=== PATIENT | male | born 1970 | race Caucasian/White ===

== ENCOUNTER 2020-09-09 14:38 | Outpatient (REF) | payer OTHER, SELFPAY | END 2020-09-09 14:39 | disposition home or self-care (01) | LOC: HO.LAB 14:38 | PROVIDERS: PCP Internal Medicine; Visit Provider Internal Medicine | DX: Z20.828 Contact with and (suspected) exposure to other viral communicable diseases (principal) | CPT/HCPCS: 87635 ==

== ENCOUNTER 2021-02-09 16:46 | Inpatient (IN) | payer OTHER, SELFPAY ==
[2021-02-09] VITALS (8 sets, daily range): BP systolic 89–107; BP diastolic 22–60; PULSE 98–109; RESP 18–28; TEMP 37–38.1; O2SAT 90–96; BMI 39.6
--- NOTE | ~2021-02-09 | XR_ITS ---
EXAMINATION: XR CHEST CLINICAL INFORMATION: Follow-up Covid Pneumonia. COMPARISON: None TECHNIQUE: Frontal view of the chest was obtained. FINDINGS: The lungs are well-expanded with patchy opacities seen in both lung bases likely resolving infiltrates. No pleural effusion is suspected. Tip of endotracheal tube is 5.2 cm above the marielena. Right jugular central catheter is in mid to distal SVC. Enteric tube tip is below the diaphragm in stomach. Heart size and pulmonary vascularity is normal. No gross bony abnormality seen. XR/XR chest 1V IMPRESSION: Diffuse haziness in both lung bases likely slowly resolving infiltrates. Support lines and catheters are in satisfactory position.
--- NOTE | ~2021-02-09 | XR_ITS ---
EXAMINATION: XR CHEST CLINICAL INFORMATION: Hypoxia. COMPARISON: Most recent chest radiograph dated 02/18/2021. TECHNIQUE: Frontal view of the chest was obtained. FINDINGS: Diffuse, patchy bilateral airspace opacities which have slightly increased in prominence when compared to the chest radiograph dated 02/18/2021. No pleural effusion or pneumothorax. Stable cardiomediastinal silhouette. No acute osseous abnormality. XR/XR chest 1V IMPRESSION: Patchy bilateral airspace opacities, slightly increased in prominence when compared to the prior examination. Findings can be seen in the setting of an infectious or inflammatory process, including viral pneumonia.
--- NOTE | ~2021-02-09 | XR_ITS ---
EXAMINATION: CHEST 1 VIEW CLINICAL INFORMATION: Shortness of breath. COMPARISON: February 09, 2021. TECHNIQUE: An AP view of the chest is provided. FINDINGS: In the setting of low lung volumes, the cardiac silhouette is at the upper limits of normal in size. There is diffuse patchy airspace opacification throughout both lungs. There are neither pleural effusions nor pneumothoraces. The osseous structures are stable. XR/XR chest 1V IMPRESSION: Diffuse patchy airspace disease throughout both lungs. The appearance is nonspecific, though consider diagnosis of Covid.
--- NOTE | ~2021-02-09 | CT_ITS ---
EXAMINATION: CT ANGIOGRAM OF THE CHEST WITH AND WITHOUT CONTRAST (CT PULMONARY ANGIOGRAM FOR PE) CLINICAL INFORMATION: Reason for Exam COVID-19 with hypoxia COMPARISON: None TECHNIQUE: Prior to contrast administration, noncontrast localization images were obtained. Subsequently, multidetector volumetric imaging was performed from the thoracic inlet to below the diaphragms following the administration of 71 mL Omnipaque 350 intravenous contrast. No contrast reaction reported Sagittal, coronal, and MIP oblique sagittal reformatted images were obtained on the CT workstation, uploaded to PACS, and reviewed. This CT examination was performed using dose optimization techniques as appropriate, variously including the following: *Automated exposure control *Adjustment of mA and/or kV according to patient size (this includes techniques or standardized protocols for targeted exams where dose is matched to indication/reason for exam; i.e. extremities or head) *Use of iterative reconstruction technique Total exam dose-length product 549 mGy-cm FINDINGS: QUALITY OF STUDY/CONTRAST BOLUS: Satisfactory. PULMONARY ARTERIES: No central or segmental pulmonary emboli. THORACIC AORTA: No aneurysm or dissection. LUNG: Scattered groundglass infiltrates predominantly peripheral are present in all lobes of the lung highly suggestive of Covid 19 pneumonia. PLEURA: No pleural effusion or pneumothorax. MEDIASTINUM: Normal heart size. No pericardial effusion. Multiple small reactive mediastinal nodes are present but no gross hilar or mediastinal lymphadenopathy. No evidence of septal bowing or right heart strain. CHEST WALL/AXILLA: No axillary or internal mammary lymphadenopathy. OSSEOUS STRUCTURES: No acute or suspicious osseous abnormality. Degenerative changes are present in the spine. UPPER ABDOMEN: Unremarkable. No reflux of contrast into the hepatic veins to suggest elevated right heart pressures. CT/CT angio chest PE protocol IMPRESSION: 1. No pulmonary emboli. 2. Multifocal groundglass infiltrates characteristic of Covid 19 VTE: negative
--- NOTE | ~2021-02-09 | XR_ITS ---
EXAMINATION: XR CHEST CLINICAL INFORMATION: Intubated hypoxia COMPARISON: Prior examinations most recent 02/22/2021 TECHNIQUE: Frontal view of the chest was obtained. FINDINGS: Lines and tubes: The left internal jugular catheter noted with the tip overlying the region of the left brachiocephalic vein. I'm not certain whether not it this is simply projectional or may be turning back on itself Endotracheal tube 5 cm above marielena NG tube tip not well visualized in part related to imaging technique. Right IJ central venous catheter tip in region of SVC. There is diffuse increased opacity over the right lung which is increased compared to prior. Left lung unremarkable. Cardiac silhouette mediastinum pulmonary vascularity are unremarkable. XR/XR chest 1V IMPRESSION: The left IJ central venous catheter appears to been repositioned. I am not certain whether not the distal end of the catheter may be coiled back on itself This critical result was discussed with Dr. Pablo at approximately 1:00 PM on February 24, 2021 and it was ascertained that the content and urgency of the report was understood at the time of direct communication. Dr. Pablo indicated that the catheter was working well. This makes malposition unlikely. Repeat radiograph may help confirm adequate positioning of the catheter. New increased opacity in the right lung which could reflect atypical edema or new consolidation.
--- NOTE | ~2021-02-09 | XR_ITS ---
EXAMINATION: XR CHEST CLINICAL INFORMATION: Dialysis catheter placement COMPARISON: February 21, 2021 TECHNIQUE: AP portable chest view of the chest was obtained. FINDINGS: Endotracheal tube tip lies approximately 6 cm above the marielena. Enteric tube is seen traversing to the stomach. Right internal jugular central venous catheter is seen in place with tip in the superior right atrium. Left internal jugular dialysis catheter tip overlying the right apex and may lie within the right internal jugular vein. No pneumothorax. No significant pleural effusion. Heart normal size. There are again noted to be bilateral regions of patchy interstitial and airspace disease. XR/XR chest 1V IMPRESSION: Left internal jugular dialysis catheter tip misdirected and probably lying within the right subclavian vein or less likely extravascular. No pneumothorax. Continued bilateral regions of interstitial and airspace disease. This critical result was discussed with Dr. Pablo at 2:30 PM on February 22, 2021 and it was ascertained that the content and urgency of the report was understood at the time of direct communication.
--- NOTE | ~2021-02-09 | XR_ITS ---
EXAMINATION: CHEST 1 VIEW CLINICAL INFORMATION: Hypoxia. COMPARISON: 02/12/2021. TECHNIQUE: An AP view of the chest is provided. FINDINGS: The cardiac silhouette is not enlarged. The mediastinal and hilar contours are unremarkable. There are neither pleural effusions nor pneumothoraces. There is again noted to be diffuse patchy airspace disease bilaterally. The osseous structures are stable. XR/XR chest 1V IMPRESSION: Diffuse patchy multifocal airspace disease again identified.
--- NOTE | ~2021-02-09 | US_ITS ---
EXAMINATION: US VENOUS ULTRASOUND WITH DOPPLER LOWER EXTREMITY, BILATERAL CLINICAL INFORMATION: COVID with severe hypoxemia. COMPARISON: None TECHNIQUE: Ultrasound of the deep veins is performed from the hip to the calf with compression sonography and color and pulse Doppler assessment. Spectral analysis with color-flow imaging is performed. FINDINGS: RIGHT: There is normal venous compression and respiratory variation and augmented flow. The visualized common femoral vein, superficial femoral vein, profunda femoral vein, popliteal vein, and the trifurcation region shows no evidence of deep venous thrombosis. There is no significant popliteal fossa cyst. Mild subcutaneous edema is seen in the left calf. LEFT: There is normal venous compression and respiratory variation and augmented flow. The visualized common femoral vein, superficial femoral vein, profunda femoral vein, popliteal vein, and the trifurcation region shows no evidence of deep venous thrombosis. There is no significant popliteal fossa cyst. Mild subcutaneous edema is seen in the left calf. If the patient's symptoms persist, followup ultrasound in 5 days 7 days might be of value to exclude proximal propagation from a non-visualized calf vein. US/US venous duplex LE BI IMPRESSION: 1. No evidence of deep venous thrombosis in the visualized veins of the bilateral lower extremities. 2. Mild subcutaneous edema in the calves bilaterally.
--- NOTE | ~2021-02-09 | XR_ITS ---
EXAMINATION: XR CHEST CLINICAL INFORMATION: Interval placement of right IJ line is since prior exam COMPARISON: Chest radiograph less than one hour ago TECHNIQUE: Frontal view of the chest was obtained. FINDINGS: Since the prior study a right IJ line has been placed and its tip is in good position at the SVC/RA junction. No pneumothorax. The ET tube has been pulled back slightly and is now about 5 cm above the marielena. The exam is otherwise unchanged. Diffuse bilateral airspace disease is again seen. XR/XR chest 1V IMPRESSION: Right IJ line placed without complication and is in good position.
--- NOTE | ~2021-02-09 | XR_ITS ---
EXAMINATION: XR CHEST CLINICAL INFORMATION: Tube placement COMPARISON: Chest x-ray earlier this morning TECHNIQUE: Frontal view of the chest was obtained. XR/XR chest 1V FINDINGS/IMPRESSION: Cardiac silhouette is mildly enlarged. Interval insertion of endotracheal tube which terminates approximately 3.4 cm above the level of the marielena. Enteric tube not visualized. Extensive patchy bilateral airspace disease is again appreciated, slightly worsened from this morning. Cannot exclude a small amount of subcutaneous emphysema within the bilateral axilla, however, I suspect this is due to skin folds. Further evaluation can be obtained with cross-sectional imaging if clinically indicated.
[2021-02-09 17:46] LABS: COVID-19 Test Positive (Negative); IDNOW Serial# 9DD0AD1C
--- NOTE | 2021-02-09 17:46 | ED_ITS ---
HPI - URI/Sore Throat General Chief Complaint: Upper Respiratory Symptoms Stated Complaint: Covid symptoms Time Seen by Provider: 02/09/21 17:46 Source: patient Mode of arrival: ambulatory Limitations: no limitations History of Present Illness HPI Narrative: Patient 50 years old with history of asthma been feeling very short of breath for last few days no fever no chills feels body aches tired, lives alone no other known contact with COVID patient has not received COVID vaccine on arrival patient is saturating 90% at room air temperature of 100.5 degrees Related Data Home Medications Medication Instructions Recorded Confirmed allopurinol 300 mg tablet 300 mg PO DAILY 10/24/20 02/09/21 colchicine 0.6 mg tablet 0.6 mg PO BID 10/24/20 02/09/21 fluticasone 232 mcg-salmeterol 14 1 inh PO BID 10/24/20 02/09/21 mcg/actuation breath activated powdr naproxen 500 mg tablet 500 mg PO BID 10/24/20 02/09/21 allopurinol 200 mg PO DAILY 02/09/21 02/09/21 Previous Rx's Medication Instructions Recorded metformin 500 mg tablet 500 mg PO BID #180 tab 09/01/20 lisinopril 40 mg tablet 40 mg PO DAILY 90 Days #90 tab 10/24/20 blood pressure test kit-large #1 12/06/20 blood sugar diagnostic #50 ea 12/06/20 blood-glucose meter #1 12/06/20 lancets 28 gauge #100 ea 12/06/20 grab bar #2 ea 01/12/21 shower seat #1 01/12/21 Allergies Allergy/AdvReac Type Severity Reaction Status Date / Time statins Allergy Unknown elevated Uncoded 12/06/20 17:04 liver enzymes Review of Systems Review of Systems: Constitutional : No Weight loss, No Fever, No Chills ENT/Mouth : No sore throat, No Rhinorrhea Eyes: No Eye Pain, No Swelling Cardiovascular : No Chest Pain, no palpitations Respiratory :++ Cough, No Sputum, ++ shortness of breath Gastrointestinal : no Nausea, No Vomiting, No Diarrhea, No abdominal Pain, no black stools Genitourinary : No Dysuria, No Urinary Frequency Musculoskeletal : No joint pain, No Myalgias, No Joint Swelling Skin : No Skin Lesions, No rash Neuro : No Weakness, No Numbness, No Dizziness, No Headache Psych : No Anxiety/Panic, No Depression Heme/Lymph: No Bruising, No Lymphadenopathy Endocrine : No Polyuria, No Polydipsia All other systems reviewed and are negative [facility] Past Medical History Medical History Asthma Diabetes mellitus Essential hypertension Gout Pure hypercholesterolemia Unsteady gait Surgical History No pertinent past surgical history Family History Family History Father Diabetes Cancer Hypertension Mother Diabetes Hypertension Paternal Grandmother Cancer Paternal Grandfather Cancer Social History Social History Alcohol intake: current Alcohol intake frequency: holidays/special occasions only Smoking Status: Former smoker Tobacco Type: Cigarette Smoked in Last 30 Days: No Use of substances other than those prescribed or required for medical reasons: No Advance Directives: No Advance Directives Information Provided: No Physical Exam Vital Signs: Vital Signs: Last Vital Signs Temp 98.6 F 02/09/21 22:38 Pulse 99 02/09/21 22:38 Resp 18 02/09/21 22:38 BP 107/60 02/09/21 22:38 Pulse Ox 93 02/09/21 22:38 Body Mass Index 39.6 Appearance: Alert. Oriented X3. No acute distress. Eyes: Pupils equal, round and reactive to light. ENT: Pharynx normal. Neck: Normal inspection. Neck supple. CVS: Normal heart rate and rhythm. Pulses normal. Respiratory: No respiratory distress. Prolonged expiration with rhonchi no coryza Abdomen: Soft and nontender. Bowel sounds are present, no mass palpable, no CVA tenderness Skin: Skin warm and dry. Normal skin color. Normal skin turgor. Extremities: No lower extremity edema. No calf tenderness Neuro: Oriented X 3. No motor deficit. No sensory deficit. MDM - URI/Sore Throat MDM Narrative Medical decision making narrative: Patient with COVID-19 with infiltrate and hypoxia CTA negative for PE requiring oxygen will admit patient for supportive treatment Differential Diagnosis Differential diagnosis: Likely upper respiratory infection Lab Data Attestation: I reviewed the patient's lab results. Result diagrams: 02/09/21 18:28 02/09/21 18:28 Labs: Lab Results 02/09/21 02/09/21 02/09/21 Range/Units 17:03 18:28 18:28 WBC (4.8-10.8) X10*3/uL RBC (4.60-5.80) X10*6/uL Hgb (14.0-18.0) g/dl Hct (42-52) % MCV (80-98) fL MCH (27.0-33.0) pg MCHC (31.0-36.0) g/dl RDW (11.0-16.0) % Plt Count (160-400) X10*3/uL MPV (9.4-12.4) fL Immature Gran % (Auto) (0.0-0.4) % Neut % (Auto) (45-73) % Lymph % (Auto) (20-40) % Hernando % (Auto) (2-11) % Eos % (Auto) (0-4) % Baso % (Auto) (0-2) % Lymph # (Auto) (1.2-4.9) X10*3/uL Hernando # (Auto) (0.1-1.2) X10*3/uL Eos # (Auto) (0.0-0.4) X10*3/uL Baso # (Auto) (0.0-0.2) X10*3/uL Abs Immat Gran (auto) (0.00-0.03) X10*3/uL Absolute Neuts (auto) (2.0-8.3) X10*3/uL Absolute Nucleated RBC (0.0-0.012) X10*3/uL Nucleated RBC % (auto) (0.0-0.2) /100WBC Smear Tech's Comments PT 14.4 H (10.8-13.0) SEC INR 1.2 H (0.9-1.1) APTT 37.6 (24.1-38.0) SEC D-Dimer 225 NG/ML Hold Blue Top SEE NOTE Sodium 138 (135-145) mmol/L Potassium 4.4 (3.3-5.1) mmol/L Chloride 99 (96-108) mmol/L Carbon Dioxide 27 (22-29) mmol/L Anion Gap 16 (12-20) BUN 19 H (9-16) mg/dL Creatinine 1.18 (0.5-1.4) mg/dL Estim Creat Clear Calc 98.7 Estimated GFR > 60 Random Glucose 111 (60-115) mg/dL Lactic Acid (0.5-2.0) mmol/L Calcium 9.2 (8.4-10.2) mg/dL Ferritin 377 H (20-250) ng/mL Lactate Dehydrogenase 250 (118-273) U/L C-Reactive Protein 8.78 H (< or = 0.50) mg/dL COVID-19 ([facility]) Positive A (Negative) COVID-19 Clin Com See Note 02/09/21 02/09/21 Range/Units 18:28 21:04 WBC 3.7 L (4.8-10.8) X10*3/uL RBC 4.91 (4.60-5.80) X10*6/uL Hgb 15.7 (14.0-18.0) g/dl Hct 46.5 (42-52) % MCV 94.7 (80-98) fL MCH 32.0 (27.0-33.0) pg MCHC 33.8 (31.0-36.0) g/dl RDW 13.2 (11.0-16.0) % Plt Count 118 L (160-400) X10*3/uL MPV 10.7 (9.4-12.4) fL Immature Gran % (Auto) 0.0 (0.0-0.4) % Neut % (Auto) 77.7 H (45-73) % Lymph % (Auto) 13.4 L (20-40) % Hernando % (Auto) 8.3 (2-11) % Eos % (Auto) 0.3 (0-4) % Baso % (Auto) 0.3 (0-2) % Lymph # (Auto) 0.5 L (1.2-4.9) X10*3/uL Hernando # (Auto) 0.3 (0.1-1.2) X10*3/uL Eos # (Auto) 0.0 (0.0-0.4) X10*3/uL Baso # (Auto) 0.0 (0.0-0.2) X10*3/uL Abs Immat Gran (auto) 0.00 (0.00-0.03) X10*3/uL Absolute Neuts (auto) 2.9 (2.0-8.3) X10*3/uL Absolute Nucleated RBC 0.000 (0.0-0.012) X10*3/uL Nucleated RBC % (auto) 0.0 (0.0-0.2) /100WBC Smear Tech's Comments VERIFIED PT (10.8-13.0) SEC INR (0.9-1.1) APTT (24.1-38.0) SEC D-Dimer NG/ML Hold Blue Top Sodium (135-145) mmol/L Potassium (3.3-5.1) mmol/L Chloride (96-108) mmol/L Carbon Dioxide (22-29) mmol/L Anion Gap (12-20) BUN (9-16) mg/dL Creatinine (0.5-1.4) mg/dL Estim Creat Clear Calc Estimated GFR Random Glucose (60-115) mg/dL Lactic Acid 1.1 (0.5-2.0) mmol/L Calcium (8.4-10.2) mg/dL Ferritin (20-250) ng/mL Lactate Dehydrogenase (118-273) U/L C-Reactive Protein (< or = 0.50) mg/dL COVID-19 ([facility]) (Negative) COVID-19 Clin Com ECG Data Attestation: I personally reviewed and interpreted this ECG as follows: Interpretation: Sinus tachycardia heart rate 102 incomplete right bundle branch block no acute ST T wave changes no acute ischemia Discharge Plan Discharge Clinical Impression: Pneumonia due to 2019-nCoV, Hypoxia Patient Disposition: Admitted As Inpatient
[2021-02-09] MEDS: Albuterol Sulfate 90 MCG 8 GM INHALER 4 PUFF INHALE (18:32)
[2021-02-09] MEDS: dexAMETHasone sod phosphate 4 MG/ML VIAL 6 MG IVPUSH (18:36)
[2021-02-09 18:37] LABS: Basophils Percent Auto 0.3 % (0-2); Eosinophils Percent Auto 0.3 % (0-4); Hematocrit 46.5 % (42-52); Hemoglobin 15.7 g/dl (14.0-18.0); Lymphocytes Absolute Auto 0.5 X10*3/uL (1.2-4.9); Lymphocytes Percent Auto 13.4 % (20-40); MANUAL DIFF FLAG SCAN; Mean Corpuscular HGB Conc 33.8 g/dl (31.0-36.0); Mean Corpuscular Volume 94.7 fL (80-98); Mean Platelet Volume 10.7 fL (9.4-12.4); Monocytes Absolute Auto 0.3 X10*3/uL (0.1-1.2); Monocytes Percent Auto 8.3 % (2-11); Neutrophils Absolute Auto 2.9 X10*3/uL (2.0-8.3); Neutrophils Percent Auto 77.7 % (45-73); Platelet Count 118 X10*3/uL (160-400); Red Blood Count 4.91 X10*6/uL (4.60-5.80); Red Cell Distribution Width 13.2 % (11.0-16.0); SCAN SMEAR FLAG 1; White Blood Count 3.7 X10*3/uL (4.8-10.8)
[2021-02-09] MEDS: 0.9 % Sodium Chloride 1,000 ML 999 ML IVCONT ×2 (18:38→21:08)
[2021-02-09 18:44] LABS: INTERNATIONAL NORM RATIO 1.2 (0.9-1.1); Prothrombin Time 14.4 SEC (10.8-13.0)
[2021-02-09 18:47] LABS: D Dimer 225 NG/ML; Partial Thromboplastin Time 37.6 SEC (24.1-38.0)
[2021-02-09 18:57] LABS: SLIDE REVIEW VERIFIED
[2021-02-09 19:06] LABS: Anion Gap 16 (12-20); Blood Urea Nitrogen 19 mg/dL (9-16); C Reactive Protein 8.78 mg/dL (< or = 0.50); Calcium 9.2 mg/dL (8.4-10.2); Carbon Dioxide 27 mmol/L (22-29); Chloride 99 mmol/L (96-108); Creatinine Clr Calc Pharmacy 98.7; Estimated Glomerular Filt Rate > 60; Glucose Random 111 mg/dL (60-115); Lactate Dehydrogenase 250 U/L (118-273); Potassium 4.4 mmol/L (3.3-5.1); Sodium 138 mmol/L (135-145)
[2021-02-09 19:27] LABS: Ferritin 377 ng/mL (20-250)
--- NOTE | 2021-02-09 20:21 | PC.NURSE ---
REPORT TAKEN FROM ADILENE ZAMORA FIRST CONTACT WITH PT. RESTING IN BED FACETIMING FAMILY. A&Ox3, SKIN PWD RESPIRATIONS EVEN UNLABORED. DENIES PAIN, DENIES DIFF BREATHING. BP IMPROVED AFTER FLUIDS. AWAITING MD REEVAL. AWARE OF PLAN OF CARE.
[2021-02-09] MEDS: cefTRIAXone sodium 1 GM in 0.9 % Sodium Chloride 50 ML IV (21:08)
--- NOTE | 2021-02-09 21:20 | PC.NURSE ---
PT TO BE ADMITTED, LACTIC ACID DRAWN SENT TO LAB, IVF AND IV ABX HUNG AND INFUSING WITHOUT DIFFICULTY. PT AWAITING HOSPITALIST CONSULT. AWARE OF PLAN OF CARE.
[2021-02-09 21:32] LABS: Lactic Acid 1.1 mmol/L (0.5-2.0)
[2021-02-09] MEDS: Albuterol Sulfate (0.083%) 2.5 MG/3 ML VIAL.NEB 5 MG INHALE (21:48)
--- NOTE | 2021-02-09 22:16 | PC.NURSE ---
IVF AND IV ABX FINISHED, HOSPITALIST AT BEDSIDE FOR CONSULT. PT AWAITING BED ASSIGNMENT FOR ADMISSION. AWARE OF PLAN OF CARE.
[2021-02-10] VITALS (9 sets, daily range): BP systolic 108–128; BP diastolic 57–90; PULSE 93–100; RESP 18–20; TEMP 35.6–36.7; O2SAT 90–93
[2021-02-10] MEDS: Heparin Sodium,Porcine 5,000 UNIT/ML VIAL 5000 UNIT SUBCUT ×3 (01:15→20:36)
[2021-02-10] MEDS: 0.9 % Sodium Chloride Flush 3 ML SYRINGE IVFLUSH ×4 (01:17→23:34)
[2021-02-10 01:23] LABS: Glucose, Whole Blood 192 mg/dL (60-115)
--- NOTE | 2021-02-10 04:28 | P.HPHOSP_ITS ---
History of Present Illness Date of Service: 02/09/21 Chief Complaint: Shortness of breath, fevers This is a 50-year-old male with past medical history of hypertension, gout, diabetes who presents to the hospital with complaints of shortness of breath, fever, body aches, weakness, asthma like symptoms, and low appetite for the past few days. Patient denies any sick contacts or recent travel. He is complaining of a productive cough, no headache, no change in vision, no nausea or vomiting, no abdominal pain, no diarrhea constipation. No urinary symptoms and no lower extremity edema. Patient's temp of a 100.5?, heart rate of 109, respiratory rate of 22, blood pressure of 90/22, and pulse ox 90% on room air at rest. Labs are significant for hemoglobin of 15.7, platelet count of 118, INR of over 42, her BUN of 19, creatinine of 1.18, ferritin of 377, LDH of 250, CRP of 8.78, COVID-19 positive, CT angiogram shows no PE but multifocal ground-glass infiltrates characteristic of COVID-19 Past medical history as below and confirmed with patient Review of Systems Review of Systems: Yes all other systems are reviewed and are negative [facility] Medical History Asthma Diabetes mellitus Essential hypertension Gout Pure hypercholesterolemia Unsteady gait Family History Father Diabetes Cancer Hypertension Mother Diabetes Hypertension Paternal Grandmother Cancer Paternal Grandfather Cancer Surgical History No pertinent past surgical history Social History Household Members: None Housing: Apartment Alcohol intake: current Alcohol intake frequency: holidays/special occasions only Smoking Status: Former smoker Tobacco Type: Cigarette Smoked in Last 30 Days: No Use of substances other than those prescribed or required for medical reasons: No Currently Displaying Signs/Symptoms of Drug Intoxication Withdrawal: No Have you been hit, kicked, punched, or otherwise hurt by someone within the past year? If so, by whom?: No Do you feel safe in your current relationship?: No Current Relationship Is there a partner from a previous relationship who is making you feel unsafe now?: No Are you made to feel afraid or neglected: No Advance Directives: No Advance Directives Information Provided: No Do you have thoughts of harming others: None Do you have a plan to hurt others: No Plan Recently lost weight without trying: No Meds Allergies Allergy/AdvReac Type Severity Reaction Status Date / Time statins Allergy Unknown elevated Uncoded 12/06/20 17:04 liver enzymes Active Medications: Current Medications Generic Name Dose Route Start Last Admin Trade Name Freq PRN Reason Stop Dose Admin Acetaminophen 650 mg 02/10/21 00:13 Acetaminophen 325 Mg Tablet PO Q6H PRN Pain, Mild (Pain Scale 1-3) Albuterol Sulfate 2 puff 02/10/21 00:13 Albuterol Sulfate 90 Mcg 8 Gm Inhaler INHALE RQ4H PRN Shortness of Breath/Wheezing Albuterol/Ipratropium 3 ml 02/10/21 00:13 Albuterol/Iprat 2.5/0.5mg 3 Ml Ampul.Neb INHALE RQ4H PRN Shortness of Breath Allopurinol 300 mg 02/10/21 09:00 Allopurinol 300 Mg Tablet PO DAILY [facility] Colchicine 0.6 mg 02/10/21 09:00 Colchicine 0.6 Mg Tablet PO BID [facility] Dexamethasone Sodium Phosphate 6 mg 02/10/21 09:00 Dexamethasone Sod Phosphate 4 Mg/Ml Vial IVPUSH DAILY [facility] Docusate Sodium 100 mg 02/10/21 00:13 Docusate Sodium 100 Mg Capsule PO DAILY PRN Constipation Heparin Sodium (Porcine) 5,000 unit 02/10/21 01:15 02/10/21 01:15 Heparin Sodium,Porcine 5,000 Unit/Ml Vial SUBCUT 5,000 unit BID [facility] Administration Insulin Human Lispro 0 unit 02/10/21 07:30 Insulin Lispro 100 Unit/Ml 3 Ml Vial SUBCUT QIDACHS [facility] Protocol Lisinopril 40 mg 02/10/21 09:00 Lisinopril 40 Mg Tablet PO DAILY [facility] Protocol Ondansetron HCl 4 mg 02/10/21 00:13 Ondansetron Hcl 4 Mg/2 Ml Vial IVPUSH Q8H PRN Nausea and Vomiting Sodium Chloride 3 ml 02/10/21 00:13 02/10/21 01:17 0.9 % Sodium Chloride Flush 3 Ml Syringe IVFLUSH 3 ml QSHIFT [facility] Administration Home Medications Medication Instructions Recorded Confirmed Last Taken Type allopurinol 300 mg tablet 300 mg PO DAILY 10/24/20 02/09/21 02/09/21 History colchicine 0.6 mg tablet 0.6 mg PO BID 10/24/20 02/09/21 02/09/21 History fluticasone 232 mcg-salmeterol 14 1 inh PO BID 10/24/20 02/09/21 02/09/21 Histo ry mcg/actuation breath activated powdr naproxen 500 mg tablet 500 mg PO BID 10/24/20 02/09/21 02/09/21 History allopurinol 200 mg PO DAILY 02/09/21 02/09/21 02/09/21 History Physical Exam Vital Signs and Narrative: Vital Signs: Last Vital Signs Temp 97.2 F 02/10/21 03:33 Pulse 94 02/10/21 03:33 Resp 18 02/10/21 03:33 BP 128/90 H 02/10/21 03:33 Pulse Ox 93 02/10/21 03:33 Body Mass Index 39.6 Const: General: cooperative and no acute distress Orientation/consc iousness: patient oriented x3 Eyes: General: appearance normal, both eyes and all related structures Resp: Effort & Inspection: normal respiratory effort and able to speak in complete sentences Auscultation: crackles Cardio: Rate: regular rate Rhythm: regular rhythm GI: Palpation (GI): Soft to palpation Auscultation: normal bowel sounds Skin: General skin exam: no rashes or lesions noted Neuro: General: patient oriented x3 Cognition (Neuro): normal cognition Extrem: General: Yes normal to inspection and Yes no pedal edema Results Labs CBC and Chem 7: 02/09/21 18:28 02/09/21 18:28 Labs: Laboratory Results - last 24 hr 02/09/21 02/09/21 02/09/21 17:03 18:28 18:28 MCV MCH MCHC RDW Plt Count MPV Immature Gran % (Auto) Neut % (Auto) Lymph % (Auto) Brooks % (Auto) Eos % (Auto) Baso % (Auto) Lymph # (Auto) Brooks # (Auto) Eos # (Auto) Baso # (Auto) Abs Immat Gran (auto) Absolute Neuts (auto) Absolute Nucleated RBC Nucleated RBC % (auto) Smear Tech's Comments PT 14.4 H INR 1.2 H APTT 37.6 D-Dimer 225 Hold Blue Top SEE NOTE Anion Gap 16 Estim Creat Clear Calc 98.7 Estimated GFR > 60 POC Glucose Random Glucose 111 Lactic Acid Calcium 9.2 Ferritin 377 H Lactate Dehydrogenase 250 C-Reactive Protein 8.78 H COVID-19 ([facility]) Positive A COVID-19 Clin Com See Note 02/09/21 02/09/21 02/10/21 18:28 21:04 01:18 MCV 94.7 MCH 32.0 MCHC 33.8 RDW 13.2 Plt Count 118 L MPV 10.7 Immature Gran % (Auto) 0.0 Neut % (Auto) 77.7 H Lymph % (Auto) 13.4 L Brooks % (Auto) 8.3 Eos % (Auto) 0.3 Baso % (Auto) 0.3 Lymph # (Auto) 0.5 L Brooks # (Auto) 0.3 Eos # (Auto) 0.0 Baso # (Auto) 0.0 Abs Immat Gran (auto) 0.00 Absolute Neuts (auto) 2.9 Absolute Nucleated RBC 0.000 Nucleated RBC % (auto) 0.0 Smear Tech's Comments VERIFIED PT INR APTT D-Dimer Hold Blue Top Anion Gap Estim Creat Clear Calc Estimated GFR POC Glucose 192 H Random Glucose Lactic Acid 1.1 Calcium Ferritin Lactate Dehydrogenase C-Reactive Protein COVID-19 ([facility]) COVID-19 Clin Com Imaging Radiologist's Impressions: Impressions Chest CTA 02/09/21 17:48 IMPRESSION: 1. No pulmonary emboli. 2. Multifocal groundglass infiltrates characteristic of Covid 19 VTE: negative Assessment and Plan (1) Pneumonia due to 2019-nCoV: Status: Acute (2) Acute respiratory failure with hypoxia: Status: Acute (3) Viral sepsis: Status: Acute This is a 50-year-old male past medical history of hypertension, asthma, diabetes who presents to the hospital with COVID like symptoms. Found to be COVID-19 positive. # COVID-19 pneumonia - patient hypoxic in the high 80s, low 90s, currently on 3 L of oxygen satting 94% - leukocytosis, febrile, lactic acid normal Plan: - will start him on Decadron 6 mg daily - DuoNeb and albuterol p.r.n. - O2 as required - monitor respiratory status closely # acute hypoxic respiratory failure - secondary to viral pneumonia - with management as above - monitor respiratory status closely and O2 as required # viral sepsis - leukocytosis, fevers, tachycardia, tachypnea - most likely secondary to viral pneumonia, CT typical of COVID-19 infection - will keep of antibiotics at this time - continue to monitor - follow blood cultures # hypertension - was hypertensive in the ED - will hold antihypertensive at this time, resume once blood pressure more stable # diabetes mellitus - hold oral antihyperglycemic - start low-dose sliding insulin - diabetic diet DVT prophylaxis: Heparin subQ
[2021-02-10 06:39] LABS: Anion Gap 16 (12-20); Blood Urea Nitrogen 24 mg/dL (9-16); Calcium 8.3 mg/dL (8.4-10.2); Carbon Dioxide 23 mmol/L (22-29); Chloride 101 mmol/L (96-108); Estimated Glomerular Filt Rate > 60; Glucose Random 268 mg/dL (60-115); Potassium 4.5 mmol/L (3.3-5.1); Sodium 135 mmol/L (135-145)
[2021-02-10 06:58] LABS: Hematocrit 42.2 % (42-52); Hemoglobin 13.9 g/dl (14.0-18.0); Lymphocytes Absolute Auto 0.4 X10*3/uL (1.2-4.9); Lymphocytes Percent Auto 12.2 % (20-40); MANUAL DIFF FLAG SCAN; Mean Corpuscular HGB Conc 32.9 g/dl (31.0-36.0); Mean Corpuscular Hemoglobin 31.6 pg (27.0-33.0); Mean Corpuscular Volume 95.9 fL (80-98); Mean Platelet Volume 11.6 fL (9.4-12.4); Monocytes Absolute Auto 0.1 X10*3/uL (0.1-1.2); Monocytes Percent Auto 4.8 % (2-11); Neutrophils Absolute Auto 2.4 X10*3/uL (2.0-8.3); Platelet Count 125 X10*3/uL (160-400); Red Cell Distribution Width 13.2 % (11.0-16.0); SCAN SMEAR FLAG 1; White Blood Count 2.9 X10*3/uL (4.8-10.8)
[2021-02-10 07:21] LABS: Glucose, Whole Blood 197 mg/dL (60-115)
[2021-02-10 07:40] LABS: SLIDE REVIEW VERIFIED
[2021-02-10] MEDS: allopurinoL 100 MG TABLET 200 MG PO (08:51)
[2021-02-10] MEDS: lisinopriL 40 MG TABLET PO (08:51)
[2021-02-10] MEDS: Insulin Lispro 100 UNIT/ML 3 ML VIAL SUBCUT ×4 (08:52→20:37)
[2021-02-10] MEDS: Colchicine 0.6 MG TABLET PO ×2 (08:52→20:36)
[2021-02-10] MEDS: allopurinoL 300 MG TABLET PO (08:53)
[2021-02-10] MEDS: dexAMETHasone sod phosphate 4 MG/ML VIAL 6 MG IVPUSH (08:54)
--- NOTE | 2021-02-10 11:19 | MHC.CM.PN ---
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
[2021-02-10 11:21] LABS: Glucose, Whole Blood 169 mg/dL (60-115)
--- NOTE | 2021-02-10 12:28 | HO.PM.IMPN ---
Subjective Subjective Date of Service: 02/10/21 Interval History: Patient complaining of cough otherwise denies chest pain, no other acute issues overnight BP remains soft, temperature 96 degrees, on admission was 100.5. ROS General no headache, no dizziness, no fever, chills. CVS no chest pain, no palpitation. Respiratory Dry cough, no shortness of breath Gastrointestinal no nausea, no vomiting, no abdominal pain Physical Exam Vital Signs: Vital Signs: Last Vital Signs Temp 96.0 F L 02/10/21 11:16 Pulse 93 02/10/21 11:16 Resp 20 02/10/21 11:16 BP 108/63 02/10/21 11:16 Pulse Ox 92 02/10/21 11:16 Body Mass Index 39.6 General patient resting comfortably in no acute distress. Neck is supple no JVD. CVS regular rate rhythm, Respiratory no respiratory distress, coarse bs, rhonchi. Gastrointestinal abdomen soft,obese, nontender, bowel sounds audible, no guarding , no rigidity. Extremities no clubbing cyanosis or edema. Neuro nonfocal , moving all 4 extremity, speech clear. Skin no rash Objective Data Current Medications Generic Name Dose Route Start Last Admin Trade Name Freq PRN Reason Stop Dose Admin Acetaminophen 650 mg 02/10/21 00:13 Acetaminophen 325 Mg Tablet PO Q6H PRN Pain, Mild (Pain Scale 1-3) Albuterol Sulfate 2 puff 02/10/21 00:13 Albuterol Sulfate 90 Mcg 8 Gm Inhaler INHALE RQ4H PRN Shortness of Breath/Wheezing Albuterol/Ipratropium 3 ml 02/10/21 00:13 Albuterol/Iprat 2.5/0.5mg 3 Ml Ampul.Neb INHALE RQ4H PRN Shortness of Breath Allopurinol 300 mg 02/10/21 09:00 02/10/21 08:53 Allopurinol 300 Mg Tablet PO 300 mg DAILY [facility] Administration Allopurinol 200 mg 02/10/21 09:00 02/10/21 08:51 Allopurinol 100 Mg Tablet PO 200 mg DAILY [facility] Administration Colchicine 0.6 mg 02/10/21 09:00 02/10/21 08:52 Colchicine 0.6 Mg Tablet PO 0.6 mg BID [facility] Administration Dexamethasone Sodium Phosphate 6 mg 02/10/21 09:00 02/10/21 08:54 Dexamethasone Sod Phosphate 4 Mg/Ml Vial IVPUSH 6 mg DAILY [facility] Administration Docusate Sodium 100 mg 02/10/21 00:13 Docusate Sodium 100 Mg Capsule PO DAILY PRN Constipation Heparin Sodium (Porcine) 5,000 unit 02/10/21 01:15 02/10/21 08:52 Heparin Sodium,Porcine 5,000 Unit/Ml Vial SUBCUT 5,000 unit BID [facility] Administration Insulin Human Lispro 0 unit 02/10/21 07:30 02/10/21 12:14 Insulin Lispro 100 Unit/Ml 3 Ml Vial SUBCUT 2 unit QIDACHS [facility] Administration Protocol Lisinopril 40 mg 02/10/21 09:00 02/10/21 08:51 Lisinopril 40 Mg Tablet PO 40 mg DAILY [facility] Administration Protocol Ondansetron HCl 4 mg 02/10/21 00:13 Ondansetron Hcl 4 Mg/2 Ml Vial IVPUSH Q8H PRN Nausea and Vomiting Sodium Chloride 3 ml 02/10/21 00:13 02/10/21 08:53 0.9 % Sodium Chloride Flush 3 Ml Syringe IVFLUSH 3 ml QSHIFT [facility] Administration Labs CBC & Chem 7: 02/10/21 05:36 02/10/21 05:36 Assessment and Plan (1) Acute respiratory failure with hypoxia: Status: Acute (2) Pneumonia due to 2019-nCoV: Status: Acute (3) Diabetes mellitus: Status: Acute (4) Essential hypertension: Status: Acute (5) Asthma: Status: Acute Assessment and Plan: 50-year-old male past medical history of hypertension, asthma, diabetes who presents to the hospital with COVID like symptoms. Found to be COVID-19 positive. # COVID-19 pneumonia with acute hypoxic respiratory failure patient hypoxic in the high 80s, low 90s, on arrival to ED, currently on 2 L of oxygen satting 92%, Fever resolved, persistent leukopenia, lactic acid normal, CRP 8.78, ferritin 377, patient's symptoms started few days ago, since patient oxygenation is improving hold remdesivir Will continue IV dexamethasone day 2, continue albuterol, patient not on home oxygen will gradually wean Will add cough medication, incentive spirometry encourage out of bed to chair and frequent position change # viral sepsis - leukopenia, fever, tachycardia, and tachypnea on arrival likely due to viral pneumonia with COVID-19 infection follow blood cultures # hypertension Soft BP will continue to hold lisinopril # diabetes mellitus - hold metformin, blood sugars 169 this a.m. continue insulin sliding scale and diabetic diet # history of gout continue colchicine and allopurinol, no acute flare noted DVT prophylaxis: Heparin subQ
[2021-02-10] MEDS: guaiFENesin DM 200/20/10 ML 10 ML SYRUP PO ×3 (13:26→23:34)
--- NOTE | 2021-02-10 14:17 | PC.NURSE ---
Attempted to contact [facility] for [facility] but they were unable to come to unit. Pt a/o and able to understand insulin given. verbalized need for cough medicine. This RN contacted Dr Taina castorena ordered and given to pt
[2021-02-10 17:06] LABS: Glucose, Whole Blood 216 mg/dL (60-115)
--- NOTE | 2021-02-10 18:41 | PC.NURSE ---
1600 LATE ENTRY. PERSONNEL ARBITRATOR HERE ON UNIT TO ASSIST WITH PT. QUESTIONS BY PT ANSWERED BY THIS RN. PT AWARE OF TREATMENT PLAN.
[2021-02-10 20:01] LABS: Glucose, Whole Blood 190 mg/dL (60-115)
[2021-02-10] MEDS: Albuterol Sulfate 90 MCG 8 GM INHALER 2 PUFF INHALE (20:14)
[2021-02-10] MEDS: Acetaminophen 325 MG TABLET 650 MG PO (20:47)
[2021-02-11] VITALS (9 sets, daily range): BP systolic 106–130; BP diastolic 55–75; PULSE 94–116; RESP 20–28; TEMP 36.1–37.7; O2SAT 80–92
[2021-02-11] MEDS: guaiFENesin DM 200/20/10 ML 10 ML SYRUP PO ×4 (06:21→22:57)
[2021-02-11 06:54] LABS: Hematocrit 45.5 % (42-52); Hemoglobin 15.1 g/dl (14.0-18.0); Imm Gran Abs Auto 0.02 X10*3/uL (0.00-0.03); Imm Gran Pct Auto 0.4 % (0.0-0.4); Lymphocytes Absolute Auto 0.6 X10*3/uL (1.2-4.9); Lymphocytes Percent Auto 10.7 % (20-40); MANUAL DIFF FLAG SCAN; Mean Corpuscular HGB Conc 33.2 g/dl (31.0-36.0); Mean Corpuscular Hemoglobin 31.7 pg (27.0-33.0); Mean Corpuscular Volume 95.6 fL (80-98); Mean Platelet Volume 11.1 fL (9.4-12.4); Monocytes Absolute Auto 0.3 X10*3/uL (0.1-1.2); Monocytes Percent Auto 4.8 % (2-11); Neutrophils Absolute Auto 4.6 X10*3/uL (2.0-8.3); Neutrophils Percent Auto 84.1 % (45-73); Platelet Count 154 X10*3/uL (160-400); Red Blood Count 4.76 X10*6/uL (4.60-5.80); Red Cell Distribution Width 13.1 % (11.0-16.0); SCAN SMEAR FLAG 1; White Blood Count 5.4 X10*3/uL (4.8-10.8)
[2021-02-11 07:30] LABS: SLIDE REVIEW VERIFIED
[2021-02-11 07:41] LABS: Glucose, Whole Blood 116 mg/dL (60-115)
[2021-02-11] MEDS: 0.9 % Sodium Chloride Flush 3 ML SYRINGE IVFLUSH ×3 (09:21→22:55)
[2021-02-11] MEDS: allopurinoL 100 MG TABLET 200 MG PO (09:22)
[2021-02-11] MEDS: Heparin Sodium,Porcine 5,000 UNIT/ML VIAL 5000 UNIT SUBCUT ×2 (09:23→21:16)
[2021-02-11] MEDS: Colchicine 0.6 MG TABLET PO ×2 (09:23→21:16)
[2021-02-11] MEDS: allopurinoL 300 MG TABLET PO (09:23)
[2021-02-11] MEDS: Acetaminophen 325 MG TABLET 650 MG PO ×2 (09:25→21:15)
[2021-02-11] MEDS: dexAMETHasone sod phosphate 4 MG/ML VIAL 6 MG IVPUSH (09:25)
[2021-02-11] MEDS: Albuterol Sulfate 90 MCG 8 GM INHALER 2 PUFF INHALE ×3 (09:32→20:33)
--- NOTE | 2021-02-11 11:04 | PC.NURSE ---
0800: Pt o2 sat on 3L 80%. Pt with increasde sob and tachypneic. RT called, pt placed on 100%NRB. lungs with rhonchi in bilateral bases/ dim t/o. Dr Johnson notified. sats improved to 92-93%. Will continue to monitor
[2021-02-11 11:31] LABS: Glucose, Whole Blood 140 mg/dL (60-115)
--- NOTE | 2021-02-11 13:35 | P.PNIM_ITS ---
Subjective Subjective Date of Service: 02/11/21 Interval History: the patient was seen and evaluated this morning Laying in bed, feels mild respiratory distress with increased oxygen requi rement to non-rebreather mask Denies any fever, chills Report difficulty breathing and wheezes No reported other overnight events. Systemic review: No fever, chills or weakness No chest pain, palpitation Exertional shortness of breath , no coughing No abdominal pain, nausea or vomiting No urinary symptoms No any rash or wounds Physical Exam Vital Signs: Vital Signs: Last Vital Signs Temp 98.4 F 02/11/21 12:00 Pulse 101 H 02/11/21 12:00 Resp 24 H 02/11/21 12:00 BP 116/66 02/11/21 12:00 Pulse Ox 89 L 02/11/21 12:00 Body Mass Index 39.6 Const: Other: Constitutional : Alert, oriented, not in distress Neck : Normal inspection, Supple Cardiovascular : RRR, S1 S2, no lower extremity edema Respiratory : For bilateral air entry, no crackles, scattered bilateral wheezes, in mild respiratory distress, increased oxygen requirement Gastrointestinal: soft, lax, Normal bowel sounds, Non tender Skin : Warm/Dry, No rash Neurological : Alert & oriented x3, No focal deficit Objective Data Current Medications Generic Name Dose Route Start Last Admin Trade Name Freq PRN Reason Stop Dose Admin Acetaminophen 650 mg 02/10/21 00:13 02/11/21 09:25 Acetaminophen 325 Mg Tablet PO 650 mg Q6H PRN Administration Pain, Mild (Pain Scale 1-3) Albuterol Sulfate 2 puff 02/10/21 00:13 02/11/21 09:32 Albuterol Sulfate 90 Mcg 8 Gm Inhaler INHALE 2 puff RQ4H PRN Administration Shortness of Breath/Wheezing Albuterol/Ipratropium 3 ml 02/10/21 00:13 Albuterol/Iprat 2.5/0.5mg 3 Ml Ampul.Neb INHALE RQ4H PRN Shortness of Breath Allopurinol 300 mg 02/10/21 09:00 02/11/21 09:23 Allopurinol 300 Mg Tablet PO 300 mg DAILY [facility] Administration Allopurinol 200 mg 02/10/21 09:00 02/11/21 09:22 Allopurinol 100 Mg Tablet PO 200 mg DAILY [facility] Administration Colchicine 0.6 mg 02/10/21 09:00 02/11/21 09:23 Colchicine 0.6 Mg Tablet PO 0.6 mg BID [facility] Administration Dexamethasone Sodium Phosphate 6 mg 02/10/21 09:00 02/11/21 09:25 Dexamethasone Sod Phosphate 4 Mg/Ml Vial IVPUSH 6 mg DAILY [facility] Administration Docusate Sodium 100 mg 02/10/21 00:13 Docusate Sodium 100 Mg Capsule PO DAILY PRN Constipation Guaifenesin/Dextromethorphan 10 ml 02/10/21 12:30 02/11/21 12:59 Guaifenesin Dm 200/20/10 Ml 10 Ml Syrup PO 10 ml Q6H [facility] Administration Heparin Sodium (Porcine) 5,000 unit 02/10/21 01:15 02/11/21 09:23 Heparin Sodium,Porcine 5,000 Unit/Ml Vial SUBCUT 5,000 unit BID [facility] Administration Insulin Human Lispro 0 unit 02/10/21 07:30 02/11/21 11:44 Insulin Lispro 100 Unit/Ml 3 Ml Vial SUBCUT Not Given QIDACHS [facility] Protocol Lisinopril 40 mg 02/10/21 09:00 02/10/21 08:51 Lisinopril 40 Mg Tablet PO 40 mg DAILY [facility] Administration Protocol Ondansetron HCl 4 mg 02/10/21 00:13 Ondansetron Hcl 4 Mg/2 Ml Vial IVPUSH Q8H PRN Nausea and Vomiting Sodium Chloride 3 ml 02/10/21 00:13 02/11/21 09:21 0.9 % Sodium Chloride Flush 3 Ml Syringe IVFLUSH 3 ml QSHIFT [facility] Administration Labs CBC & Chem 7: 02/11/21 06:17 02/10/21 05:36 Microbiology Microbiology Results: Microbiology 02/09/21 18:28 Blood - Venous Blood Culture - Preliminary No growth after 24 hours. 02/09/21 18:29 Blood - Venous Blood Culture - Preliminary No growth after 24 hours. Assessment and Plan (1) Acute respiratory failure with hypoxia: Status: Acute (2) Pneumonia due to 2019-nCoV: Status: Acute (3) Diabetes mellitus: Status: Acute (4) Essential hypertension: Status: Acute (5) Asthma: Status: Acute Assessment and Plan: 50-year-old male past medical history of hypertension, asthma, diabetes who presents to the hospital with COVID like symptoms. Found to be COVID-19 positive. # acute hypoxic respiratory failure # 2\2 COVID-19 pneumonia, viral sepsis patient hypoxic in the high 80s on an RP, to start high-flow continue IV dexamethasone day 3, continue albuterol, ATC and p.r.n. Continue cough medication incentive spirometry encourage out of bed to chair and frequent position change Get ID evaluation for possible remdesivir # morbid obesity BMI of 39.7 Advised to lose weight as it is affecting his general condition # hypertension Soft BP will continue to hold lisinopril # diabetes mellitus hold metformin blood sugars stable continue insulin sliding scale and diabetic diet # history of gout continue colchicine and allopurinol, no acute flare noted DVT prophylaxis: Heparin subQ
[2021-02-11 15:09] LABS: Alanine Aminotransferase 30 U/L (0-40); Alkaline Phosphatase 72 U/L (39-117); Aspartate Amino Transferase 45 U/L (5-37); Bilirubin Direct 0.4 mg/dL (0.0-0.5); Bilirubin Total 1.1 mg/dL (0.0-1.0); Total Protein 7.1 g/dL (6.5-8.0)
[2021-02-11] MEDS: Albuterol Sulfate 90 MCG 8 GM INHALER 4 PUFF INHALE ×2 (15:26→20:37)
[2021-02-11 16:01] LABS: Glucose, Whole Blood 194 mg/dL (60-115)
[2021-02-11] MEDS: Insulin Lispro 100 UNIT/ML 3 ML VIAL SUBCUT (16:21)
[2021-02-11] MEDS: Remdesivir 200 MG in 0.9 % Sodium Chloride 210 ML 105 MG IV (16:22)
--- NOTE | 2021-02-11 18:02 | PC.NURSE ---
Pt desats with activity. sob at times. occ npc. placed on high flow 55L and 100% NRB sats fluctuate between 87-91%. denies pain
[2021-02-11 19:54] LABS: Glucose, Whole Blood 142 mg/dL (60-115)
[2021-02-12] VITALS (11 sets, daily range): BP systolic 114–147; BP diastolic 76–97; PULSE 93–114; RESP 18–43; TEMP 36.4–37.7; O2SAT 86–94
--- NOTE | 2021-02-12 01:01 | W.PM.CCCN ---
History of Present Illness Data of Consult Service Date: 02/12/21 Requesting physician: Rabia Browne Primary Care Provider: Ирина Oneill MD HPI Reason for consult: hypoxia Pt is a 50yo male with past medical history of JULIET on cpap at home, HTN, gout and DM2 who came to the ED on 02/09 with complaints of shortness of breath, fever, body aches, weakness, asthma like symptoms, and low appetite x3d. Patient denies any sick contacts or recent travel. He was complaining of a productive cough, no headache, no change in vision, no nausea or vomiting, no abdominal pain, no diarrhea constipation. No urinary symptoms and no lower extremity edema. Pt was febrile at 100.5F, tachy at 109, tachypneic at RR22, BP 90/22 and satting at 90% on RA. Labs were significant for WBC 3.7, platelet count of 118, PT 14.4, INR 1.2, D dimer 225, ferritin of 377, LDH of 250, CRP of 8.78, COVID-19 positive, CTA neg for PE but multifocal ground-glass infiltrates characteristic of COVID-19. Pt was then admitted. Pt is on Remdesivir, decadron and albuterol inhaler as well as duoneb neb tx's PRN. Pt's oxygen needs have significant since his admission three days ago and he is currently on 55L 100% high flow with NRB. RN concerned as pt was desatting into the low 80s so she called Dr. Palacio who then called the ICU for a consult. At the bedside, patient's HRin the 90s, O2 sat on the above supplemental oxygen was between 84-88% O2 saturation. Pt was sitting up in a chair, resting comfortably, watching TV. He was not using any accessory muscles to breath, not diaphoretic, he was certainly not working to breath and looked very comfortable. RN and MD report no AMS, pt is Japanese speaking but our minimal conversation he seemed to mentating clearly. Recommended to watch closely and if he becomes altered, his work of breathing increases, becomes diaphoretic or any other concerning changes to call me. RN stated clear understanding of these instructions. Gave rec to MD for VBG, CXR, d-dimer, BNP and serial covid labs (ferritin, crp, ldh) to monitor daily. DENTAL OFFICE RECEPTIONIST Jo Ann Ramos was with me and assessed the pt as well. Labs back, started pt on CPAP, he did well, sats up to the low 90's. Try to hold off on intubation. Interpretor present to explain everything to pt, answered all of pts questions. Review of Systems Review of Systems: Yes all other systems are reviewed and are negative Neurologic: Denies confusion Psychiatric: Psychiatric: Denies confusion [facility] Past Medical History Medical History Asthma Diabetes mellitus Essential hypertension Gout Pure hypercholesterolemia Unsteady gait Family History Family History Father Diabetes Cancer Hypertension Mother Diabetes Hypertension Paternal Grandmother Cancer Paternal Grandfather Cancer Surgical History Surgical History No pertinent past surgical history Social History Social History Household Members: None Housing: Apartment Alcohol intake: current Alcohol intake frequency: holidays/special occasions only Smoking Status: Former smoker Tobacco Type: Cigarette Smoked in Last 30 Days: No Use of substances other than those prescribed or required for medical reasons: No Currently Displaying Signs/Symptoms of Drug Intoxication Withdrawal: No Have you been hit, kicked, punched, or otherwise hurt by someone within the past year? If so, by whom?: No Do you feel safe in your current relationship?: No Current Relationship Is there a partner from a previous relationship who is making you feel unsafe now?: No Are you made to feel afraid or neglected: No Advance Directives: No Advance Directives Information Provided: No Do you have thoughts of harming others: None Do you have a plan to hurt others: No Plan Recently lost weight without trying: No service: No Meds Allergies Allergy/AdvReac Type Severity Reaction Status Date / Time statins Allergy Unknown elevated Uncoded 12/06/20 17:04 liver enzymes Active Medications: Current Medications Generic Name Dose Route Start Last Admin Trade Name Freq PRN Reason Stop Dose Admin Acetaminophen 650 mg 02/10/21 00:13 02/11/21 21:15 Acetaminophen 325 Mg Tablet PO 650 mg Q6H PRN Administration Pain, Mild (Pain Scale 1-3) Albuterol Sulfate 2 puff 02/10/21 00:13 02/11/21 20:33 Albuterol Sulfate 90 Mcg 8 Gm Inhaler INHALE 2 puff RQ4H PRN Administration Shortness of Breath/Wheezing Albuterol Sulfate 4 puff 02/11/21 14:00 02/11/21 20:37 Albuterol Sulfate 90 Mcg 8 Gm Inhaler INHALE 4 puff RQ6H WHILE AWAKE RE[facility] Administration Albuterol/Ipratropium 3 ml 02/10/21 00:13 Albuterol/Iprat 2.5/0.5mg 3 Ml Ampul.Neb INHALE RQ4H PRN Shortness of Breath Allopurinol 300 mg 02/10/21 09:00 02/11/21 09:23 Allopurinol 300 Mg Tablet PO 300 mg DAILY [facility] Administration Allopurinol 200 mg 02/10/21 09:00 02/11/21 09:22 Allopurinol 100 Mg Tablet PO 200 mg DAILY [facility] Administration Colchicine 0.6 mg 02/10/21 09:00 02/11/21 21:16 Colchicine 0.6 Mg Tablet PO 0.6 mg BID [facility] Administration Dexamethasone Sodium Phosphate 6 mg 02/10/21 09:00 02/11/21 09:25 Dexamethasone Sod Phosphate 4 Mg/Ml Vial IVPUSH 6 mg DAILY [facility] Administration Docusate Sodium 100 mg 02/10/21 00:13 Docusate Sodium 100 Mg Capsule PO DAILY PRN Constipation Guaifenesin/Dextromethorphan 10 ml 02/10/21 12:30 02/11/21 22:57 Guaifenesin Dm 200/20/10 Ml 10 Ml Syrup PO 10 ml Q6H [facility] Administration Heparin Sodium (Porcine) 5,000 unit 02/10/21 01:15 02/11/21 21:16 Heparin Sodium,Porcine 5,000 Unit/Ml Vial SUBCUT 5,000 unit BID [facility] Administration Remdesivir 100 mg/ Sodium 230 mls @ 115 mls/hr 02/12/21 16:00 Chloride IV 02/15/21 17:59 Q24H [facility] Insulin Human Lispro 0 unit 02/10/21 07:30 02/11/21 21:03 Insulin Lispro 100 Unit/Ml 3 Ml Vial SUBCUT Not Given QIDACHS [facility] Protocol Lisinopril 40 mg 02/10/21 09:00 02/10/21 08:51 Lisinopril 40 Mg Tablet PO 40 mg DAILY [facility] Administration Protocol Ondansetron HCl 4 mg 02/10/21 00:13 Ondansetron Hcl 4 Mg/2 Ml Vial IVPUSH Q8H PRN Nausea and Vomiting Sodium Chloride 3 ml 02/10/21 00:13 02/11/21 22:55 0.9 % Sodium Chloride Flush 3 Ml Syringe IVFLUSH 3 ml QSHIFT [facility] Administration Home Medications Medication Instructions Recorded Confirmed Last Taken Type allopurinol 300 mg tablet 300 mg PO DAILY 10/24/20 02/09/21 02/09/21 History colchicine 0.6 mg tablet 0.6 mg PO BID 10/24/20 02/09/21 02/09/21 History fluticasone 232 mcg-salmeterol 14 1 inh PO BID 10/24/20 02/09/21 02/09/21 History mcg/actuation breath activated powdr naproxen 500 mg tablet 500 mg PO BID 10/24/20 02/09/21 02/09/21 History allopurinol 200 mg PO DAILY 02/09/21 02/09/21 02/09/21 History Physical Exam Vital Signs: Vital Signs: Last Vital Signs Temp 97.1 F 02/11/21 23:08 Pulse 94 02/11/21 23:08 Resp 20 02/11/21 23:47 BP 130/68 02/11/21 23:08 Pulse Ox 92 02/11/21 23:08 Body Mass Index 39.6 Const: General: cooperative, healthy appearing, comfortable and no acute distress; No in distress, confusion or diaphoretic Nutritional Appearance: obese Orientation/consciousness: patient oriented x3 and No confusion Limitations: no limitations HENMT: Head: Yes normal to inspection Face and sinus: Yes normal facial exam Eyes: General: appearance normal, both eyes and all related structures Neck: Neck: Yes normal visual inspection, Yes full ROM and Yes supple Resp: Effort & Inspection: normal respiratory effort and able to speak in complete sentences Auscultation: rhonchi and other (coarse lung sounds) Cardio: Rate: regular rate Rhythm: regular rhythm Heart sounds: normal S1 and S2 GI: Inspection: Yes obesity Skin: General skin exam: no pallor Lesions: no lesions Rashes: no rashes Neuro: General: patient oriented x3 and No confusion Extrem: General: Yes normal to inspection and Yes no pedal edema Results Labs CBC & Chem 7: 02/11/21 06:17 02/10/21 05:36 Labs: Short CBC 02/11/21 Range/Units 06:17 WBC 5.4 (4.8-10.8) X10*3/uL Hgb 15.1 (14.0-18.0) g/dl Hct 45.5 (42-52) % Plt Count 154 L (160-400) X10*3/uL Liver Function 02/11/21 Range/Units 14:32 Total Bilirubin 1.1 H (0.0-1.0) mg/dL Direct Bilirubin 0.4 (0.0-0.5) mg/dL AST 45 H (5-37) U/L ALT 30 (0-40) U/L Alkaline Phosphatase 72 (39-117) U/L Albumin 4.0 (3.5-5.0) g/dL Microbiology Microbiology Results: Microbiology 02/09/21 18:28 Blood - Venous Blood Culture - Preliminary No growth after 48 hours. 02/09/21 18:29 Blood - Venous Blood Culture - Preliminary No growth after 48 hours. Assessment and Plan (1) Acute respiratory failure with hypoxia: Status: Acute (2) Pneumonia due to 2019-nCoV: Status: Acute (3) Hypoxia: Status: Acute (4) Diabetes mellitus: Qualifiers: Diabetes mellitus complication status: without complication Diabetes mellitus adjunct faculty for medical terminology insulin use: without adjunct faculty for medical terminology use Diabetes mellitus type: type 2 Qualified Code(s): E11.9 - Type 2 diabetes mellitus without complications Status: Acute (5) Essential hypertension: Status: Acute (6) Pure hypercholesterolemia: Status: Acute (7) Viral sepsis: Status: Acute
[2021-02-12] MEDS: Albuterol Sulfate 90 MCG 8 GM INHALER 2 PUFF INHALE ×3 (01:32→19:53)
[2021-02-12 01:39] LABS: Venous Blood Gas Refer to POC result
[2021-02-12 01:40] LABS: VBG Base Excess 1.5 mmol/L; VBG HCO3 27 mmol/L (22-26); VBG pCO2 46 mmHg; VBG pH 7.37 (7.32-7.43); VBG pO2 33 mmHg
[2021-02-12 01:45] LABS: D Dimer 354 NG/ML
[2021-02-12 02:01] LABS: Lactate Dehydrogenase 496 U/L (118-273)
[2021-02-12 02:09] LABS: B Type Natriuretic Peptide 22 pg/mL (<100)
[2021-02-12 02:23] LABS: Ferritin 379 ng/mL (20-250)
--- NOTE | 2021-02-12 02:42 | MHC.PIE ---
02/11/21 2130 p; sat average at 85-88% at rest sitting in chair. pt desats to low 70's with activity. note; pt aready on nrb 100 % and hf 55L 100% and parameter for o2 alarm set at 90%. note; pt hx of sleep apnea but pt refusing use capap at home and in hosp i; dr aguilar notified. lower parameter for o2 to 88% 0030 p; pt asleep in recliner, o2 sat 80-86 average. resp notified - pt already at max for o2 i; dr aguilar notified - md notfied icu ? intubation? i; icu pa recomending labs and xray - dr aguilar notfied by icu, labs and xray ordered p; pt now asleep in bed, o2 sat at 77-80 while asleep, rr 30-40 shallow i; dr aguilar notified; icu pa, resp and target man in room. pt more agreeable to capap e; o2 sat now at 88-90, will cont to monitor
[2021-02-12] MEDS: guaiFENesin DM 200/20/10 ML 10 ML SYRUP PO ×2 (05:53→12:18)
--- NOTE | 2021-02-12 06:38 | PM.EVENT ---
Event Note Date of Service: 02/12/21 Event Note: pt became severely hypoxic on max O2 NRB and High flow eveluated by ICU team placed on CPAP with improvement of oxygenation
[2021-02-12 07:31] LABS: Glucose, Whole Blood 141 mg/dL (60-115)
[2021-02-12] MEDS: allopurinoL 300 MG TABLET PO (08:51)
[2021-02-12] MEDS: allopurinoL 100 MG TABLET 200 MG PO (08:51)
[2021-02-12] MEDS: dexAMETHasone sod phosphate 4 MG/ML VIAL 6 MG IVPUSH (08:52)
[2021-02-12] MEDS: Acetaminophen 325 MG TABLET 650 MG PO ×2 (08:52→20:32)
[2021-02-12] MEDS: Colchicine 0.6 MG TABLET PO ×2 (08:52→20:19)
[2021-02-12] MEDS: Heparin Sodium,Porcine 5,000 UNIT/ML VIAL 5000 UNIT SUBCUT ×2 (08:52→20:19)
[2021-02-12] MEDS: 0.9 % Sodium Chloride Flush 3 ML SYRINGE IVFLUSH ×3 (08:55→20:19)
--- NOTE | 2021-02-12 09:52 | PC.NURSE ---
Pt on CPAP sats 84-91% at rest. denies chest pain. A/O x4. vs 99.8 HR 98 RR 30 BP 114/97. Dr. Johnson updated eoen pt statues and in to see pt.
--- NOTE | 2021-02-12 10:59 | PC.NURSE ---
Pt stood at side of bed to void. o2 sats on CPAP dropped to 79-80%. assisted BTB , sats up to 85- 86%
[2021-02-12 11:17] LABS: Glucose, Whole Blood 151 mg/dL (60-115)
--- NOTE | 2021-02-12 11:28 | PC.NURSE ---
peoplesoft developer here to translate for pt. pt instructed to lie on his side for 1 hour at a time and switch sides. Presently on right side with o2 sats 90-91% on CPAP. verbalizes understanding.
[2021-02-12] MEDS: Insulin Lispro 100 UNIT/ML 3 ML VIAL SUBCUT ×2 (12:17→16:43)
[2021-02-12] MEDS: Fluticasone Propionate Nasal 16 GM SPRAY 1 SPRAY NOSTRIL-B ×2 (14:12→20:40)
[2021-02-12] MEDS: Albuterol Sulfate 90 MCG 8 GM INHALER 4 PUFF INHALE (14:41)
--- NOTE | 2021-02-12 14:48 | HO.PM.IMPN ---
Subjective Subjective Date of Service: 02/12/21 Interval History: the patient was seen and evaluated this morning Laying in bed, feels mild respiratory distress with increased oxygen requirement to CPAP the overnight as he continued to desaturation Denies any fever, chills or chest pain Report difficulty breathing and wheezes No reported other overnight events. Systemic review: No fever, chills or weakness No chest pain, palpitation Increased oxygen requirement, mild shortness of breath and chest tightness , no coughing No abdominal pain, nausea or vomiting No urinary symptoms No any rash or wounds Physical Exam Vital Signs: Vital Signs: Last Vital Signs Temp 98 F 02/12/21 11:12 Pulse 97 02/12/21 11:12 Resp 34 H 02/12/21 14:39 BP 147/97 H 02/12/21 11:12 Pulse Ox 87 L 02/12/21 11:12 Body Mass Index 39.6 Const: Other: Constitutional : Alert, oriented, not in distress Neck : Normal inspection, Supple Cardiovascular : RRR, S1 S2, no lower extremity edema Respiratory : For bilateral air entry, no crackles, scattered bilateral wheezes, in mild respiratory distress, increased oxygen requirement to CPAP, tachypneic Gastrointestinal: soft, lax, Normal bowel sounds, Non tender Skin : Warm/Dry, No rash Neurological : Alert & oriented x3, No focal deficit Objective Data Current Medications Generic Name Dose Route Start Last Admin Trade Name Freq PRN Reason Stop Dose Admin Acetaminophen 650 mg 02/10/21 00:13 02/12/21 08:52 Acetaminophen 325 Mg Tablet PO 650 mg Q6H PRN Administration Pain, Mild (Pain Scale 1-3) Albuterol Sulfate 2 puff 02/10/21 00:13 02/12/21 14:34 Albuterol Sulfate 90 Mcg 8 Gm Inhaler INHALE 2 puff RQ4H PRN Administration Shortness of Breath/Wheezing Albuterol Sulfate 4 puff 02/11/21 14:00 02/12/21 14:41 Albuterol Sulfate 90 Mcg 8 Gm Inhaler INHALE 4 puff RQ6H WHILE AWAKE REESE Administration Albuterol/Ipratropium 3 ml 02/10/21 00:13 Albuterol/Iprat 2.5/0.5mg 3 Ml Ampul.Neb INHALE RQ4H PRN Shortness of Breath Allopurinol 300 mg 02/10/21 09:00 02/12/21 08:51 Allopurinol 300 Mg Tablet PO 300 mg DAILY [facility] Administration Allopurinol 200 mg 02/10/21 09:00 02/12/21 08:51 Allopurinol 100 Mg Tablet PO 200 mg DAILY [facility] Administration Colchicine 0.6 mg 02/10/21 09:00 02/12/21 08:52 Colchicine 0.6 Mg Tablet PO 0.6 mg BID [facility] Administration Dexamethasone Sodium Phosphate 6 mg 02/10/21 09:00 02/12/21 08:52 Dexamethasone Sod Phosphate 4 Mg/Ml Vial IVPUSH 6 mg DAILY [facility] Administration Docusate Sodium 100 mg 02/10/21 00:13 Docusate Sodium 100 Mg Capsule PO DAILY PRN Constipation Fluticasone Propionate 1 spray 02/12/21 13:45 02/12/21 14:12 Fluticasone Propionate Nasal 16 Gm [place] NOSTRIL-B 1 spray BID [facility] Administration Guaifenesin/Dextromethorphan 10 ml 02/10/21 12:30 02/12/21 12:18 Guaifenesin Dm 200/20/10 Ml 10 Ml Syrup PO 10 ml Q6H [facility] Administration Heparin Sodium (Porcine) 5,000 unit 02/10/21 01:15 02/12/21 08:52 Heparin Sodium,Porcine 5,000 Unit/Ml Vial SUBCUT 5,000 unit BID [facility] Administration Remdesivir 100 mg/ Sodium 230 mls @ 115 mls/hr 02/12/21 16:00 Chloride IV 02/15/21 17:59 Q24H [facility] Insulin Human Lispro 0 unit 02/10/21 07:30 02/12/21 12:17 Insulin Lispro 100 Unit/Ml 3 Ml Vial SUBCUT 2 unit QIDACHS [facility] Administration Protocol Lisinopril 40 mg 02/10/21 09:00 02/10/21 08:51 Lisinopril 40 Mg Tablet PO 40 mg DAILY [facility] Administration Protocol Ondansetron HCl 4 mg 02/10/21 00:13 Ondansetron Hcl 4 Mg/2 Ml Vial IVPUSH Q8H PRN Nausea and Vomiting Sodium Chloride 3 ml 02/10/21 00:13 02/12/21 08:55 0.9 % Sodium Chloride Flush 3 Ml Syringe IVFLUSH 3 ml QSHIFT [facility] Administration Labs CBC & Chem 7: 02/11/21 06:17 02/10/21 05:36 Microbiology Microbiology Results: Microbiology 02/09/21 18:28 Blood - Venous Blood Culture - Preliminary No growth after 48 hours. 02/09/21 18:29 Blood - Venous Blood Culture - Preliminary No growth after 48 hours. Assessment and Plan (1) Acute respiratory failure with hypoxia: Status: Acute (2) Pneumonia due to 2019-nCoV: Status: Acute (3) Diabetes mellitus: Status: Acute (4) Essential hypertension: Status: Acute (5) Asthma: Status: Acute Assessment and Plan: 50-year-old male past medical history of hypertension, asthma, diabetes who presents to the hospital with COVID like symptoms. Found to be COVID-19 positive. # acute hypoxic respiratory failure # 2\2 COVID-19 pneumonia, viral sepsis patient hypoxic in the high 80s on high-flow, started on CPAP continue IV dexamethasone day 4, Continue remdesivir day 2 continue albuterol, ATC and p.r.n. Continue cough medication ICU consult, patient needs to go to the unit for worsening oxygen requirement increased work of breathing incentive spirometry encourage out of bed to chair and frequent position change Id input appreciated # morbid obesity BMI of 39.7 Advised to lose weight as it is affecting his general condition # hypertension Soft BP will continue to hold lisinopril # diabetes mellitus hold metformin blood sugars stable continue insulin sliding scale and diabetic diet # history of gout continue colchicine and allopurinol, no acute flare noted DVT prophylaxis: Heparin subQ
[2021-02-12 16:03] LABS: Glucose, Whole Blood 153 mg/dL (60-115)
[2021-02-12] MEDS: Remdesivir 100 MG in 0.9 % Sodium Chloride 230 ML 115 MG IV (16:43)
--- NOTE | 2021-02-12 18:02 | PC.NURSE ---
Pt sats fluctuate from 88-92% on CPAP when pt positions on his side. Desats to low 80's with minimal movement.
[2021-02-12 20:15] LABS: Glucose, Whole Blood 152 mg/dL (60-115)
--- NOTE | 2021-02-12 20:58 | W.PM.IDCN ---
History of Present Illness Data of Consult Service Date: 02/11/21 Requesting physician: Ashutosh Johnson Primary Care Provider: Ирина Oneill MD HPI Reason for consult: COVID,hypoxia He presents to ER with shortness of breath and cough over last week He was diagnosed with COVID He has no nausea or vomiting Review of Systems Review of Systems: Yes all other systems are reviewed and are negative PMFSH Past Medical History Medical History (Updated 02/13/21 @ 14:33 by Eris Tucker MD) Asthma Diabetes mellitus Essential hypertension Gout Pure hypercholesterolemia Unsteady gait Family History Family History Father Diabetes Cancer Hypertension Mother Diabetes Hypertension Paternal Grandmother Cancer Paternal Grandfather Cancer Surgical History Surgical History No pertinent past surgical history Social History Social History Household Members: None Housing: Apartment Alcohol intake: current Alcohol intake frequency: holidays/special occasions only Smoking Status: Former smoker Tobacco Type: Cigarette Smoked in Last 30 Days: No Use of substances other than those prescribed or required for medical reasons: No Currently Displaying Signs/Symptoms of Drug Intoxication Withdrawal: No Have you been hit, kicked, punched, or otherwise hurt by someone within the past year? If so, by whom?: No Do you feel safe in your current relationship?: No Current Relationship Is there a partner from a previous relationship who is making you feel unsafe now?: No Are you made to feel afraid or neglected: No Advance Directives: No Advance Directives Information Provided: No Do you have thoughts of harming others: None Do you have a plan to hurt others: No Plan Recently lost weight without trying: No service: No Meds Allergies Allergy/AdvReac Type Severity Reaction Status Date / Time statins Allergy Unknown elevated Uncoded 12/06/20 17:04 liver enzymes Active Medications: Current Medications Generic Name Dose Route Start Last Admin Trade Name Freq PRN Reason Stop Dose Admin Acetaminophen 650 mg 02/10/21 00:13 02/12/21 20:32 Acetaminophen 325 Mg Tablet PO 650 mg Q6H PRN Administration Pain, Mild (Pain Scale 1-3) Albuterol Sulfate 2 puff 02/10/21 00:13 02/12/21 19:53 Albuterol Sulfate 90 Mcg 8 Gm Inhaler INHALE 2 puff RQ4H PRN Administration Shortness of Breath/Wheezing Albuterol Sulfate 4 puff 02/11/21 14:00 02/12/21 19:57 Albuterol Sulfate 90 Mcg 8 Gm Inhaler INHALE Not Given RQ6H WHILE AWAKE REESE Albuterol/Ipratropium 3 ml 02/10/21 00:13 Albuterol/Iprat 2.5/0.5mg 3 Ml Ampul.Neb INHALE RQ4H PRN Shortness of Breath Allopurinol 300 mg 02/10/21 09:00 02/12/21 08:51 Allopurinol 300 Mg Tablet PO 300 mg DAILY [facility] Administration Allopurinol 200 mg 02/10/21 09:00 02/12/21 08:51 Allopurinol 100 Mg Tablet PO 200 mg DAILY [facility] Administration Colchicine 0.6 mg 02/10/21 09:00 02/12/21 20:19 Colchicine 0.6 Mg Tablet PO 0.6 mg BID [facility] Administration Dexamethasone Sodium Phosphate 6 mg 02/10/21 09:00 02/12/21 08:52 Dexamethasone Sod Phosphate 4 Mg/Ml Vial IVPUSH 6 mg DAILY [facility] Administration Docusate Sodium 100 mg 02/10/21 00:13 Docusate Sodium 100 Mg Capsule PO DAILY PRN Constipation Fluticasone Propionate 1 spray 02/12/21 13:45 02/12/21 20:40 Fluticasone Propionate Nasal 16 Gm [place] NOSTRIL-B 1 spray BID [facility] Administration Guaifenesin/Dextromethorphan 10 ml 02/10/21 12:30 02/12/21 17:59 Guaifenesin Dm 200/20/10 Ml 10 Ml Syrup PO Not Given Q6H [facility] Heparin Sodium (Porcine) 5,000 unit 02/10/21 01:15 02/12/21 20:19 Heparin Sodium,Porcine 5,000 Unit/Ml Vial SUBCUT 5,000 unit BID [facility] Administration Remdesivir 100 mg/ Sodium 230 mls @ 115 mls/hr 02/12/21 16:00 02/12/21 16:43 Chloride IV 02/15/21 17:59 115 mls/hr Q24H [facility] Administration Insulin Human Lispro 0 unit 02/10/21 07:30 02/12/21 20:19 Insulin Lispro 100 Unit/Ml 3 Ml Vial SUBCUT Not Given QIDACHS [facility] Protocol Lisinopril 40 mg 02/10/21 09:00 02/10/21 08:51 Lisinopril 40 Mg Tablet PO 40 mg DAILY [facility] Administration Protocol Ondansetron HCl 4 mg 02/10/21 00:13 Ondansetron Hcl 4 Mg/2 Ml Vial IVPUSH Q8H PRN Nausea and Vomiting Sodium Chloride 3 ml 02/10/21 00:13 02/12/21 20:19 0.9 % Sodium Chloride Flush 3 Ml Syringe IVFLUSH 3 ml QSHIFT [facility] Administration Home Medications Medication Instructions Recorded Confirmed Last Taken Type allopurinol 300 mg tablet 300 mg PO DAILY 10/24/20 02/09/21 02/09/21 History colchicine 0.6 mg tablet 0.6 mg PO BID 10/24/20 02/09/21 02/09/21 History fluticasone 232 mcg-salmeterol 14 1 inh PO BID 10/24/20 02/09/21 02/09/21 History mcg/actuation breath activated powdr naproxen 500 mg tablet 500 mg PO BID 10/24/20 02/09/21 02/09/21 History allopurinol 200 mg PO DAILY 02/09/21 02/09/21 02/09/21 History Physical Exam Vital Signs: Vital Signs: Last Vital Signs Temp 98.7 F 02/12/21 19:14 Pulse 95 02/12/21 19:14 Resp 30 H 02/12/21 19:53 BP 134/76 02/12/21 19:14 Pulse Ox 90 L 02/12/21 19:14 Body Mass Index 39.6 Const: General: cooperative HENMT: Mouth: Normal oral and palatal mucosa present Eyes: General: appearance normal, both eyes and all related structures Resp: Effort & Inspection: able to speak in complete sentences Cardio: Rate: regular rate Rhythm: regular rhythm GI: Palpation (GI): Soft to palpation and nontender Skin: General skin exam: no rashes or lesions noted Results Labs CBC & Chem 7: 02/14/21 05:36 02/14/21 05:36 Microbiology Microbiology Results: Microbiology 02/09/21 18:28 Blood - Venous Blood Culture - Preliminary No growth after 48 hours. 02/09/21 18:29 Blood - Venous Blood Culture - Preliminary No growth after 48 hours. Assessment and Plan (1) Pneumonia due to 2019-nCoV: Problem details: He has shortness of breath He has hypoxia Status: Acute Would continue oxygen Would continue Dexamethasone Would give Remdesivir as per protocol
[2021-02-13] VITALS (18 sets, daily range): BP systolic 93–143; BP diastolic 50–90; PULSE 84–99; RESP 18–36; TEMP 36.6–36.8; O2SAT 83–103
[2021-02-13] MEDS: guaiFENesin DM 200/20/10 ML 10 ML SYRUP PO ×3 (01:04→12:27)
[2021-02-13 06:43] LABS: Hematocrit 47.9 % (42-52); Hemoglobin 16.1 g/dl (14.0-18.0); Mean Corpuscular HGB Conc 33.6 g/dl (31.0-36.0); Mean Corpuscular Hemoglobin 31.8 pg (27.0-33.0); Mean Corpuscular Volume 94.5 fL (80-98); Platelet Count 170 X10*3/uL (160-400); Red Blood Count 5.07 X10*6/uL (4.60-5.80); Red Cell Distribution Width 13.2 % (11.0-16.0)
[2021-02-13 06:45] LABS: D Dimer 880 NG/ML
[2021-02-13 07:20] LABS: B Type Natriuretic Peptide 14 pg/mL (<100)
[2021-02-13 07:21] LABS: Glucose, Whole Blood 135 mg/dL (60-115)
[2021-02-13 07:22] LABS: Alanine Aminotransferase 25 U/L (0-40); Albumin Level 3.9 g/dL (3.5-5.0); Alkaline Phosphatase 82 U/L (39-117); Anion Gap 19 (12-20); Aspartate Amino Transferase 51 U/L (5-37); Bilirubin Direct 0.5 mg/dL (0.0-0.5); Bilirubin Total 0.9 mg/dL (0.0-1.0); Blood Urea Nitrogen 25 mg/dL (9-16); C Reactive Protein 12.76 mg/dL (< or = 0.50); Carbon Dioxide 26 mmol/L (22-29); Chloride 103 mmol/L (96-108); Creatinine Clr Calc Pharmacy 122.6; Estimated Glomerular Filt Rate > 60; Glucose Random 130 mg/dL (60-115); Lactate Dehydrogenase 824 U/L (118-273); Potassium 4.6 mmol/L (3.3-5.1); Sodium 143 mmol/L (135-145); Total Protein 7.3 g/dL (6.5-8.0)
[2021-02-13] MEDS: Albuterol Sulfate 90 MCG 8 GM INHALER 2 PUFF INHALE (09:38)
[2021-02-13] MEDS: Albuterol Sulfate 90 MCG 8 GM INHALER 4 PUFF INHALE ×2 (09:40→22:00)
[2021-02-13] MEDS: 0.9 % Sodium Chloride Flush 3 ML SYRINGE IVFLUSH ×2 (09:49→17:34)
[2021-02-13] MEDS: Colchicine 0.6 MG TABLET PO (10:13)
[2021-02-13] MEDS: lisinopriL 40 MG TABLET PO (10:13)
[2021-02-13] MEDS: allopurinoL 100 MG TABLET 200 MG PO (10:13)
[2021-02-13] MEDS: allopurinoL 300 MG TABLET PO (10:13)
[2021-02-13] MEDS: dexAMETHasone sod phosphate 4 MG/ML VIAL 6 MG IVPUSH (10:14)
[2021-02-13] MEDS: Fluticasone Propionate Nasal 16 GM SPRAY 1 SPRAY NOSTRIL-B (10:14)
[2021-02-13] MEDS: Enoxaparin Sodium 40 MG/0.4 ML SYRINGE SUBCUT (10:14)
[2021-02-13 11:24] LABS: Glucose, Whole Blood 148 mg/dL (60-115)
--- NOTE | 2021-02-13 13:11 | MHC.CM.PN ---
Patient is on 12 liters O2 via CPAP with FIO2 at 100% r/t +COVID. Patient is also on IV Dexamethesone day 02/25 and IV Remdesivir day 12/22. Discharge plan is home with resumption of [employer] services. patient will arrange for own ride. CM will continue to follow patient for discharge needs.
--- NOTE | 2021-02-13 14:29 | P.PNCC_ITS ---
Subjective Subjective Date of Service: 02/13/21 Interval History: 50-year-old gentleman with underlying history of obesity, diabetes mellitus, asthma, hypertension, gout admitted on 02/10/2021 with COVID- 19 related acute hypoxic respiratory failure, initially positive for COVID on 02/09/2021. He has been treated with dexamethasone and remdesivir, however his FiO2 requirements continue to increase and now he requires CPAP support. Physical Exam Vital Signs: Vital Signs: Last Vital Signs Temp 97.8 F 02/13/21 11:24 Pulse 87 02/13/21 11:24 Resp 36 H 02/13/21 12:01 BP 135/76 02/13/21 11:24 Pulse Ox 89 L 02/13/21 11:24 Body Mass Index 39.6 Const: General: no acute distress, alert and awake Nutritional Appearance: obese Eyes: Sclerae: sclerae normal EOM: EOMs intact bilaterally Neck: Neck: Yes no lymphadenopathy, Yes trachea midline and Yes supple Resp: Effort & Inspection: normal respiratory effort and no respiratory distress (On CPAP) Auscultation: crackles bilateral and diffuse Cardio: Rate: regular rate Rhythm: regular rhythm Heart sounds: no gallops, no murmurs and no rubs GI: Palpation (GI): Soft to palpation and Other GI palpation findings present ( Nontender) Auscultation: normal bowel sounds Extrem: General: No clubbing, No cyanosis and Yes pedal edema (Trace bilateral) Objective Data Labs CBC & Chem 7: 02/13/21 05:43 02/13/21 05:43 Labs: Laboratory Results - last 24 hr 02/12/21 02/12/21 02/13/21 16:00 20:12 05:43 WBC 5.0 RBC 5.07 Hgb 16.1 Hct 47.9 MCV 94.5 MCH 31.8 MCHC 33.6 RDW 13.2 Plt Count 170 MPV 11.0 Absolute Nucleated RBC 0.000 Nucleated RBC % (auto) 0.0 D-Dimer Sodium Potassium Chloride Carbon Dioxide Anion Gap BUN Creatinine Estim Creat Clear Calc Estimated GFR POC Glucose 153 H 152 H Random Glucose Calcium Total Bilirubin Direct Bilirubin AST ALT Alkaline Phosphatase Lactate Dehydrogenase C-Reactive Protein B-Natriuretic Peptide Total Protein Albumin 02/13/21 02/13/21 02/13/21 05:43 05:43 05:43 WBC RBC Hgb Hct MCV MCH MCHC RDW Plt Count MPV Absolute Nucleated RBC Nucleated RBC % (auto) D-Dimer 880 Sodium 143 Potassium 4.6 Chloride 103 Carbon Dioxide 26 Anion Gap 19 BUN 25 H Creatinine 0.95 Estim Creat Clear Calc 122.6 Estimated GFR > 60 POC Glucose Random Glucose 130 H D Calcium 9.0 D Total Bilirubin 0.9 Direct Bilirubin 0.5 AST 51 H ALT 25 Alkaline Phosphatase 82 Lactate Dehydrogenase 824 H C-Reactive Protein 12.76 H B-Natriuretic Peptide 14 Total Protein 7.3 Albumin 3.9 02/13/21 02/13/21 07:08 11:17 WBC RBC Hgb Hct MCV MCH MCHC RDW Plt Count MPV Absolute Nucleated RBC Nucleated RBC % (auto) D-Dimer Sodium Potassium Chloride Carbon Dioxide Anion Gap BUN Creatinine Estim Creat Clear Calc Estimated GFR POC Glucose 135 H 148 H Random Glucose Calcium Total Bilirubin Direct Bilirubin AST ALT Alkaline Phosphatase Lactate Dehydrogenase C-Reactive Protein B-Natriuretic Peptide Total Protein Albumin Microbiology Microbiology Results: Microbiology 02/09/21 18:28 Blood - Venous Blood Culture - Preliminary No growth after 48 hours. 02/09/21 18:29 Blood - Venous Blood Culture - Preliminary No growth after 48 hours. Progress Note: A&P Assessment and plan (1) Diabetes mellitus: Status: Acute Assessment and Plan: Assessment: 50-year-old gentleman admitted with acute hypoxic respiratory failure secondary to COVID-19 ARDS now requiring noninvasive positive pressure ventilatory support. Plan: Neuro: No acute issues. Cardiac: No acute issues. Underlying hypertension Pulmonary: Acute hypoxic respiratory failure secondary to COVID-19 ARDS now re quiring CPAP support. Continue to titrate off as tolerated. Renal: No acute issues. Endo: No acute issues. Underlying diabetes mellitus GI: No acute issues. ID: COVID 19, now on dexamethasone and remdesivir. Infectious Disease service care appreciated. Heme/Onc: No acute issues. Psych: No acute issues. Miscellaneous: No acute issues. Prophylaxis: Lovenox Diet: Diabetic Critical care time spent: 45 minutes (2) Essential hypertension: Status: Acute (3) Asthma: Status: Acute (4) Acute respiratory failure with hypoxia: Status: Acute (5) Acute respiratory distress syndrome (ARDS) due to COVID-19 virus: Status: Acute (6) Obesity: Status: Acute Time Spent With Patient Total time spent with greater than 50% in coordination of care (as documented) at patient's floor/unit and/or counseling patient:: 0 Critical Care Time 45 minutes
--- NOTE | 2021-02-13 15:22 | P.PNIM_ITS ---
Subjective Subjective Date of Service: 02/13/21 Interval History: the patient was seen and evaluated this morning Laying in bed, patient still tachypneic, on CPAP for the last 24 hours with sats in late 80s per Denies any fever, chills or chest pain Report difficulty breathing and wheezes No reported other overnight events. Systemic review: No fever, chills or weakness No chest pain, palpitation Increased oxygen requirement, mild shortness of breath and chest tightness , no coughing No abdominal pain, nausea or vomiting No urinary symptoms No any rash or wounds Physical Exam Vital Signs: Vital Signs: Last Vital Signs Temp 97.8 F 02/13/21 11:24 Pulse 87 02/13/21 11:24 Resp 36 H 02/13/21 12:01 BP 135/76 02/13/21 11:24 Pulse Ox 89 L 02/13/21 11:24 Body Mass Index 39.6 Const: Other: Constitutional : Alert, oriented, not in distress Neck : Normal inspection, Supple Cardiovascular : RRR, S1 S2, no lower extremity edema Respiratory : For bilateral air entry, no crackles, scattered bilateral wheezes, in mild respiratory distress, increased oxygen requirement to CPAP, tachypneic Gastrointestinal: soft, lax, Normal bowel sounds, Non tender Skin : Warm/Dry, No rash Neurological : Alert & oriented x3, No focal deficit Objective Data Current Medications Generic Name Dose Route Start Last Admin Trade Name Freq PRN Reason Stop Dose Admin Acetaminophen 650 mg 02/10/21 00:13 02/12/21 20:32 Acetaminophen 325 Mg Tablet PO 650 mg Q6H PRN Administration Pain, Mild (Pain Scale 1-3) Albuterol Sulfate 2 puff 02/10/21 00:13 02/13/21 09:38 Albuterol Sulfate 90 Mcg 8 Gm Inhaler INHALE 2 puff RQ4H PRN Administration Shortness of Breath/Wheezing Albuterol Sulfate 4 puff 02/11/21 14:00 02/13/21 09:40 Albuterol Sulfate 90 Mcg 8 Gm Inhaler INHALE 4 puff RQ6H WHILE AWAKE REESE Administration Albuterol/Ipratropium 3 ml 02/10/21 00:13 Albuterol/Iprat 2.5/0.5mg 3 Ml Ampul.Neb INHALE RQ4H PRN Shortness of Breath Allopurinol 300 mg 02/10/21 09:00 02/13/21 10:13 Allopurinol 300 Mg Tablet PO 300 mg DAILY REESE Administration Allopurinol 200 mg 02/10/21 09:00 02/13/21 10:13 Allopurinol 100 Mg Tablet PO 200 mg DAILY REESE Administration Colchicine 0.6 mg 02/10/21 09:00 02/13/21 10:13 Colchicine 0.6 Mg Tablet PO 0.6 mg BID REESE Administration Dexamethasone Sodium Phosphate 6 mg 02/10/21 09:00 02/13/21 10:14 Dexamethasone Sod Phosphate 4 Mg/Ml Vial IVPUSH 6 mg DAILY [facility] Administration Docusate Sodium 100 mg 02/10/21 00:13 Docusate Sodium 100 Mg Capsule PO DAILY PRN Constipation Enoxaparin Sodium 40 mg 02/13/21 10:00 02/13/21 10:14 Enoxaparin Sodium 40 Mg/0.4 Ml Syringe SUBCUT 40 mg Q24H [facility] Administration Fluticasone Propionate 1 spray 02/12/21 13:45 02/13/21 10:14 Fluticasone Propionate Nasal 16 Gm [place] NOSTRIL-B 1 spray BID [facility] Administration Guaifenesin/Dextromethorphan 10 ml 02/10/21 12:30 02/13/21 12:27 Guaifenesin Dm 200/20/10 Ml 10 Ml Syrup PO 10 ml Q6H [facility] Administration Remdesivir 100 mg/ Sodium 230 mls @ 115 mls/hr 02/12/21 16:00 02/12/21 21:51 Chloride IV 02/15/21 17:59 Infused Q24H [facility] Infusion Insulin Human Lispro 0 unit 02/10/21 07:30 02/13/21 11:28 Insulin Lispro 100 Unit/Ml 3 Ml Vial SUBCUT Not Given QIDACHS [facility] Protocol Lisinopril 40 mg 02/10/21 09:00 02/13/21 10:13 Lisinopril 40 Mg Tablet PO 40 mg DAILY [facility] Administration Protocol Ondansetron HCl 4 mg 02/10/21 00:13 Ondansetron Hcl 4 Mg/2 Ml Vial IVPUSH Q8H PRN Nausea and Vomiting Sodium Chloride 3 ml 02/10/21 00:13 02/13/21 09:49 0.9 % Sodium Chloride Flush 3 Ml Syringe IVFLUSH 3 ml QSHIFT [facility] Administration Labs CBC & Chem 7: 03/29/21 05:43 02/13/21 05:43 Microbiology Microbiology Results: Microbiology 02/09/21 18:28 Blood - Venous Blood Culture - Preliminary No growth after 48 hours. 02/09/21 18:29 Blood - Venous Blood Culture - Preliminary No growth after 48 hours. Assessment and Plan (1) Acute respiratory failure with hypoxia: Status: Acute (2) Pneumonia due to 2019-nCoV: Problem details: He has shortness of breath He has hypoxia Status: Acute (3) Diabetes mellitus: Status: Acute (4) Essential hypertension: Status: Acute (5) Asthma: Status: Acute Assessment and Plan: 50-year-old male past medical history of hypertension, asthma, diabetes who presents to the hospital with COVID like symptoms. Found to be COVID-19 positive. # acute hypoxic respiratory failure # 2\2 COVID-19 pneumonia, viral sepsis patient hypoxic in the high 80s on high-flow, started on CPAP continue IV dexamethasone day 5, Continue remdesivir day 3 continue albuterol, ATC and p.r.n. Continue cough medication Id input appreciated Plan to transfer to ICU today # morbid obesity BMI of 39.7 Advised to lose weight as it is affecting his general condition # hypertension Soft BP will continue to hold lisinopril # diabetes mellitus hold metformin blood sugars stable continue insulin sliding scale and diabetic diet # history of gout continue colchicine and allopurinol, no acute flare noted DVT prophylaxis: Lovenox
[2021-02-13 16:38] LABS: Glucose, Whole Blood 160 mg/dL (60-115)
[2021-02-13] MEDS: Remdesivir 100 MG in 0.9 % Sodium Chloride 230 ML 115 MG IV (17:34)
--- NOTE | 2021-02-13 17:49 | PC.NURSE ---
Pt transfered to ICU 262 at 1700, A&Ox3, denies Pain, tachypneic RR 28, SaO2 82% with minimal ambulation, does not tolerate being flat. Lung sounds dim all lobes, BP stable, afebrile. Plan is to stay on BIPAP and rest. Pt sitting high fowlers. No edema, NSR 90. Hemosiderin discoloration BLE. Remdesivir started. Bed locked and in lowest position.
[2021-02-13] MEDS: Furosemide 20 MG/2 ML VIAL IVPUSH (19:14)
[2021-02-13 20:41] LABS: Glucose, Whole Blood 155 mg/dL (60-115)
--- NOTE | 2021-02-13 23:24 | PC.NURSE ---
Addendum entered by Clemente Lassiter RN 02/14/21 06:35: Patient up to commode - O2sat up to 94%. Patient tolerates activity very well. Patient had large liquid sool. Repos independently. Original Note: Shift eval: assumed care at approx 1930, Patient alert and oriented, on bipap 03/07 - 100%. Osat low 80's at times, but then improved generally over 85%. No distress at all, frequently looking into patient room, patient alert, giving thumbs up. SHANK BONER aware of patient oxygen and plan or goal O2sat 85%. Lungs clear to diminished. Voided 625ml post receiving lasix at change of shift.
[2021-02-14] VITALS (31 sets, daily range): BP systolic 78–121; BP diastolic 42–73; PULSE 82–101; RESP 13–37; TEMP 36.2–37; O2SAT 82–106; BMI 39.6
[2021-02-14] MEDS: 0.9 % Sodium Chloride Flush 3 ML SYRINGE IVFLUSH ×4 (01:32→20:14)
[2021-02-14 05:51] LABS: MANUAL DIFF FLAG NO
[2021-02-14 05:53] LABS: Basophils Percent Auto 0.1 % (0-2); Hematocrit 49.1 % (42-52); Imm Gran Abs Auto 0.05 X10*3/uL (0.00-0.03); Imm Gran Pct Auto 0.5 % (0.0-0.4); Lymphocytes Absolute Auto 0.8 X10*3/uL (1.2-4.9); Lymphocytes Percent Auto 8.4 % (20-40); Mean Corpuscular HGB Conc 32.6 g/dl (31.0-36.0); Mean Corpuscular Hemoglobin 31.4 pg (27.0-33.0); Mean Corpuscular Volume 96.3 fL (80-98); Mean Platelet Volume 10.6 fL (9.4-12.4); Monocytes Absolute Auto 0.5 X10*3/uL (0.1-1.2); Monocytes Percent Auto 5.8 % (2-11); Neutrophils Absolute Auto 7.9 X10*3/uL (2.0-8.3); Neutrophils Percent Auto 85.2 % (45-73); Platelet Count 194 X10*3/uL (160-400); Red Cell Distribution Width 13.2 % (11.0-16.0); White Blood Count 9.3 X10*3/uL (4.8-10.8)
[2021-02-14 05:59] LABS: VBG Base Excess 2.8 mmol/L; VBG HCO3 30 mmol/L (22-26); VBG pCO2 57 mmHg; VBG pH 7.33 (7.32-7.43); VBG pO2 36 mmHg
[2021-02-14 05:59] LABS: Venous Blood Gas Refer to POC result
[2021-02-14 06:26] LABS: Alanine Aminotransferase 23 U/L (0-40); Albumin Level 3.8 g/dL (3.5-5.0); Alkaline Phosphatase 93 U/L (39-117); Anion Gap 18 (12-20); Aspartate Amino Transferase 45 U/L (5-37); Bilirubin Total 1.1 mg/dL (0.0-1.0); Blood Urea Nitrogen 38 mg/dL (9-16); Calcium 8.8 mg/dL (8.4-10.2); Carbon Dioxide 27 mmol/L (22-29); Chloride 103 mmol/L (96-108); Creatinine Clr Calc Pharmacy 103.1; Estimated Glomerular Filt Rate > 60; Glucose Random 130 mg/dL (60-115); Magnesium 2.4 mg/dL (1.6-2.6); Phosphorus 4.9 mg/dL (2.7-4.5); Potassium 4.4 mmol/L (3.3-5.1); Sodium 144 mmol/L (135-145); Total Protein 7.1 g/dL (6.5-8.0)
[2021-02-14 07:23] LABS: Glucose, Whole Blood 112 mg/dL (60-115)
[2021-02-14] MEDS: dexAMETHasone sod phosphate 4 MG/ML VIAL 6 MG IVPUSH (09:26)
[2021-02-14] MEDS: Enoxaparin Sodium 40 MG/0.4 ML SYRINGE SUBCUT (09:26)
--- NOTE | 2021-02-14 10:10 | PC.RT ---
it was brought to my attention this am that pt has been drinking h20 all night while on bipap mask. I have spoken to Dr. Tucker, and he is aware. Pt has been placed on nasal mask at this time, so he might be able to eat. I do not feel like this is a safe thing, because pt requires 100% o2 to maintain spo2 >85%. , along with the risk of asperation.
[2021-02-14] MEDS: lisinopriL 40 MG TABLET PO (10:53)
[2021-02-14] MEDS: Colchicine 0.6 MG TABLET PO ×2 (10:53→20:12)
[2021-02-14] MEDS: allopurinoL 300 MG TABLET PO (10:54)
[2021-02-14] MEDS: allopurinoL 100 MG TABLET 200 MG PO (10:54)
[2021-02-14] MEDS: Enoxaparin Sodium 40 MG/0.4 ML SYRINGE 20 MG SUBCUT (11:41)
[2021-02-14 12:13] LABS: Glucose, Whole Blood 201 mg/dL (60-115)
[2021-02-14] MEDS: Insulin Lispro 100 UNIT/ML 3 ML VIAL SUBCUT (12:29)
--- NOTE | 2021-02-14 13:39 | PM.CCPN ---
Subjective Subjective Date of Service: 02/14/21 Interval History: 50-year-old gentleman with underlying history of obesity, diabetes mellitus, asthma, hypertension, gout admitted on 02/10/2021 with COVID-19 related acute hypoxic respiratory failure, initially positive for COVID on 02/09/2021. He has been treated with dexamethasone and remdesivir, however his FiO2 requirements continue to increase and now he requires CPAP support. No events overnight. Physical Exam Vital Signs: Vital Signs: Last Vital Signs Temp 98.6 F 02/14/21 13:00 Pulse 99 02/14/21 13:00 Resp 25 H 02/14/21 13:00 BP 93/53 L 02/14/21 13:00 Pulse Ox 89 L 02/14/21 13:00 Body Mass Index 39.6 Const: General: no acute distress, alert and awake Eyes: Sclerae: sclerae normal EOM: EOMs intact bilaterally Neck: Neck: Yes no lymphadenopathy, Yes trachea midline and Yes supple Resp: Effort & Inspection: normal respiratory effort (On BiPAP) and no respiratory distress Auscultation: crackles (Diffuse bilateral) Cardio: Rate: regular rate Rhythm: regular rhythm Heart sounds: no gallops, no murmurs and no rubs GI: Palpation (GI): Soft to palpation and Other GI palpation findings present ( Nontender) Auscultation: normal bowel sounds Extrem: General: No clubbing, No cyanosis and Yes pedal edema (Trace bilateral) Objective Data Labs CBC & Chem 7: 02/14/21 05:36 02/14/21 05:36 Labs: Laboratory Results - last 24 hr 02/13/21 02/13/21 02/14/21 16:35 20:30 05:36 WBC 9.3 RBC 5.10 Hgb 16.0 Hct 49.1 MCV 96.3 MCH 31.4 MCHC 32.6 RDW 13.2 Plt Count 194 MPV 10.6 Immature Gran % (Auto) 0.5 H Neut % (Auto) 85.2 H Lymph % (Auto) 8.4 L [place] % (Auto) 5.8 Eos % (Auto) 0.0 Baso % (Auto) 0.1 Lymph # (Auto) 0.8 L [place] # (Auto) 0.5 Eos # (Auto) 0.0 Baso # (Auto) 0.0 Abs Immat Gran (auto) 0.05 H Absolute Neuts (auto) 7.9 Absolute Nucleated RBC 0.000 Nucleated RBC % (auto) 0.0 VBG pH VBG pCO2 VBG pO2 VBG HCO3 VBG O2 Saturation VBG Base Excess Sodium Potassium Chloride Carbon Dioxide Anion Gap BUN Creatinine Estim Creat Clear Calc Estimated GFR POC Glucose 160 H 155 H Random Glucose Calcium Phosphorus Magnesium Total Bilirubin AST ALT Alkaline Phosphatase Total Protein Albumin 02/14/21 02/14/21 02/14/21 05:36 05:52 07:17 WBC RBC Hgb Hct MCV MCH MCHC RDW Plt Count MPV Immature Gran % (Auto) Neut % (Auto) Lymph % (Auto) [place] % (Auto) Eos % (Auto) Baso % (Auto) Lymph # (Auto) [place] # (Auto) Eos # (Auto) Baso # (Auto) Abs Immat Gran (auto) Absolute Neuts (auto) Absolute Nucleated RBC Nucleated RBC % (auto) VBG pH 7.33 VBG pCO2 57 VBG pO2 36 VBG HCO3 30 H VBG O2 Saturation 55.0 VBG Base Excess 2.8 Sodium 144 Potassium 4.4 Chloride 103 Carbon Dioxide 27 Anion Gap 18 BUN 38 H D Creatinine 1.13 Estim Creat Clear Calc 103.1 Estimated GFR > 60 POC Glucose 112 Random Glucose 130 H Calcium 8.8 Phosphorus 4.9 H Magnesium 2.4 Total Bilirubin 1.1 H AST 45 H ALT 23 Alkaline Phosphatase 93 Total Protein 7.1 Albumin 3.8 02/14/21 12:08 WBC RBC Hgb Hct MCV MCH MCHC RDW Plt Count MPV Immature Gran % (Auto) Neut % (Auto) Lymph % (Auto) [place] % (Auto) Eos % (Auto) Baso % (Auto) Lymph # (Auto) [place] # (Auto) Eos # (Auto) Baso # (Auto) Abs Immat Gran (auto) Absolute Neuts (auto) Absolute Nucleated RBC Nucleated RBC % (auto) VBG pH VBG pCO2 VBG pO2 VBG HCO3 VBG O2 Saturation VBG Base Excess Sodium Potassium Chloride Carbon Dioxide Anion Gap BUN Creatinine Estim Creat Clear Calc Estimated GFR POC Glucose 201 H Random Glucose Calcium Phosphorus Magnesium Total Bilirubin AST ALT Alkaline Phosphatase Total Protein Albumin Microbiology Microbiology Results: Microbiology 02/09/21 18:28 Blood - Venous Blood Culture - Preliminary No growth after 48 hours. 02/09/21 18:29 Blood - Venous Blood Culture - Preliminary No growth after 48 hours. Progress Note: A&P Assessment and plan (1) Obesity: Status: Acute Assessment and Plan: Assessment: 50-year-old gentleman admitted with acute hypoxic respiratory failure secondary to COVID-19 ARDS now requiring noninvasive positive pressure ventilatory support. Plan: Neuro: No acute issues. Cardiac: No acute issues. Underlying hypertension Pulmonary: Acute hypoxic respiratory failure secondary to COVID-19 ARDS now requiring BiPAP support. Continue to titrate off as tolerated. Renal: No acute issues. Endo: No acute issues. Underlying diabetes mellitus GI: No acute issues. ID: COVID 19, now on dexamethasone and remdesivir. Infectious Disease service care appreciated. Heme/Onc: No acute issues. Psych: No acute issues. Miscellaneous: No acute issues. Prophylaxis: Lovenox Diet: Diabetic Critical care time spent: 45 minutes (2) Acute respiratory distress syndrome (ARDS) due to COVID-19 virus: Status: Acute (3) Viral sepsis: Status: Acute (4) Acute respiratory failure with hypoxia: Status: Acute (5) Asthma: Status: Acute (6) Gout: Status: Acute (7) Diabetes mellitus: Status: Acute (8) Essential hypertension: Status: Acute Time Spent With Patient Total time spent with greater than 50% in coordination of care (as documented) at patient's floor/unit and/or counseling patient:: 0 Critical Care Time 45 minutes
--- NOTE | 2021-02-14 14:22 | PC.NURSE ---
SHIFT NOTE PT REMAINED ON BIPAP / 100 % FIO2 TOLERATING WELL NO S/SX OF RESP DISTRESS NOTED. O2 SATS 81%-85 % DR. HURLEY AWARE. MORNING MEDS HELD UNTIL PT WAS CHANGED OVER TO NASAL/PARTIAL AND OOB TO CHAIR. PT TOLERATING PARTIAL MASK NICELY AND STATES HE IS MORE COMFORTABLE WITH IMPROVED OXYGEN SATS OF 90-95% WHILE IN THE CHAIR. PT USING CELLPHONE TO VIDEO CHAT WITH FRIENDS AND FAMILY. PT REMAINS IN OOB IN CHAIR TOLERATING WELL, WILL CONTINUE TO ASSESS AND MONITOR.
[2021-02-14] MEDS: Albuterol Sulfate 90 MCG 8 GM INHALER 4 PUFF INHALE ×2 (16:03→21:19)
[2021-02-14 16:16] LABS: Glucose, Whole Blood 135 mg/dL (60-115)
[2021-02-14] MEDS: Remdesivir 100 MG in 0.9 % Sodium Chloride 230 ML 115 MG IV (16:49)
[2021-02-14 20:11] LABS: Glucose, Whole Blood 122 mg/dL (60-115)
[2021-02-14] MEDS: Acetaminophen 325 MG TABLET 650 MG PO (20:11)
[2021-02-15] VITALS (29 sets, daily range): BP systolic 90–147; BP diastolic 44–82; PULSE 76–90; RESP 13–36; TEMP 36.4–36.7; O2SAT 77–96
--- NOTE | 2021-02-15 04:11 | PC.NURSE ---
Addendum entered by Rikki Zheng RN 02/15/21 06:36: oob to bedside commode steady gait...passed loose brown stool and voided...frequent cough when oob..back to bed...sao2 up to 95-96% after back to bed..asymptomatic..mentating apprpriately...dozing afterwards with gradual decline in sao2 to 81-83%...asymptomatic and mentating appropriately when awakened Original Note: care assumed 23;15...awake..alert..oriented x3...transitioned from nasal mask to full face mask bipap at shift change for desaturation...currently full face mask bipap 16/8 & fio2 100%...rr 24-32...tv >1000...Ve>20 l/m...sao2 80-87%...denies sob...icu bark peeler present...confirms ideal sao2 goal 85% or >....80-82% acceptable if mentating appropriately and asymptomatic...nsr..no ectopy...oob recliner at ...returned self to bed with steady gait...denies discomfort
[2021-02-15 05:59] LABS: Basophils Percent Auto 0.1 % (0-2); Hematocrit 47.9 % (42-52); Imm Gran Abs Auto 0.08 X10*3/uL (0.00-0.03); Imm Gran Pct Auto 0.6 % (0.0-0.4); Lymphocytes Absolute Auto 1.1 X10*3/uL (1.2-4.9); Lymphocytes Percent Auto 8.6 % (20-40); MANUAL DIFF FLAG SCAN; Mean Corpuscular HGB Conc 33.4 g/dl (31.0-36.0); Mean Corpuscular Hemoglobin 31.7 pg (27.0-33.0); Mean Platelet Volume 10.5 fL (9.4-12.4); Monocytes Absolute Auto 0.7 X10*3/uL (0.1-1.2); Neutrophils Absolute Auto 11.4 X10*3/uL (2.0-8.3); Neutrophils Percent Auto 85.7 % (45-73); Platelet Count 227 X10*3/uL (160-400); Red Blood Count 5.04 X10*6/uL (4.60-5.80); Red Cell Distribution Width 13.3 % (11.0-16.0); SCAN SMEAR FLAG 1; White Blood Count 13.3 X10*3/uL (4.8-10.8)
[2021-02-15 06:05] LABS: VBG Base Excess -0.2 mmol/L; VBG HCO3 26 mmol/L (22-26); VBG pCO2 51 mmHg; VBG pH 7.32 (7.32-7.43); VBG pO2 31 mmHg
[2021-02-15 06:10] LABS: Venous Blood Gas Refer to POC result
[2021-02-15 06:47] LABS: SLIDE REVIEW VERIFIED
[2021-02-15 07:16] LABS: Albumin Level 3.4 g/dL (3.5-5.0); Anion Gap 17 (12-20); Blood Urea Nitrogen 66 mg/dL (9-16); Calcium 8.2 mg/dL (8.4-10.2); Carbon Dioxide 25 mmol/L (22-29); Chloride 98 mmol/L (96-108); Estimated Glomerular Filt Rate 38; Glucose Random 122 mg/dL (60-115); Magnesium 2.4 mg/dL (1.6-2.6); Phosphorus 6.4 mg/dL (2.7-4.5); Potassium 4.1 mmol/L (3.3-5.1); Sodium 136 mmol/L (135-145)
[2021-02-15 07:21] LABS: Glucose, Whole Blood 107 mg/dL (60-115)
[2021-02-15] MEDS: 0.9 % Sodium Chloride Flush 3 ML SYRINGE IVFLUSH ×2 (08:03→16:23)
[2021-02-15] MEDS: allopurinoL 100 MG TABLET 200 MG PO (11:02)
[2021-02-15] MEDS: dexAMETHasone sod phosphate 4 MG/ML VIAL 6 MG IVPUSH (11:02)
[2021-02-15] MEDS: allopurinoL 300 MG TABLET PO (11:02)
[2021-02-15] MEDS: Colchicine 0.6 MG TABLET PO (11:02)
[2021-02-15 11:20] LABS: Glucose, Whole Blood 174 mg/dL (60-115)
[2021-02-15] MEDS: Insulin Lispro 100 UNIT/ML 3 ML VIAL SUBCUT (11:32)
[2021-02-15] MEDS: guaiFENesin 100 MG/5 ML LIQUID 10 ML PO (11:42)
[2021-02-15] MEDS: Enoxaparin Sodium 60 MG/0.6 ML SYRINGE SUBCUT (12:10)
--- NOTE | 2021-02-15 13:13 | PM.CCPN ---
Subjective Subjective Date of Service: 02/15/21 Interval History: 50-year-old gentleman with underlying history of obesity, diabetes mellitus, asthma, hypertension, gout admitted on 02/10/2021 with COVID-19 related acute hypoxic respiratory failure, initially positive for COVID on 02/09/2021. He has been treated with dexamethasone and remdesivir, however his FiO2 requirements continue to increase and now he requires CPAP support. Physical Exam Vital Signs: Vital Signs: Last Vital Signs Temp 98.1 F 02/15/21 12:00 Pulse 85 02/15/21 12:52 Resp 25 H 02/15/21 12:52 BP 125/59 L 02/15/21 12:52 Pulse Ox 94 02/15/21 12:52 Body Mass Index 39.6 Const: General: no acute distress, alert and awake Nutritional Appearance: obese Eyes: Sclerae: sclerae normal EOM: EOMs intact bilaterally Neck: Neck: Yes no lymphadenopathy, Yes trachea midline and Yes supple Resp: Effort & Inspection: normal respiratory effort and no respiratory distress Auscultation: clear to auscultation bilaterally Cardio: Rate: regular rate Rhythm: regular rhythm Heart sounds: no gallops, no murmurs and no rubs GI: Palpation (GI): Soft to palpation and Other GI palpation findings present ( Nontender) Auscultation: normal bowel sounds Extrem: General: Yes no pedal edema, No clubbing and No cyanosis Objective Data Labs CBC & Chem 7: 02/15/21 05:51 02/15/21 06:40 Labs: Laboratory Results - last 24 hr 02/14/21 02/14/21 02/15/21 16:13 20:07 05:51 WBC 13.3 H RBC 5.04 Hgb 16.0 Hct 47.9 MCV 95.0 MCH 31.7 MCHC 33.4 RDW 13.3 Plt Count 227 MPV 10.5 Immature Gran % (Auto) 0.6 H Neut % (Auto) 85.7 H Lymph % (Auto) 8.6 L [place] % (Auto) 5.0 Eos % (Auto) 0.0 Baso % (Auto) 0.1 Lymph # (Auto) 1.1 L [place] # (Auto) 0.7 Eos # (Auto) 0.0 Baso # (Auto) 0.0 Abs Immat Gran (auto) 0.08 H Absolute Neuts (auto) 11.4 H Absolute Nucleated RBC 0.000 Nucleated RBC % (auto) 0.0 Smear Tech's Comments VERIFIED VBG pH VBG pCO2 VBG pO2 VBG HCO3 VBG O2 Saturation VBG Base Excess Sodium Potassium Chloride Carbon Dioxide Anion Gap BUN Creatinine Estim Creat Clear Calc Estimated GFR POC Glucose 135 H 122 H Random Glucose Calcium Phosphorus Magnesium Albumin 02/15/21 02/15/21 02/15/21 05:59 06:40 07:16 WBC RBC Hgb Hct MCV MCH MCHC RDW Plt Count MPV Immature Gran % (Auto) Neut % (Auto) Lymph % (Auto) [place] % (Auto) Eos % (Auto) Baso % (Auto) Lymph # (Auto) [place] # (Auto) Eos # (Auto) Baso # (Auto) Abs Immat Gran (auto) Absolute Neuts (auto) Absolute Nucleated RBC Nucleated RBC % (auto) Smear Tech's Comments VBG pH 7.32 VBG pCO2 51 VBG pO2 31 VBG HCO3 26 VBG O2 Saturation 42.0 VBG Base Excess -0.2 Sodium 136 Potassium 4.1 Chloride 98 Carbon Dioxide 25 Anion Gap 17 BUN 66 H D Creatinine 1.91 H Estim Creat Clear Calc 61.0 Estimated GFR 38 POC Glucose 107 Random Glucose 122 H Calcium 8.2 L D Phosphorus 6.4 H Magnesium 2.4 Albumin 3.4 L 02/15/21 11:15 WBC RBC Hgb Hct MCV MCH MCHC RDW Plt Count MPV Immature Gran % (Auto) Neut % (Auto) Lymph % (Auto) [place] % (Auto) Eos % (Auto) Baso % (Auto) Lymph # (Auto) [place] # (Auto) Eos # (Auto) Baso # (Auto) Abs Immat Gran (auto) Absolute Neuts (auto) Absolute Nucleated RBC Nucleated RBC % (auto) Smear Tech's Comments VBG pH VBG pCO2 VBG pO2 VBG HCO3 VBG O2 Saturation VBG Base Excess Sodium Potassium Chloride Carbon Dioxide Anion Gap BUN Creatinine Estim Creat Clear Calc Estimated GFR POC Glucose 174 H Random Glucose Calcium Phosphorus Magnesium Albumin Microbiology Microbiology Results: Microbiology 02/09/21 18:28 Blood - Venous Blood Culture - Final No growth after 5 days. 02/09/21 18:29 Blood - Venous Blood Culture - Final No growth after 5 days. Progress Note: A&P Assessment and plan (1) Obesity: Status: Acute Assessment and Plan: Assessment: 50-year-old gentleman admitted with acute hypoxic respiratory failure secondary to COVID-19 ARDS now requiring noninvasive positive pressure ventilatory support. Plan: Neuro: No acute issues. Cardiac: No acute issues. Underlying hypertension. Pulmonary: Acute hypoxic respiratory failure secondary to COVID-19 ARDS now requiring BiPAP support. Continue to titrate off as tolerated. Renal: Now with development of acute kidney injury, likely secondary to underlying viral sepsis. Lisinopril, cultures in, and allopurinol held. Non oliguric. Continue to monitor renal indices and urine output. Endo: No acute issues. Underlying diabetes mellitus GI: No acute issues. ID: COVID 19, now on dexamethasone and remdesivir. Infectious Disease service care appreciated. Heme/Onc: No acute issues. Psych: No acute issues. Miscellaneous: No acute issues. Prophylaxis: Lovenox Diet: Diabetic Critical care time spent: 45 minutes (2) Acute respiratory distress syndrome (ARDS) due to COVID-19 virus: Status: Acute (3) Acute respiratory failure with hypoxia: Status: Acute (4) ELODIA (acute kidney injury): Status: Acute Time Spent With Patient Total time spent with greater than 50% in coordination of care (as documented) at patient's floor/unit and/or counseling patient:: 0 Critical Care Time 45 minutes
--- NOTE | 2021-02-15 15:18 | MHC.CM.PN ---
Pt continues in ICU w/COVID - requiring O2 support: will titrate to nasal canula as part of his care plan today. D/C plan will be for a return to home when medically stable.
[2021-02-15] MEDS: Albuterol Sulfate 90 MCG 8 GM INHALER 4 PUFF INHALE ×2 (15:34→19:39)
[2021-02-15] MEDS: Remdesivir 100 MG in 0.9 % Sodium Chloride 230 ML 115 MG IV (16:23)
[2021-02-15 16:41] LABS: Glucose, Whole Blood 124 mg/dL (60-115)
[2021-02-15 20:47] LABS: Glucose, Whole Blood 129 mg/dL (60-115)
[2021-02-16] VITALS (35 sets, daily range): BP systolic 115–162; BP diastolic 54–92; PULSE 77–113; RESP 18–34; TEMP 36.1–36.6; O2SAT 80–96
[2021-02-16] MEDS: 0.9 % Sodium Chloride Flush 3 ML SYRINGE IVFLUSH ×4 (03:25→23:35)
[2021-02-16] MEDS: fentaNYL citrate/PF 100 MCG/2 ML VIAL 50 MCG IVPUSH (03:57)
[2021-02-16 05:59] LABS: VBG Base Excess -1.6 mmol/L; VBG HCO3 22 mmol/L (22-26); VBG pCO2 36 mmHg; VBG pO2 60 mmHg
[2021-02-16 06:17] LABS: MANUAL DIFF FLAG NO; Venous Blood Gas Refer to POC result
[2021-02-16 06:18] LABS: Basophils Percent Auto 0.1 % (0-2); Hematocrit 48.3 % (42-52); Hemoglobin 16.6 g/dl (14.0-18.0); Imm Gran Abs Auto 0.16 X10*3/uL (0.00-0.03); Mean Corpuscular HGB Conc 34.4 g/dl (31.0-36.0); Mean Corpuscular Hemoglobin 31.5 pg (27.0-33.0); Mean Corpuscular Volume 91.7 fL (80-98); Mean Platelet Volume 10.7 fL (9.4-12.4); Monocytes Absolute Auto 0.7 X10*3/uL (0.1-1.2); Monocytes Percent Auto 4.5 % (2-11); Neutrophils Absolute Auto 14.4 X10*3/uL (2.0-8.3); Neutrophils Percent Auto 88.4 % (45-73); Platelet Count 147 X10*3/uL (160-400); Red Blood Count 5.27 X10*6/uL (4.60-5.80); White Blood Count 16.3 X10*3/uL (4.8-10.8)
[2021-02-16 06:43] LABS: Albumin Level 3.6 g/dL (3.5-5.0); Anion Gap 15 (12-20); Blood Urea Nitrogen 44 mg/dL (9-16); Calcium 8.5 mg/dL (8.4-10.2); Carbon Dioxide 25 mmol/L (22-29); Chloride 102 mmol/L (96-108); Creatinine Clr Calc Pharmacy 137.1; Estimated Glomerular Filt Rate > 60; Glucose Random 122 mg/dL (60-115); Magnesium 2.4 mg/dL (1.6-2.6); Phosphorus 3.8 mg/dL (2.7-4.5); Potassium 4.2 mmol/L (3.3-5.1); Sodium 138 mmol/L (135-145)
[2021-02-16 07:22] LABS: Glucose, Whole Blood 94 mg/dL (60-115)
[2021-02-16] MEDS: Albuterol Sulfate 90 MCG 8 GM INHALER 4 PUFF INHALE ×3 (07:43→20:50)
[2021-02-16] MEDS: dexAMETHasone sod phosphate 4 MG/ML VIAL 6 MG IVPUSH (08:20)
[2021-02-16 11:22] LABS: Glucose, Whole Blood 175 mg/dL (60-115)
[2021-02-16] MEDS: Enoxaparin Sodium 60 MG/0.6 ML SYRINGE SUBCUT (11:40)
[2021-02-16] MEDS: Insulin Lispro 100 UNIT/ML 3 ML VIAL SUBCUT ×2 (11:40→16:43)
[2021-02-16] MEDS: guaiFENesin 100 MG/5 ML LIQUID 10 ML PO (11:41)
--- NOTE | 2021-02-16 15:15 | P.PNCC_ITS ---
Subjective Subjective Date of Service: 02/16/21 Interval History: 50-year-old gentleman with underlying history of obesity, diabetes mellitus, asthma, hypertension, gout admitted on 02/10/2021 with COVID- 19 related acute hypoxic respiratory failure, initially positive for COVID on 02/09/2021. He has been treated with dexamethasone and remdesivir, however his FiO2 requirements continue to increase and now he requires CPAP support. No events overnight. Renal function has improved. Physical Exam Vital Signs: Vital Signs: Last Vital Signs Temp 97.8 F 02/16/21 12:00 Pulse 90 02/16/21 14:00 Resp 25 H 02/16/21 14:00 BP 119/83 02/16/21 14:00 Pulse Ox 92 02/16/21 14:00 Body Mass Index 39.6 Const: General: no acute distress, alert and awake Eyes: Sclerae: sclerae normal EOM: EOMs intact bilaterally Neck: Neck: Yes no lymphadenopathy, Yes trachea midline and Yes supple Resp: Effort & Inspection: normal respiratory effort and no respiratory distress Auscultation: clear to auscultation bilaterally Cardio: Rate: regular rate Rhythm: regular rhythm Heart sounds: no gallops, no murmurs and no rubs GI: Palpation (GI): Soft to palpation and Other GI palpation findings present ( Nontender) Auscultation: normal bowel sounds Extrem: General: Yes no pedal edema, No clubbing and No cyanosis Objective Data Labs CBC & Chem 7: 02/16/21 05:55 02/16/21 05:55 Labs: Laboratory Results - last 24 hr 02/15/21 02/15/21 02/16/21 16:27 20:42 05:53 WBC RBC Hgb Hct MCV MCH MCHC RDW Plt Count MPV Immature Gran % (Auto) Neut % (Auto) Lymph % (Auto) [place] % (Auto) Eos % (Auto) Baso % (Auto) Lymph # (Auto) [place] # (Auto) Eos # (Auto) Baso # (Auto) Abs Immat Gran (auto) Absolute Neuts (auto) Absolute Nucleated RBC Nucleated RBC % (auto) VBG pH 7.40 VBG pCO2 36 VBG pO2 60 VBG HCO3 22 VBG O2 Saturation 82.0 VBG Base Excess -1.6 Sodium Potassium Chloride Carbon Dioxide Anion Gap BUN Creatinine Estim Creat Clear Calc Estimated GFR POC Glucose 124 H 129 H Random Glucose Calcium Phosphorus Magnesium Albumin 02/16/21 02/16/21 02/16/21 05:55 05:55 07:17 WBC 16.3 H RBC 5.27 Hgb 16.6 Hct 48.3 MCV 91.7 MCH 31.5 MCHC 34.4 RDW 13.0 Plt Count 147 L D MPV 10.7 Immature Gran % (Auto) 1.0 H Neut % (Auto) 88.4 H Lymph % (Auto) 6.0 L [place] % (Auto) 4.5 Eos % (Auto) 0.0 Baso % (Auto) 0.1 Lymph # (Auto) 1.0 L [place] # (Auto) 0.7 Eos # (Auto) 0.0 Baso # (Auto) 0.0 Abs Immat Gran (auto) 0.16 H Absolute Neuts (auto) 14.4 H Absolute Nucleated RBC 0.000 Nucleated RBC % (auto) 0.0 VBG pH VBG pCO2 VBG pO2 VBG HCO3 VBG O2 Saturation VBG Base Excess Sodium 138 Potassium 4.2 Chloride 102 Carbon Dioxide 25 Anion Gap 15 BUN 44 H Creatinine 0.85 Estim Creat Clear Calc 137.1 Estimated GFR > 60 POC Glucose 94 Random Glucose 122 H Calcium 8.5 Phosphorus 3.8 Magnesium 2.4 Albumin 3.6 02/16/21 11:16 WBC RBC Hgb Hct MCV MCH MCHC RDW Plt Count MPV Immature Gran % (Auto) Neut % (Auto) Lymph % (Auto) [place] % (Auto) Eos % (Auto) Baso % (Auto) Lymph # (Auto) [place] # (Auto) Eos # (Auto) Baso # (Auto) Abs Immat Gran (auto) Absolute Neuts (auto) Absolute Nucleated RBC Nucleated RBC % (auto) VBG pH VBG pCO2 VBG pO2 VBG HCO3 VBG O2 Saturation VBG Base Excess Sodium Potassium Chloride Carbon Dioxide Anion Gap BUN Creatinine Estim Creat Clear Calc Estimated GFR POC Glucose 175 H Random Glucose Calcium Phosphorus Magnesium Albumin Microbiology Microbiology Results: Microbiology 02/09/21 18:28 Blood - Venous Blood Culture - Final No growth after 5 days. 02/09/21 18:29 Blood - Venous Blood Culture - Final No growth after 5 days. Progress Note: A&P Assessment and plan (1) Acute respiratory distress syndrome (ARDS) due to COVID-19 virus: Status: Acute Assessment and Plan: Assessment: 50-year-old gentleman admitted with acute hypoxic respiratory failure secondary to COVID-19 ARDS now requiring noninvasive positive pressure ventilatory support. Plan: Neuro: No acute issues. Cardiac: No acute issues. Underlying hypertension. Pulmonary: Acute hypoxic respiratory failure secondary to COVID-19 ARDS now requiring BiPAP support. Continue to titrate off as tolerated. Renal: Renal function has improved. Endo: No acute issues. Underlying diabetes mellitus GI: No acute issues. ID: COVID 19, now on dexamethasone, completed remdesivir. Infectious Disease service care appreciated. Heme/Onc: No acute issues. Psych: No acute issues. Miscellaneous: No acute issues. Prophylaxis: Lovenox Diet: Diabetic Critical care time spent: 45 minutes (2) Obesity: Status: Acute (3) Acute respiratory failure with hypoxia: Status: Acute (4) Asthma: Status: Acute (5) Diabetes mellitus: Status: Acute (6) Essential hypertension: Status: Acute Time Spent With Patient Total time spent with greater than 50% in coordination of care (as documented) at patient's floor/unit and/or counseling patient:: 0 Critical Care Time 45 minutes
--- NOTE | 2021-02-16 16:12 | MHC.CM.PN ---
Pt with COVYOLANDA now on BiPap respiratory support in ICU: pt was independent prior to arrival and it is anticipated that he will be able to return to prior level of functioning once recovered. CM will follow for any changes in d/c planning.
[2021-02-16 16:43] LABS: Glucose, Whole Blood 185 mg/dL (60-115)
[2021-02-16] MEDS: Acetaminophen 325 MG TABLET 650 MG PO (16:47)
[2021-02-16 22:08] LABS: Glucose, Whole Blood 146 mg/dL (60-115)
[2021-02-17] VITALS (30 sets, daily range): BP systolic 105–132; BP diastolic 53–83; PULSE 84–111; RESP 22–34; TEMP 36.8–37; O2SAT 83–108
--- NOTE | 2021-02-17 04:54 | PC.NURSE ---
Addendum entered by Rikki Zheng RN 02/17/21 06:38: OOB TO RECLINER THIS AM WITH STEADY GAIT...ALERT..ORIENTED X3...MENTATING APPRPRIATELY...SAO2 93% ON FULL FACE-MASK BIPAP...RT PRESENT--RETURNED TO NASAL BIPAP MASK--ASYMPTOMATIC--SAO2 87-88% Original Note: CARE ASSUMED 23:15---OOB IN RECLINER AT ---ALERT--ORIENTED X3--NASAL BIPAP 16/10 & FIO2 100%...SAO2 84-87%....BACK TO BED...SAO2 78-81% ON NASAL BIPAP WHILE IN BED...ASYMPTOMATIC...REMAINS PAPPAS AT BASE-LINE BUT NO DISTRESS AT REST--RETURNED TO FULL FACE-MASK BY RT AND SAME SETTINGS--SAO2 82-85% ASLEEP WITH FULL FACE-MASK. DENIES DISCOMFORT---NAPPING INTERMITTANTLY OVERNIGHT--REMAINS MENTATING APPRPRIATELY
[2021-02-17 06:13] LABS: VBG Base Excess -2.1 mmol/L; VBG HCO3 20 mmol/L (22-26); VBG pCO2 30 mmHg; VBG pH 7.43 (7.32-7.43); VBG pO2 75 mmHg
[2021-02-17 06:25] LABS: Basophils Percent Auto 0.1 % (0-2); Eosinophils Percent Auto 0.1 % (0-4); Hematocrit 52.8 % (42-52); Hemoglobin 17.6 g/dl (14.0-18.0); Imm Gran Abs Auto 0.38 X10*3/uL (0.00-0.03); Imm Gran Pct Auto 1.8 % (0.0-0.4); Lymphocytes Absolute Auto 0.9 X10*3/uL (1.2-4.9); Lymphocytes Percent Auto 4.4 % (20-40); MANUAL DIFF FLAG SCAN; Mean Corpuscular HGB Conc 33.3 g/dl (31.0-36.0); Mean Corpuscular Hemoglobin 30.7 pg (27.0-33.0); Mean Corpuscular Volume 92.1 fL (80-98); Mean Platelet Volume 11.2 fL (9.4-12.4); Monocytes Absolute Auto 0.7 X10*3/uL (0.1-1.2); Monocytes Percent Auto 3.5 % (2-11); Neutrophils Percent Auto 90.1 % (45-73); Platelet Count 114 X10*3/uL (160-400); Red Blood Count 5.73 X10*6/uL (4.60-5.80); SCAN SMEAR FLAG 1; White Blood Count 21.1 X10*3/uL (4.8-10.8)
[2021-02-17 06:49] LABS: SLIDE REVIEW VERIFIED
[2021-02-17 06:52] LABS: Albumin Level 3.5 g/dL (3.5-5.0); Blood Urea Nitrogen 34 mg/dL (9-16); Calcium 8.5 mg/dL (8.4-10.2); Carbon Dioxide 21 mmol/L (22-29); Creatinine Clr Calc Pharmacy 153.3; Estimated Glomerular Filt Rate > 60; Glucose Random 130 mg/dL (60-115); Magnesium 2.3 mg/dL (1.6-2.6)
[2021-02-17 07:02] LABS: Anion Gap 17 (12-20); Chloride 101 mmol/L (96-108); Potassium 4.9 mmol/L (3.3-5.1); Sodium 134 mmol/L (135-145)
[2021-02-17 07:15] LABS: Venous Blood Gas Refer to POC result
[2021-02-17] MEDS: 0.9 % Sodium Chloride Flush 3 ML SYRINGE IVFLUSH ×2 (08:36→14:45)
[2021-02-17] MEDS: dexAMETHasone sod phosphate 4 MG/ML VIAL 6 MG IVPUSH (08:36)
[2021-02-17] MEDS: Albuterol Sulfate 90 MCG 8 GM INHALER 4 PUFF INHALE ×2 (08:54→16:54)
[2021-02-17] MEDS: Ampicillin Sodium/Sulbactam Na 3 GM in 0.9 % Sodium Chloride 100 ML IV ×3 (10:29→20:29)
[2021-02-17 11:51] LABS: Glucose, Whole Blood 193 mg/dL (60-115)
[2021-02-17] MEDS: Insulin Lispro 100 UNIT/ML 3 ML VIAL SUBCUT (12:53)
[2021-02-17] MEDS: Enoxaparin Sodium 60 MG/0.6 ML SYRINGE SUBCUT (12:53)
--- NOTE | 2021-02-17 16:00 | PM.CCPN ---
Subjective Subjective Date of Service: 02/17/21 Interval History: 50-year-old gentleman with underlying history of obesity, diabetes mellitus, asthma, hypertension, gout admitted on 02/10/2021 with COVID-19 related acute hypoxic respiratory failure, initially positive for COVID on 02/09/2021. He has been treated with dexamethasone and remdesivir, however his FiO2 requirements continue to increase and now he requires CPAP support. Overnight with leukocytosis, fever and worsened FiO2 requirements, likely an aspiration event, empirically covered with Unasyn. Physical Exam Vital Signs: Vital Signs: Last Vital Signs Temp 98.6 F 02/17/21 12:00 Pulse 103 H 02/17/21 14:56 Resp 29 H 02/17/21 14:56 BP 126/74 02/17/21 14:56 Pulse Ox 88 L 02/17/21 14:56 Body Mass Index 39.6 Const: General: no acute distress, alert and awake Eyes: Sclerae: sclerae normal EOM: EOMs intact bilaterally Neck: Neck: Yes no lymphadenopathy, Yes trachea midline and Yes supple Resp: Effort & Inspection: normal respiratory effort and no respiratory distress Auscultation: crackles (Diffuse bilateral) Cardio: Rate: tachycardic Rhythm: regular rhythm Heart sounds: no gallops, no murmurs and no rubs GI: Palpation (GI): Soft to palpation and Other GI palpation findings present ( Nontender) Auscultation: normal bowel sounds Extrem: General: Yes no pedal edema, No clubbing and No cyanosis Objective Data Labs CBC & Chem 7: 02/17/21 06:06 02/17/21 06:06 Labs: Laboratory Results - last 24 hr 02/16/21 02/16/21 02/17/21 16:37 22:04 06:06 WBC 21.1 H RBC 5.73 Hgb 17.6 Hct 52.8 H MCV 92.1 MCH 30.7 MCHC 33.3 RDW 13.0 Plt Count 114 L MPV 11.2 Immature Gran % (Auto) 1.8 H Neut % (Auto) 90.1 H Lymph % (Auto) 4.4 L [place] % (Auto) 3.5 Eos % (Auto) 0.1 Baso % (Auto) 0.1 Lymph # (Auto) 0.9 L [place] # (Auto) 0.7 Eos # (Auto) 0.0 Baso # (Auto) 0.0 Abs Immat Gran (auto) 0.38 H Absolute Neuts (auto) 19.0 H Absolute Nucleated RBC 0.000 Nucleated RBC % (auto) 0.0 Smear Tech's Comments VERIFIED VBG pH VBG pCO2 VBG pO2 VBG HCO3 VBG O2 Saturation VBG Base Excess Sodium Potassium Chloride Carbon Dioxide Anion Gap BUN Creatinine Estim Creat Clear Calc Estimated GFR POC Glucose 185 H 146 H Random Glucose Calcium Phosphorus Magnesium Albumin 02/17/21 02/17/21 02/17/21 06:06 06:06 11:34 WBC RBC Hgb Hct MCV MCH MCHC RDW Plt Count MPV Immature Gran % (Auto) Neut % (Auto) Lymph % (Auto) [place] % (Auto) Eos % (Auto) Baso % (Auto) Lymph # (Auto) [place] # (Auto) Eos # (Auto) Baso # (Auto) Abs Immat Gran (auto) Absolute Neuts (auto) Absolute Nucleated RBC Nucleated RBC % (auto) Smear Tech's Comments VBG pH 7.43 VBG pCO2 30 VBG pO2 75 VBG HCO3 20 L VBG O2 Saturation 91.0 VBG Base Excess -2.1 Sodium 134 L Potassium 4.9 Chloride 101 Carbon Dioxide 21 L Anion Gap 17 BUN 34 H Creatinine 0.76 Estim Creat Clear Calc 153.3 Estimated GFR > 60 POC Glucose 193 H Random Glucose 130 H Calcium 8.5 Phosphorus 3.0 Magnesium 2.3 Albumin 3.5 Microbiology Microbiology Results: Microbiology 02/09/21 18:28 Blood - Venous Blood Culture - Final No growth after 5 days. 02/09/21 18:29 Blood - Venous Blood Culture - Final No growth after 5 days. Progress Note: A&P Assessment and plan (1) Obesity: Status: Acute Assessment and Plan: Assessment: 50-year-old gentleman admitted with acute hypoxic respiratory failure secondary to COVID-19 ARDS now requiring noninvasive positive pressure ventilatory support. Plan: Neuro: No acute issues. Cardiac: No acute issues. Underlying hypertension. Pulmonary: Acute hypoxic respiratory failure secondary to COVID-19 ARDS now requiring BiPAP support. Continue to titrate off as tolerated. Now with an aspiration component empiric covered with Unasyn. Renal: Renal function has improved. Endo: No acute issues. Underlying diabetes mellitus GI: No acute issues. ID: COVID 19, completed remdesivir and dexamethasone. Infectious Disease service care appreciated. Unasyn for empiric coverage for possible aspiration pneumonitis. Heme/Onc: No acute issues. Psych: No acute issues. Miscellaneous: No acute issues. Prophylaxis: Lovenox Diet: Diabetic Critical care time spent: 60 minutes (2) Acute respiratory distress syndrome (ARDS) due to COVID-19 virus: Status: Acute (3) Acute respiratory failure with hypoxia: Status: Acute (4) Pulmonary aspiration: Status: Acute (5) Asthma: Status: Acute (6) Diabetes mellitus: Status: Acute Time Spent With Patient Total time spent with greater than 50% in coordination of care (as documented) at patient's floor/unit and/or counseling patient:: 0 Critical Care Time Critical Care Time (minutes): 60
[2021-02-17 16:49] LABS: Glucose, Whole Blood 179 mg/dL (60-115)
--- NOTE | 2021-02-17 17:35 | PC.NURSE ---
Assumed care at 1500 from SERA Bautista Patient A&Ox3, restless & mildly anxious ST HR low 100's, no ectopy Two PRN angios patent Lovenox 60mg Q24hr for DVT On Bipap 16/10 100% Sat goal per MD >85% LS dim throughout RR 26-32 O2 sat dropped quickly to low 70's w/ inhaler administration Unable to tolerate food at this time d/t respiratory demand Urine o/p 475cc in urinal, concentrated No skin integrity concerns Patient up in relciner, refusing repositioning Patient education on on risks when not repositioned
[2021-02-17 20:48] LABS: Glucose, Whole Blood 162 mg/dL (60-115)
[2021-02-18] VITALS (37 sets, daily range): BP systolic 101–142; BP diastolic 50–98; PULSE 89–121; RESP 17–38; TEMP 36–36.6; O2SAT 70–99
[2021-02-18] MEDS: 0.9 % Sodium Chloride Flush 3 ML SYRINGE IVFLUSH ×3 (00:25→15:16)
[2021-02-18] MEDS: Ampicillin Sodium/Sulbactam Na 3 GM in 0.9 % Sodium Chloride 100 ML IV ×4 (03:58→21:31)
[2021-02-18 05:33] LABS: VBG Base Excess -4.1 mmol/L; VBG HCO3 18 mmol/L (22-26); VBG pCO2 27 mmHg; VBG pH 7.42 (7.32-7.43); VBG pO2 62 mmHg
[2021-02-18 05:53] LABS: Venous Blood Gas Refer to POC result
[2021-02-18] MEDS: fentaNYL citrate/PF 100 MCG/2 ML VIAL 50 MCG IVPUSH ×6 (05:55→23:45)
--- NOTE | 2021-02-18 05:56 | PC.NURSE ---
pt returned to bed per request. he experienced decompensation in resp status-sao2 have fallen into the 79-81% cony granados senior buyer summoned to bedside the following interventions carried out 1. fentanyl 50 mcg ivp 2. bipap settings advanced to 18/12 3. placed in high fowlers position 4. lasix 20 mg ivp to be given. 5. stat cxr
[2021-02-18 05:57] LABS: MANUAL DIFF FLAG NO
[2021-02-18 05:59] LABS: Basophils Percent Auto 0.1 % (0-2); Eosinophils Percent Auto 0.1 % (0-4); Hematocrit 50.7 % (42-52); Hemoglobin 17.3 g/dl (14.0-18.0); Imm Gran Abs Auto 0.56 X10*3/uL (0.00-0.03); Imm Gran Pct Auto 2.6 % (0.0-0.4); Lymphocytes Percent Auto 4.9 % (20-40); Mean Corpuscular HGB Conc 34.1 g/dl (31.0-36.0); Mean Corpuscular Hemoglobin 31.3 pg (27.0-33.0); Mean Corpuscular Volume 91.7 fL (80-98); Monocytes Absolute Auto 0.8 X10*3/uL (0.1-1.2); Monocytes Percent Auto 3.6 % (2-11); Neutrophils Absolute Auto 18.8 X10*3/uL (2.0-8.3); Neutrophils Percent Auto 88.7 % (45-73); Platelet Count 134 X10*3/uL (160-400); Red Blood Count 5.53 X10*6/uL (4.60-5.80); Red Cell Distribution Width 13.1 % (11.0-16.0); White Blood Count 21.2 X10*3/uL (4.8-10.8)
[2021-02-18] MEDS: Furosemide 20 MG/2 ML VIAL IVPUSH (06:09)
[2021-02-18 06:31] LABS: Albumin Level 3.5 g/dL (3.5-5.0); Anion Gap 17 (12-20); Blood Urea Nitrogen 35 mg/dL (9-16); Calcium 8.6 mg/dL (8.4-10.2); Carbon Dioxide 21 mmol/L (22-29); Chloride 101 mmol/L (96-108); Creatinine Clr Calc Pharmacy 143.8; Estimated Glomerular Filt Rate > 60; Glucose Random 134 mg/dL (60-115); Magnesium 2.5 mg/dL (1.6-2.6); Phosphorus 3.3 mg/dL (2.7-4.5); Potassium 4.6 mmol/L (3.3-5.1); Sodium 134 mmol/L (135-145)
--- NOTE | 2021-02-18 08:56 | P.PNCC_ITS ---
Subjective Subjective Date of Service: 02/18/21 Interval History: 50-year-old gentleman with underlying history of obesity, diabetes mellitus, asthma, hypertension, gout admitted on 02/10/2021 with COVID- 19 related acute hypoxic respiratory failure, initially positive for COVID on 02/09/2021. He has been treated with dexamethasone and remdesivir, however his FiO2 requirements continue to increase and now he requires BiPAP support. Overnight with intermittent desaturations. Physical Exam Vital Signs: Vital Signs: Last Vital Signs Temp 98 F 02/18/21 03:00 Pulse 104 H 02/18/21 07:00 Resp 24 H 02/18/21 08:06 BP 112/71 02/18/21 07:00 Pulse Ox 93 02/18/21 07:00 Body Mass Index 39.6 Const: General: no acute distress, alert and awake Eyes: Sclerae: sclerae normal EOM: EOMs intact bilaterally Neck: Neck: Yes no lymphadenopathy, Yes trachea midline and Yes supple Resp: Effort & Inspection: normal respiratory effort and no respiratory distress Auscultation: crackles (Diffuse bilateral) Cardio: Rate: tachycardic Rhythm: regular rhythm Heart sounds: no gallops, no murmurs and no rubs GI: Palpation (GI): Soft to palpation and Other GI palpation findings present ( Nontender) Auscultation: normal bowel sounds Extrem: General: Yes no pedal edema, No clubbing and No cyanosis Objective Data Labs CBC & Chem 7: 02/18/21 05:23 02/18/21 05:23 Labs: Laboratory Results - last 24 hr 02/17/21 02/17/21 02/17/21 11:34 16:31 20:38 WBC RBC Hgb Hct MCV MCH MCHC RDW Plt Count MPV Immature Gran % (Auto) Neut % (Auto) Lymph % (Auto) [place] % (Auto) Eos % (Auto) Baso % (Auto) Lymph # (Auto) [place] # (Auto) Eos # (Auto) Baso # (Auto) Abs Immat Gran (auto) Absolute Neuts (auto) Absolute Nucleated RBC Nucleated RBC % (auto) VBG pH VBG pCO2 VBG pO2 VBG HCO3 VBG O2 Saturation VBG Base Excess Sodium Potassium Chloride Carbon Dioxide Anion Gap BUN Creatinine Estim Creat Clear Calc Estimated GFR POC Glucose 193 H 179 H 162 H Random Glucose Calcium Phosphorus Magnesium Albumin 02/18/21 02/18/21 02/18/21 05:23 05:23 05:26 WBC 21.2 H RBC 5.53 Hgb 17.3 Hct 50.7 MCV 91.7 MCH 31.3 MCHC 34.1 RDW 13.1 Plt Count 134 L MPV 12.0 Immature Gran % (Auto) 2.6 H Neut % (Auto) 88.7 H Lymph % (Auto) 4.9 L [place] % (Auto) 3.6 Eos % (Auto) 0.1 Baso % (Auto) 0.1 Lymph # (Auto) 1.0 L [place] # (Auto) 0.8 Eos # (Auto) 0.0 Baso # (Auto) 0.0 Abs Immat Gran (auto) 0.56 H Absolute Neuts (auto) 18.8 H Absolute Nucleated RBC 0.000 Nucleated RBC % (auto) 0.0 VBG pH 7.42 VBG pCO2 27 VBG pO2 62 VBG HCO3 18 L VBG O2 Saturation 86.0 VBG Base Excess -4.1 Sodium 134 L Potassium 4.6 Chloride 101 Carbon Dioxide 21 L Anion Gap 17 BUN 35 H Creatinine 0.81 Estim Creat Clear Calc 143.8 Estimated GFR > 60 POC Glucose Random Glucose 134 H Calcium 8.6 Phosphorus 3.3 Magnesium 2.5 Albumin 3.5 Microbiology Microbiology Results: Microbiology 02/09/21 18:28 Blood - Venous Blood Culture - Final No growth after 5 days. 02/09/21 18:29 Blood - Venous Blood Culture - Final No growth after 5 days. Progress Note: A&P Assessment and plan (1) Pulmonary aspiration: Status: Acute Assessment and Plan: Assessment: 50-year-old gentleman admitted with acute hypoxic respiratory failure secondary to COVID-19 ARDS now requiring noninvasive positive pressure ventilatory support. Plan: Neuro: No acute issues. Cardiac: No acute issues. Underlying hypertension. Pulmonary: Acute hypoxic respiratory failure secondary to COVID-19 ARDS now requiring BiPAP support. Continue to titrate off as tolerated. Now with an aspiration component empirically covered with Unasyn. Renal: Renal function has improved. Endo: No acute issues. Underlying diabetes mellitus GI: No acute issues. ID: COVID 19, completed remdesivir and dexamethasone. Infectious Disease service care appreciated. Unasyn for empiric coverage for possible aspiration pneumonitis. Heme/Onc: No acute issues. Psych: No acute issues. Miscellaneous: No acute issues. Prophylaxis: Lovenox Diet: Diabetic Critical care time spent: 60 minutes (2) Obesity: Status: Acute (3) Acute respiratory distress syndrome (ARDS) due to COVID-19 virus: Status: Acute (4) Acute respiratory failure with hypoxia: Status: Acute (5) Asthma: Status: Acute (6) Diabetes mellitus: Status: Acute (7) Essential hypertension: Status: Acute Time Spent With Patient Total time spent with greater than 50% in coordination of care (as documented) at patient's floor/unit and/or counseling patient:: 0 Critical Care Time Critical Care Time (minutes): 60
[2021-02-18 11:02] LABS: Glucose, Whole Blood 142 mg/dL (60-115)
[2021-02-18] MEDS: Enoxaparin Sodium 60 MG/0.6 ML SYRINGE SUBCUT (12:14)
--- NOTE | 2021-02-18 14:52 | MHC.CM.PN ---
Patient transferred to ICU on 02/18. Patient currently intubated/vented. Patient has been positive covid since 02/09. Patient had TECHNICAL REPORT WRITER services at home prior to coming to the hospital. Anticipate physical therapy eval for home safety will be needed. No HCP on file. Continue to monitor for d/c needs.
[2021-02-18 16:37] LABS: Glucose, Whole Blood 141 mg/dL (60-115)
--- NOTE | 2021-02-18 17:48 | PC.NURSE ---
Pt A&Ox3, on BIPAP 18/12 FiO2 100, tachypneic, orthopnic, labored breathing RR range 27-42, SaO2 at rest 85-90%. With minimal exertion, i.e. urinal at bedside, desat to 76% and takes a few minutes for SaO2 to improve. REquired fentanyl x2 today IVP PRN for restlessness. Lung sounds dim all lobes with FC in bases. Pt did try nasal pillow bipap but only tolerated for 1.5-2hr before desatting. Telephone Assembler utilized at bedside.
[2021-02-18] MEDS: Albuterol Sulfate 90 MCG 8 GM INHALER 4 PUFF INHALE (19:56)
--- NOTE | 2021-02-18 21:30 | PM.IDPN ---
Subjective Subjective Date of Service: 02/18/21 Interval History: he still has respiratory demands Ampicillin/Sulbactam day 2 he has no bacteremia CXR patchy airspace disease Objective Data Labs CBC & Chem 7: 03/02/21 06:00 03/02/21 05:45 Labs: Laboratory Results - last 24 hr 02/18/21 02/18/21 02/18/21 05:23 05:23 05:26 WBC 21.2 H RBC 5.53 Hgb 17.3 Hct 50.7 MCV 91.7 MCH 31.3 MCHC 34.1 RDW 13.1 Plt Count 134 L MPV 12.0 Immature Gran % (Auto) 2.6 H Neut % (Auto) 88.7 H Lymph % (Auto) 4.9 L [place] % (Auto) 3.6 Eos % (Auto) 0.1 Baso % (Auto) 0.1 Lymph # (Auto) 1.0 L [place] # (Auto) 0.8 Eos # (Auto) 0.0 Baso # (Auto) 0.0 Abs Immat Gran (auto) 0.56 H Absolute Neuts (auto) 18.8 H Absolute Nucleated RBC 0.000 Nucleated RBC % (auto) 0.0 VBG pH 7.42 VBG pCO2 27 VBG pO2 62 VBG HCO3 18 L VBG O2 Saturation 86.0 VBG Base Excess -4.1 Sodium 134 L Potassium 4.6 Chloride 101 Carbon Dioxide 21 L Anion Gap 17 BUN 35 H Creatinine 0.81 Estim Creat Clear Calc 143.8 Estimated GFR > 60 POC Glucose Random Glucose 134 H Calcium 8.6 Phosphorus 3.3 Magnesium 2.5 Albumin 3.5 02/18/21 02/18/21 10:57 16:33 WBC RBC Hgb Hct MCV MCH MCHC RDW Plt Count MPV Immature Gran % (Auto) Neut % (Auto) Lymph % (Auto) [place] % (Auto) Eos % (Auto) Baso % (Auto) Lymph # (Auto) [place] # (Auto) Eos # (Auto) Baso # (Auto) Abs Immat Gran (auto) Absolute Neuts (auto) Absolute Nucleated RBC Nucleated RBC % (auto) VBG pH VBG pCO2 VBG pO2 VBG HCO3 VBG O2 Saturation VBG Base Excess Sodium Potassium Chloride Carbon Dioxide Anion Gap BUN Creatinine Estim Creat Clear Calc Estimated GFR POC Glucose 142 H 141 H Random Glucose Calcium Phosphorus Magnesium Albumin Microbiology Microbiology Results: Microbiology 02/09/21 18:28 Blood - Venous Blood Culture - Final No growth after 5 days. 02/09/21 18:29 Blood - Venous Blood Culture - Final No growth after 5 days. Physical Exam Vital Signs: Vital Signs: Last Vital Signs Temp 96.8 F 02/18/21 16:00 Pulse 120 H 02/18/21 20:09 Resp 22 H 02/18/21 20:11 BP 124/86 02/18/21 19:00 Pulse Ox 84 L 02/18/21 19:00 Body Mass Index 39.6 Const: General: cooperative HENMT: Head: Yes normal to inspection Mouth: Normal oral and palatal mucosa present Cardio: Rate: regular rate Rhythm: regular rhythm GI: Palpation (GI): Soft to palpation and nontender Skin: General skin exam: no rashes or lesions noted Assessment and Plan Assessment and plan (1) Pulmonary aspiration: Status: Acute Assessment and Plan: May continue Unasyn but would check procalcitonin again and stop antibiotics fairly quickly if low (2) ELODIA (acute kidney injury): Problem details: Oliguric ELODIA in a setting of COVID-19 c/w cytokine storm assoc multifact ATN HyperK: controlled today Resp failure SEVERE: req pronataion on/off apparently not a candidate for ECMO Shock: req max doses of pressors Overall prognosis grim UF today and then HD tomorrow D/W ICU Status: Acute (3) Acute respiratory distress syndrome (ARDS) due to COVID-19 virus: Status: Acute Time Spent With Patient Time: Total time spent is greater than 50% in coordination of care (as documented) at patient's floor/unit and/or counseling patient: Time with patient: 15 - 24 minutes
[2021-02-18] MEDS: Insulin Lispro 100 UNIT/ML 3 ML VIAL SUBCUT (21:46)
[2021-02-18 21:56] LABS: Glucose, Whole Blood 226 mg/dL (60-115)
[2021-02-18] MEDS: Albuterol/Iprat 2.5/0.5MG 3 ML AMPUL.NEB INHALE (22:00)
[2021-02-18 22:39] LABS: Procalcitonin 0.62 ng/mL
[2021-02-19] VITALS (33 sets, daily range): BP systolic 110–133; BP diastolic 63–96; PULSE 106–120; RESP 24–44; TEMP 36.1–37.1; O2SAT 82–97
[2021-02-19] MEDS: 0.9 % Sodium Chloride Flush 3 ML SYRINGE IVFLUSH ×3 (01:51→14:31)
[2021-02-19] MEDS: fentaNYL citrate/PF 100 MCG/2 ML VIAL 50 MCG IVPUSH ×4 (02:09→20:54)
[2021-02-19] MEDS: Ampicillin Sodium/Sulbactam Na 3 GM in 0.9 % Sodium Chloride 100 ML IV ×4 (02:10→20:52)
--- NOTE | 2021-02-19 02:27 | PC.NURSE ---
pt has been fragile in regard to resp status. he is awake in recliner chair watching tv. he is mostly kiswahili speaking. however, he is able to communicate his basic needs. his sensorium is intact. he is able to pivot himself from recliner to chair. any further activity leads to hypoxia. he has venous stasis color changes of his legs. he is maintained on bipap apparatus with the following settings ipap 18/epap 12 fio2 100%. pt is dyspneic with minimal exertion. breath sounds are coarse with fine crackles audible within rll. baselineline sao2 85-90%. pt quickly desaturates with any brief interruptions of bipap pressure support. sao2 quickly decline into the low 70S. ecg displays st. apical hr 115-125 bpm. afebrile. abdomen morbidly obese/soft. pt place on nasal pillow with above mentioned bipap settings for [place]. pt has apple to eat a cup of fruit and drink a small can of gingerale(diet). poc tx with sliding scale. voiding conc ford urine.
[2021-02-19 05:42] LABS: VBG Base Excess -2.7 mmol/L; VBG HCO3 19 mmol/L (22-26); VBG pCO2 28 mmHg; VBG pH 7.44 (7.32-7.43); VBG pO2 68 mmHg
[2021-02-19 05:47] LABS: MANUAL DIFF FLAG NO
[2021-02-19 05:50] LABS: Basophils Percent Auto 0.1 % (0-2); Eosinophils Absolute Auto 0.1 X10*3/uL (0.0-0.4); Eosinophils Percent Auto 0.4 % (0-4); Hematocrit 51.6 % (42-52); Hemoglobin 17.4 g/dl (14.0-18.0); Imm Gran Abs Auto 0.51 X10*3/uL (0.00-0.03); Imm Gran Pct Auto 2.3 % (0.0-0.4); Lymphocytes Percent Auto 4.5 % (20-40); Mean Corpuscular HGB Conc 33.7 g/dl (31.0-36.0); Mean Corpuscular Hemoglobin 31.1 pg (27.0-33.0); Mean Corpuscular Volume 92.1 fL (80-98); Mean Platelet Volume 11.5 fL (9.4-12.4); Monocytes Absolute Auto 0.7 X10*3/uL (0.1-1.2); Monocytes Percent Auto 3.4 % (2-11); Neutrophils Absolute Auto 19.7 X10*3/uL (2.0-8.3); Neutrophils Percent Auto 89.3 % (45-73); Platelet Count 187 X10*3/uL (160-400); Red Cell Distribution Width 13.1 % (11.0-16.0)
[2021-02-19 05:53] LABS: Venous Blood Gas Refer to POC result
[2021-02-19 06:14] LABS: Albumin Level 3.4 g/dL (3.5-5.0); Anion Gap 20 (12-20); Blood Urea Nitrogen 40 mg/dL (9-16); Calcium 8.6 mg/dL (8.4-10.2); Carbon Dioxide 19 mmol/L (22-29); Chloride 99 mmol/L (96-108); Creatinine Clr Calc Pharmacy 137.1; Estimated Glomerular Filt Rate > 60; Glucose Random 154 mg/dL (60-115); Magnesium 2.7 mg/dL (1.6-2.6); Phosphorus 4.1 mg/dL (2.7-4.5); Sodium 133 mmol/L (135-145)
[2021-02-19 08:02] LABS: Glucose, Whole Blood 177 mg/dL (60-115)
--- NOTE | 2021-02-19 10:43 | PM.CCPN ---
Subjective Subjective Date of Service: 02/19/21 Interval History: ICU day 6 kiera acute hypoxic respiratory failure, COVID-19 ARDS. 50-year-old gentleman with underlying history of obesity, diabetes mellitus, asthma, hypertension, gout admitted on 02/10/2021 with COVID-19 related acute hypoxic respiratory failure, initially positive for COVID on 02/09/2021. He has been treated with dexamethasone and remdesivir, however his FiO2 requirements continue to increase and now he requires BiPAP support. No events overnight. Physical Exam Vital Signs: Vital Signs: Last Vital Signs Temp 98.7 F 02/19/21 09:00 Pulse 116 H 02/19/21 10:00 Resp 29 H 02/19/21 10:00 BP 118/82 02/19/21 10:00 Pulse Ox 89 L 02/19/21 10:00 Body Mass Index 39.6 Const: General: no acute distress, alert and awake Eyes: Sclerae: sclerae normal EOM: EOMs intact bilaterally Neck: Neck: Yes no lymphadenopathy, Yes trachea midline and Yes supple Resp: Effort & Inspection: normal respiratory effort and no respiratory distress Auscultation: clear to auscultation bilaterally Cardio: Rate: regular rate Rhythm: regular rhythm Heart sounds: no gallops, no murmurs and no rubs GI: Palpation (GI): Soft to palpation and Other GI palpation findings present ( Nontender) Auscultation: normal bowel sounds Extrem: General: No clubbing, No cyanosis and Yes pedal edema (Trace bilateral) Objective Data Labs CBC & Chem 7: 02/19/21 05:31 02/19/21 05:31 Labs: Laboratory Results - last 24 hr 02/18/21 02/18/21 02/18/21 10:57 16:33 21:36 WBC RBC Hgb Hct MCV MCH MCHC RDW Plt Count MPV Immature Gran % (Auto) Neut % (Auto) Lymph % (Auto) [place] % (Auto) Eos % (Auto) Baso % (Auto) Lymph # (Auto) [place] # (Auto) Eos # (Auto) Baso # (Auto) Abs Immat Gran (auto) Absolute Neuts (auto) Absolute Nucleated RBC Nucleated RBC % (auto) VBG pH VBG pCO2 VBG pO2 VBG HCO3 VBG O2 Saturation VBG Base Excess Sodium Potassium Chloride Carbon Dioxide Anion Gap BUN Creatinine Estim Creat Clear Calc Estimated GFR POC Glucose 142 H 141 H 226 H Random Glucose Calcium Phosphorus Magnesium Albumin Procalcitonin 02/18/21 02/19/21 02/19/21 21:56 05:31 05:31 WBC 22.0 H RBC 5.60 Hgb 17.4 Hct 51.6 MCV 92.1 MCH 31.1 MCHC 33.7 RDW 13.1 Plt Count 187 D MPV 11.5 Immature Gran % (Auto) 2.3 H Neut % (Auto) 89.3 H Lymph % (Auto) 4.5 L [place] % (Auto) 3.4 Eos % (Auto) 0.4 Baso % (Auto) 0.1 Lymph # (Auto) 1.0 L [place] # (Auto) 0.7 Eos # (Auto) 0.1 Baso # (Auto) 0.0 Abs Immat Gran (auto) 0.51 H Absolute Neuts (auto) 19.7 H Absolute Nucleated RBC 0.000 Nucleated RBC % (auto) 0.0 VBG pH VBG pCO2 VBG pO2 VBG HCO3 VBG O2 Saturation VBG Base Excess Sodium 133 L Potassium 5.0 Chloride 99 Carbon Dioxide 19 L Anion Gap 20 BUN 40 H Creatinine 0.85 Estim Creat Clear Calc 137.1 Estimated GFR > 60 POC Glucose Random Glucose 154 H Calcium 8.6 Phosphorus 4.1 Magnesium 2.7 H Albumin 3.4 L Procalcitonin 0.62 02/19/21 02/19/21 05:36 07:46 WBC RBC Hgb Hct MCV MCH MCHC RDW Plt Count MPV Immature Gran % (Auto) Neut % (Auto) Lymph % (Auto) [place] % (Auto) Eos % (Auto) Baso % (Auto) Lymph # (Auto) [place] # (Auto) Eos # (Auto) Baso # (Auto) Abs Immat Gran (auto) Absolute Neuts (auto) Absolute Nucleated RBC Nucleated RBC % (auto) VBG pH 7.44 H VBG pCO2 28 VBG pO2 68 VBG HCO3 19 L VBG O2 Saturation 89.0 VBG Base Excess -2.7 Sodium Potassium Chloride Carbon Dioxide Anion Gap BUN Creatinine Estim Creat Clear Calc Estimated GFR POC Glucose 177 H Random Glucose Calcium Phosphorus Magnesium Albumin Procalcitonin Microbiology Microbiology Results: Microbiology 02/09/21 18:28 Blood - Venous Blood Culture - Final No growth after 5 days. 02/09/21 18:29 Blood - Venous Blood Culture - Final No growth after 5 days. Progress Note: A&P Assessment and plan (1) Obesity: Status: Acute Assessment and Plan: Assessment: 50-year-old gentleman admitted with acute hypoxic respiratory failure secondary to COVID-19 ARDS now requiring noninvasive positive pressure ventilatory support. Plan: Neuro: No acute issues. Cardiac: No acute issues. Underlying hypertension. Pulmonary: Acute hypoxic respiratory failure secondary to COVID-19 ARDS now requiring BiPAP support. Continue to titrate off as tolerated. Likely an aspiration component empirically covered with Unasyn. Renal: Renal function has improved. Endo: No acute issues. Underlying diabetes mellitus GI: No acute issues. ID: COVID 19, completed remdesivir and dexamethasone. Infectious Disease service care appreciated. Unasyn for empiric coverage for possible aspiration pneumonitis. Will trend procalcitonin as per ID recommendations. Heme/Onc: No acute issues. Psych: No acute issues. Miscellaneous: No acute issues. Prophylaxis: Lovenox Diet: Diabetic Critical care time spent: 60 minutes (2) Acute respiratory distress syndrome (ARDS) due to COVID-19 virus: Status: Acute (3) Acute respiratory failure with hypoxia: Status: Acute (4) Diabetes mellitus: Status: Acute (5) Essential hypertension: Status: Acute Time Spent With Patient Total time spent with greater than 50% in coordination of care (as documented) at patient's floor/unit and/or counseling patient:: 0 Critical Care Time Critical Care Time (minutes): 60
[2021-02-19 11:10] LABS: Glucose, Whole Blood 204 mg/dL (60-115)
[2021-02-19] MEDS: Insulin Lispro 100 UNIT/ML 3 ML VIAL SUBCUT ×2 (11:11→20:52)
[2021-02-19] MEDS: Enoxaparin Sodium 60 MG/0.6 ML SYRINGE SUBCUT (11:11)
[2021-02-19 16:57] LABS: Glucose, Whole Blood 130 mg/dL (60-115)
[2021-02-19] MEDS: Furosemide 20 MG/2 ML VIAL IVPUSH (19:34)
[2021-02-19] MEDS: Albuterol/Iprat 2.5/0.5MG 3 ML AMPUL.NEB INHALE (19:56)
[2021-02-19 21:03] LABS: Glucose, Whole Blood 168 mg/dL (60-115)
[2021-02-20] VITALS (36 sets, daily range): BP systolic 107–133; BP diastolic 70–92; PULSE 108–126; RESP 24–110; TEMP 36.1–36.6; O2SAT 74–90
[2021-02-20] MEDS: 0.9 % Sodium Chloride Flush 3 ML SYRINGE IVFLUSH ×3 (00:21→14:50)
[2021-02-20] MEDS: Acetaminophen 325 MG TABLET 650 MG PO ×2 (01:27→14:36)
[2021-02-20] MEDS: Ampicillin Sodium/Sulbactam Na 3 GM in 0.9 % Sodium Chloride 100 ML IV ×4 (03:26→21:04)
[2021-02-20] MEDS: fentaNYL citrate/PF 100 MCG/2 ML VIAL 50 MCG IVPUSH ×4 (03:33→19:31)
--- NOTE | 2021-02-20 04:33 | PC.NURSE ---
CARE ASSUMED 23;15...REMAINS OOB IN RECLINER...ALERT...MENTATING APPRPRIATELY...CONTINUES FULL BIPAP FACE-MASK...BIPAP18/12 & FIO2 100%...RR 26-40...DYSPNEIC WITH MINIMAL EXERTION...SAO2 81-86%...LUNGS DIMINISHED WITH INTERMITTANT HARSH COUGH...C/O MID-BACK AND CHEST PAIN FROM COUG...MEDICATED WITH PRN TYLENOL PER REQUESTS WITH MARGINAL IMPROVEMENT IN DISCOMFORT...MEDICATED WITH PRN FENTANYL WITH EFFECT...REMAINS S.TACH HR 110'S-120..
[2021-02-20 07:44] LABS: Glucose, Whole Blood 134 mg/dL (60-115)
[2021-02-20 07:58] LABS: VBG Base Excess -3.9 mmol/L; VBG HCO3 19 mmol/L (22-26); VBG pCO2 31 mmHg; VBG pH 7.39 (7.32-7.43); VBG pO2 46 mmHg
[2021-02-20 08:14] LABS: Basophils Percent Auto 0.1 % (0-2); Eosinophils Absolute Auto 0.3 X10*3/uL (0.0-0.4); Eosinophils Percent Auto 1.2 % (0-4); Hematocrit 53.2 % (42-52); Hemoglobin 17.7 g/dl (14.0-18.0); Imm Gran Abs Auto 0.78 X10*3/uL (0.00-0.03); Imm Gran Pct Auto 3.2 % (0.0-0.4); Lymphocytes Absolute Auto 1.2 X10*3/uL (1.2-4.9); Lymphocytes Percent Auto 4.9 % (20-40); MANUAL DIFF FLAG SCAN; Mean Corpuscular HGB Conc 33.3 g/dl (31.0-36.0); Mean Corpuscular Hemoglobin 31.1 pg (27.0-33.0); Mean Corpuscular Volume 93.5 fL (80-98); Mean Platelet Volume 11.3 fL (9.4-12.4); Monocytes Absolute Auto 0.8 X10*3/uL (0.1-1.2); Monocytes Percent Auto 3.2 % (2-11); Neutrophils Absolute Auto 21.2 X10*3/uL (2.0-8.3); Neutrophils Percent Auto 87.4 % (45-73); Platelet Count 212 X10*3/uL (160-400); Red Blood Count 5.69 X10*6/uL (4.60-5.80); Red Cell Distribution Width 13.2 % (11.0-16.0); SCAN SMEAR FLAG 1; White Blood Count 24.2 X10*3/uL (4.8-10.8)
[2021-02-20 08:31] LABS: SLIDE REVIEW VERIFIED
[2021-02-20 08:43] LABS: Albumin Level 3.4 g/dL (3.5-5.0); Anion Gap 22 (12-20); Blood Urea Nitrogen 37 mg/dL (9-16); Calcium 8.7 mg/dL (8.4-10.2); Carbon Dioxide 18 mmol/L (22-29); Chloride 97 mmol/L (96-108); Creatinine Clr Calc Pharmacy 145.6; Estimated Glomerular Filt Rate > 60; Glucose Random 135 mg/dL (60-115); Magnesium 2.8 mg/dL (1.6-2.6); Phosphorus 3.8 mg/dL (2.7-4.5); Potassium 4.7 mmol/L (3.3-5.1); Sodium 132 mmol/L (135-145)
[2021-02-20 08:52] LABS: Procalcitonin 0.73 ng/mL
[2021-02-20 09:13] LABS: Venous Blood Gas Refer to POC result
[2021-02-20 13:05] LABS: Glucose, Whole Blood 152 mg/dL (60-115)
[2021-02-20] MEDS: Enoxaparin Sodium 60 MG/0.6 ML SYRINGE SUBCUT (14:36)
--- NOTE | 2021-02-20 14:54 | PC.NURSE ---
Addendum entered by Shantal Camarillo RN 02/20/21 20:10: Area Director brought to pt room, Pt stated Brother Mateo aPrrish as HCP, form filled out and in chart, number added to chart in contacts. Original Note: Area Director brought in to question how pt was feeling, possible intubation and needing a number for HCP incase he becomes intubated. Pt understands will think about HCP.
[2021-02-20 16:27] LABS: Glucose, Whole Blood 148 mg/dL (60-115)
--- NOTE | 2021-02-20 17:51 | PM.CCPN ---
Subjective Subjective Date of Service: 02/20/21 Interval History: 50-year-old male with hypoxemic respiratory failure from ARDS related to COVID-19 pneumonitis and currently has a 1200 cc tidal volume with a respiratory rate of 30 on BiPAP and not using accessory muscles but his minute ventilation is in the 30 Marlys plus L range and is getting very close to maximum voluntary ventilation and we expressed our concerns and talking to him about intubation but he agrees with it in theory but still says he feels no different on his maintain oxygen saturations of 80-84% and wishes not to be intubated now And we explained concern for a middle of the night emergency but this point he felt no worse he claimed than he did earlier Subsequently later in the evening his respiratory rate went up from a stable 30 all day to 45 clearly at at maximum voluntary ventilation levels with a deteriorating oxygen saturation and and intubation at that point became urgent Impossible with COVID 19 to say what precipitated the worsening of his failure whether not there is a superimposed secondary bacterial infection whether not there was a coagulopathy induced with pulmonary thrombotic event but a redrawn white count was now up to 50,000 Physical Exam Vital Signs: Vital Signs: Last Vital Signs Temp 97 F 02/20/21 16:28 Pulse 120 H 02/20/21 17:30 Resp 40 H 02/20/21 17:00 BP 110/80 02/20/21 17:00 Pulse Ox 85 L 02/20/21 17:00 Body Mass Index 39.6 Const: Other: When seen by me earlier he was awake and oriented understood the conversation with the handicraft or hobby shop manager and no focal neurologic issues Was not using accessory muscles no diaphragmatic effort and on the BiPAP generating 1200 cc tidal volumes at a rate of 30 so he had and minute ventilation of 36 L with stable oxygen saturation in the mid 80% range and without any change In symptom level cardiac exam by bedside echo showed preserved left ventricular systolic reserve no primary valve or pericardial disease Abdomen benign with no tenderness no organomegaly Objective Data Labs CBC & Chem 7: 02/21/21 14:03 02/21/21 14:03 Labs: Laboratory Results - last 24 hr 02/19/21 02/20/21 02/20/21 20:48 07:30 07:49 WBC 24.2 H RBC 5.69 Hgb 17.7 Hct 53.2 H MCV 93.5 MCH 31.1 MCHC 33.3 RDW 13.2 Plt Count 212 MPV 11.3 Immature Gran % (Auto) 3.2 H Neut % (Auto) 87.4 H Lymph % (Auto) 4.9 L [place] % (Auto) 3.2 Eos % (Auto) 1.2 Baso % (Auto) 0.1 Lymph # (Auto) 1.2 [place] # (Auto) 0.8 Eos # (Auto) 0.3 Baso # (Auto) 0.0 Abs Immat Gran (auto) 0.78 H Absolute Neuts (auto) 21.2 H Absolute Nucleated RBC 0.000 Nucleated RBC % (auto) 0.0 Smear Tech's Comments VERIFIED VBG pH VBG pCO2 VBG pO2 VBG HCO3 VBG O2 Saturation VBG Base Excess Sodium Potassium Chloride Carbon Dioxide Anion Gap BUN Creatinine Estim Creat Clear Calc Estimated GFR POC Glucose 168 H 134 H Random Glucose Calcium Phosphorus Magnesium Albumin Procalcitonin 02/20/21 02/20/21 02/20/21 07:49 07:49 07:52 WBC RBC Hgb Hct MCV MCH MCHC RDW Plt Count MPV Immature Gran % (Auto) Neut % (Auto) Lymph % (Auto) [place] % (Auto) Eos % (Auto) Baso % (Auto) Lymph # (Auto) [place] # (Auto) Eos # (Auto) Baso # (Auto) Abs Immat Gran (auto) Absolute Neuts (auto) Absolute Nucleated RBC Nucleated RBC % (auto) Smear Tech's Comments VBG pH 7.39 VBG pCO2 31 VBG pO2 46 VBG HCO3 19 L VBG O2 Saturation 66.0 VBG Base Excess -3.9 Sodium 132 L Potassium 4.7 Chloride 97 Carbon Dioxide 18 L Anion Gap 22 H BUN 37 H Creatinine 0.80 Estim Creat Clear Calc 145.6 Estimated GFR > 60 POC Glucose Random Glucose 135 H Calcium 8.7 Phosphorus 3.8 Magnesium 2.8 H Albumin 3.4 L Procalcitonin 0.73 02/20/21 02/20/21 12:23 16:22 WBC RBC Hgb Hct MCV MCH MCHC RDW Plt Count MPV Immature Gran % (Auto) Neut % (Auto) Lymph % (Auto) [place] % (Auto) Eos % (Auto) Baso % (Auto) Lymph # (Auto) [place] # (Auto) Eos # (Auto) Baso # (Auto) Abs Immat Gran (auto) Absolute Neuts (auto) Absolute Nucleated RBC Nucleated RBC % (auto) Smear Tech's Comments VBG pH VBG pCO2 VBG pO2 VBG HCO3 VBG O2 Saturation VBG Base Excess Sodium Potassium Chloride Carbon Dioxide Anion Gap BUN Creatinine Estim Creat Clear Calc Estimated GFR POC Glucose 152 H 148 H Random Glucose Calcium Phosphorus Magnesium Albumin Procalcitonin Microbiology Microbiology Results: Microbiology 02/09/21 18:28 Blood - Venous Blood Culture - Final No growth after 5 days. 02/09/21 18:29 Blood - Venous Blood Culture - Final No growth after 5 days. 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 Status: Acute (2) ELODIA (acute kidney injury): Status: Acute (3) Obesity: Status: Acute (4) Acute respiratory distress syndrome (ARDS) due to COVID-19 virus: Status: Acute (5) Viral sepsis: Status: Acute (6) Acute respiratory failure with hypoxia: Status: Acute (7) Pneumonia due to 2019-nCoV: Problem details: He has shortness of breath He has hypoxia Status: Acute (8) Hypoxia: Status: Acute (9) Asthma: Status: Acute (10) Gout: Status: Acute (11) Pure hypercholesterolemia: Status: Acute (12) Diabetes mellitus: Status: Acute (13) Essential hypertension: Status: Acute (14) Morbid obesity: Status: Acute Assessment and Plan: So at this point will observe and hope that where not going to get into push comes to shove situation at night and maintain the BiPAP now and clearly a approach him as respiratory rate seems to climb and his respiratory distress level increases Time Spent With Patient Time: Total time spent is greater than 50% in coordination of care (as documented) at patient's floor/unit and/or counseling patient: Total time spent with greater than 50% in coordination of care (as documented) at patient's floor/unit and/or counseling patient:: 35
[2021-02-20 19:52] LABS: VBG Base Excess -1.7 mmol/L; VBG HCO3 22 mmol/L (22-26); VBG pCO2 36 mmHg; VBG pH 7.39 (7.32-7.43); VBG pO2 32 mmHg
[2021-02-20 20:26] LABS: Lactic Acid 4.2 mmol/L (0.5-2.0)
[2021-02-20 20:48] LABS: Glucose, Whole Blood 154 mg/dL (60-115)
--- NOTE | 2021-02-20 20:59 | PM.CCN ---
Critical Care Event Note Summary Date of Service: 02/20/21 <Lena Nair PA-C - Last Filed: 02/21/21 01:34> Code activated: Yes <Lena Nair PA-C - Last Filed: 02/21/21 01:34> Narrative: This case had a high probability of a clinically significant, sudden, or life threatening deterioration of this patient's condition which required my full and direct attention, intervention and personal management. lactic acid 4.2, not due to sepsis, 2/2 resp failure Due to patient's worsening respiratory status, respiratory rate in the mid 40s, hypoxia with an SpO2 ranging in the 70s, I spoke with Dr. Pablo and decision was made to intubate the patient. I called the polymer chemist who spoke with the patient, we discussed the risks and benefits, answered all the patient's questions, the patient was agreeable to emergent intubation. Dr. Queen came from the ED to emergently intubate the patient. Pt was easily intubated with no issues. Shortly (2-3 minutes) after intubation, at approximately 2325, pt's HR ethan'd down and he became asystolic. Code was called, Dr Queen ran the code as he was still in the room. We started CPR immediately. Atropine was pushed, then epi was pushed, i amp bicarb was pushed. ROSC was achieved at 2335. EKG and [address] elevation, nonspecific. Levophed started at 2345. At 2349, pt ethan'd down again, asystolic. We started CPR again, pushed epi and atropine and ROSC was achieved 2351. Second EKG showed the st elevation resolved, new RBBB. Sent both to Dr Pablo for review. Pt's currently hemodynamically stable however SpO2 in the 70's. Labs drawn, will follow. <Lena Nair PA-C - Last Filed: 02/21/21 01:34> Critical Care Time (minutes): 120 <Lena Nair PA-C - Last Filed: 02/21/21 01:34>
[2021-02-20] MEDS: dexmedeTOMIDidine HCL/NS 400 MCG/100 ML INFUS..BTL 6.1 MCG IVCONT (21:04)
[2021-02-20 21:52] LABS: Venous Blood Gas Refer to POC result
[2021-02-20 21:55] LABS: Reflex Lactate? Lactic Acid Added
[2021-02-20 22:09] LABS: ABG Base Excess -2.6 mmol/L; ABG HCO3 19 mmol/L (22-26); ABG pCO2 26 mmHg (32-45); ABG pCO2 TC 25 mmHg (32-45); ABG pH 7.46 (7.35-7.45); ABG pH TC 7.47 (7.35-7.45); ABG pO2 46 mmHg (83-108); ABG pO2 TC 45 (83-108)
[2021-02-20 22:45] LABS: VBG HCO3 18 mmol/L (22-26); VBG pCO2 24 mmHg; VBG pH 7.47 (7.32-7.43); VBG pO2 54 mmHg
[2021-02-20 23:09] LABS: Venous Blood Gas Refer to POC result
[2021-02-20 23:18] LABS: ~Lactic Acid-LAB USE ONLY 3.8 mmol/L (0.5-2.0)
[2021-02-20] MEDS: Ketamine HCl/NS 50 MG/5 ML SYRINGE 140 MG IVPUSH (23:20)
[2021-02-20] MEDS: Succinylcholine Chloride 100 MG/5 ML SYRINGE 60 MG IVPUSH (23:20)
--- NOTE | 2021-02-20 23:38 | ECG_ITS ---
Test Reason : ? stemi - post code Blood Pressure : / mmHG Vent. Rate : 103 BPM Atrial Rate : 103 BPM P-R Int : 124 ms QRS Dur : 162 ms QT Int : 356 ms P-R-T Axes : 116 074 027 degrees QTc Int : 466 ms Sinus tachycardia with Premature atrial complexes Right bundle branch block Inferior infarct , possibly acute Anteroseptal infarct , possibly acute Lateral injury pattern ACUTE [place] / STEMI Abnormal ECG When compared to the previous EKG of STEMI is present Referred By: Lena Nair Electronically Signed By:CLIFF MOHR MD
--- NOTE | 2021-02-20 23:52 | ECG_ITS ---
Test Reason : code again Blood Pressure : / mmHG Vent. Rate : 128 BPM Atrial Rate : 131 BPM P-R Int : 112 ms QRS Dur : 146 ms QT Int : 364 ms P-R-T Axes : 000 061 -14 degrees QTc Int : 531 ms Possible Atrial tachycardia Right bundle branch block Abnormal ECG When compared to the previous EKG of STEMI changes are not present Referred By: Lena Nair Electronically Signed By:CLIFF MOHR MD
[2021-02-21] VITALS (37 sets, daily range): BP systolic 77–141; BP diastolic 23–92; PULSE 77–132; RESP 21–33; TEMP 37.3–38.8; O2SAT 69–99; BMI 39.6
[2021-02-21] MEDS: propofoL 1,000 MG/100 ML VIAL 14.64 MG IVCONT
--- NOTE | 2021-02-21 | ECG_ITS ---
Test Reason : s/p code Blood Pressure : / mmHG Vent. Rate : 110 BPM Atrial Rate : 110 BPM P-R Int : 124 ms QRS Dur : 138 ms QT Int : 422 ms P-R-T Axes : 064 027 -12 degrees QTc Int : 571 ms Sinus tachycardia with Premature atrial complexes Right bundle branch block T wave abnormality, consider inferolateral ischemia Abnormal ECG When compared to the previous EKG of Sinus tachycardia has replaced Possible Atrial tachycardia Referred By: Lena Nair Electronically Signed By:CLIFF MOHR MD
[2021-02-21 00:33] LABS: ABG Refer to POC result
[2021-02-21 00:37] LABS: VBG Base Excess -14.6 mmol/L; VBG HCO3 14 mmol/L (22-26); VBG pCO2 44 mmHg; VBG pH 7.11 (7.32-7.43); VBG pO2 49 mmHg
[2021-02-21 00:39] LABS: Hemoglobin 16.5 g/dl (14.0-18.0); Mean Corpuscular HGB Conc 32.4 g/dl (31.0-36.0); Mean Corpuscular Hemoglobin 31.6 pg (27.0-33.0); Mean Corpuscular Volume 97.7 fL (80-98); Mean Platelet Volume 11.9 fL (9.4-12.4); NRBC Pct Auto 0.1 /100WBC (0.0-0.2); Platelet Count 284 X10*3/uL (160-400); Red Blood Count 5.22 X10*6/uL (4.60-5.80); Red Cell Distribution Width 13.2 % (11.0-16.0)
[2021-02-21 00:45] LABS: White Blood Count 37.8 X10*3/uL (4.8-10.8)
[2021-02-21 00:51] LABS: Reflex Lactate? 2 Y
[2021-02-21 01:01] LABS: Anion Gap 30 (12-20); Blood Urea Nitrogen 38 mg/dL (9-16); Carbon Dioxide 14 mmol/L (22-29); Chloride 96 mmol/L (96-108); Estimated Glomerular Filt Rate 55; Glucose Random 233 mg/dL (60-115); Potassium 4.8 mmol/L (3.3-5.1); Sodium 135 mmol/L (135-145)
[2021-02-21 01:05] LABS: B Type Natriuretic Peptide 156 pg/mL (<100); Troponin-I High Sensitivity 16.1 ng/L (<3.5-35.0)
[2021-02-21 01:07] LABS: Lactic Acid 11.9 mmol/L (0.5-2.0)
[2021-02-21 01:08] LABS: Band Neutrophils Percent 8 % (3-5); Eosinophils Absolute Manual 0.4 X10*3/UL (0.0-0.8); Eosinophils Percent Manual 1 % (0-4); Lymphocytes Absolute Manual 1.9 X10*3/uL (0.6-4.8); Lymphocytes Percent Manual 5 % (20-40); Metamyelocytes Absolute 0.8 X10*3/uL; Metamyelocytes Percent 2 %; Monocytes Absolute Manual 1.1 X10*3/uL (0.0-1.2); Monocytes Percent Manual 3 % (2-11); Myelocytes Absolute 0.8 X10*/uL; Myelocytes Percent 2 %; Neutrophils Absolute Manual 32.9 X10*3/uL (2.2-7.9); Neutrophils Percent Manual 79 % (45-73)
[2021-02-21 01:15] LABS: Platelet Estimate NORMAL (NORMAL)
[2021-02-21 01:16] LABS: Large Platelet PRESENT; Platelet Morphology Comment NOTED; Polychromasia 1+ (0-2) /OIF; RBC Morphology NOTED
--- NOTE | 2021-02-21 01:39 | W.PM.CCHP ---
Procedures Central Line Placement Right IJ: Central Line Comments: venous access Consent for Procedure: Emergent-no informed consent obtained Time out performed: Yes Sterile Technique Used: Yes Patient placed on monitor/pulse ox: Yes MD prep: mask, gown and gloves Central line prep: Chlorhexidine scrub and sterile drapes applied Ultrasound used for placement: Yes Central line lumen inserted: triple Post procedure: sutured in place, good blood return, all ports aspirated, flushed, capped and sterile dressing applied Post procedure x-ray: tip of catheter in good position and no pneumothorax seen Patient tolerated procedure: well and no complications Complications: none
[2021-02-21 01:43] LABS: Venous Blood Gas Refer to POC result
[2021-02-21] MEDS: Rocuronium Bromide 50 MG/5 ML VIAL IVPUSH (01:48)
[2021-02-21] MEDS: 0.9 % Sodium Chloride Flush 3 ML SYRINGE IVFLUSH ×3 (01:48→17:16)
[2021-02-21] MEDS: Albuterol/Iprat 2.5/0.5MG 3 ML AMPUL.NEB INHALE ×2 (02:26→19:51)
[2021-02-21 02:35] LABS: Reflex Lactate? Lactic Acid Added
[2021-02-21 02:39] LABS: VBG HCO3 21 mmol/L (22-26); VBG pCO2 67 mmHg; VBG pH 7.09 (7.32-7.43); VBG pO2 43 mmHg
--- NOTE | 2021-02-21 02:47 | PC.NURSE ---
ASSUMED CARE OF PT AT 1900. PT SITTING IN RECLINER AT THAT TIME ALERT AND FOLLOWING COMMANDS ALTHOUGH HE WAS A BIT ANXIOUS WITH RESP RATE 32-34. PT ON BIPAP FACEMASK 20/12 AND 100% O2. JOHANN TIDWELL AT BEDSIDE AND CONCERNED ABOUT RESP STATUS. PRECEDEX DRIP STARTED AT 0.2 MCG/KG/MIN (STARTING DOSE). PT WAS ASSISTED BACK TO BED. BURNETT CATH INSERTED WITH DARK ROSETTE URINE RETURNED ABOUT 200 ML IMMEDIATELY. PT SATTING ONLY 70'S-80 ON THOSE BIPAP SETTINGS. YAW WILLS AND JAPANESE INTERPRETTER SPOKE TO PT REGARDING INTUBATION AND PT AGREED TO INTUBATION. PROCEDURE BEGUN AT 2319. ER PHYSICIAN, DR SKY AT BEDSIDE TO INTUBAT. YAW GREGORY PRESENT AT BEDSIDE. PT RECEIVED KETAMINE 140 MG IV FOLLOWED BY SUCCYTACHOLINE 60 MG IV WITH GOOD EFFECT AND #7.5 ETT PLACED AT 23 CM MARKELL AT THE LIP. AT 2324, PT BECAME BRADYCARDIC TO 50'S AND THEN CARDIAC RHTYTHM WIDENED. PT RECEIVED ATROPINE 0.5 MG IV AND CONTINUED TO VERONA AND THEN ASYSTOLE. CODE BLUE CALLED. SEE CODE SHEET. PT HAD ROSC. 12-LEAD EKG WAS DONE. HE WAS PUT ON PRESSURE CONTROL VENT SETTINGS. O2 SAT STAYING 70-72%. STARTED ON LEVO AT 2345 FOR LOW SBP 90'S, MAP 60. HE BECAME BRADYCARDIC AGAIN AND THEN ASYSTOLE AT 2349 AND CPR WAS STARTED WITH ONE DOSE OF ATROPINE AND ONE DOSE OF EPINEPHRINE. WITH RETURN OF ROSC. RHYTHM RETURNED ST WITH RBBB. BP STABLE ON LEVO.
[2021-02-21] MEDS: methylPREDNISolone Sod Succ 125 MG/2 ML VIAL IVPUSH (02:50)
[2021-02-21 03:10] LABS: Troponin-I High Sensitivity 177.9 ng/L (<3.5-35.0)
[2021-02-21] MEDS: Rocuronium Bromide 50 MG/5 ML VIAL 60 MG IVPUSH (03:10)
[2021-02-21 03:11] LABS: ~Lactic Acid-LAB USE ONLY 7.1 mmol/L (0.5-2.0)
[2021-02-21 03:19] LABS: Venous Blood Gas Refer to POC result
[2021-02-21] MEDS: Ampicillin Sodium/Sulbactam Na 3 GM in 0.9 % Sodium Chloride 100 ML IV ×4 (03:23→20:49)
[2021-02-21] MEDS: propofoL 1,000 MG/100 ML VIAL 21.96 MG IVCONT ×4 (04:03→16:52)
--- NOTE | 2021-02-21 04:36 | P.PNCC_ITS ---
Critical Care Event Note Summary Date of Service: 02/21/21 Code activated: No Narrative: This case had a high probability of a clinically significant, sudden, or life threatening deterioration of this patient's condition which required my full and direct attention, intervention and personal management. Patient continues to remain hypoxic, is currently hemodynamically stable but maintaining an appropriate oxygen saturation has been a challenge despite multiple ventilatory modes, positional changes, solumedrol, duonebs, etc. Spoke with Dr. Pablo, he recommended calling a few hospitals to see if patient is a candidate for ECMO. I called [facility], spoke with Dr Edson Alvarado, she said that due to the patient's BMI, he is not a candidate for ECMO. They would require us to try paralysis and pronating 1st. I explained we did try paralysis with no success and have to wait until in MD is in the ICU to prone the patient. Will prone pt in AM when Dr Pablo arrives. I called [facility], spoke with Dr Pastora Hardy, she advised that [facility] does not offer ECMO. I called [facility] in [place], spoke with Dr Randolph Damon, advised they cannot accept the patient for multiple reasons, BMI is too high, based on his current situation he has a very low chance of recovery and he has had a low O2 sat for too long. He recommended pulmonary vasodilators and prone pt. Critical Care Time (minutes): 45
[2021-02-21 04:38] LABS: Reflex Lactate? 2 Y
[2021-02-21 05:16] LABS: VBG Base Excess -8.5 mmol/L; VBG HCO3 22 mmol/L (22-26); VBG pCO2 70 mmHg; VBG pH 7.11 (7.32-7.43); VBG pO2 52 mmHg
[2021-02-21 05:34] LABS: Venous Blood Gas Refer to POC result
--- NOTE | 2021-02-21 05:48 | PC.NURSE ---
BP DROPPED DESPITE LEVO AT MAX DOSE. MAPS WERE IN THE 50'S. VASOPRESSIN WAS STARTED AT 0.04 UNITS/MIN. YAW WILLS CONFERRING WITH DR MATTHEWS AND SHE SPOKE WITH OTHER HOSPITALS TO SEE ABOUT TRANSFERRING TO A FACILITY FOR ECMO. PT WAS NOT ACCEPTED ANYWHERE. RESP THERAPY CHANGED VENT SETTINGS TO PRESSURE CONTROL. ABG'S DRAWN. PT ACIDOTIC. PREPARING TO PRONE PT.
[2021-02-21] MEDS: Pantoprazole Sodium 40 MG/10 ML VIAL IVPUSH (06:21)
[2021-02-21 06:37] LABS: Hematocrit 50.4 % (42-52); Hemoglobin 16.4 g/dl (14.0-18.0); Mean Corpuscular HGB Conc 32.5 g/dl (31.0-36.0); Mean Corpuscular Hemoglobin 31.5 pg (27.0-33.0); Mean Corpuscular Volume 96.7 fL (80-98); Mean Platelet Volume 11.4 fL (9.4-12.4); Platelet Count 331 X10*3/uL (160-400); Red Blood Count 5.21 X10*6/uL (4.60-5.80); Red Cell Distribution Width 13.3 % (11.0-16.0)
--- NOTE | 2021-02-21 06:39 | PC.NURSE ---
DR MATTHEWS AT BEDSIDE AND PERFORMEDBEDSIDE ECHO. PT POSITIONED PRONE AT 0600. WITH THE ASSIST OF 8 PEOPLE. O2 SATS IMMEDIATELY IMPROVED FROM 78-81% TO LOW 88-90% AND THEN TO 94%. TRANSITION TO PRONE WENT WELL. HEAD ON FOAM PILLOW TURNED TO SIDE FOR ETT. BP STABLE ON MAX LEVO AND VASOPRESSIN 0.04 UNITS/MIN.
[2021-02-21 07:02] LABS: INTERNATIONAL NORM RATIO 1.5 (0.9-1.1); Prothrombin Time 17.4 SEC (10.8-13.0)
[2021-02-21 07:04] LABS: Partial Thromboplastin Time 27.7 SEC (24.1-38.0)
[2021-02-21 07:06] LABS: ~Lactic Acid-LAB USE ONLY 3.8 mmol/L (0.5-2.0)
[2021-02-21 07:07] LABS: White Blood Count 51.2 X10*3/uL (4.8-10.8)
[2021-02-21 07:10] LABS: Glucose, Whole Blood 203 mg/dL (60-115)
[2021-02-21 07:11] LABS: Troponin-I High Sensitivity 741.7 ng/L (<3.5-35.0)
[2021-02-21 07:16] LABS: Procalcitonin 22.58 ng/mL
[2021-02-21 07:24] LABS: Anion Gap 24 (12-20); Blood Urea Nitrogen 50 mg/dL (9-16); Calcium 8.3 mg/dL (8.4-10.2); Carbon Dioxide 21 mmol/L (22-29); Chloride 95 mmol/L (96-108); Creatinine Clr Calc Pharmacy 51.3; Estimated Glomerular Filt Rate 31; Glucose Random 236 mg/dL (60-115); Magnesium 2.9 mg/dL (1.6-2.6); Phosphorus 11.7 mg/dL (2.7-4.5); Potassium 5.9 mmol/L (3.3-5.1); Sodium 134 mmol/L (135-145)
[2021-02-21] MEDS: Insulin Lispro 100 UNIT/ML 3 ML VIAL SUBCUT ×2 (07:27→11:30)
[2021-02-21 07:40] LABS: Venous Blood Gas Refer to POC result
[2021-02-21 07:43] LABS: D Dimer 7375 NG/ML
[2021-02-21 08:03] LABS: Band Neutrophils Percent 9 % (3-5); Eosinophils Absolute Manual 0.5 X10*3/UL (0.0-0.8); Eosinophils Percent Manual 1 % (0-4); Lymphocytes Absolute Manual 1.5 X10*3/uL (0.6-4.8); Lymphocytes Percent Manual 3 % (20-40); Metamyelocytes Absolute 0.5 X10*3/uL; Metamyelocytes Percent 1 %; Monocytes Absolute Manual 0.5 X10*3/uL (0.0-1.2); Monocytes Percent Manual 1 % (2-11); Neutrophils Absolute Manual 48.1 X10*3/uL (2.2-7.9); Neutrophils Percent Manual 85 % (45-73); Platelet Estimate NORMAL (NORMAL); Platelet Morphology Comment NOTED
[2021-02-21 08:04] LABS: Large Platelet PRESENT
[2021-02-21 08:06] LABS: Polychromasia 1+ (0-2) /OIF; RBC Morphology NOTED
[2021-02-21] MEDS: Chlorhexidine Gluc Oral Rinse 15 ML MOUTHWASH BUCCAL ×3 (08:39→20:49)
--- NOTE | 2021-02-21 10:43 | MHC.CM.PN ---
Late Entry from 02/20/21 Assisted with completion of HCP - pt naming his brother, Mateo Parrish as his HCP: pt unable to sign d/t medical conditions but clear in his naming of Mateo via assistance with director compliance.
[2021-02-21 11:28] LABS: Glucose, Whole Blood 197 mg/dL (60-115)
--- NOTE | 2021-02-21 11:29 | MHC.CLN ---
RE: CONSULT PT IS INTUBATED, SEDATED, AND IN PRONE POSITION PT TO REMAIN NPO AT THIS TIME PER MD WILL UPDATE DIET ORDER SEE CLINICAL NUTRITION ASSESSMENT
[2021-02-21] MEDS: Sodium Polystyrene Sulfon/Sorb 15 GM/60 ML ORAL.SUSP 60 GM PR (12:01)
[2021-02-21] MEDS: dexAMETHasone sod phosphate 4 MG/ML VIAL 6 MG IVPUSH (12:02)
[2021-02-21 12:40] LABS: Glucose Urine UA NEG (NEG); Leukocyte Esterase Urine NEG (NEG); Nitrite Urine NEG (NEG); Specific Gravity - Urine >= 1.030 (1.005-1.025); Urine Blood 3+ (NEG); Urine Ketones NEG (NEG); Urine Protein 2+ MG/DL (NEG-TRACE)
[2021-02-21 12:41] LABS: Appearance Urine CLOUDY; Color Urine YELLOW
[2021-02-21 12:58] LABS: Amorphous Sediment Urine TRACE /LPF; Bacteria Urine TRACE /LPF; RBC Urine TNTC /HPF (0)
[2021-02-21 14:02] LABS: VBG Base Excess -6.4 mmol/L; VBG HCO3 23 mmol/L (22-26); VBG pCO2 60 mmHg; VBG pH 7.18 (7.32-7.43); VBG pO2 68 mmHg
[2021-02-21 14:16] LABS: Hematocrit 49.1 % (42-52); Hemoglobin 15.8 g/dl (14.0-18.0); Mean Corpuscular HGB Conc 32.2 g/dl (31.0-36.0); Mean Corpuscular Hemoglobin 31.3 pg (27.0-33.0); Mean Corpuscular Volume 97.2 fL (80-98); Mean Platelet Volume 11.5 fL (9.4-12.4); NRBC Pct Auto 0.1 /100WBC (0.0-0.2); Platelet Count 279 X10*3/uL (160-400); Red Blood Count 5.05 X10*6/uL (4.60-5.80); Red Cell Distribution Width 13.6 % (11.0-16.0)
[2021-02-21 14:18] LABS: Venous Blood Gas Refer to POC result
[2021-02-21 14:19] LABS: White Blood Count 44.3 X10*3/uL (4.8-10.8)
[2021-02-21 14:25] LABS: INTERNATIONAL NORM RATIO 1.3 (0.9-1.1)
[2021-02-21 14:43] LABS: Prothrombin Time 15.5 SEC (10.8-13.0)
[2021-02-21 14:51] LABS: PTT Heparin Drip 17.6 SEC (53-77.9)
[2021-02-21 14:56] LABS: Anion Gap 23 (12-20); Blood Urea Nitrogen 57 mg/dL (9-16); Calcium 7.5 mg/dL (8.4-10.2); Carbon Dioxide 23 mmol/L (22-29); Chloride 96 mmol/L (96-108); Creatinine Clr Calc Pharmacy 34.5; Estimated Glomerular Filt Rate 20; Glucose Random 235 mg/dL (60-115); Potassium 6.5 mmol/L (3.3-5.1); Sodium 136 mmol/L (135-145)
[2021-02-21] MEDS: Heparin Sodium,Porcine/1/2NS 25,000 UNIT/250 ML IV.SOLN 10 UNIT IVCONT (15:12)
--- NOTE | 2021-02-21 16:40 | PM.CCPN ---
Subjective Subjective Date of Service: 02/21/21 Interval History: 50-year-old morbidly obese diabetic and hypertensive who has been in the hospital for several weeks with COVID-19 pneumonitis ARDS hypoxemic respiratory failure and has been on the no progressive noninvasive ventilation until last night he reached his maximum voluntary ventilation with a greater than 40 L minute ventilation on BiPAP and significant respiratory distress and desaturation requiring urgent intubation and during that time and had brief cardiac arrest with rapid retrieval of spontaneous circulation and very brief CPR but currently has ATN and the required being prone in order to achieve an oxygen saturation that finally exceeded the 76-80% that he was on the several hours at night and currently at 98% oxygen saturation in the prone position with a CVP currently at 9 which is an improvement and at this point he he remains an uric with worsening renal function clear-cut uremia but most importantly progressive hyperkalemia and at this point are pH as result of increasing minute ventilation on the ventilator has gone up from 7.10 to 7.18 with a pCO2 of 60 9 and we are going to start a low-dose bicarb drip and along with an insulin drip to try to control his potassium as well as rectal Kayexalate and hopefully when we placed him back in the supine position in the morning if he does not have spontaneous return of urine output will consider dialysis Both procalcitonin and lactate was somewhat elevated and raising concerns that if not just viral sepsis from the COVID-19 that he might have a superimposed bacterial process because of this abrupt deterioration that he had had and the other concern of course is that this could have been a thrombotic event so I am going to start a low-dose continuous heparin drip and he is on broad-spectrum antibiotics to cover for possible nosocomial infection and of course Decadron to cover him for his COVID-19 ARDS Physical Exam Vital Signs: Vital Signs: Last Vital Signs Temp 101.3 F H 02/21/21 16:00 Pulse 78 02/21/21 16:00 Resp 25 H 02/21/21 16:00 BP 117/62 02/21/21 16:00 Pulse Ox 98 02/21/21 16:00 Body Mass Index 39.6 Const: Other: Sedated and intubated in the prone position Diffuse acrocyanosis mostly of feet and toes Abdomen positive bowel sounds no again a megaly Chest without adventitious sounds Cardiac exam done by bedside echo showing mild concentric left ventricular hypertrophy with preserved systolic wall motion but dilated and dysfunctional right ventricle which probably explains the EKG with a new right bundle branch block as reflecting acute right heart of cor pulmonale due to the worsening respiratory status Objective Data Labs CBC & Chem 7: 02/21/21 14:03 02/21/21 14:03 Labs: Laboratory Results - last 24 hr 02/20/21 02/20/21 02/20/21 19:45 19:51 20:40 WBC RBC Hgb Hct MCV MCH MCHC RDW Plt Count MPV Immature Gran % (Auto) Neut % (Auto) Lymph % (Auto) [place] % (Auto) Eos % (Auto) Baso % (Auto) Lymph # (Auto) [place] # (Auto) Eos # (Auto) Baso # (Auto) Abs Immat Gran (auto) Absolute Neuts (auto) Absolute Nucleated RBC Nucleated RBC % (auto) Neutrophils % (Manual) Band Neutrophils % Lymphocytes % (Manual) Monocytes % (Manual) Eosinophils % (Manual) Metamyelocytes % Myelocytes % Abs Neuts (Manual) Lymphocytes # (Manual) Monocytes # (Manual) Eosinophils # (Manual) Metamyelocytes # Myelocytes # Platelet Estimate Large Platelets Plt Morphology Comment RBC Morphology Polychromasia PT INR APTT PTT (Heparin Protocol) D-Dimer O2 Saturation ABG pH at Pt Temp ABG pH (Temp Correct) ABG pCO2 at Pt Temp ABG pCO2 (Temp Corrct ABG pO2 at Pt Temp ABG pO2 (Temp Correct ABG HCO3 ABG Base Excess (Actual) VBG pH 7.39 VBG pCO2 36 VBG pO2 32 VBG HCO3 22 VBG O2 Saturation 33.0 VBG Base Excess -1.7 Sodium Potassium Chloride Carbon Dioxide Anion Gap BUN Creatinine Estim Creat Clear Calc Estimated GFR POC Glucose 154 H Random Glucose Lactic Acid 4.2 H* Lactic Acid Fup @ 2Hr Lactic Acid Fup @ 4Hr Calcium Phosphorus Magnesium Total Creatine Kinase Troponin I High Sens B-Natriuretic Peptide Procalcitonin Urine Color Urine Appearance Urine pH Ur Specific [place] Urine Protein Urine Glucose (UA) Urine Ketones Urine Blood Urine Nitrite Ur Leukocyte Esterase Urine RBC Urine WBC Ur Squamous Epith Cells Amorphous Sediment Urine Bacteria 02/20/21 02/20/21 02/20/21 22:01 22:35 22:39 WBC RBC Hgb Hct MCV MCH MCHC RDW Plt Count MPV Immature Gran % (Auto) Neut % (Auto) Lymph % (Auto) [place] % (Auto) Eos % (Auto) Baso % (Auto) Lymph # (Auto) [place] # (Auto) Eos # (Auto) Baso # (Auto) Abs Immat Gran (auto) Absolute Neuts (auto) Absolute Nucleated RBC Nucleated RBC % (auto) Neutrophils % (Manual) Band Neutrophils % Lymphocytes % (Manual) Monocytes % (Manual) Eosinophils % (Manual) Metamyelocytes % Myelocytes % Abs Neuts (Manual) Lymphocytes # (Manual) Monocytes # (Manual) Eosinophils # (Manual) Metamyelocytes # Myelocytes # Platelet Estimate Large Platelets Plt Morphology Comment RBC Morphology Polychromasia PT INR APTT PTT (Heparin Protocol) D-Dimer O2 Saturation 68.0 ABG pH at Pt Temp 7.46 H ABG pH (Temp Correct) 7.47 H ABG pCO2 at Pt Temp 26 L ABG pCO2 (Temp Corrct 25 L ABG pO2 at Pt Temp 46 L* ABG pO2 (Temp Correct 45 L* ABG HCO3 19 L ABG Base Excess (Actual) -2.6 VBG pH 7.47 H VBG pCO2 24 VBG pO2 54 VBG HCO3 18 L VBG O2 Saturation 80.0 VBG Base Excess -3.0 Sodium Potassium Chloride Carbon Dioxide Anion Gap BUN Creatinine Estim Creat Clear Calc Estimated GFR POC Glucose Random Glucose Lactic Acid Lactic Acid Fup @ 2Hr 3.8 H* Lactic Acid Fup @ 4Hr Calcium Phosphorus Magnesium Total Creatine Kinase Troponin I High Sens B-Natriuretic Peptide Procalcitonin Urine Color Urine Appearance Urine pH Ur Specific [place] Urine Protein Urine Glucose (UA) Urine Ketones Urine Blood Urine Nitrite Ur Leukocyte Esterase Urine RBC Urine WBC Ur Squamous Epith Cells Amorphous Sediment Urine Bacteria 02/21/21 02/21/21 02/21/21 00:30 00:30 00:30 WBC 37.8 H* RBC 5.22 Hgb 16.5 Hct 51.0 MCV 97.7 MCH 31.6 MCHC 32.4 RDW 13.2 Plt Count 284 D MPV 11.9 Immature Gran % (Auto) Cancelled Neut % (Auto) Cancelled Lymph % (Auto) Cancelled [place] % (Auto) Cancelled Eos % (Auto) Cancelled Baso % (Auto) Cancelled Lymph # (Auto) Cancelled [place] # (Auto) Cancelled Eos # (Auto) Cancelled Baso # (Auto) Cancelled Abs Immat Gran (auto) Cancelled Absolute Neuts (auto) Cancelled Absolute Nucleated RBC 0.030 H Nucleated RBC % (auto) 0.1 Neutrophils % (Manual) 79 H Band Neutrophils % 8 H Lymphocytes % (Manual) 5 L Monocytes % (Manual) 3 Eosinophils % (Manual) 1 Metamyelocytes % 2 Myelocytes % 2 Abs Neuts (Manual) 32.9 H Lymphocytes # (Manual) 1.9 Monocytes # (Manual) 1.1 Eosinophils # (Manual) 0.4 Metamyelocytes # 0.8 Myelocytes # 0.8 Platelet Estimate NORMAL Large Platelets PRESENT Plt Morphology Comment NOTED RBC Morphology NOTED Polychromasia 1+ (0-2) PT INR APTT PTT (Heparin Protocol) D-Dimer O2 Saturation ABG pH at Pt Temp ABG pH (Temp Correct) ABG pCO2 at Pt Temp ABG pCO2 (Temp Corrct ABG pO2 at Pt Temp ABG pO2 (Temp Correct ABG HCO3 ABG Base Excess (Actual) VBG pH VBG pCO2 VBG pO2 VBG HCO3 VBG O2 Saturation VBG Base Excess Sodium 135 Potassium 4.8 Chloride 96 Carbon Dioxide 14 L Anion Gap 30 H BUN 38 H Creatinine 1.37 Estim Creat Clear Calc 85.0 Estimated GFR 55 POC Glucose Random Glucose 233 H D Lactic Acid 11.9 H* Lactic Acid Fup @ 2Hr Lactic Acid Fup @ 4Hr Calcium 8.0 L D Phosphorus Magnesium Total Creatine Kinase 147 Troponin I High Sens B-Natriuretic Peptide Procalcitonin Urine Color Urine Appearance Urine pH Ur Specific [place] Urine Protein Urine Glucose (UA) Urine Ketones Urine Blood Urine Nitrite Ur Leukocyte Esterase Urine RBC Urine WBC Ur Squamous Epith Cells Amorphous Sediment Urine Bacteria 02/21/21 02/21/21 02/21/21 00:30 00:31 02:31 WBC RBC Hgb Hct MCV MCH MCHC RDW Plt Count MPV Immature Gran % (Auto) Neut % (Auto) Lymph % (Auto) [place] % (Auto) Eos % (Auto) Baso % (Auto) Lymph # (Auto) [place] # (Auto) Eos # (Auto) Baso # (Auto) Abs Immat Gran (auto) Absolute Neuts (auto) Absolute Nucleated RBC Nucleated RBC % (auto) Neutrophils % (Manual) Band Neutrophils % Lymphocytes % (Manual) Monocytes % (Manual) Eosinophils % (Manual) Metamyelocytes % Myelocytes % Abs Neuts (Manual) Lymphocytes # (Manual) Monocytes # (Manual) Eosinophils # (Manual) Metamyelocytes # Myelocytes # Platelet Estimate Large Platelets Plt Morphology Comment RBC Morphology Polychromasia PT INR APTT PTT (Heparin Protocol) D-Dimer O2 Saturation ABG pH at Pt Temp ABG pH (Temp Correct) ABG pCO2 at Pt Temp ABG pCO2 (Temp Corrct ABG pO2 at Pt Temp ABG pO2 (Temp Correct ABG HCO3 ABG Base Excess (Actual) VBG pH 7.11 L* VBG pCO2 44 VBG pO2 49 VBG HCO3 14 L VBG O2 Saturation 55.0 VBG Base Excess -14.6 Sodium Potassium Chloride Carbon Dioxide Anion Gap BUN Creatinine Estim Creat Clear Calc Estimated GFR POC Glucose Random Glucose Lactic Acid Lactic Acid Fup @ 2Hr 7.1 H* Lactic Acid Fup @ 4Hr Calcium Phosphorus Magnesium Total Creatine Kinase Troponin I High Sens 16.1 B-Natriuretic Peptide 156 H Procalcitonin Urine Color Urine Appearance Urine pH Ur Specific [place] Urine Protein Urine Glucose (UA) Urine Ketones Urine Blood Urine Nitrite Ur Leukocyte Esterase Urine RBC Urine WBC Ur Squamous Epith Cells Amorphous Sediment Urine Bacteria 02/21/21 02/21/21 02/21/21 02:32 02:33 05:09 WBC RBC Hgb Hct MCV MCH MCHC RDW Plt Count MPV Immature Gran % (Auto) Neut % (Auto) Lymph % (Auto) [place] % (Auto) Eos % (Auto) Baso % (Auto) Lymph # (Auto) [place] # (Auto) Eos # (Auto) Baso # (Auto) Abs Immat Gran (auto) Absolute Neuts (auto) Absolute Nucleated RBC Nucleated RBC % (auto) Neutrophils % (Manual) Band Neutrophils % Lymphocytes % (Manual) Monocytes % (Manual) Eosinophils % (Manual) Metamyelocytes % Myelocytes % Abs Neuts (Manual) Lymphocytes # (Manual) Monocytes # (Manual) Eosinophils # (Manual) Metamyelocytes # Myelocytes # Platelet Estimate Large Platelets Plt Morphology Comment RBC Morphology Polychromasia PT INR APTT PTT (Heparin Protocol) D-Dimer O2 Saturation ABG pH at Pt Temp ABG pH (Temp Correct) ABG pCO2 at Pt Temp ABG pCO2 (Temp Corrct ABG pO2 at Pt Temp ABG pO2 (Temp Correct ABG HCO3 ABG Base Excess (Actual) VBG pH 7.09 L* 7.11 L* VBG pCO2 67 70 VBG pO2 43 52 VBG HCO3 21 L 22 VBG O2 Saturation 44.0 63.0 VBG Base Excess TNP -8.5 Sodium Potassium Chloride Carbon Dioxide Anion Gap BUN Creatinine Estim Creat Clear Calc Estimated GFR POC Glucose Random Glucose Lactic Acid Lactic Acid Fup @ 2Hr Lactic Acid Fup @ 4Hr Calcium Phosphorus Magnesium Total Creatine Kinase Troponin I High Sens 177.9 H D B-Natriuretic Peptide Procalcitonin Urine Color Urine Appearance Urine pH Ur Specific [place] Urine Protein Urine Glucose (UA) Urine Ketones Urine Blood Urine Nitrite Ur Leukocyte Esterase Urine RBC Urine WBC Ur Squamous Epith Cells Amorphous Sediment Urine Bacteria 02/21/21 02/21/21 02/21/21 06:23 06:23 06:23 WBC 51.2 H* RBC 5.21 Hgb 16.4 Hct 50.4 MCV 96.7 MCH 31.5 MCHC 32.5 RDW 13.3 Plt Count 331 MPV 11.4 Immature Gran % (Auto) Cancelled Neut % (Auto) Cancelled Lymph % (Auto) Cancelled [place] % (Auto) Cancelled Eos % (Auto) Cancelled Baso % (Auto) Cancelled Lymph # (Auto) Cancelled [place] # (Auto) Cancelled Eos # (Auto) Cancelled Baso # (Auto) Cancelled Abs Immat Gran (auto) Cancelled Absolute Neuts (auto) Cancelled Absolute Nucleated RBC 0.000 Nucleated RBC % (auto) 0.0 Neutrophils % (Manual) 85 H Band Neutrophils % 9 H Lymphocytes % (Manual) 3 L Monocytes % (Manual) 1 L Eosinophils % (Manual) 1 Metamyelocytes % 1 Myelocytes % Abs Neuts (Manual) 48.1 H Lymphocytes # (Manual) 1.5 Monocytes # (Manual) 0.5 Eosinophils # (Manual) 0.5 Metamyelocytes # 0.5 Myelocytes # Platelet Estimate NORMAL Large Platelets PRESENT Plt Morphology Comment NOTED RBC Morphology NOTED Polychromasia 1+ (0-2) PT 17.4 H D INR 1.5 H APTT 27.7 D PTT (Heparin Protocol) D-Dimer 7375 O2 Saturation ABG pH at Pt Temp ABG pH (Temp Correct) ABG pCO2 at Pt Temp ABG pCO2 (Temp Corrct ABG pO2 at Pt Temp ABG pO2 (Temp Correct ABG HCO3 ABG Base Excess (Actual) VBG pH VBG pCO2 VBG pO2 VBG HCO3 VBG O2 Saturation VBG Base Excess Sodium Potassium Chloride Carbon Dioxide Anion Gap BUN Creatinine Estim Creat Clear Calc Estimated GFR POC Glucose Random Glucose Lactic Acid Lactic Acid Fup @ 2Hr Lactic Acid Fup @ 4Hr Calcium Phosphorus Magnesium Total Creatine Kinase Troponin I High Sens B-Natriuretic Peptide Procalcitonin 22.58 Urine Color Urine Appearance Urine pH Ur Specific [place] Urine Protein Urine Glucose (UA) Urine Ketones Urine Blood Urine Nitrite Ur Leukocyte Esterase Urine RBC Urine WBC Ur Squamous Epith Cells Amorphous Sediment Urine Bacteria 02/21/21 02/21/21 02/21/21 06:23 06:23 06:23 WBC RBC Hgb Hct MCV MCH MCHC RDW Plt Count MPV Immature Gran % (Auto) Neut % (Auto) Lymph % (Auto) [place] % (Auto) Eos % (Auto) Baso % (Auto) Lymph # (Auto) [place] # (Auto) Eos # (Auto) Baso # (Auto) Abs Immat Gran (auto) Absolute Neuts (auto) Absolute Nucleated RBC Nucleated RBC % (auto) Neutrophils % (Manual) Band Neutrophils % Lymphocytes % (Manual) Monocytes % (Manual) Eosinophils % (Manual) Metamyelocytes % Myelocytes % Abs Neuts (Manual) Lymphocytes # (Manual) Monocytes # (Manual) Eosinophils # (Manual) Metamyelocytes # Myelocytes # Platelet Estimate Large Platelets Plt Morphology Comment RBC Morphology Polychromasia PT INR APTT PTT (Heparin Protocol) D-Dimer O2 Saturation ABG pH at Pt Temp ABG pH (Temp Correct) ABG pCO2 at Pt Temp ABG pCO2 (Temp Corrct ABG pO2 at Pt Temp ABG pO2 (Temp Correct ABG HCO3 ABG Base Excess (Actual) VBG pH VBG pCO2 VBG pO2 VBG HCO3 VBG O2 Saturation VBG Base Excess Sodium 134 L Potassium 5.9 H D Chloride 95 L Carbon Dioxide 21 L Anion Gap 24 H BUN 50 H Creatinine 2.27 H Estim Creat Clear Calc 51.3 Estimated GFR 31 POC Glucose Random Glucose 236 H Lactic Acid Lactic Acid Fup @ 2Hr Lactic Acid Fup @ 4Hr 3.8 H* Calcium 8.3 L Phosphorus 11.7 H Magnesium 2.9 H Total Creatine Kinase Troponin I High Sens 741.7 H D B-Natriuretic Peptide Procalcitonin Urine Color Urine Appearance Urine pH Ur Specific [place] Urine Protein Urine Glucose (UA) Urine Ketones Urine Blood Urine Nitrite Ur Leukocyte Esterase Urine RBC Urine WBC Ur Squamous Epith Cells Amorphous Sediment Urine Bacteria 02/21/21 02/21/21 02/21/21 07:04 11:25 12:12 WBC RBC Hgb Hct MCV MCH MCHC RDW Plt Count MPV Immature Gran % (Auto) Neut % (Auto) Lymph % (Auto) [place] % (Auto) Eos % (Auto) Baso % (Auto) Lymph # (Auto) [place] # (Auto) Eos # (Auto) Baso # (Auto) Abs Immat Gran (auto) Absolute Neuts (auto) Absolute Nucleated RBC Nucleated RBC % (auto) Neutrophils % (Manual) Band Neutrophils % Lymphocytes % (Manual) Monocytes % (Manual) Eosinophils % (Manual) Metamyelocytes % Myelocytes % Abs Neuts (Manual) Lymphocytes # (Manual) Monocytes # (Manual) Eosinophils # (Manual) Metamyelocytes # Myelocytes # Platelet Estimate Large Platelets Plt Morphology Comment RBC Morphology Polychromasia PT INR APTT PTT (Heparin Protocol) D-Dimer O2 Saturation ABG pH at Pt Temp ABG pH (Temp Correct) ABG pCO2 at Pt Temp ABG pCO2 (Temp Corrct ABG pO2 at Pt Temp ABG pO2 (Temp Correct ABG HCO3 ABG Base Excess (Actual) VBG pH VBG pCO2 VBG pO2 VBG HCO3 VBG O2 Saturation VBG Base Excess Sodium Potassium Chloride Carbon Dioxide Anion Gap BUN Creatinine Estim Creat Clear Calc Estimated GFR POC Glucose 203 H 197 H Random Glucose Lactic Acid Lactic Acid Fup @ 2Hr Lactic Acid Fup @ 4Hr Calcium Phosphorus Magnesium Total Creatine Kinase Troponin I High Sens B-Natriuretic Peptide Procalcitonin Urine Color YELLOW Urine Appearance CLOUDY Urine pH 5.0 Ur Specific [place] >= 1.030 H Urine Protein 2+ H Urine Glucose (UA) NEG Urine Ketones NEG Urine Blood 3+ H Urine Nitrite NEG Ur Leukocyte Esterase NEG Urine RBC TNTC H Urine WBC 1-4 Ur Squamous Epith Cells NONE Amorphous Sediment TRACE Urine Bacteria TRACE 02/21/21 02/21/21 02/21/21 13:55 14:03 14:03 WBC 44.3 H* RBC 5.05 Hgb 15.8 Hct 49.1 MCV 97.2 MCH 31.3 MCHC 32.2 RDW 13.6 Plt Count 279 MPV 11.5 Immature Gran % (Auto) Neut % (Auto) Lymph % (Auto) [place] % (Auto) Eos % (Auto) Baso % (Auto) Lymph # (Auto) [place] # (Auto) Eos # (Auto) Baso # (Auto) Abs Immat Gran (auto) Absolute Neuts (auto) Absolute Nucleated RBC 0.030 H Nucleated RBC % (auto) 0.1 Neutrophils % (Manual) Band Neutrophils % Lymphocytes % (Manual) Monocytes % (Manual) Eosinophils % (Manual) Metamyelocytes % Myelocytes % Abs Neuts (Manual) Lymphocytes # (Manual) Monocytes # (Manual) Eosinophils # (Manual) Metamyelocytes # Myelocytes # Platelet Estimate Large Platelets Plt Morphology Comment RBC Morphology Polychromasia PT INR APTT PTT (Heparin Protocol) D-Dimer O2 Saturation ABG pH at Pt Temp ABG pH (Temp Correct) ABG pCO2 at Pt Temp ABG pCO2 (Temp Corrct ABG pO2 at Pt Temp ABG pO2 (Temp Correct ABG HCO3 ABG Base Excess (Actual) VBG pH 7.18 L* VBG pCO2 60 VBG pO2 68 VBG HCO3 23 VBG O2 Saturation 86.0 VBG Base Excess -6.4 Sodium 136 Potassium 6.5 H* Chloride 96 Carbon Dioxide 23 Anion Gap 23 H BUN 57 H Creatinine 3.37 H Estim Creat Clear Calc 34.5 Estimated GFR 20 POC Glucose Random Glucose 235 H Lactic Acid Lactic Acid Fup @ 2Hr Lactic Acid Fup @ 4Hr Calcium 7.5 L D Phosphorus Magnesium Total Creatine Kinase Troponin I High Sens B-Natriuretic Peptide Procalcitonin Urine Color Urine Appearance Urine pH Ur Specific [place] Urine Protein Urine Glucose (UA) Urine Ketones Urine Blood Urine Nitrite Ur Leukocyte Esterase Urine RBC Urine WBC Ur Squamous Epith Cells Amorphous Sediment Urine Bacteria 02/21/21 14:03 WBC RBC Hgb Hct MCV MCH MCHC RDW Plt Count MPV Immature Gran % (Auto) Neut % (Auto) Lymph % (Auto) [place] % (Auto) Eos % (Auto) Baso % (Auto) Lymph # (Auto) [place] # (Auto) Eos # (Auto) Baso # (Auto) Abs Immat Gran (auto) Absolute Neuts (auto) Absolute Nucleated RBC Nucleated RBC % (auto) Neutrophils % (Manual) Band Neutrophils % Lymphocytes % (Manual) Monocytes % (Manual) Eosinophils % (Manual) Metamyelocytes % Myelocytes % Abs Neuts (Manual) Lymphocytes # (Manual) Monocytes # (Manual) Eosinophils # (Manual) Metamyelocytes # Myelocytes # Platelet Estimate Large Platelets Plt Morphology Comment RBC Morphology Polychromasia PT 15.5 H INR 1.3 H APTT PTT (Heparin Protocol) 17.6 L D-Dimer O2 Saturation ABG pH at Pt Temp ABG pH (Temp Correct) ABG pCO2 at Pt Temp ABG pCO2 (Temp Corrct ABG pO2 at Pt Temp ABG pO2 (Temp Correct ABG HCO3 ABG Base Excess (Actual) VBG pH VBG pCO2 VBG pO2 VBG HCO3 VBG O2 Saturation VBG Base Excess Sodium Potassium Chloride Carbon Dioxide Anion Gap BUN Creatinine Estim Creat Clear Calc Estimated GFR POC Glucose Random Glucose Lactic Acid Lactic Acid Fup @ 2Hr Lactic Acid Fup @ 4Hr Calcium Phosphorus Magnesium Total Creatine Kinase Troponin I High Sens B-Natriuretic Peptide Procalcitonin Urine Color Urine Appearance Urine pH Ur Specific [place] Urine Protein Urine Glucose (UA) Urine Ketones Urine Blood Urine Nitrite Ur Leukocyte Esterase Urine RBC Urine WBC Ur Squamous Epith Cells Amorphous Sediment Urine Bacteria Microbiology Microbiology Results: Microbiology 02/09/21 18:28 Blood - Venous Blood Culture - Final No growth after 5 days. 02/09/21 18:29 Blood - Venous Blood Culture - Final No growth after 5 days. 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 Status: Acute (3) ELODIA (acute kidney injury): Status: Acute (4) Obesity: Status: Acute (5) Acute respiratory distress syndrome (ARDS) due to COVID-19 virus: Status: Acute (6) Viral sepsis: Status: Acute (7) Acute respiratory failure with hypoxia: Status: Acute (8) Pneumonia due to 2019-nCoV: Problem details: He has shortness of breath He has hypoxia Status: Acute (9) Hypoxia: Status: Acute (10) Unsteady gait: Status: Acute (11) Asthma: Status: Acute (12) Pure hypercholesterolemia: Status: Acute (13) Gout: Status: Acute (14) Diabetes mellitus: Status: Acute (15) Essential hypertension: Status: Acute Assessment and Plan: So for tonight the bicarbonate drip with D5W and IV insulin and per rectal Kayexalate follow potassium levels follow his blood gas lactate levels to guide us in in antibiotics chosen and his overall volume status by CVP and if things hold stably consider re-establishing supine position and consideration depending on renal function for dialysis catheter and continue with the low-dose heparin to treat for presumptive coagulopathy Time Spent With Patient Time: Total time spent is greater than 50% in coordination of care (as documented) at patient's floor/unit and/or counseling patient: Total time spent with greater than 50% in coordination of care (as documented) at patient's floor/unit and/or counseling patient:: 60
[2021-02-21 16:42] LABS: Glucose, Whole Blood 214 mg/dL (60-115)
[2021-02-21] MEDS: Sodium Bicarbonate 8.4% 50 MEQ in Dextrose 5 % 950 ML IV (17:28)
[2021-02-21] MEDS: Insulin Regular/NS 100 UNIT/100 ML PLAST..BAG IVCONT (17:29)
[2021-02-21 18:45] LABS: Glucose, Whole Blood 226 mg/dL (60-115)
--- NOTE | 2021-02-21 18:52 | PC.NURSE ---
S/E [id number]: AT START OF SHIFT PATIENT WAS PRONED AND MAXED ON VASOPRESSIN AND LEVOPHED. PROPOFOL RUNNING AT 30 MCG/KG/MIN. WAS ABLE TO TITRATE VASOPRESSIN DOWN TO 0.03 UNITS/MIN AND LEVOPHED TO 0.15 MCG/KG/MIN. PROPOFOL GTT INCREASED TO 35 MCG/KG/MIN DUE TO RESTLESS WITH REPOSITIONING. PUPILS 2MM, PINPOINT. WEAK COUGH AND GAG. SCANT INLINE SECRETIONS. BLOODY NASAL SECRETIONS NOTED THROUGHOUT SHIFT, MD AWARE. TMAX 101.7, VSS WITH THE SUPPORT OF LEVOPHED AND VASOPRESSIN. SR - ST (70-110S) WITH A BBB AND FREQUENT PACS. AT START OF SHIFT VENT SETTINGS: AC 22/TV 600/PEEP 16/100%. VENT SETTINGS ADJUSTED THROUGHOUT SHIFT. CURRENT SETTINGS: AC 24/ TV 630/ PEEP 16/ 90% AND MAINTAINING 02 > 95%. LUNG SOUNDS CLEAR, BUT DIMINISHED THROUGHOUT. CVP AT START OF SHIFT WAS 13-14, AND AFTERNOON 7-9, MD AWARE. REPEAT LAB OF K+: 6.5, AND DR. GOFF NOTIFIED. KAYEXALATE 60 GM GIVEN RECTALLY. BM X 4, RECTAL TUBE PLACED AT 1820. SODIUM BICARD GTT STARTED AT AT SET RATE OF 50 ML/HR AND INSULIN GTT AT 1 UNIT/HR WITH Q2HR POC. REPEAT TROPONIN 741.7. HEPARIN GTT STARTED AT 10 ML/HR PER PROTOCOL AT 1515. PTT-HD TO BE DRAWN AT 2115. URINE OUTPUT 135 ML TOTAL FOR 12 HOURS, MD AWARE. URINE AND SPUTUM SAMPLES COLLECTED. PT REMAINED PRONE ALL SHIFT, Q2HR REPO OF HEAD, NECK, ARMS AND LEGS WITH ROM OF EXTREMETIES. BED PLACED IN REVERSE TREND WITH PILLOWS UNDER CHEST TO SUPPORT HEAD AND FACE CRADDLE USED. AIR PUMP ON BED, SIZEWISE BED ORDERED AND TO BE PLACED ON WHEN PT IS OFF OF PRONE POSITION. BATHED, FREQUENT ORAL CARE AND SUCTIONING, BARRIER CREAM APPLIED. CYANOTIC TOES NOTED, MD AWARE. SKIN COLD AND PALE. FAMILY UPDATED BY THIS RN.
[2021-02-21 19:59] LABS: VBG Base Excess -4.3 mmol/L; VBG HCO3 23 mmol/L (22-26); VBG pCO2 52 mmHg; VBG pH 7.25 (7.32-7.43); VBG pO2 75 mmHg
[2021-02-21 20:13] LABS: Glucose, Whole Blood 203 mg/dL (60-115)
[2021-02-21] MEDS: propofoL 1,000 MG/100 ML VIAL 32.94 MG IVCONT ×2 (20:52→23:05)
[2021-02-21 21:02] LABS: Anion Gap 24 (12-20); Blood Urea Nitrogen 67 mg/dL (9-16); Calcium 7.2 mg/dL (8.4-10.2); Carbon Dioxide 23 mmol/L (22-29); Chloride 98 mmol/L (96-108); Creatinine Clr Calc Pharmacy 28.2; Estimated Glomerular Filt Rate 16; Glucose Random 243 mg/dL (60-115); Potassium 5.8 mmol/L (3.3-5.1); Sodium 139 mmol/L (135-145)
[2021-02-21 21:55] LABS: Venous Blood Gas Refer to POC result
[2021-02-21 22:05] LABS: Reflex Lactate? Lactic Acid Added
[2021-02-21 22:58] LABS: Glucose, Whole Blood 217 mg/dL (60-115)
[2021-02-21 23:19] LABS: Basophils Percent Auto 0.1 % (0-2); Hematocrit 43.5 % (42-52); Hemoglobin 14.3 g/dl (14.0-18.0); Imm Gran Abs Auto 1.08 X10*3/uL (0.00-0.03); Imm Gran Pct Auto 3.7 % (0.0-0.4); Lymphocytes Absolute Auto 1.2 X10*3/uL (1.2-4.9); Lymphocytes Percent Auto 3.9 % (20-40); MANUAL DIFF FLAG SCAN; Mean Corpuscular HGB Conc 32.9 g/dl (31.0-36.0); Mean Corpuscular Hemoglobin 31.8 pg (27.0-33.0); Mean Corpuscular Volume 96.7 fL (80-98); Mean Platelet Volume 11.3 fL (9.4-12.4); Monocytes Percent Auto 3.4 % (2-11); NRBC Pct Auto 0.1 /100WBC (0.0-0.2); Neutrophils Absolute Auto 26.1 X10*3/uL (2.0-8.3); Neutrophils Percent Auto 88.9 % (45-73); Platelet Count 218 X10*3/uL (160-400); Red Cell Distribution Width 13.4 % (11.0-16.0); SCAN SMEAR FLAG 1; White Blood Count 29.4 X10*3/uL (4.8-10.8)
[2021-02-21 23:30] LABS: SLIDE REVIEW VERIFIED
[2021-02-21 23:57] LABS: ~Lactic Acid-LAB USE ONLY 3.1 mmol/L (0.5-2.0)
[2021-02-22] VITALS (41 sets, daily range): BP systolic 88–146; BP diastolic 46–84; PULSE 86–112; RESP 22–28; TEMP 37.2–38.7; O2SAT 23–100
[2021-02-22 00:03] LABS: Glucose, Whole Blood 206 mg/dL (60-115)
[2021-02-22] MEDS: Albuterol/Iprat 2.5/0.5MG 3 ML AMPUL.NEB INHALE ×6 (00:21→20:28)
[2021-02-22] MEDS: 0.9 % Sodium Chloride Flush 3 ML SYRINGE IVFLUSH ×3 (00:23→17:15)
[2021-02-22] MEDS: Heparin Sodium,Porcine 5,000 UNIT/ML VIAL 4900 UNIT IVPUSH (01:01)
[2021-02-22 01:12] LABS: Reflex Lactate? 2 Y
[2021-02-22 01:27] LABS: Procalcitonin 58.74 ng/mL
[2021-02-22] MEDS: propofoL 1,000 MG/100 ML VIAL 32.94 MG IVCONT ×8 (02:05→22:24)
[2021-02-22 02:06] LABS: ~Lactic Acid-LAB USE ONLY 2.4 mmol/L (0.5-2.0)
[2021-02-22 02:57] LABS: Glucose, Whole Blood 233 mg/dL (60-115)
[2021-02-22] MEDS: Ampicillin Sodium/Sulbactam Na 3 GM in 0.9 % Sodium Chloride 100 ML IV ×4 (04:24→20:54)
[2021-02-22] MEDS: Pantoprazole Sodium 40 MG/10 ML VIAL IVPUSH (04:25)
[2021-02-22 05:21] LABS: VBG HCO3 23 mmol/L (22-26); VBG pCO2 52 mmHg; VBG pH 7.26 (7.32-7.43); VBG pO2 71 mmHg
[2021-02-22 05:29] LABS: Basophils Percent Auto 0.1 % (0-2); Hemoglobin 12.9 g/dl (14.0-18.0); Imm Gran Abs Auto 1.26 X10*3/uL (0.00-0.03); Imm Gran Pct Auto 4.7 % (0.0-0.4); Lymphocytes Absolute Auto 1.1 X10*3/uL (1.2-4.9); MANUAL DIFF FLAG SCAN; Mean Corpuscular HGB Conc 33.1 g/dl (31.0-36.0); Mean Corpuscular Hemoglobin 31.9 pg (27.0-33.0); Mean Corpuscular Volume 96.3 fL (80-98); Mean Platelet Volume 11.7 fL (9.4-12.4); Monocytes Percent Auto 3.5 % (2-11); NRBC Pct Auto 0.1 /100WBC (0.0-0.2); Neutrophils Absolute Auto 23.6 X10*3/uL (2.0-8.3); Neutrophils Percent Auto 87.7 % (45-73); Platelet Count 205 X10*3/uL (160-400); Red Blood Count 4.05 X10*6/uL (4.60-5.80); Red Cell Distribution Width 13.2 % (11.0-16.0); SCAN SMEAR FLAG 1
[2021-02-22 05:40] LABS: INTERNATIONAL NORM RATIO 1.4 (0.9-1.1); Prothrombin Time 16.7 SEC (10.8-13.0)
[2021-02-22 05:49] LABS: Partial Thromboplastin Time 79.8 SEC (24.1-38.0)
[2021-02-22 05:53] LABS: D Dimer 1851 NG/ML
--- NOTE | 2021-02-22 06:10 | PC.NURSE ---
Shift eval 7p-7a: Patient prone, intubated - Repositioning patient Q2H with assist from RT & fellow staff member. Patient sedated w/ propofol, restless w/ any care, shaking head - 2 assist to keep head and ETT stable. ETT remains - 7.5 @ 25. Assessed chest area - no breakdown noted on upper chest at 4am reposition - bruising noted on upper chest - CPR prev night. Face extremely swollen - nares bleeding small amts - suctioned with repos. Mouth swollen - lower lip irritated, attempted to keep pressure off lip. Toes cold, mildly cyanotic - elevated from bed. Swimmers position with alternating arms above head every 2 hours. Ashia TIDWELL made aware of elevated Lactic acids through night & also planned for patient to move to supine after mornng huddle - keep patient prone through shift. ? need for dialysis today. Nose wound from bipap out to air. O2sat 96-100% on - weaned fio2 to 80%. No in-line suctioning noted. Oral secretions clear. T-max 101.7, down to 99.9. HR went from 80's SR w/ BB to 110's. Titrated Levo & vaso according to orders. Checking POC Q2H - staying in low 200's - titrated insulin drip up. K improved 5.8 from 1999 labs - Ashia TIDWELL aware.
[2021-02-22 06:37] LABS: Glucose, Whole Blood 208 mg/dL (60-115)
[2021-02-22 06:37] LABS: Glucose, Whole Blood 210 mg/dL (60-115)
[2021-02-22 07:36] LABS: Venous Blood Gas Refer to POC result
[2021-02-22 08:01] LABS: Glucose, Whole Blood 216 mg/dL (60-115)
[2021-02-22] MEDS: dexAMETHasone sod phosphate 4 MG/ML VIAL 6 MG IVPUSH (08:08)
[2021-02-22] MEDS: Chlorhexidine Gluc Oral Rinse 15 ML MOUTHWASH BUCCAL ×3 (08:11→20:53)
[2021-02-22 08:40] LABS: PTT Heparin Drip 74.5 SEC (53-77.9)
[2021-02-22 09:01] LABS: Lactic Acid 2.5 mmol/L (0.5-2.0)
[2021-02-22 09:40] LABS: Anion Gap 25 (12-20); Blood Urea Nitrogen 82 mg/dL (9-16); Calcium 6.9 mg/dL (8.4-10.2); Carbon Dioxide 23 mmol/L (22-29); Chloride 96 mmol/L (96-108); Creatinine Clr Calc Pharmacy 20.3; Estimated Glomerular Filt Rate 11; Glucose Random 218 mg/dL (60-115); Magnesium 3.1 mg/dL (1.6-2.6); Phosphorus 11.4 mg/dL (2.7-4.5); Potassium 4.8 mmol/L (3.3-5.1); Sodium 139 mmol/L (135-145)
[2021-02-22 10:28] LABS: Procalcitonin 42.17 ng/mL; Reflex Lactate? Lactic Acid Added
[2021-02-22 10:29] LABS: Glucose, Whole Blood 181 mg/dL (60-115)
--- NOTE | 2021-02-22 10:34 | MHC.CLN ---
F/U IF TF NEEDED; RECOMMEND GLUCERNA AT MAX GOAL RATE 70CC/HR TO PROVIDE 1680KCALS, 70G PROTEIN, 1433CC WATER FROM FORMULA MONITOR TOLERANCE, RESIDUALS AND LYTES IF PT TO FEED IN PRONE POSITION RECOMMEND; USING TRICKLE FEEDS ONLY FOLLOWING
--- NOTE | 2021-02-22 10:58 | CONS_ITS ---
DATE OF SERVICE: 02/21/2021 REASON FOR CONSULTATION: I was called to see this patient to assist in management of the patient's acute kidney injury and hyperkalemia. SUMMARY: Mr. Davies is a 50-year-old man with a history of morbid obesity, who has been admitted with COVID-19 infection and he has severe hypoxemia with respiratory failure. He is intubated and currently he is in prone position. Apparently, the ICU attending has been trying to transfer him out to a tertiary facility including [facility] in [place] and they were not accepting this patient. At the time of admission, his renal function is normal over the last 48 hours, there has been a gradual increase in serum creatinine up to 2.5 as of this morning and his urine output has been rather sluggish. He did have mild hyperkalemia with potassium of 5.8. A pH of 7.11 with pCO2 of 71 while I was consulted. I discussed with attending and the plan was to change his vent settings to correct his respiratory acidosis and also recheck his potassium. Since he cannot take anything or by mouth, we will administer a dose of Kayexalate rectally and recheck his potassium. PAST MEDICAL HISTORY: His ongoing medical problems include history of obesity, obstructive sleep apnea on CPAP, hypertension, gout, and diabetes mellitus. History of asthma, hyperlipidemia as well. FAMILY HISTORY: Significant for hypertension, diabetes mellitus, and cancer. PAST SURGICAL HISTORY: No significant surgical history. SOCIAL HISTORY: He lives in apartment. History of alcohol intake and history of smoking prior to admission. REVIEW OF SYSTEMS: Not obtainable from the patient due to his medical condition. All his information obtained from the chart and from the team. CURRENT MEDICATIONS: All the current medications were reviewed. He is currently on remdesivir, dexamethasone, albuterol, and Zofran. PHYSICAL EXAMINATION: GENERAL: Today, Samson appears critically ill. He is in a prone position and being ventilated. LUNGS: Scattered rhonchi. ABDOMEN: Obese. He does have some dependent edema. No new rash. VITAL SIGNS: Blood pressure was , pulse is 80 with a temperature of 100.7. DIAGNOSTIC DATA: Chest x-ray showed diffuse bilateral airspace disease. Labs as of this morning, WBC count 51.2, hemoglobin 16.4. Sodium 134, potassium 5.9, BUN 50, creatinine 2.27, CO2 of 21. IMPRESSION: A 50-year-old man with acute kidney injury in the setting of COVID-19 infection. Acute kidney injury is most likely due to COVID-19 related to cytokine storm. He probably has progressed to acute tubular necrosis. The acute kidney injury is complicated by hyperkalemia with metabolic and respiratory acidosis with mild hyponatremia. As discussed with ICU attending, the plan will be to try to treat the hyperkalemia medically with Kayexalate rectally. If this does not work and if the acidosis does not improve, he would need dialysis. The plan is to observe him overnight and see if we can in the morning and try to insert dialysis catheter and initiate dialysis as needed. Overall, prognosis is guarded. We will watch him closely along with the team. Cam Petit MD BPA/MODL / [phone]
[2021-02-22] MEDS: Heparin Sodium,Porcine/1/2NS 25,000 UNIT/250 ML IV.SOLN 12.44 UNIT IVCONT (11:27)
[2021-02-22] MEDS: Sodium Bicarbonate 8.4% 50 MEQ in Dextrose 5 % 950 ML IV (11:27)
[2021-02-22 12:16] LABS: Glucose, Whole Blood 187 mg/dL (60-115)
[2021-02-22] MEDS: Insulin Regular/NS 100 UNIT/100 ML PLAST..BAG IVCONT (13:26)
[2021-02-22 14:26] LABS: Glucose, Whole Blood 203 mg/dL (60-115)
[2021-02-22 15:41] LABS: PTT Heparin Drip 58.7 SEC (53-77.9)
--- NOTE | 2021-02-22 15:41 | P.PNNP_ITS ---
Subjective Subjective Date of Service: 02/22/21 Interval history: Events ntoed Discussed with ICU attending Physical Exam Vital Signs: Vital Signs: Last Vital Signs Temp 99.1 F 02/22/21 15:00 Pulse 112 H 02/22/21 15:00 Resp 24 H 02/22/21 15:00 BP 125/76 02/22/21 15:00 Pulse Ox 93 02/22/21 15:00 Body Mass Index 39.6 Const: General: ill appearing Objective Data Labs CBC & Chem 7: 02/22/21 05:10 02/22/21 08:20 Labs: Laboratory Results - last 24 hr 02/21/21 02/21/21 02/21/21 16:37 18:41 19:52 WBC RBC Hgb Hct MCV MCH MCHC RDW Plt Count MPV Immature Gran % (Auto) Neut % (Auto) Lymph % (Auto) [place] % (Auto) Eos % (Auto) Baso % (Auto) Lymph # (Auto) [place] # (Auto) Eos # (Auto) Baso # (Auto) Abs Immat Gran (auto) Absolute Neuts (auto) Absolute Nucleated RBC Nucleated RBC % (auto) Smear Tech's Comments PT INR APTT PTT (Heparin Protocol) D-Dimer VBG pH VBG pCO2 VBG pO2 VBG HCO3 VBG O2 Saturation VBG Base Excess Sodium Potassium Chloride Carbon Dioxide Anion Gap BUN Creatinine Estim Creat Clear Calc Estimated GFR POC Glucose 214 H 226 H Random Glucose Lactic Acid Lactic Acid Fup @ 2Hr Lactic Acid Fup @ 4Hr Calcium Phosphorus Magnesium Procalcitonin 58.74 02/21/21 02/21/21 02/21/21 19:52 19:58 19:58 WBC RBC Hgb Hct MCV MCH MCHC RDW Plt Count MPV Immature Gran % (Auto) Neut % (Auto) Lymph % (Auto) [place] % (Auto) Eos % (Auto) Baso % (Auto) Lymph # (Auto) [place] # (Auto) Eos # (Auto) Baso # (Auto) Abs Immat Gran (auto) Absolute Neuts (auto) Absolute Nucleated RBC Nucleated RBC % (auto) Smear Tech's Comments PT INR APTT PTT (Heparin Protocol) D-Dimer VBG pH 7.25 L VBG pCO2 52 VBG pO2 75 VBG HCO3 23 VBG O2 Saturation 91.0 VBG Base Excess -4.3 Sodium 139 Potassium 5.8 H Chloride 98 Carbon Dioxide 23 Anion Gap 24 H BUN 67 H Creatinine 4.12 H* Estim Creat Clear Calc 28.2 Estimated GFR 16 POC Glucose Random Glucose 243 H Lactic Acid 2.7 H* Lactic Acid Fup @ 2Hr Lactic Acid Fup @ 4Hr Calcium 7.2 L Phosphorus Magnesium Procalcitonin 02/21/21 02/21/21 02/21/21 20:09 22:53 23:06 WBC 29.4 H RBC 4.50 L Hgb 14.3 Hct 43.5 MCV 96.7 MCH 31.8 MCHC 32.9 RDW 13.4 Plt Count 218 MPV 11.3 Immature Gran % (Auto) 3.7 H Neut % (Auto) 88.9 H Lymph % (Auto) 3.9 L [place] % (Auto) 3.4 Eos % (Auto) 0.0 Baso % (Auto) 0.1 Lymph # (Auto) 1.2 [place] # (Auto) 1.0 Eos # (Auto) 0.0 Baso # (Auto) 0.0 Abs Immat Gran (auto) 1.08 H Absolute Neuts (auto) 26.1 H Absolute Nucleated RBC 0.030 H Nucleated RBC % (auto) 0.1 Smear Tech's Comments VERIFIED PT INR APTT PTT (Heparin Protocol) D-Dimer VBG pH VBG pCO2 VBG pO2 VBG HCO3 VBG O2 Saturation VBG Base Excess Sodium Potassium Chloride Carbon Dioxide Anion Gap BUN Creatinine Estim Creat Clear Calc Estimated GFR POC Glucose 203 H 217 H Random Glucose Lactic Acid Lactic Acid Fup @ 2Hr Lactic Acid Fup @ 4Hr Calcium Phosphorus Magnesium Procalcitonin 02/21/21 02/21/21 02/21/21 23:06 23:07 23:59 WBC RBC Hgb Hct MCV MCH MCHC RDW Plt Count MPV Immature Gran % (Auto) Neut % (Auto) Lymph % (Auto) [place] % (Auto) Eos % (Auto) Baso % (Auto) Lymph # (Auto) [place] # (Auto) Eos # (Auto) Baso # (Auto) Abs Immat Gran (auto) Absolute Neuts (auto) Absolute Nucleated RBC Nucleated RBC % (auto) Smear Tech's Comments PT INR APTT PTT (Heparin Protocol) 40.0 L D D-Dimer VBG pH VBG pCO2 VBG pO2 VBG HCO3 VBG O2 Saturation VBG Base Excess Sodium Potassium Chloride Carbon Dioxide Anion Gap BUN Creatinine Estim Creat Clear Calc Estimated GFR POC Glucose 206 H Random Glucose Lactic Acid Lactic Acid Fup @ 2Hr 3.1 H* Lactic Acid Fup @ 4Hr Calcium Phosphorus Magnesium Procalcitonin 02/22/21 02/22/21 02/22/21 01:33 02:25 04:22 WBC RBC Hgb Hct MCV MCH MCHC RDW Plt Count MPV Immature Gran % (Auto) Neut % (Auto) Lymph % (Auto) [place] % (Auto) Eos % (Auto) Baso % (Auto) Lymph # (Auto) [place] # (Auto) Eos # (Auto) Baso # (Auto) Abs Immat Gran (auto) Absolute Neuts (auto) Absolute Nucleated RBC Nucleated RBC % (auto) Smear Tech's Comments PT INR APTT PTT (Heparin Protocol) D-Dimer VBG pH VBG pCO2 VBG pO2 VBG HCO3 VBG O2 Saturation VBG Base Excess Sodium Potassium Chloride Carbon Dioxide Anion Gap BUN Creatinine Estim Creat Clear Calc Estimated GFR POC Glucose 233 H 210 H Random Glucose Lactic Acid Lactic Acid Fup @ 2Hr Lactic Acid Fup @ 4Hr 2.4 H* Calcium Phosphorus Magnesium Procalcitonin 02/22/21 02/22/21 02/22/21 05:10 05:10 05:15 WBC 27.0 H RBC 4.05 L Hgb 12.9 L Hct 39.0 L MCV 96.3 MCH 31.9 MCHC 33.1 RDW 13.2 Plt Count 205 MPV 11.7 Immature Gran % (Auto) 4.7 H Neut % (Auto) 87.7 H Lymph % (Auto) 4.0 L [place] % (Auto) 3.5 Eos % (Auto) 0.0 Baso % (Auto) 0.1 Lymph # (Auto) 1.1 L [place] # (Auto) 1.0 Eos # (Auto) 0.0 Baso # (Auto) 0.0 Abs Immat Gran (auto) 1.26 H Absolute Neuts (auto) 23.6 H Absolute Nucleated RBC 0.030 H Nucleated RBC % (auto) 0.1 Smear Tech's Comments PT 16.7 H INR 1.4 H APTT 79.8 H* D PTT (Heparin Protocol) D-Dimer 1851 VBG pH 7.26 L VBG pCO2 52 VBG pO2 71 VBG HCO3 23 VBG O2 Saturation 90.0 VBG Base Excess TNP Sodium Potassium Chloride Carbon Dioxide Anion Gap BUN Creatinine Estim Creat Clear Calc Estimated GFR POC Glucose Random Glucose Lactic Acid Lactic Acid Fup @ 2Hr Lactic Acid Fup @ 4Hr Calcium Phosphorus Magnesium Procalcitonin 02/22/21 02/22/21 02/22/21 05:55 07:56 08:20 WBC RBC Hgb Hct MCV MCH MCHC RDW Plt Count MPV Immature Gran % (Auto) Neut % (Auto) Lymph % (Auto) [place] % (Auto) Eos % (Auto) Baso % (Auto) Lymph # (Auto) [place] # (Auto) Eos # (Auto) Baso # (Auto) Abs Immat Gran (auto) Absolute Neuts (auto) Absolute Nucleated RBC Nucleated RBC % (auto) Smear Tech's Comments PT INR APTT PTT (Heparin Protocol) D-Dimer VBG pH VBG pCO2 VBG pO2 VBG HCO3 VBG O2 Saturation VBG Base Excess Sodium Potassium Chloride Carbon Dioxide Anion Gap BUN Creatinine Estim Creat Clear Calc Estimated GFR POC Glucose 208 H 216 H Random Glucose Lactic Acid Lactic Acid Fup @ 2Hr Lactic Acid Fup @ 4Hr Calcium Phosphorus Magnesium Procalcitonin 42.17 02/22/21 02/22/21 02/22/21 08:20 08:20 08:20 WBC RBC Hgb Hct MCV MCH MCHC RDW Plt Count MPV Immature Gran % (Auto) Neut % (Auto) Lymph % (Auto) [place] % (Auto) Eos % (Auto) Baso % (Auto) Lymph # (Auto) [place] # (Auto) Eos # (Auto) Baso # (Auto) Abs Immat Gran (auto) Absolute Neuts (auto) Absolute Nucleated RBC Nucleated RBC % (auto) Smear Tech's Comments PT INR APTT PTT (Heparin Protocol) 74.5 D D-Dimer VBG pH VBG pCO2 VBG pO2 VBG HCO3 VBG O2 Saturation VBG Base Excess Sodium 139 Potassium 4.8 Chloride 96 Carbon Dioxide 23 Anion Gap 25 H BUN 82 H* D Creatinine 5.72 H* Estim Creat Clear Calc 20.3 Estimated GFR 11 POC Glucose Random Glucose 218 H Lactic Acid 2.5 H* Lactic Acid Fup @ 2Hr Lactic Acid Fup @ 4Hr Calcium 6.9 L Phosphorus 11.4 H Magnesium 3.1 H Procalcitonin 02/22/21 02/22/21 02/22/21 10:26 12:05 14:22 WBC RBC Hgb Hct MCV MCH MCHC RDW Plt Count MPV Immature Gran % (Auto) Neut % (Auto) Lymph % (Auto) [place] % (Auto) Eos % (Auto) Baso % (Auto) Lymph # (Auto) [place] # (Auto) Eos # (Auto) Baso # (Auto) Abs Immat Gran (auto) Absolute Neuts (auto) Absolute Nucleated RBC Nucleated RBC % (auto) Smear Tech's Comments PT INR APTT PTT (Heparin Protocol) D-Dimer VBG pH VBG pCO2 VBG pO2 VBG HCO3 VBG O2 Saturation VBG Base Excess Sodium Potassium Chloride Carbon Dioxide Anion Gap BUN Creatinine Estim Creat Clear Calc Estimated GFR POC Glucose 181 H 187 H 203 H Random Glucose Lactic Acid Lactic Acid Fup @ 2Hr Lactic Acid Fup @ 4Hr Calcium Phosphorus Magnesium Procalcitonin Microbiology Microbiology Results: Microbiology 02/21/21 11:52 Sputum - Suctioned Gram Stain - Final 02/21/21 11:52 Sputum - Suctioned Sputum Culture - Preliminary Culture in progress. 02/21/21 12:12 Urine Catheterized - Hebert Catheter Urine Culture - Final No growth. 02/09/21 18:28 Blood - Venous Blood Culture - Final No growth after 5 days. 02/09/21 18:29 Blood - Venous Blood Culture - Final No growth after 5 days. Assessment & Plan Assessment and plan (1) ELODIA (acute kidney injury): Problem details: ELODIA in a setting of COVID-19 and reps failure Oliguric with hyperkalemia Overall prognosis guarded Discussed with ICU attending and agree with supporting with dialysis Will initiate HD after catheter insertion Volume removal as dictated by ICU team Status: Acute Time Spent With Patient Time: Total time spent is greater than 50% in coordination of care (as documented) at patient's floor/unit and/or counseling patient:
[2021-02-22 15:44] LABS: ~Lactic Acid-LAB USE ONLY 2.3 mmol/L (0.5-2.0)
--- NOTE | 2021-02-22 15:52 | P.PCNCC_ITS ---
Procedures Procedure Note Procedure Note: Due to uremia from ATN with mixed metabolic acidosis including positive anion gap we needed to dialyze today and I placed a dialysis catheter 12 [place] and 20 cm utilizing ultrasound guidance and after sterile preparation and draping gained easy entry x1 into the left internal jugular vein passing retrograde with Seldinger technique J tipped guidewire over which serial dilators and then finally the dialysis catheter
--- NOTE | 2021-02-22 15:54 | PM.CCPN ---
Subjective Subjective Date of Service: 02/22/21 Interval History: Cardiac arrest at that time lasting approximately 5 minutes responding to epinephrine and brief CPR and was impossible to oxygen eight could not exceed seventy six to eighty % oxygen saturation for two to three hours and then turned to the prone position he oxygen pilot station that greater than ninety five % for over 30 hours and now turned into the supine position still saturating at ninety three placed a dialysis catheter and initiated dialysis treatment CVP in this position was approximately five and will watch it to gauge the amount of fluid to be fit to be filter to Physical Exam Vital Signs: Vital Signs: Last Vital Signs Temp 99.1 F 02/22/21 15:00 Pulse 112 H 02/22/21 15:00 Resp 24 H 02/22/21 15:00 BP 125/76 02/22/21 15:00 Pulse Ox 93 02/22/21 15:00 Body Mass Index 39.6 Const: Other: Patient did respond to my manipulation of his neck so we deep in sedation temporarily moved all four extremities but remains sedated and intubated Cardiac exam with good bilateral carotid upstrokes no gallops Chest without wheezes and no accessory muscle use no diaphragmatic effort Extremities warmer and better perfused and lactate down to two point three Objective Data Labs CBC & Chem 7: 02/22/21 05:10 02/22/21 08:20 Labs: Laboratory Results - last 24 hr 02/21/21 02/21/21 02/21/21 16:37 18:41 19:52 WBC RBC Hgb Hct MCV MCH MCHC RDW Plt Count MPV Immature Gran % (Auto) Neut % (Auto) Lymph % (Auto) [place] % (Auto) Eos % (Auto) Baso % (Auto) Lymph # (Auto) [place] # (Auto) Eos # (Auto) Baso # (Auto) Abs Immat Gran (auto) Absolute Neuts (auto) Absolute Nucleated RBC Nucleated RBC % (auto) Smear Tech's Comments PT INR APTT PTT (Heparin Protocol) D-Dimer VBG pH VBG pCO2 VBG pO2 VBG HCO3 VBG O2 Saturation VBG Base Excess Sodium Potassium Chloride Carbon Dioxide Anion Gap BUN Creatinine Estim Creat Clear Calc Estimated GFR POC Glucose 214 H 226 H Random Glucose Lactic Acid Lactic Acid Fup @ 2Hr Lactic Acid Fup @ 4Hr Calcium Phosphorus Magnesium Procalcitonin 58.74 02/21/21 02/21/21 02/21/21 19:52 19:58 19:58 WBC RBC Hgb Hct MCV MCH MCHC RDW Plt Count MPV Immature Gran % (Auto) Neut % (Auto) Lymph % (Auto) [place] % (Auto) Eos % (Auto) Baso % (Auto) Lymph # (Auto) [place] # (Auto) Eos # (Auto) Baso # (Auto) Abs Immat Gran (auto) Absolute Neuts (auto) Absolute Nucleated RBC Nucleated RBC % (auto) Smear Tech's Comments PT INR APTT PTT (Heparin Protocol) D-Dimer VBG pH 7.25 L VBG pCO2 52 VBG pO2 75 VBG HCO3 23 VBG O2 Saturation 91.0 VBG Base Excess -4.3 Sodium 139 Potassium 5.8 H Chloride 98 Carbon Dioxide 23 Anion Gap 24 H BUN 67 H Creatinine 4.12 H* Estim Creat Clear Calc 28.2 Estimated GFR 16 POC Glucose Random Glucose 243 H Lactic Acid 2.7 H* Lactic Acid Fup @ 2Hr Lactic Acid Fup @ 4Hr Calcium 7.2 L Phosphorus Magnesium Procalcitonin 02/21/21 02/21/21 02/21/21 20:09 22:53 23:06 WBC 29.4 H RBC 4.50 L Hgb 14.3 Hct 43.5 MCV 96.7 MCH 31.8 MCHC 32.9 RDW 13.4 Plt Count 218 MPV 11.3 Immature Gran % (Auto) 3.7 H Neut % (Auto) 88.9 H Lymph % (Auto) 3.9 L [place] % (Auto) 3.4 Eos % (Auto) 0.0 Baso % (Auto) 0.1 Lymph # (Auto) 1.2 [place] # (Auto) 1.0 Eos # (Auto) 0.0 Baso # (Auto) 0.0 Abs Immat Gran (auto) 1.08 H Absolute Neuts (auto) 26.1 H Absolute Nucleated RBC 0.030 H Nucleated RBC % (auto) 0.1 Smear Tech's Comments VERIFIED PT INR APTT PTT (Heparin Protocol) D-Dimer VBG pH VBG pCO2 VBG pO2 VBG HCO3 VBG O2 Saturation VBG Base Excess Sodium Potassium Chloride Carbon Dioxide Anion Gap BUN Creatinine Estim Creat Clear Calc Estimated GFR POC Glucose 203 H 217 H Random Glucose Lactic Acid Lactic Acid Fup @ 2Hr Lactic Acid Fup @ 4Hr Calcium Phosphorus Magnesium Procalcitonin 02/21/21 02/21/21 02/21/21 23:06 23:07 23:59 WBC RBC Hgb Hct MCV MCH MCHC RDW Plt Count MPV Immature Gran % (Auto) Neut % (Auto) Lymph % (Auto) [place] % (Auto) Eos % (Auto) Baso % (Auto) Lymph # (Auto) [place] # (Auto) Eos # (Auto) Baso # (Auto) Abs Immat Gran (auto) Absolute Neuts (auto) Absolute Nucleated RBC Nucleated RBC % (auto) Smear Tech's Comments PT INR APTT PTT (Heparin Protocol) 40.0 L D D-Dimer VBG pH VBG pCO2 VBG pO2 VBG HCO3 VBG O2 Saturation VBG Base Excess Sodium Potassium Chloride Carbon Dioxide Anion Gap BUN Creatinine Estim Creat Clear Calc Estimated GFR POC Glucose 206 H Random Glucose Lactic Acid Lactic Acid Fup @ 2Hr 3.1 H* Lactic Acid Fup @ 4Hr Calcium Phosphorus Magnesium Procalcitonin 02/22/21 02/22/21 02/22/21 01:33 02:25 04:22 WBC RBC Hgb Hct MCV MCH MCHC RDW Plt Count MPV Immature Gran % (Auto) Neut % (Auto) Lymph % (Auto) [place] % (Auto) Eos % (Auto) Baso % (Auto) Lymph # (Auto) [place] # (Auto) Eos # (Auto) Baso # (Auto) Abs Immat Gran (auto) Absolute Neuts (auto) Absolute Nucleated RBC Nucleated RBC % (auto) Smear Tech's Comments PT INR APTT PTT (Heparin Protocol) D-Dimer VBG pH VBG pCO2 VBG pO2 VBG HCO3 VBG O2 Saturation VBG Base Excess Sodium Potassium Chloride Carbon Dioxide Anion Gap BUN Creatinine Estim Creat Clear Calc Estimated GFR POC Glucose 233 H 210 H Random Glucose Lactic Acid Lactic Acid Fup @ 2Hr Lactic Acid Fup @ 4Hr 2.4 H* Calcium Phosphorus Magnesium Procalcitonin 02/22/21 02/22/21 02/22/21 05:10 05:10 05:15 WBC 27.0 H RBC 4.05 L Hgb 12.9 L Hct 39.0 L MCV 96.3 MCH 31.9 MCHC 33.1 RDW 13.2 Plt Count 205 MPV 11.7 Immature Gran % (Auto) 4.7 H Neut % (Auto) 87.7 H Lymph % (Auto) 4.0 L [place] % (Auto) 3.5 Eos % (Auto) 0.0 Baso % (Auto) 0.1 Lymph # (Auto) 1.1 L [place] # (Auto) 1.0 Eos # (Auto) 0.0 Baso # (Auto) 0.0 Abs Immat Gran (auto) 1.26 H Absolute Neuts (auto) 23.6 H Absolute Nucleated RBC 0.030 H Nucleated RBC % (auto) 0.1 Smear Tech's Comments PT 16.7 H INR 1.4 H APTT 79.8 H* D PTT (Heparin Protocol) D-Dimer 1851 VBG pH 7.26 L VBG pCO2 52 VBG pO2 71 VBG HCO3 23 VBG O2 Saturation 90.0 VBG Base Excess TNP Sodium Potassium Chloride Carbon Dioxide Anion Gap BUN Creatinine Estim Creat Clear Calc Estimated GFR POC Glucose Random Glucose Lactic Acid Lactic Acid Fup @ 2Hr Lactic Acid Fup @ 4Hr Calcium Phosphorus Magnesium Procalcitonin 02/22/21 02/22/21 02/22/21 05:55 07:56 08:20 WBC RBC Hgb Hct MCV MCH MCHC RDW Plt Count MPV Immature Gran % (Auto) Neut % (Auto) Lymph % (Auto) [place] % (Auto) Eos % (Auto) Baso % (Auto) Lymph # (Auto) [place] # (Auto) Eos # (Auto) Baso # (Auto) Abs Immat Gran (auto) Absolute Neuts (auto) Absolute Nucleated RBC Nucleated RBC % (auto) Smear Tech's Comments PT INR APTT PTT (Heparin Protocol) D-Dimer VBG pH VBG pCO2 VBG pO2 VBG HCO3 VBG O2 Saturation VBG Base Excess Sodium Potassium Chloride Carbon Dioxide Anion Gap BUN Creatinine Estim Creat Clear Calc Estimated GFR POC Glucose 208 H 216 H Random Glucose Lactic Acid Lactic Acid Fup @ 2Hr Lactic Acid Fup @ 4Hr Calcium Phosphorus Magnesium Procalcitonin 42.17 02/22/21 02/22/21 02/22/21 08:20 08:20 08:20 WBC RBC Hgb Hct MCV MCH MCHC RDW Plt Count MPV Immature Gran % (Auto) Neut % (Auto) Lymph % (Auto) [place] % (Auto) Eos % (Auto) Baso % (Auto) Lymph # (Auto) [place] # (Auto) Eos # (Auto) Baso # (Auto) Abs Immat Gran (auto) Absolute Neuts (auto) Absolute Nucleated RBC Nucleated RBC % (auto) Smear Tech's Comments PT INR APTT PTT (Heparin Protocol) 74.5 D D-Dimer VBG pH VBG pCO2 VBG pO2 VBG HCO3 VBG O2 Saturation VBG Base Excess Sodium 139 Potassium 4.8 Chloride 96 Carbon Dioxide 23 Anion Gap 25 H BUN 82 H* D Creatinine 5.72 H* Estim Creat Clear Calc 20.3 Estimated GFR 11 POC Glucose Random Glucose 218 H Lactic Acid 2.5 H* Lactic Acid Fup @ 2Hr Lactic Acid Fup @ 4Hr Calcium 6.9 L Phosphorus 11.4 H Magnesium 3.1 H Procalcitonin 02/22/21 02/22/21 02/22/21 10:26 12:05 14:22 WBC RBC Hgb Hct MCV MCH MCHC RDW Plt Count MPV Immature Gran % (Auto) Neut % (Auto) Lymph % (Auto) [place] % (Auto) Eos % (Auto) Baso % (Auto) Lymph # (Auto) [place] # (Auto) Eos # (Auto) Baso # (Auto) Abs Immat Gran (auto) Absolute Neuts (auto) Absolute Nucleated RBC Nucleated RBC % (auto) Smear Tech's Comments PT INR APTT PTT (Heparin Protocol) D-Dimer VBG pH VBG pCO2 VBG pO2 VBG HCO3 VBG O2 Saturation VBG Base Excess Sodium Potassium Chloride Carbon Dioxide Anion Gap BUN Creatinine Estim Creat Clear Calc Estimated GFR POC Glucose 181 H 187 H 203 H Random Glucose Lactic Acid Lactic Acid Fup @ 2Hr Lactic Acid Fup @ 4Hr Calcium Phosphorus Magnesium Procalcitonin 02/22/21 02/22/21 14:55 14:55 WBC RBC Hgb Hct MCV MCH MCHC RDW Plt Count MPV Immature Gran % (Auto) Neut % (Auto) Lymph % (Auto) [place] % (Auto) Eos % (Auto) Baso % (Auto) Lymph # (Auto) [place] # (Auto) Eos # (Auto) Baso # (Auto) Abs Immat Gran (auto) Absolute Neuts (auto) Absolute Nucleated RBC Nucleated RBC % (auto) Smear Tech's Comments PT INR APTT PTT (Heparin Protocol) 58.7 D D-Dimer VBG pH VBG pCO2 VBG pO2 VBG HCO3 VBG O2 Saturation VBG Base Excess Sodium Potassium Chloride Carbon Dioxide Anion Gap BUN Creatinine Estim Creat Clear Calc Estimated GFR POC Glucose Random Glucose Lactic Acid Lactic Acid Fup @ 2Hr 2.3 H* Lactic Acid Fup @ 4Hr Calcium Phosphorus Magnesium Procalcitonin Microbiology Microbiology Results: Microbiology 02/21/21 11:52 Sputum - Suctioned Gram Stain - Final 02/21/21 11:52 Sputum - Suctioned Sputum Culture - Preliminary Culture in progress. 02/21/21 12:12 Urine Catheterized - Hebert Catheter Urine Culture - Final No growth. 02/09/21 18:28 Blood - Venous Blood Culture - Final No growth after 5 days. 02/09/21 18:29 Blood - Venous Blood Culture - Final No growth after 5 days. 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 Status: Acute (3) ELODIA (acute kidney injury): Problem details: ELODIA in a setting of COVID-19 and reps failure Oliguric with hyperkalemia Overall prognosis guarded Discussed with ICU attending and agree with supporting with dialysis Will initiate HD after catheter insertion Volume removal as dictated by ICU team Status: Acute (4) Obesity: Status: Acute (5) Acute respiratory distress syndrome (ARDS) due to COVID-19 virus: Status: Acute (6) Viral sepsis: Status: Acute (7) Acute respiratory failure with hypoxia: Status: Acute (8) Pneumonia due to 2019-nCoV: Problem details: He has shortness of breath He has hypoxia Status: Acute (9) Hypoxia: Status: Acute (10) Unsteady gait: Status: Acute (11) Asthma: Status: Acute (12) Gout: Status: Acute (13) Pure hypercholesterolemia: Status: Acute (14) Diabetes mellitus: Status: Acute (15) Essential hypertension: Status: Acute (16) Acute uremia: Status: Acute Assessment and Plan: Dialysis treatment has been initiated patient is stable otherwise in the supine position with CVP of five heart rate one oh six and ninety three% oxygen saturations blood pressure one fifteen over sixty six and tolerating dialysis Time Spent With Patient Time: Total time spent is greater than 50% in coordination of care (as documented) at patient's floor/unit and/or counseling patient: Total time spent with greater than 50% in coordination of care (as documented) at patient's floor/unit and/or counseling patient:: 75
[2021-02-22 16:16] LABS: Glucose, Whole Blood 149 mg/dL (60-115)
[2021-02-22 17:06] LABS: Reflex Lactate? 2 Y
[2021-02-22 18:11] LABS: ~Lactic Acid-LAB USE ONLY 2.1 mmol/L (0.5-2.0)
[2021-02-22 18:18] LABS: Glucose, Whole Blood 142 mg/dL (60-115)
[2021-02-22 21:38] LABS: Glucose, Whole Blood 147 mg/dL (60-115)
[2021-02-22 22:35] LABS: Glucose, Whole Blood 134 mg/dL (60-115)
[2021-02-23] VITALS (33 sets, daily range): BP systolic 100–140; BP diastolic 49–76; PULSE 95–115; RESP 22–30; TEMP 37.4–38.2; O2SAT 86–96
[2021-02-23 00:10] LABS: Glucose, Whole Blood 135 mg/dL (60-115)
[2021-02-23] MEDS: 0.9 % Sodium Chloride Flush 3 ML SYRINGE IVFLUSH ×4 (00:23→23:04)
[2021-02-23] MEDS: Albuterol/Iprat 2.5/0.5MG 3 ML AMPUL.NEB INHALE ×6 (00:27→19:38)
[2021-02-23] MEDS: propofoL 1,000 MG/100 ML VIAL 32.94 MG IVCONT ×8 (00:40→22:01)
[2021-02-23 01:57] LABS: Glucose, Whole Blood 133 mg/dL (60-115)
[2021-02-23] MEDS: Ampicillin Sodium/Sulbactam Na 3 GM in 0.9 % Sodium Chloride 100 ML IV ×4 (02:53→21:48)
[2021-02-23 04:22] LABS: Glucose, Whole Blood 124 mg/dL (60-115)
[2021-02-23 04:30] LABS: HBc Num1 0.33 S/CO (0.00-0.79); Hepatitis B Core Antibody Nonreactive (Nonreactive)
[2021-02-23 04:52] LABS: HBS Num1 1.32 mIU/mL (0-7.99); HBsAGNum1 1.03 S/CO (0.00-0.99); ~Hepatitis B Surface Antibody NONREACTIVE (Nonreactive)
[2021-02-23] MEDS: Pantoprazole Sodium 40 MG/10 ML VIAL IVPUSH (05:26)
[2021-02-23 05:38] LABS: VBG Base Excess -1.8 mmol/L; VBG HCO3 24 mmol/L (22-26); VBG pCO2 46 mmHg; VBG pH 7.32 (7.32-7.43); VBG pO2 79 mmHg
[2021-02-23 05:38] LABS: ~HepC Num1 0.23 S/CO (0.00-0.79); ~Hepatitis C Antibody Nonreactive (Nonreactive)
[2021-02-23 05:40] LABS: Venous Blood Gas Refer to POC result
[2021-02-23 05:40] LABS: HBsAGNum2 Nonreactive; HBsAGNum3 Nonreactive; Hepatitis B Surface Antigen NEGATIVE (Negative)
[2021-02-23 05:48] LABS: MANUAL DIFF FLAG NO
[2021-02-23 05:53] LABS: Basophils Percent Auto 0.1 % (0-2); Eosinophils Absolute Auto 0.1 X10*3/uL (0.0-0.4); Eosinophils Percent Auto 0.3 % (0-4); Hematocrit 35.9 % (42-52); Hemoglobin 11.6 g/dl (14.0-18.0); Imm Gran Abs Auto 0.97 X10*3/uL (0.00-0.03); Imm Gran Pct Auto 4.6 % (0.0-0.4); Lymphocytes Absolute Auto 0.8 X10*3/uL (1.2-4.9); Lymphocytes Percent Auto 3.8 % (20-40); Mean Corpuscular HGB Conc 32.3 g/dl (31.0-36.0); Mean Corpuscular Hemoglobin 30.7 pg (27.0-33.0); Mean Platelet Volume 11.1 fL (9.4-12.4); Monocytes Absolute Auto 0.8 X10*3/uL (0.1-1.2); Monocytes Percent Auto 3.8 % (2-11); Neutrophils Absolute Auto 18.4 X10*3/uL (2.0-8.3); Neutrophils Percent Auto 87.4 % (45-73); Platelet Count 162 X10*3/uL (160-400); Red Blood Count 3.78 X10*6/uL (4.60-5.80); Red Cell Distribution Width 13.3 % (11.0-16.0); White Blood Count 21.1 X10*3/uL (4.8-10.8)
[2021-02-23 06:05] LABS: INTERNATIONAL NORM RATIO 1.2 (0.9-1.1); Prothrombin Time 14.5 SEC (10.8-13.0)
[2021-02-23 06:08] LABS: PTT Heparin Drip 46.8 SEC (53-77.9)
[2021-02-23 06:22] LABS: Glucose, Whole Blood 130 mg/dL (60-115)
--- NOTE | 2021-02-23 06:32 | PC.NURSE ---
Able to titrate fio2 to 80% during shift. Levophed titrated as needed for blood pressure support. YAW Jaramillo notified of scant bleeding from boyle catheter site and dialysis catheter site; PA updated this am that dialysis site had oozed more when patient turned the left side. Insulin drip titrated per protocol.
[2021-02-23 06:47] LABS: D Dimer 1665 NG/ML
[2021-02-23 06:49] LABS: Procalcitonin 26.93 ng/mL
[2021-02-23 07:08] LABS: Anion Gap 21 (12-20); Blood Urea Nitrogen 67 mg/dL (9-16); Calcium 6.5 mg/dL (8.4-10.2); Carbon Dioxide 24 mmol/L (22-29); Chloride 98 mmol/L (96-108); Creatinine Clr Calc Pharmacy 19.6; Estimated Glomerular Filt Rate 10; Glucose Random 124 mg/dL (60-115); Magnesium 2.7 mg/dL (1.6-2.6); Phosphorus 8.5 mg/dL (2.7-4.5); Potassium 4.8 mmol/L (3.3-5.1); Sodium 138 mmol/L (135-145)
[2021-02-23 08:01] LABS: Glucose, Whole Blood 117 mg/dL (60-115)
[2021-02-23] MEDS: Insulin Regular/NS 100 UNIT/100 ML PLAST..BAG IVCONT (08:04)
[2021-02-23] MEDS: dexAMETHasone sod phosphate 4 MG/ML VIAL 6 MG IVPUSH (08:09)
[2021-02-23] MEDS: Chlorhexidine Gluc Oral Rinse 15 ML MOUTHWASH BUCCAL ×3 (08:09→21:47)
[2021-02-23] MEDS: Argatroban 250 MG in 0.9 % Sodium Chloride 250 ML IV (09:30)
[2021-02-23 09:55] LABS: Glucose, Whole Blood 155 mg/dL (60-115)
[2021-02-23] MEDS: Rocuronium Bromide 50 MG/5 ML VIAL 60 MG IVPUSH (11:40)
[2021-02-23 12:04] LABS: Partial Thromboplastin Time 34.9 SEC (24.1-38.0)
[2021-02-23 12:51] LABS: Glucose, Whole Blood 152 mg/dL (60-115)
[2021-02-23 14:14] LABS: Glucose, Whole Blood 162 mg/dL (60-115)
--- NOTE | 2021-02-23 14:26 | MHC.CM.PN ---
Pt remains intubated in ICU secondary to COVID effects: Will start hemodialysis. No plans to extubate as of today: has had phone discussions with pt's brother on continued care management. Pt was independent prior to hospitalization: may require STR once his needs can be better assessed. CM will follow
--- NOTE | 2021-02-23 14:28 | HO.WOUNDCONS ---
History of Present Illness Data of Consult Service Date: 02/23/21 Requesting physician: Noemi Pablo Primary Care Provider: Ирина Oneill MD HPI Reason for consult: wounds The patient is a 50-year-old male who was admitted to the hospital and in the ICU , intubated s/p cardiac arrest yesterday requiring CP are an medical management regain vitals and now with wound on anterior shins and bridge of nose from being placed in the prone position. Today he is not doing as well with saturations only in the 80s on 100% oxygenation. He also needs to be dialysed as he is volume overload it hyperkalemic Review of Systems Review of Systems: Constitutional d are negative Yes unobtainable due to endotracheal tube PMFSH Medical History (Updated 02/23/21 @ 14:38 by Lisa Watts MD) Asthma Diabetes mellitus Essential hypertension Gout Morbid obesity Pure hypercholesterolemia Unsteady gait Family History Father Diabetes Cancer Hypertension Mother Diabetes Hypertension Paternal Grandmother Cancer Paternal Grandfather Cancer Surgical History No pertinent past surgical history Social History Household Members: None Housing: Apartment Alcohol intake: current Alcohol intake frequency: holidays/special occasions only Smoking Status: Former smoker Tobacco Type: Cigarette Smoked in Last 30 Days: No Use of substances other than those prescribed or required for medical reasons: No Currently Displaying Signs/Symptoms of Drug Intoxication Withdrawal: No Have you been hit, kicked, punched, or otherwise hurt by someone within the past year? If so, by whom?: No Do you feel safe in your current relationship?: No Current Relationship Is there a partner from a previous relationship who is making you feel unsafe now?: No Are you made to feel afraid or neglected: No Advance Directives: No Advance Directives Information Provided: No Do you have thoughts of harming others: None Do you have a plan to hurt others: No Plan Recently lost weight without trying: No service: No Meds Allergies Allergy/AdvReac Type Severity Reaction Status Date / Time statins Allergy Unknown elevated Uncoded 12/06/20 17:04 liver enzymes Active Medications: Current Medications Generic Name Dose Route Start Last Admin Trade Name Tray PRN Reason Stop Dose Admin Acetaminophen 650 mg 02/13/21 21:55 02/20/21 14:36 Acetaminophen 325 Mg Tablet PO 650 mg Q6H PRN Administration Pain, Mild (Pain Scale 1-3) Albuterol/Ipratropium 3 ml 02/21/21 20:00 02/23/21 12:39 Albuterol/Iprat 2.5/0.5mg 3 Ml Ampul.Neb INHALE 3 ml RQ4H REESE Administration Chlorhexidine Gluconate 15 ml 02/21/21 09:00 02/23/21 14:07 Chlorhexidine Gluc Oral Rinse 15 Ml Mouthwash BUCCAL 15 ml TID REESE Administration Dexamethasone Sodium Phosphate 6 mg 02/21/21 12:00 02/23/21 08:09 Dexamethasone Sod Phosphate 4 Mg/Ml Vial IVPUSH 6 mg DAILY REESE Administration Ampicillin Sodium/Sulbactam 100 mls @ 200 mls/hr 02/17/21 09:00 02/23/21 09:31 Sodium 3 gm/ Sodium Chloride IV Infused Q6H REESE Infusion Norepinephrine Bitartrate 8 mg in 250 mls @ 0 mls/hr 02/21/21 02:15 02/23/21 05:25 Levophed IVCONT 0.1 mcg/kg/min .Q0M REESE 22.88 mls/hr Administration Protocol Per Protocol Propofol 1,000 mg in 100 mls @ 0 mls/hr 02/21/21 03:45 02/23/21 13:00 Diprivan IVCONT 45 mcg/kg/min .Q0M REESE 32.94 mls/hr Administration Protocol Per Protocol Vasopressin 20 unit/ Sodium 101 mls @ 12.12 mls/hr 02/21/21 05:15 02/23/21 12:00 Chloride IVCONT 0.03 unit/min .Q8H20M REESE 9.09 mls/hr Administration 0.04 UNIT/MIN Insulin Human Regular 100 unit in 100 mls @ 1 mls/hr 02/21/21 16:15 02/23/21 09:54 Myxredlin IVCONT 4 unit/hr .Q24H REESE 4 mls/hr Titration Protocol 1 UNIT/HR Argatroban 250 mg/ Sodium 252.5 mls @ 3.697 mls/hr 02/23/21 09:00 02/23/21 12:00 Chloride IV 0.6 mcg/kg/min .Q24H REESE 4.44 mls/hr Infusion Protocol 0.5 MCG/KG/MIN Pantoprazole Sodium 40 mg 02/21/21 06:30 02/23/21 05:26 Pantoprazole Sodium 40 Mg/10 Ml Vial IVPUSH 40 mg DAILY@0630 [facility] Administration Sodium Chloride 3 ml 02/10/21 00:13 02/23/21 08:09 0.9 % Sodium Chloride Flush 3 Ml Syringe IVFLUSH 3 ml QSHIFT REESE Administration Home Medications Medication Instructions Recorded Confirmed Last Taken Type allopurinol 300 mg tablet 300 mg PO DAILY 10/24/20 02/09/21 02/09/21 History colchicine 0.6 mg tablet 0.6 mg PO BID 10/24/20 02/09/21 02/09/21 History fluticasone 232 mcg-salmeterol 14 1 inh PO BID 10/24/20 02/09/21 02/09/21 History mcg/actuation breath activated powdr naproxen 500 mg tablet 500 mg PO BID 10/24/20 02/09/21 02/09/21 History allopurinol 200 mg PO DAILY 02/09/21 02/09/21 02/09/21 History Physical Exam Vital Signs and Narrative: Vital Signs: Last Vital Signs Temp 99.5 F 02/23/21 14:00 Pulse 111 H 02/23/21 14:00 Resp 28 H 02/23/21 14:00 BP 135/70 02/23/21 14:00 Pulse Ox 87 L 02/23/21 14:00 Body Mass Index 39.6 Skin: Other: On examination of the skin the patient has on the bridge of his knows a small area about the size of a dive of skin breakdown the deepest aspect is a stage II centrally. No other facial skin breakdown Patient has pitting edema of the lower extremities in anterior shins have several intact blisters. There is no evidence of pressure spots here Results Labs CBC and Chem 7: 02/23/21 05:32 02/23/21 05:32 Labs: Laboratory Results - last 24 hr 02/21/21 02/22/21 02/22/21 00:30 14:54 14:55 MCV MCH MCHC RDW Plt Count MPV Immature Gran % (Auto) Neut % (Auto) Lymph % (Auto) [place] % (Auto) Eos % (Auto) Baso % (Auto) Lymph # (Auto) [place] # (Auto) Eos # (Auto) Baso # (Auto) Abs Immat Gran (auto) Absolute Neuts (auto) Absolute Nucleated RBC Nucleated RBC % (auto) Smear Path Review Cancelled PT INR APTT PTT (Heparin Protocol) D-Dimer VBG pH VBG pCO2 VBG pO2 VBG HCO3 VBG O2 Saturation VBG Base Excess Anion Gap Estim Creat Clear Calc Estimated GFR POC Glucose Random Glucose Lactic Acid Fup @ 2Hr 2.3 H* Lactic Acid Fup @ 4Hr Calcium Phosphorus Magnesium Procalcitonin Hep Bs Antigen Not Reportable Hep Bs Antigen (2) NEGATIVE Hep Bs Antibody NONREACTIVE Hep B Core Total Ab Nonreactive Hepatitis C Ab (EIA) Nonreactive 02/22/21 02/22/21 02/22/21 14:55 16:12 17:31 MCV MCH MCHC RDW Plt Count MPV Immature Gran % (Auto) Neut % (Auto) Lymph % (Auto) [place] % (Auto) Eos % (Auto) Baso % (Auto) Lymph # (Auto) [place] # (Auto) Eos # (Auto) Baso # (Auto) Abs Immat Gran (auto) Absolute Neuts (auto) Absolute Nucleated RBC Nucleated RBC % (auto) Smear Path Review PT INR APTT PTT (Heparin Protocol) 58.7 D D-Dimer VBG pH VBG pCO2 VBG pO2 VBG HCO3 VBG O2 Saturation VBG Base Excess Anion Gap Estim Creat Clear Calc Estimated GFR POC Glucose 149 H Random Glucose Lactic Acid Fup @ 2Hr Lactic Acid Fup @ 4Hr 2.1 H* Calcium Phosphorus Magnesium Procalcitonin Hep Bs Antigen Hep Bs Antigen (2) Hep Bs Antibody Hep B Core Total Ab Hepatitis C Ab (EIA) 02/22/21 02/22/21 02/22/21 18:15 20:55 22:29 MCV MCH MCHC RDW Plt Count MPV Immature Gran % (Auto) Neut % (Auto) Lymph % (Auto) [place] % (Auto) Eos % (Auto) Baso % (Auto) Lymph # (Auto) [place] # (Auto) Eos # (Auto) Baso # (Auto) Abs Immat Gran (auto) Absolute Neuts (auto) Absolute Nucleated RBC Nucleated RBC % (auto) Smear Path Review PT INR APTT PTT (Heparin Protocol) D-Dimer VBG pH VBG pCO2 VBG pO2 VBG HCO3 VBG O2 Saturation VBG Base Excess Anion Gap Estim Creat Clear Calc Estimated GFR POC Glucose 142 H 147 H 134 H Random Glucose Lactic Acid Fup @ 2Hr Lactic Acid Fup @ 4Hr Calcium Phosphorus Magnesium Procalcitonin Hep Bs Antigen Hep Bs Antigen (2) Hep Bs Antibody Hep B Core Total Ab Hepatitis C Ab (EIA) 02/23/21 02/23/21 02/23/21 00:06 01:52 04:03 MCV MCH MCHC RDW Plt Count MPV Immature Gran % (Auto) Neut % (Auto) Lymph % (Auto) [place] % (Auto) Eos % (Auto) Baso % (Auto) Lymph # (Auto) [place] # (Auto) Eos # (Auto) Baso # (Auto) Abs Immat Gran (auto) Absolute Neuts (auto) Absolute Nucleated RBC Nucleated RBC % (auto) Smear Path Review PT INR APTT PTT (Heparin Protocol) D-Dimer VBG pH VBG pCO2 VBG pO2 VBG HCO3 VBG O2 Saturation VBG Base Excess Anion Gap Estim Creat Clear Calc Estimated GFR POC Glucose 135 H 133 H 124 H Random Glucose Lactic Acid Fup @ 2Hr Lactic Acid Fup @ 4Hr Calcium Phosphorus Magnesium Procalcitonin Hep Bs Antigen Hep Bs Antigen (2) Hep Bs Antibody Hep B Core Total Ab Hepatitis C Ab (EIA) 02/23/21 02/23/21 02/23/21 05:32 05:32 05:32 MCV 95.0 MCH 30.7 MCHC 32.3 RDW 13.3 Plt Count 162 MPV 11.1 Immature Gran % (Auto) 4.6 H Neut % (Auto) 87.4 H Lymph % (Auto) 3.8 L [place] % (Auto) 3.8 Eos % (Auto) 0.3 Baso % (Auto) 0.1 Lymph # (Auto) 0.8 L [place] # (Auto) 0.8 Eos # (Auto) 0.1 Baso # (Auto) 0.0 Abs Immat Gran (auto) 0.97 H Absolute Neuts (auto) 18.4 H Absolute Nucleated RBC 0.000 Nucleated RBC % (auto) 0.0 Smear Path Review PT 14.5 H INR 1.2 H APTT Cancelled PTT (Heparin Protocol) 46.8 L D D-Dimer 1665 VBG pH VBG pCO2 VBG pO2 VBG HCO3 VBG O2 Saturation VBG Base Excess Anion Gap Estim Creat Clear Calc Estimated GFR POC Glucose Random Glucose Lactic Acid Fup @ 2Hr Lactic Acid Fup @ 4Hr Calcium Phosphorus Magnesium Procalcitonin 26.93 Hep Bs Antigen Hep Bs Antigen (2) Hep Bs Antibody Hep B Core Total Ab Hepatitis C Ab (EIA) 02/23/21 02/23/21 02/23/21 05:32 05:32 06:15 MCV MCH MCHC RDW Plt Count MPV Immature Gran % (Auto) Neut % (Auto) Lymph % (Auto) [place] % (Auto) Eos % (Auto) Baso % (Auto) Lymph # (Auto) [place] # (Auto) Eos # (Auto) Baso # (Auto) Abs Immat Gran (auto) Absolute Neuts (auto) Absolute Nucleated RBC Nucleated RBC % (auto) Smear Path Review PT INR APTT PTT (Heparin Protocol) D-Dimer VBG pH 7.32 VBG pCO2 46 VBG pO2 79 VBG HCO3 24 VBG O2 Saturation 93.0 VBG Base Excess -1.8 Anion Gap 21 H Estim Creat Clear Calc 19.6 Estimated GFR 10 POC Glucose 130 H Random Glucose 124 H D Lactic Acid Fup @ 2Hr Lactic Acid Fup @ 4Hr Calcium 6.5 L Phosphorus 8.5 H Magnesium 2.7 H Procalcitonin Hep Bs Antigen Hep Bs Antigen (2) Hep Bs Antibody Hep B Core Total Ab Hepatitis C Ab (EIA) 02/23/21 02/23/21 02/23/21 07:56 09:47 11:42 MCV MCH MCHC RDW Plt Count MPV Immature Gran % (Auto) Neut % (Auto) Lymph % (Auto) [place] % (Auto) Eos % (Auto) Baso % (Auto) Lymph # (Auto) [place] # (Auto) Eos # (Auto) Baso # (Auto) Abs Immat Gran (auto) Absolute Neuts (auto) Absolute Nucleated RBC Nucleated RBC % (auto) Smear Path Review PT INR APTT 34.9 D PTT (Heparin Protocol) D-Dimer VBG pH VBG pCO2 VBG pO2 VBG HCO3 VBG O2 Saturation VBG Base Excess Anion Gap Estim Creat Clear Calc Estimated GFR POC Glucose 117 H 155 H Random Glucose Lactic Acid Fup @ 2Hr Lactic Acid Fup @ 4Hr Calcium Phosphorus Magnesium Procalcitonin Hep Bs Antigen Hep Bs Antigen (2) Hep Bs Antibody Hep B Core Total Ab Hepatitis C Ab (EIA) 02/23/21 02/23/21 12:04 14:04 MCV MCH MCHC RDW Plt Count MPV Immature Gran % (Auto) Neut % (Auto) Lymph % (Auto) [place] % (Auto) Eos % (Auto) Baso % (Auto) Lymph # (Auto) [place] # (Auto) Eos # (Auto) Baso # (Auto) Abs Immat Gran (auto) Absolute Neuts (auto) Absolute Nucleated RBC Nucleated RBC % (auto) Smear Path Review PT INR APTT PTT (Heparin Protocol) D-Dimer VBG pH VBG pCO2 VBG pO2 VBG HCO3 VBG O2 Saturation VBG Base Excess Anion Gap Estim Creat Clear Calc Estimated GFR POC Glucose 152 H 162 H Random Glucose Lactic Acid Fup @ 2Hr Lactic Acid Fup @ 4Hr Calcium Phosphorus Magnesium Procalcitonin Hep Bs Antigen Hep Bs Antigen (2) Hep Bs Antibody Hep B Core Total Ab Hepatitis C Ab (EIA) Imaging Radiologist's Impressions: Impressions Chest X-Ray 02/22/21 13:22 IMPRESSION: Left internal jugular dialysis catheter tip misdirected and probably lying within the right subclavian vein or less likely extravascular. No pneumothorax. Continued bilateral regions of interstitial and airspace disease. This critical result was discussed with Dr. Pablo at 2:30 PM on February 22, 2021 and it was ascertained that the content and urgency of the report was understood at the time of direct communication. 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 Status: Acute (3) ELODIA (acute kidney injury): Problem details: ELODIA in a setting of COVID-19 and reps failure Oliguric with hyperkalemia Overall prognosis guarded Discussed with ICU attending and agree with supporting with dialysis Will initiate HD after catheter insertion Volume removal as dictated by ICU team Status: Acute (4) Obesity: Status: Acute (5) Acute respiratory distress syndrome (ARDS) due to COVID-19 virus: Status: Acute (6) Viral sepsis: Status: Acute (7) Acute respiratory failure with hypoxia: Status: Acute (8) Pneumonia due to 2019-nCoV: Problem details: He has shortness of breath He has hypoxia Status: Acute (9) Hypoxia: Status: Acute (10) Unsteady gait: Status: Acute (11) Asthma: Status: Acute (12) Gout: Qualifiers: Gout site: unspecified site Gout etiology: idiopathic Chronicity: chronic Presence of tophus: without tophus Qualified Code(s): [id number].00X0 - Idiopathic chronic gout, unspecified site, without tophus (tophi) Status: Acute (13) Pure hypercholesterolemia: Status: Acute (14) Diabetes mellitus: Qualifiers: Diabetes mellitus type: type 2 Diabetes mellitus lobsterman insulin use: without long-term use Diabetes mellitus complication status: without complication Qualified Code(s): E11.9 - Type 2 diabetes mellitus without complications Status: Acute (15) Essential hypertension: Status: Acute (16) Acute uremia: Status: Acute Dialysis treatment has been initiated patient is stable otherwise in the supine position with CVP of five heart rate one oh six and ninety three% oxygen saturations blood pressure one fifteen over sixty six and tolerating dialysis (17) Pressure ulcer of other site, stage 2: Status: Acute The patient has a stage II at the deepest pressure ulcer on his bridge of nose secondary to being prone for about 20 hours receiving ventilator. He did have the cardiac arrest yesterday. At this point he has been able to be read positioned supine and so there is less issue of pressure injury however he continues to not do as well and main require prone ink again. In the meantime agree with offloading area continuing with some bacitracin ointment and following up as needed. If the patient were to need to be prone again with try to use protective ET tube material so as not to go deeply into the soft tissue and cause other pressure injuries. In regard to the blood blisters on his anterior shins I do believe that this is secondary to foot volume overload and in this patient would recommend dialysis as per the ICU and nephrology team so. Allow the blisters did remain intact and can not place 0 form if the area opened up and this supra facial epidermal layer sloughs off This plan was discussed with the ICU team taking care of the patient. We were unable to the enter his room since he was D saturating into the 80s despite being on 100% oxygenation and waiting for the dialysis unit to come into the room to get him on dialysis
[2021-02-23 15:32] LABS: Partial Thromboplastin Time 49.5 SEC (24.1-38.0)
[2021-02-23 16:16] LABS: Glucose, Whole Blood 153 mg/dL (60-115)
--- NOTE | 2021-02-23 17:51 | PM.CCPN ---
Subjective Subjective Date of Service: 02/23/21 Interval History: 50-year-old male severe bilateral COVID-19 pneumonitis with ARDS and acute hypoxic respiratory failure markedly elevated D-dimer which we are covering 1st with heparin drip but due to thrombocytopenia a platelet antibody was sent off heparin stopped and placed on argatroban which is therapeutic and he continues to remain an uric no electrolyte disturbance and actually somewhat resolving metabolic acidosis with pH of 7.32 and right now undergoing another dialysis treatment tolerating well with supine oxygen saturation 92% blood pressure 100/50 respiratory rate 25 heart rate 98 with right bundle branch block Physical Exam Vital Signs: Vital Signs: Last Vital Signs Temp 99.5 F 02/23/21 15:55 Pulse 106 H 02/23/21 16:54 Resp 29 H 02/23/21 16:54 BP 125/68 02/23/21 16:54 Pulse Ox 90 L 02/23/21 16:54 Body Mass Index 39.6 Const: Other: Sedated and intubated nonfocal neurologically Cardiac exam with no neck vein distension no gallops no murmurs Skin intact Chest without accessory muscle use or nor diaphragmatic effort Abdomen obese but benign no organomegaly good bowel sounds Objective Data Labs CBC & Chem 7: 02/23/21 05:32 02/23/21 05:32 Labs: Laboratory Results - last 24 hr 02/21/21 02/22/21 02/22/21 00:30 14:54 17:31 WBC RBC Hgb Hct MCV MCH MCHC RDW Plt Count MPV Immature Gran % (Auto) Neut % (Auto) Lymph % (Auto) Mckenzie % (Auto) Eos % (Auto) Baso % (Auto) Lymph # (Auto) Mckenzie # (Auto) Eos # (Auto) Baso # (Auto) Abs Immat Gran (auto) Absolute Neuts (auto) Absolute Nucleated RBC Nucleated RBC % (auto) Smear Path Review Cancelled PT INR APTT PTT (Heparin Protocol) D-Dimer VBG pH VBG pCO2 VBG pO2 VBG HCO3 VBG O2 Saturation VBG Base Excess Sodium Potassium Chloride Carbon Dioxide Anion Gap BUN Creatinine Estim Creat Clear Calc Estimated GFR POC Glucose Random Glucose Lactic Acid Fup @ 4Hr 2.1 H* Calcium Phosphorus Magnesium Procalcitonin Hep Bs Antigen Not Reportable Hep Bs Antigen (2) NEGATIVE Hep Bs Antibody NONREACTIVE Hep B Core Total Ab Nonreactive Hepatitis C Ab (EIA) Nonreactive 02/22/21 02/22/21 02/22/21 18:15 20:55 22:29 WBC RBC Hgb Hct MCV MCH MCHC RDW Plt Count MPV Immature Gran % (Auto) Neut % (Auto) Lymph % (Auto) Mckenzie % (Auto) Eos % (Auto) Baso % (Auto) Lymph # (Auto) Mckenzie # (Auto) Eos # (Auto) Baso # (Auto) Abs Immat Gran (auto) Absolute Neuts (auto) Absolute Nucleated RBC Nucleated RBC % (auto) Smear Path Review PT INR APTT PTT (Heparin Protocol) D-Dimer VBG pH VBG pCO2 VBG pO2 VBG HCO3 VBG O2 Saturation VBG Base Excess Sodium Potassium Chloride Carbon Dioxide Anion Gap BUN Creatinine Estim Creat Clear Calc Estimated GFR POC Glucose 142 H 147 H 134 H Random Glucose Lactic Acid Fup @ 4Hr Calcium Phosphorus Magnesium Procalcitonin Hep Bs Antigen Hep Bs Antigen (2) Hep Bs Antibody Hep B Core Total Ab Hepatitis C Ab (EIA) 02/23/21 02/23/21 02/23/21 00:06 01:52 04:03 WBC RBC Hgb Hct MCV MCH MCHC RDW Plt Count MPV Immature Gran % (Auto) Neut % (Auto) Lymph % (Auto) Mckenzie % (Auto) Eos % (Auto) Baso % (Auto) Lymph # (Auto) Mckenzie # (Auto) Eos # (Auto) Baso # (Auto) Abs Immat Gran (auto) Absolute Neuts (auto) Absolute Nucleated RBC Nucleated RBC % (auto) Smear Path Review PT INR APTT PTT (Heparin Protocol) D-Dimer VBG pH VBG pCO2 VBG pO2 VBG HCO3 VBG O2 Saturation VBG Base Excess Sodium Potassium Chloride Carbon Dioxide Anion Gap BUN Creatinine Estim Creat Clear Calc Estimated GFR POC Glucose 135 H 133 H 124 H Random Glucose Lactic Acid Fup @ 4Hr Calcium Phosphorus Magnesium Procalcitonin Hep Bs Antigen Hep Bs Antigen (2) Hep Bs Antibody Hep B Core Total Ab Hepatitis C Ab (EIA) 02/23/21 02/23/21 02/23/21 05:32 05:32 05:32 WBC 21.1 H RBC 3.78 L Hgb 11.6 L Hct 35.9 L MCV 95.0 MCH 30.7 MCHC 32.3 RDW 13.3 Plt Count 162 MPV 11.1 Immature Gran % (Auto) 4.6 H Neut % (Auto) 87.4 H Lymph % (Auto) 3.8 L Mckenzie % (Auto) 3.8 Eos % (Auto) 0.3 Baso % (Auto) 0.1 Lymph # (Auto) 0.8 L Mckenzie # (Auto) 0.8 Eos # (Auto) 0.1 Baso # (Auto) 0.0 Abs Immat Gran (auto) 0.97 H Absolute Neuts (auto) 18.4 H Absolute Nucleated RBC 0.000 Nucleated RBC % (auto) 0.0 Smear Path Review PT 14.5 H INR 1.2 H APTT Cancelled PTT (Heparin Protocol) 46.8 L D D-Dimer 1665 VBG pH VBG pCO2 VBG pO2 VBG HCO3 VBG O2 Saturation VBG Base Excess Sodium Potassium Chloride Carbon Dioxide Anion Gap BUN Creatinine Estim Creat Clear Calc Estimated GFR POC Glucose Random Glucose Lactic Acid Fup @ 4Hr Calcium Phosphorus Magnesium Procalcitonin 26.93 Hep Bs Antigen Hep Bs Antigen (2) Hep Bs Antibody Hep B Core Total Ab Hepatitis C Ab (EIA) 02/23/21 02/23/21 02/23/21 05:32 05:32 06:15 WBC RBC Hgb Hct MCV MCH MCHC RDW Plt Count MPV Immature Gran % (Auto) Neut % (Auto) Lymph % (Auto) Mckenzie % (Auto) Eos % (Auto) Baso % (Auto) Lymph # (Auto) Mckenzie # (Auto) Eos # (Auto) Baso # (Auto) Abs Immat Gran (auto) Absolute Neuts (auto) Absolute Nucleated RBC Nucleated RBC % (auto) Smear Path Review PT INR APTT PTT (Heparin Protocol) D-Dimer VBG pH 7.32 VBG pCO2 46 VBG pO2 79 VBG HCO3 24 VBG O2 Saturation 93.0 VBG Base Excess -1.8 Sodium 138 Potassium 4.8 Chloride 98 Carbon Dioxide 24 Anion Gap 21 H BUN 67 H Creatinine 5.93 H* Estim Creat Clear Calc 19.6 Estimated GFR 10 POC Glucose 130 H Random Glucose 124 H D Lactic Acid Fup @ 4Hr Calcium 6.5 L Phosphorus 8.5 H Magnesium 2.7 H Procalcitonin Hep Bs Antigen Hep Bs Antigen (2) Hep Bs Antibody Hep B Core Total Ab Hepatitis C Ab (EIA) 02/23/21 02/23/21 02/23/21 07:56 09:47 11:42 WBC RBC Hgb Hct MCV MCH MCHC RDW Plt Count MPV Immature Gran % (Auto) Neut % (Auto) Lymph % (Auto) Mckenzie % (Auto) Eos % (Auto) Baso % (Auto) Lymph # (Auto) Mckenzie # (Auto) Eos # (Auto) Baso # (Auto) Abs Immat Gran (auto) Absolute Neuts (auto) Absolute Nucleated RBC Nucleated RBC % (auto) Smear Path Review PT INR APTT 34.9 D PTT (Heparin Protocol) D-Dimer VBG pH VBG pCO2 VBG pO2 VBG HCO3 VBG O2 Saturation VBG Base Excess Sodium Potassium Chloride Carbon Dioxide Anion Gap BUN Creatinine Estim Creat Clear Calc Estimated GFR POC Glucose 117 H 155 H Random Glucose Lactic Acid Fup @ 4Hr Calcium Phosphorus Magnesium Procalcitonin Hep Bs Antigen Hep Bs Antigen (2) Hep Bs Antibody Hep B Core Total Ab Hepatitis C Ab (EIA) 02/23/21 02/23/21 02/23/21 12:04 14:04 14:52 WBC RBC Hgb Hct MCV MCH MCHC RDW Plt Count MPV Immature Gran % (Auto) Neut % (Auto) Lymph % (Auto) Mckenzie % (Auto) Eos % (Auto) Baso % (Auto) Lymph # (Auto) Mckenzie # (Auto) Eos # (Auto) Baso # (Auto) Abs Immat Gran (auto) Absolute Neuts (auto) Absolute Nucleated RBC Nucleated RBC % (auto) Smear Path Review PT INR APTT 49.5 H D PTT (Heparin Protocol) D-Dimer VBG pH VBG pCO2 VBG pO2 VBG HCO3 VBG O2 Saturation VBG Base Excess Sodium Potassium Chloride Carbon Dioxide Anion Gap BUN Creatinine Estim Creat Clear Calc Estimated GFR POC Glucose 152 H 162 H Random Glucose Lactic Acid Fup @ 4Hr Calcium Phosphorus Magnesium Procalcitonin Hep Bs Antigen Hep Bs Antigen (2) Hep Bs Antibody Hep B Core Total Ab Hepatitis C Ab (EIA) 02/23/21 15:59 WBC RBC Hgb Hct MCV MCH MCHC RDW Plt Count MPV Immature Gran % (Auto) Neut % (Auto) Lymph % (Auto) Mckenzie % (Auto) Eos % (Auto) Baso % (Auto) Lymph # (Auto) Mckenzie # (Auto) Eos # (Auto) Baso # (Auto) Abs Immat Gran (auto) Absolute Neuts (auto) Absolute Nucleated RBC Nucleated RBC % (auto) Smear Path Review PT INR APTT PTT (Heparin Protocol) D-Dimer VBG pH VBG pCO2 VBG pO2 VBG HCO3 VBG O2 Saturation VBG Base Excess Sodium Potassium Chloride Carbon Dioxide Anion Gap BUN Creatinine Estim Creat Clear Calc Estimated GFR POC Glucose 153 H Random Glucose Lactic Acid Fup @ 4Hr Calcium Phosphorus Magnesium Procalcitonin Hep Bs Antigen Hep Bs Antigen (2) Hep Bs Antibody Hep B Core Total Ab Hepatitis C Ab (EIA) Microbiology Microbiology Results: Microbiology 02/21/21 11:52 Sputum - Suctioned Gram Stain - Final 02/21/21 11:52 Sputum - Suctioned Sputum Culture - Final 02/21/21 12:12 Urine Catheterized - Hebert Catheter Urine Culture - Final No growth. 02/09/21 18:28 Blood - Venous Blood Culture - Final No growth after 5 days. 02/09/21 18:29 Blood - Venous Blood Culture - Final No growth after 5 days. 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 Status: Acute (5) Obesity: Status: Acute (6) ELODIA (acute kidney injury): Problem details: ELODIA in a setting of COVID-19 and reps failure Oliguric with hyperkalemia Overall prognosis guarded Discussed with ICU attending and agree with supporting with dialysis Will initiate HD after catheter insertion Volume removal as dictated by ICU team Status: Acute (7) Acute respiratory distress syndrome (ARDS) due to COVID-19 virus: Status: Acute (8) Viral sepsis: Status: Acute (9) Acute respiratory failure with hypoxia: Status: Acute (10) Pneumonia due to 2019-nCoV: Problem details: He has shortness of breath He has hypoxia Status: Acute (11) Hypoxia: Status: Acute (12) Unsteady gait: Status: Acute (13) Asthma: Status: Acute (14) Gout: Status: Acute (15) Pure hypercholesterolemia: Status: Acute (16) Diabetes mellitus: Status: Acute (17) Essential hypertension: Status: Acute Assessment and Plan: So all told he will finish dialysis and we were going to prone him for tonight it may have to wait until the morning because were delayed due to a late dialysis treatment Time Spent With Patient Time: Total time spent is greater than 50% in coordination of care (as documented) at patient's floor/unit and/or counseling patient: Total time spent with greater than 50% in coordination of care (as documented) at patient's floor/unit and/or counseling patient:: 40
[2021-02-23 19:07] LABS: Glucose, Whole Blood 130 mg/dL (60-115)
--- NOTE | 2021-02-23 20:49 | PC.NURSE ---
assumed care at 0700; Patient sedate on 45 mcg/kg/hr of propofol, overbreathes, not ventilating well; positive cough and gag, PERRL, pupils sluggish; pulls on restraints, MD aware and ordered one time 60 mg rocuronium, given with modest effect. Patient sat impoved from 87% to 88-91% on 80% fio2. Patient has #7.5 ETT, 25 cm at the lip, AC/VC settings AC 24; TV 630; fio2 was 80% and required uptitration to 100%; PEEP 16. TV were varied from 300's to 6-700, Patient coughing past cuff, patient has audible high pitched ventilator sounds at neck to auscultation, RT notified and no cuff leak. Patient was uptitrated in evening FIo2 to 100%, and spo2 remained 86-88%, noted to pe 84% at shift change, police shift commander following up. RT had noted air trapping, and breathing treatments with good effect; etco2 around 27. Patient had no inline secretions, but has blood-tinged oral secretions. Patient also has blood oozing from around boyle at urethral meatus and at HD catheter site, MD aware. Patient was started on agatraban this morning, some delay related to clarification of order as appears in CPOE. Order clarified and gtt tirated to PTT; patient criteria for this med was clarified as well, Covid coagulopathy, also PLT had fallen in reaction to heparin. on monitor, sinus tachycardia, 110's, PACs, BBB. Patient is not being fed yet on OGT, and MD aware. Patient with only 10 ccs of tea colored urine, and HD tx today was unable to take any fluid off; CVP was 3-4 this AM, then 5-6 pre-dialysis, and dropped to 3 during dialysis. COntinues on IV vasopressin at 0.03; levophed titrated from 0.1 down to 0.06; prop at 45; argatriban gtt at 0.6; insulin at 4, titrated using the non-dka protocol. Continues to have a stage 2 on bridge of nose, healing and wound consulted to advise tx; blisters at ankles.
[2021-02-23 21:21] LABS: Glucose, Whole Blood 101 mg/dL (60-115)
--- NOTE | 2021-02-23 21:21 | PM.PNNEP ---
Subjective Subjective Date of Service: 02/23/21 Interval history: 50-year-old male severe bilateral COVID-19 pneumonitis with ARDS and acute hypoxic respiratory failure Intubated Ill Physical Exam Vital Signs: Vital Signs: Last Vital Signs Temp 99.3 F 02/23/21 20:00 Pulse 97 02/23/21 20:00 Resp 23 H 02/23/21 20:00 BP 102/57 L 02/23/21 20:00 Pulse Ox 91 L 02/23/21 20:00 Body Mass Index 39.6 Const: General: ill appearing Resp: Auscultation: diminished lung sounds Cardio: Heart sounds: no gallops and no murmurs GI: Inspection: Yes obesity Palpation (GI): Soft to palpation Neuro: Motor exam (neuro): No Asterixis during motor activity present Objective Data Labs CBC & Chem 7: 02/23/21 05:32 02/23/21 05:32 Labs: Laboratory Results - last 24 hr 02/21/21 02/22/21 02/22/21 00:30 14:54 20:55 WBC RBC Hgb Hct MCV MCH MCHC RDW Plt Count MPV Immature Gran % (Auto) Neut % (Auto) Lymph % (Auto) Tucker % (Auto) Eos % (Auto) Baso % (Auto) Lymph # (Auto) Tucker # (Auto) Eos # (Auto) Baso # (Auto) Abs Immat Gran (auto) Absolute Neuts (auto) Absolute Nucleated RBC Nucleated RBC % (auto) Smear Path Review Cancelled PT INR APTT PTT (Heparin Protocol) D-Dimer VBG pH VBG pCO2 VBG pO2 VBG HCO3 VBG O2 Saturation VBG Base Excess Sodium Potassium Chloride Carbon Dioxide Anion Gap BUN Creatinine Estim Creat Clear Calc Estimated GFR POC Glucose 147 H Random Glucose Calcium Phosphorus Magnesium Procalcitonin Hep Bs Antigen Not Reportable Hep Bs Antigen (2) NEGATIVE Hep Bs Antibody NONREACTIVE Hep B Core Total Ab Nonreactive Hepatitis C Ab (EIA) Nonreactive 02/22/21 02/23/21 02/23/21 22:29 00:06 01:52 WBC RBC Hgb Hct MCV MCH MCHC RDW Plt Count MPV Immature Gran % (Auto) Neut % (Auto) Lymph % (Auto) Tucker % (Auto) Eos % (Auto) Baso % (Auto) Lymph # (Auto) Tucker # (Auto) Eos # (Auto) Baso # (Auto) Abs Immat Gran (auto) Absolute Neuts (auto) Absolute Nucleated RBC Nucleated RBC % (auto) Smear Path Review PT INR APTT PTT (Heparin Protocol) D-Dimer VBG pH VBG pCO2 VBG pO2 VBG HCO3 VBG O2 Saturation VBG Base Excess Sodium Potassium Chloride Carbon Dioxide Anion Gap BUN Creatinine Estim Creat Clear Calc Estimated GFR POC Glucose 134 H 135 H 133 H Random Glucose Calcium Phosphorus Magnesium Procalcitonin Hep Bs Antigen Hep Bs Antigen (2) Hep Bs Antibody Hep B Core Total Ab Hepatitis C Ab (EIA) 02/23/21 02/23/21 02/23/21 04:03 05:32 05:32 WBC RBC Hgb Hct MCV MCH MCHC RDW Plt Count MPV Immature Gran % (Auto) Neut % (Auto) Lymph % (Auto) Tucker % (Auto) Eos % (Auto) Baso % (Auto) Lymph # (Auto) Tucker # (Auto) Eos # (Auto) Baso # (Auto) Abs Immat Gran (auto) Absolute Neuts (auto) Absolute Nucleated RBC Nucleated RBC % (auto) Smear Path Review PT 14.5 H INR 1.2 H APTT Cancelled PTT (Heparin Protocol) 46.8 L D D-Dimer 1665 VBG pH VBG pCO2 VBG pO2 VBG HCO3 VBG O2 Saturation VBG Base Excess Sodium Potassium Chloride Carbon Dioxide Anion Gap BUN Creatinine Estim Creat Clear Calc Estimated GFR POC Glucose 124 H Random Glucose Calcium Phosphorus Magnesium Procalcitonin 26.93 Hep Bs Antigen Hep Bs Antigen (2) Hep Bs Antibody Hep B Core Total Ab Hepatitis C Ab (EIA) 02/23/21 02/23/21 02/23/21 05:32 05:32 05:32 WBC 21.1 H RBC 3.78 L Hgb 11.6 L Hct 35.9 L MCV 95.0 MCH 30.7 MCHC 32.3 RDW 13.3 Plt Count 162 MPV 11.1 Immature Gran % (Auto) 4.6 H Neut % (Auto) 87.4 H Lymph % (Auto) 3.8 L Tucker % (Auto) 3.8 Eos % (Auto) 0.3 Baso % (Auto) 0.1 Lymph # (Auto) 0.8 L Tucker # (Auto) 0.8 Eos # (Auto) 0.1 Baso # (Auto) 0.0 Abs Immat Gran (auto) 0.97 H Absolute Neuts (auto) 18.4 H Absolute Nucleated RBC 0.000 Nucleated RBC % (auto) 0.0 Smear Path Review PT INR APTT PTT (Heparin Protocol) D-Dimer VBG pH 7.32 VBG pCO2 46 VBG pO2 79 VBG HCO3 24 VBG O2 Saturation 93.0 VBG Base Excess -1.8 Sodium 138 Potassium 4.8 Chloride 98 Carbon Dioxide 24 Anion Gap 21 H BUN 67 H Creatinine 5.93 H* Estim Creat Clear Calc 19.6 Estimated GFR 10 POC Glucose Random Glucose 124 H D Calcium 6.5 L Phosphorus 8.5 H Magnesium 2.7 H Procalcitonin Hep Bs Antigen Hep Bs Antigen (2) Hep Bs Antibody Hep B Core Total Ab Hepatitis C Ab (EIA) 02/23/21 02/23/21 02/23/21 06:15 07:56 09:47 WBC RBC Hgb Hct MCV MCH MCHC RDW Plt Count MPV Immature Gran % (Auto) Neut % (Auto) Lymph % (Auto) Tucker % (Auto) Eos % (Auto) Baso % (Auto) Lymph # (Auto) Tucker # (Auto) Eos # (Auto) Baso # (Auto) Abs Immat Gran (auto) Absolute Neuts (auto) Absolute Nucleated RBC Nucleated RBC % (auto) Smear Path Review PT INR APTT PTT (Heparin Protocol) D-Dimer VBG pH VBG pCO2 VBG pO2 VBG HCO3 VBG O2 Saturation VBG Base Excess Sodium Potassium Chloride Carbon Dioxide Anion Gap BUN Creatinine Estim Creat Clear Calc Estimated GFR POC Glucose 130 H 117 H 155 H Random Glucose Calcium Phosphorus Magnesium Procalcitonin Hep Bs Antigen Hep Bs Antigen (2) Hep Bs Antibody Hep B Core Total Ab Hepatitis C Ab (EIA) 02/23/21 02/23/21 02/23/21 11:42 12:04 14:04 WBC RBC Hgb Hct MCV MCH MCHC RDW Plt Count MPV Immature Gran % (Auto) Neut % (Auto) Lymph % (Auto) Tucker % (Auto) Eos % (Auto) Baso % (Auto) Lymph # (Auto) Tucker # (Auto) Eos # (Auto) Baso # (Auto) Abs Immat Gran (auto) Absolute Neuts (auto) Absolute Nucleated RBC Nucleated RBC % (auto) Smear Path Review PT INR APTT 34.9 D PTT (Heparin Protocol) D-Dimer VBG pH VBG pCO2 VBG pO2 VBG HCO3 VBG O2 Saturation VBG Base Excess Sodium Potassium Chloride Carbon Dioxide Anion Gap BUN Creatinine Estim Creat Clear Calc Estimated GFR POC Glucose 152 H 162 H Random Glucose Calcium Phosphorus Magnesium Procalcitonin Hep Bs Antigen Hep Bs Antigen (2) Hep Bs Antibody Hep B Core Total Ab Hepatitis C Ab (EIA) 02/23/21 02/23/21 02/23/21 14:52 15:59 18:39 WBC RBC Hgb Hct MCV MCH MCHC RDW Plt Count MPV Immature Gran % (Auto) Neut % (Auto) Lymph % (Auto) Tucker % (Auto) Eos % (Auto) Baso % (Auto) Lymph # (Auto) Tucker # (Auto) Eos # (Auto) Baso # (Auto) Abs Immat Gran (auto) Absolute Neuts (auto) Absolute Nucleated RBC Nucleated RBC % (auto) Smear Path Review PT INR APTT 49.5 H D PTT (Heparin Protocol) D-Dimer VBG pH VBG pCO2 VBG pO2 VBG HCO3 VBG O2 Saturation VBG Base Excess Sodium Potassium Chloride Carbon Dioxide Anion Gap BUN Creatinine Estim Creat Clear Calc Estimated GFR POC Glucose 153 H 130 H Random Glucose Calcium Phosphorus Magnesium Procalcitonin Hep Bs Antigen Hep Bs Antigen (2) Hep Bs Antibody Hep B Core Total Ab Hepatitis C Ab (EIA) Microbiology Microbiology Results: Microbiology 02/21/21 11:52 Sputum - Suctioned Gram Stain - Final 02/21/21 11:52 Sputum - Suctioned Sputum Culture - Final 02/21/21 12:12 Urine Catheterized - Hebert Catheter Urine Culture - Final No growth. 02/09/21 18:28 Blood - Venous Blood Culture - Final No growth after 5 days. 02/09/21 18:29 Blood - Venous Blood Culture - Final No growth after 5 days. Assessment & Plan Assessment and plan (1) ELODIA (acute kidney injury): Problem details: ELODIA in a setting of COVID-19 and reps failure Oliguric with hyperkalemia Overall prognosis guarded Discussed with ICU attending and agree with supporting with dialysis HD again today Volume removal as dictated by ICU team Supportive care Status: Acute Time Spent With Patient Time: Total time spent is greater than 50% in coordination of care (as documented) at patient's floor/unit and/or counseling patient:
[2021-02-23 21:26] LABS: Partial Thromboplastin Time 41.9 SEC (24.1-38.0)
[2021-02-23 21:47] LABS: Anion Gap 17 (12-20); Blood Urea Nitrogen 41 mg/dL (9-16); Calcium 6.4 mg/dL (8.4-10.2); Carbon Dioxide 26 mmol/L (22-29); Chloride 100 mmol/L (96-108); Creatinine Clr Calc Pharmacy 27.9; Estimated Glomerular Filt Rate 15; Glucose Random 101 mg/dL (60-115); Magnesium 2.3 mg/dL (1.6-2.6); Phosphorus 5.7 mg/dL (2.7-4.5); Potassium 4.3 mmol/L (3.3-5.1); Sodium 139 mmol/L (135-145)
[2021-02-23 23:07] LABS: Glucose, Whole Blood 111 mg/dL (60-115)
[2021-02-23 23:26] LABS: Glucose, Whole Blood 118 mg/dL (60-115)
[2021-02-23 23:59] LABS: PTT Heparin Drip 44.4 SEC (53-77.9)
[2021-02-24] VITALS (34 sets, daily range): BP systolic 86–134; BP diastolic 42–80; PULSE 95–118; RESP 18–30; TEMP 35–37.9; O2SAT 89–94
[2021-02-24] MEDS: Albuterol/Iprat 2.5/0.5MG 3 ML AMPUL.NEB INHALE ×6 (00:12→20:11)
[2021-02-24 00:42] LABS: Glucose, Whole Blood 121 mg/dL (60-115)
[2021-02-24] MEDS: propofoL 1,000 MG/100 ML VIAL 32.94 MG IVCONT ×3 (01:20→11:30)
[2021-02-24 02:12] LABS: Glucose, Whole Blood 107 mg/dL (60-115)
[2021-02-24] MEDS: Ampicillin Sodium/Sulbactam Na 3 GM in 0.9 % Sodium Chloride 100 ML IV ×2 (02:36→08:57)
[2021-02-24 02:57] LABS: PTT Heparin Drip 49.5 SEC (53-77.9)
[2021-02-24 04:13] LABS: Glucose, Whole Blood 113 mg/dL (60-115)
[2021-02-24 05:22] LABS: VBG HCO3 25 mmol/L (22-26); VBG pCO2 49 mmHg; VBG pH 7.31 (7.32-7.43); VBG pO2 77 mmHg
[2021-02-24 05:31] LABS: Venous Blood Gas Refer to POC result
[2021-02-24 05:32] LABS: MANUAL DIFF FLAG NO
[2021-02-24 05:42] LABS: Basophils Percent Auto 0.1 % (0-2); Eosinophils Absolute Auto 0.1 X10*3/uL (0.0-0.4); Eosinophils Percent Auto 0.5 % (0-4); Hematocrit 33.3 % (42-52); Hemoglobin 10.9 g/dl (14.0-18.0); Imm Gran Abs Auto 0.64 X10*3/uL (0.00-0.03); Imm Gran Pct Auto 3.7 % (0.0-0.4); Lymphocytes Absolute Auto 0.8 X10*3/uL (1.2-4.9); Lymphocytes Percent Auto 4.5 % (20-40); Mean Corpuscular HGB Conc 32.7 g/dl (31.0-36.0); Mean Corpuscular Hemoglobin 31.7 pg (27.0-33.0); Mean Corpuscular Volume 96.8 fL (80-98); Mean Platelet Volume 11.3 fL (9.4-12.4); Monocytes Absolute Auto 0.7 X10*3/uL (0.1-1.2); Monocytes Percent Auto 4.3 % (2-11); NRBC Pct Auto 0.1 /100WBC (0.0-0.2); Neutrophils Absolute Auto 14.9 X10*3/uL (2.0-8.3); Neutrophils Percent Auto 86.9 % (45-73); Platelet Count 146 X10*3/uL (160-400); Red Blood Count 3.44 X10*6/uL (4.60-5.80); Red Cell Distribution Width 13.6 % (11.0-16.0); White Blood Count 17.2 X10*3/uL (4.8-10.8)
[2021-02-24] MEDS: Pantoprazole Sodium 40 MG/10 ML VIAL IVPUSH (06:05)
[2021-02-24 06:07] LABS: Anion Gap 20 (12-20); Blood Urea Nitrogen 56 mg/dL (9-16); Calcium 6.5 mg/dL (8.4-10.2); Carbon Dioxide 25 mmol/L (22-29); Chloride 99 mmol/L (96-108); Glucose Random 109 mg/dL (60-115); Magnesium 2.6 mg/dL (1.6-2.6); Potassium 4.7 mmol/L (3.3-5.1); Sodium 139 mmol/L (135-145)
[2021-02-24 06:13] LABS: Creatinine Clr Calc Pharmacy 20.9; Estimated Glomerular Filt Rate 11; INTERNATIONAL NORM RATIO 1.9 (0.9-1.1); Prothrombin Time 22.5 SEC (10.8-13.0)
[2021-02-24 06:22] LABS: Glucose, Whole Blood 115 mg/dL (60-115)
[2021-02-24 06:24] LABS: Procalcitonin 14.32 ng/mL
[2021-02-24 06:35] LABS: D Dimer 1515 NG/ML; Partial Thromboplastin Time 49.1 SEC (24.1-38.0)
[2021-02-24] MEDS: propofoL 1,000 MG/100 ML VIAL 14.64 MG IVCONT ×5 (07:15→23:45)
[2021-02-24] MEDS: Calcium Gluconate/NaCl,Iso-Osm 1 GM/50 ML PLAST..BAG IV (07:26)
[2021-02-24 08:19] LABS: Glucose, Whole Blood 116 mg/dL (60-115)
[2021-02-24] MEDS: Rocuronium Bromide 50 MG/5 ML VIAL 60 MG IVPUSH (08:45)
[2021-02-24] MEDS: dexAMETHasone sod phosphate 4 MG/ML VIAL 6 MG IVPUSH (08:56)
[2021-02-24] MEDS: Chlorhexidine Gluc Oral Rinse 15 ML MOUTHWASH BUCCAL ×3 (08:56→20:32)
[2021-02-24] MEDS: 0.9 % Sodium Chloride Flush 3 ML SYRINGE IVFLUSH ×3 (08:57→20:32)
[2021-02-24 08:59] LABS: PTT Heparin Drip 51.2 SEC (53-77.9)
[2021-02-24 09:53] LABS: Glucose, Whole Blood 115 mg/dL (60-115)
[2021-02-24 10:02] LABS: Alanine Aminotransferase 28 U/L (0-40); Albumin Level 2.6 g/dL (3.5-5.0); Alkaline Phosphatase 58 U/L (39-117); Aspartate Amino Transferase 34 U/L (5-37); Bilirubin Direct 0.6 mg/dL (0.0-0.5); Bilirubin Total 0.7 mg/dL (0.0-1.0); Total Protein 5.1 g/dL (6.5-8.0)
[2021-02-24] MEDS: Argatroban 250 MG in 0.9 % Sodium Chloride 250 ML 6.39 MG IV (10:39)
--- NOTE | 2021-02-24 11:10 | MHC.CLN ---
F/U PT TO START TF TODAY RECOMMEND NEPRO TF AT MAX GOAL RATE 45CC/HR WITH 120CC FREE WATER Q 4 HOURS TO PROVIDE 1944KCALS (2330KCALS WITH SEDATION; 32KCALS/KG), 87G (1.2G/KG), 1265CC TOTAL WATER FROM FORMULA AND FLUSHES MONITOR TOLERANCE, RESIDUALS AND LYTES
--- NOTE | 2021-02-24 12:03 | PM.PNNEP ---
Subjective Subjective Date of Service: 02/24/21 Interval history: 50-year-old male severe bilateral COVID-19 pneumonitis with ARDS and acute hypoxic respiratory failure Intubated Ill appearing Physical Exam Vital Signs: Vital Signs: Last Vital Signs Temp 99.3 F 02/24/21 12:00 Pulse 99 02/24/21 12:00 Resp 25 H 02/24/21 12:00 BP 111/55 L 02/24/21 12:00 Pulse Ox 91 L 02/24/21 12:00 Body Mass Index 39.6 Const: General: ill appearing Resp: Auscultation: diminished lung sounds Cardio: Heart sounds: no gallops and no murmurs GI: Inspection: Yes obesity Palpation (GI): Soft to palpation Neuro: Motor exam (neuro): No Asterixis during motor activity present Objective Data Labs CBC & Chem 7: 02/24/21 05:11 02/24/21 05:11 Labs: Laboratory Results - last 24 hr 02/23/21 02/23/21 02/23/21 11:42 12:04 14:04 WBC RBC Hgb Hct MCV MCH MCHC RDW Plt Count MPV Immature Gran % (Auto) Neut % (Auto) Lymph % (Auto) [place] % (Auto) Eos % (Auto) Baso % (Auto) Lymph # (Auto) [place] # (Auto) Eos # (Auto) Baso # (Auto) Abs Immat Gran (auto) Absolute Neuts (auto) Absolute Nucleated RBC Nucleated RBC % (auto) PT INR APTT 34.9 D PTT (Heparin Protocol) D-Dimer VBG pH VBG pCO2 VBG pO2 VBG HCO3 VBG O2 Saturation VBG Base Excess Sodium Potassium Chloride Carbon Dioxide Anion Gap BUN Creatinine Estim Creat Clear Calc Estimated GFR POC Glucose 152 H 162 H Random Glucose Calcium Phosphorus Magnesium Total Bilirubin Direct Bilirubin AST ALT Alkaline Phosphatase Total Protein Albumin Procalcitonin 02/23/21 02/23/21 02/23/21 14:52 15:59 18:39 WBC RBC Hgb Hct MCV MCH MCHC RDW Plt Count MPV Immature Gran % (Auto) Neut % (Auto) Lymph % (Auto) [place] % (Auto) Eos % (Auto) Baso % (Auto) Lymph # (Auto) [place] # (Auto) Eos # (Auto) Baso # (Auto) Abs Immat Gran (auto) Absolute Neuts (auto) Absolute Nucleated RBC Nucleated RBC % (auto) PT INR APTT 49.5 H D PTT (Heparin Protocol) D-Dimer VBG pH VBG pCO2 VBG pO2 VBG HCO3 VBG O2 Saturation VBG Base Excess Sodium Potassium Chloride Carbon Dioxide Anion Gap BUN Creatinine Estim Creat Clear Calc Estimated GFR POC Glucose 153 H 130 H Random Glucose Calcium Phosphorus Magnesium Total Bilirubin Direct Bilirubin AST ALT Alkaline Phosphatase Total Protein Albumin Procalcitonin 02/23/21 02/23/21 02/23/21 21:04 21:05 21:05 WBC RBC Hgb Hct MCV MCH MCHC RDW Plt Count MPV Immature Gran % (Auto) Neut % (Auto) Lymph % (Auto) [place] % (Auto) Eos % (Auto) Baso % (Auto) Lymph # (Auto) [place] # (Auto) Eos # (Auto) Baso # (Auto) Abs Immat Gran (auto) Absolute Neuts (auto) Absolute Nucleated RBC Nucleated RBC % (auto) PT INR APTT 41.9 H PTT (Heparin Protocol) D-Dimer VBG pH VBG pCO2 VBG pO2 VBG HCO3 VBG O2 Saturation VBG Base Excess Sodium 139 Potassium 4.3 Chloride 100 Carbon Dioxide 26 Anion Gap 17 BUN 41 H Creatinine 4.17 H* Estim Creat Clear Calc 27.9 Estimated GFR 15 POC Glucose 101 Random Glucose 101 Calcium 6.4 L Phosphorus 5.7 H Magnesium 2.3 Total Bilirubin Direct Bilirubin AST ALT Alkaline Phosphatase Total Protein Albumin Procalcitonin 02/23/21 02/23/21 02/23/21 23:03 23:20 23:34 WBC RBC Hgb Hct MCV MCH MCHC RDW Plt Count MPV Immature Gran % (Auto) Neut % (Auto) Lymph % (Auto) [place] % (Auto) Eos % (Auto) Baso % (Auto) Lymph # (Auto) [place] # (Auto) Eos # (Auto) Baso # (Auto) Abs Immat Gran (auto) Absolute Neuts (auto) Absolute Nucleated RBC Nucleated RBC % (auto) PT INR APTT PTT (Heparin Protocol) 44.4 L D-Dimer VBG pH VBG pCO2 VBG pO2 VBG HCO3 VBG O2 Saturation VBG Base Excess Sodium Potassium Chloride Carbon Dioxide Anion Gap BUN Creatinine Estim Creat Clear Calc Estimated GFR POC Glucose 111 118 H Random Glucose Calcium Phosphorus Magnesium Total Bilirubin Direct Bilirubin AST ALT Alkaline Phosphatase Total Protein Albumin Procalcitonin 02/24/21 02/24/21 02/24/21 00:34 02:07 02:40 WBC RBC Hgb Hct MCV MCH MCHC RDW Plt Count MPV Immature Gran % (Auto) Neut % (Auto) Lymph % (Auto) [place] % (Auto) Eos % (Auto) Baso % (Auto) Lymph # (Auto) [place] # (Auto) Eos # (Auto) Baso # (Auto) Abs Immat Gran (auto) Absolute Neuts (auto) Absolute Nucleated RBC Nucleated RBC % (auto) PT INR APTT PTT (Heparin Protocol) 49.5 L D-Dimer VBG pH VBG pCO2 VBG pO2 VBG HCO3 VBG O2 Saturation VBG Base Excess Sodium Potassium Chloride Carbon Dioxide Anion Gap BUN Creatinine Estim Creat Clear Calc Estimated GFR POC Glucose 121 H 107 Random Glucose Calcium Phosphorus Magnesium Total Bilirubin Direct Bilirubin AST ALT Alkaline Phosphatase Total Protein Albumin Procalcitonin 02/24/21 02/24/21 02/24/21 04:02 05:11 05:11 WBC 17.2 H RBC 3.44 L Hgb 10.9 L Hct 33.3 L MCV 96.8 MCH 31.7 MCHC 32.7 RDW 13.6 Plt Count 146 L MPV 11.3 Immature Gran % (Auto) 3.7 H Neut % (Auto) 86.9 H Lymph % (Auto) 4.5 L [place] % (Auto) 4.3 Eos % (Auto) 0.5 Baso % (Auto) 0.1 Lymph # (Auto) 0.8 L [place] # (Auto) 0.7 Eos # (Auto) 0.1 Baso # (Auto) 0.0 Abs Immat Gran (auto) 0.64 H Absolute Neuts (auto) 14.9 H Absolute Nucleated RBC 0.020 H Nucleated RBC % (auto) 0.1 PT INR APTT PTT (Heparin Protocol) D-Dimer VBG pH VBG pCO2 VBG pO2 VBG HCO3 VBG O2 Saturation VBG Base Excess Sodium Potassium Chloride Carbon Dioxide Anion Gap BUN Creatinine Estim Creat Clear Calc Estimated GFR POC Glucose 113 Random Glucose Calcium Phosphorus Magnesium Total Bilirubin Direct Bilirubin AST ALT Alkaline Phosphatase Total Protein Albumin Procalcitonin 14.32 02/24/21 02/24/21 02/24/21 05:11 05:11 05:15 WBC RBC Hgb Hct MCV MCH MCHC RDW Plt Count MPV Immature Gran % (Auto) Neut % (Auto) Lymph % (Auto) [place] % (Auto) Eos % (Auto) Baso % (Auto) Lymph # (Auto) [place] # (Auto) Eos # (Auto) Baso # (Auto) Abs Immat Gran (auto) Absolute Neuts (auto) Absolute Nucleated RBC Nucleated RBC % (auto) PT 22.5 H D INR 1.9 H APTT 49.1 H PTT (Heparin Protocol) D-Dimer 1515 VBG pH 7.31 L VBG pCO2 49 VBG pO2 77 VBG HCO3 25 VBG O2 Saturation 92.0 VBG Base Excess -1.0 Sodium 139 Potassium 4.7 Chloride 99 Carbon Dioxide 25 Anion Gap 20 BUN 56 H Creatinine 5.57 H* Estim Creat Clear Calc 20.9 Estimated GFR 11 POC Glucose Random Glucose 109 Calcium 6.5 L Phosphorus 8.0 H Magnesium 2.6 Total Bilirubin Direct Bilirubin AST ALT Alkaline Phosphatase Total Protein Albumin Procalcitonin 02/24/21 02/24/21 02/24/21 06:09 07:53 08:32 WBC RBC Hgb Hct MCV MCH MCHC RDW Plt Count MPV Immature Gran % (Auto) Neut % (Auto) Lymph % (Auto) [place] % (Auto) Eos % (Auto) Baso % (Auto) Lymph # (Auto) [place] # (Auto) Eos # (Auto) Baso # (Auto) Abs Immat Gran (auto) Absolute Neuts (auto) Absolute Nucleated RBC Nucleated RBC % (auto) PT INR APTT PTT (Heparin Protocol) 51.2 L D-Dimer VBG pH VBG pCO2 VBG pO2 VBG HCO3 VBG O2 Saturation VBG Base Excess Sodium Potassium Chloride Carbon Dioxide Anion Gap BUN Creatinine Estim Creat Clear Calc Estimated GFR POC Glucose 115 116 H Random Glucose Calcium Phosphorus Magnesium Total Bilirubin Direct Bilirubin AST ALT Alkaline Phosphatase Total Protein Albumin Procalcitonin 02/24/21 02/24/21 08:32 09:49 WBC RBC Hgb Hct MCV MCH MCHC RDW Plt Count MPV Immature Gran % (Auto) Neut % (Auto) Lymph % (Auto) [place] % (Auto) Eos % (Auto) Baso % (Auto) Lymph # (Auto) [place] # (Auto) Eos # (Auto) Baso # (Auto) Abs Immat Gran (auto) Absolute Neuts (auto) Absolute Nucleated RBC Nucleated RBC % (auto) PT INR APTT PTT (Heparin Protocol) D-Dimer VBG pH VBG pCO2 VBG pO2 VBG HCO3 VBG O2 Saturation VBG Base Excess Sodium Potassium Chloride Carbon Dioxide Anion Gap BUN Creatinine Estim Creat Clear Calc Estimated GFR POC Glucose 115 Random Glucose Calcium Phosphorus Magnesium Total Bilirubin 0.7 Direct Bilirubin 0.6 H AST 34 ALT 28 Alkaline Phosphatase 58 D Total Protein 5.1 L D Albumin 2.6 L D Procalcitonin Microbiology Microbiology Results: Microbiology 02/21/21 11:52 Sputum - Suctioned Gram Stain - Final 02/21/21 11:52 Sputum - Suctioned Sputum Culture - Final 02/21/21 12:12 Urine Catheterized - Hebert Catheter Urine Culture - Final No growth. 02/09/21 18:28 Blood - Venous Blood Culture - Final No growth after 5 days. 02/09/21 18:29 Blood - Venous Blood Culture - Final No growth after 5 days. Assessment & Plan Assessment and plan (1) ELODIA (acute kidney injury): Problem details: ELODIA in a setting of COVID-19 and reps failure Oliguric with hyperkalemia Overall prognosis guarded Discussed with ICU attending and agree with supporting with dialysis HD again tomorrow Volume removal as dictated by ICU team Supportive care Status: Acute Time Spent With Patient Time: Total time spent is greater than 50% in coordination of care (as documented) at patient's floor/unit and/or counseling patient:
[2021-02-24 12:18] LABS: Glucose, Whole Blood 128 mg/dL (60-115)
--- NOTE | 2021-02-24 12:34 | PM.CCPN ---
Subjective Subjective Date of Service: 02/24/21 Interval History: 50-year-old male with severe bilateral COVID 19 pneumonitis with ARDS finally needing to be intubated after nearly 2 weeks of noninvasive ventilation and he had a short arrest. With very short resuscitation mostly chemical and today off sedation he demonstrated cognitive function when he awoke was read sedated at that point and were hoping to start feedings today which we held because we were content were considering rotating back into a prone position Surveillance culture of sputum and blood was thus far negative and chest x-ray appears to be clearing we only reduced FiO2 to 90% and he has an oxygen saturation in the supine position of 92% normal sinus rhythm rate 100 blood pressure 117/64 and he still remains an uric but metabolically everything was normal and no requirement for dialysis today but he does have a temporary dialysis catheter in the left internal jugular Physical Exam Vital Signs: Vital Signs: Last Vital Signs Temp 99.3 F 02/24/21 12:00 Pulse 99 02/24/21 12:00 Resp 25 H 02/24/21 12:00 BP 111/55 L 02/24/21 12:00 Pulse Ox 91 L 02/24/21 12:00 Body Mass Index 39.6 Const: Other: He did awaken after holding his propofol and he did lock eyes but became nervous and agitated and required recent day [place] [facility] on argatroban and chest x-ray appears to be clearing and there are no adventitious sounds Cardiac exam revealing normal CVP of 4-6 and no gallops No acrocyanosis no livedo no skin wounds Objective Data Labs CBC & Chem 7: 02/24/21 05:11 02/24/21 05:11 Labs: Laboratory Results - last 24 hr 02/23/21 02/23/21 02/23/21 12:04 14:04 14:52 WBC RBC Hgb Hct MCV MCH MCHC RDW Plt Count MPV Immature Gran % (Auto) Neut % (Auto) Lymph % (Auto) [place] % (Auto) Eos % (Auto) Baso % (Auto) Lymph # (Auto) [place] # (Auto) Eos # (Auto) Baso # (Auto) Abs Immat Gran (auto) Absolute Neuts (auto) Absolute Nucleated RBC Nucleated RBC % (auto) PT INR APTT 49.5 H D PTT (Heparin Protocol) D-Dimer VBG pH VBG pCO2 VBG pO2 VBG HCO3 VBG O2 Saturation VBG Base Excess Sodium Potassium Chloride Carbon Dioxide Anion Gap BUN Creatinine Estim Creat Clear Calc Estimated GFR POC Glucose 152 H 162 H Random Glucose Calcium Phosphorus Magnesium Total Bilirubin Direct Bilirubin AST ALT Alkaline Phosphatase Total Protein Albumin Procalcitonin 02/23/21 02/23/21 02/23/21 15:59 18:39 21:04 WBC RBC Hgb Hct MCV MCH MCHC RDW Plt Count MPV Immature Gran % (Auto) Neut % (Auto) Lymph % (Auto) [place] % (Auto) Eos % (Auto) Baso % (Auto) Lymph # (Auto) [place] # (Auto) Eos # (Auto) Baso # (Auto) Abs Immat Gran (auto) Absolute Neuts (auto) Absolute Nucleated RBC Nucleated RBC % (auto) PT INR APTT PTT (Heparin Protocol) D-Dimer VBG pH VBG pCO2 VBG pO2 VBG HCO3 VBG O2 Saturation VBG Base Excess Sodium Potassium Chloride Carbon Dioxide Anion Gap BUN Creatinine Estim Creat Clear Calc Estimated GFR POC Glucose 153 H 130 H 101 Random Glucose Calcium Phosphorus Magnesium Total Bilirubin Direct Bilirubin AST ALT Alkaline Phosphatase Total Protein Albumin Procalcitonin 02/23/21 02/23/21 02/23/21 21:05 21:05 23:03 WBC RBC Hgb Hct MCV MCH MCHC RDW Plt Count MPV Immature Gran % (Auto) Neut % (Auto) Lymph % (Auto) [place] % (Auto) Eos % (Auto) Baso % (Auto) Lymph # (Auto) [place] # (Auto) Eos # (Auto) Baso # (Auto) Abs Immat Gran (auto) Absolute Neuts (auto) Absolute Nucleated RBC Nucleated RBC % (auto) PT INR APTT 41.9 H PTT (Heparin Protocol) D-Dimer VBG pH VBG pCO2 VBG pO2 VBG HCO3 VBG O2 Saturation VBG Base Excess Sodium 139 Potassium 4.3 Chloride 100 Carbon Dioxide 26 Anion Gap 17 BUN 41 H Creatinine 4.17 H* Estim Creat Clear Calc 27.9 Estimated GFR 15 POC Glucose 111 Random Glucose 101 Calcium 6.4 L Phosphorus 5.7 H Magnesium 2.3 Total Bilirubin Direct Bilirubin AST ALT Alkaline Phosphatase Total Protein Albumin Procalcitonin 02/23/21 02/23/21 02/24/21 23:20 23:34 00:34 WBC RBC Hgb Hct MCV MCH MCHC RDW Plt Count MPV Immature Gran % (Auto) Neut % (Auto) Lymph % (Auto) [place] % (Auto) Eos % (Auto) Baso % (Auto) Lymph # (Auto) [place] # (Auto) Eos # (Auto) Baso # (Auto) Abs Immat Gran (auto) Absolute Neuts (auto) Absolute Nucleated RBC Nucleated RBC % (auto) PT INR APTT PTT (Heparin Protocol) 44.4 L D-Dimer VBG pH VBG pCO2 VBG pO2 VBG HCO3 VBG O2 Saturation VBG Base Excess Sodium Potassium Chloride Carbon Dioxide Anion Gap BUN Creatinine Estim Creat Clear Calc Estimated GFR POC Glucose 118 H 121 H Random Glucose Calcium Phosphorus Magnesium Total Bilirubin Direct Bilirubin AST ALT Alkaline Phosphatase Total Protein Albumin Procalcitonin 02/24/21 02/24/21 02/24/21 02:07 02:40 04:02 WBC RBC Hgb Hct MCV MCH MCHC RDW Plt Count MPV Immature Gran % (Auto) Neut % (Auto) Lymph % (Auto) [place] % (Auto) Eos % (Auto) Baso % (Auto) Lymph # (Auto) [place] # (Auto) Eos # (Auto) Baso # (Auto) Abs Immat Gran (auto) Absolute Neuts (auto) Absolute Nucleated RBC Nucleated RBC % (auto) PT INR APTT PTT (Heparin Protocol) 49.5 L D-Dimer VBG pH VBG pCO2 VBG pO2 VBG HCO3 VBG O2 Saturation VBG Base Excess Sodium Potassium Chloride Carbon Dioxide Anion Gap BUN Creatinine Estim Creat Clear Calc Estimated GFR POC Glucose 107 113 Random Glucose Calcium Phosphorus Magnesium Total Bilirubin Direct Bilirubin AST ALT Alkaline Phosphatase Total Protein Albumin Procalcitonin 02/24/21 02/24/21 02/24/21 05:11 05:11 05:11 WBC 17.2 H RBC 3.44 L Hgb 10.9 L Hct 33.3 L MCV 96.8 MCH 31.7 MCHC 32.7 RDW 13.6 Plt Count 146 L MPV 11.3 Immature Gran % (Auto) 3.7 H Neut % (Auto) 86.9 H Lymph % (Auto) 4.5 L [place] % (Auto) 4.3 Eos % (Auto) 0.5 Baso % (Auto) 0.1 Lymph # (Auto) 0.8 L [place] # (Auto) 0.7 Eos # (Auto) 0.1 Baso # (Auto) 0.0 Abs Immat Gran (auto) 0.64 H Absolute Neuts (auto) 14.9 H Absolute Nucleated RBC 0.020 H Nucleated RBC % (auto) 0.1 PT 22.5 H D INR 1.9 H APTT 49.1 H PTT (Heparin Protocol) D-Dimer 1515 VBG pH VBG pCO2 VBG pO2 VBG HCO3 VBG O2 Saturation VBG Base Excess Sodium Potassium Chloride Carbon Dioxide Anion Gap BUN Creatinine Estim Creat Clear Calc Estimated GFR POC Glucose Random Glucose Calcium Phosphorus Magnesium Total Bilirubin Direct Bilirubin AST ALT Alkaline Phosphatase Total Protein Albumin Procalcitonin 14.32 02/24/21 02/24/21 02/24/21 05:11 05:15 06:09 WBC RBC Hgb Hct MCV MCH MCHC RDW Plt Count MPV Immature Gran % (Auto) Neut % (Auto) Lymph % (Auto) [place] % (Auto) Eos % (Auto) Baso % (Auto) Lymph # (Auto) [place] # (Auto) Eos # (Auto) Baso # (Auto) Abs Immat Gran (auto) Absolute Neuts (auto) Absolute Nucleated RBC Nucleated RBC % (auto) PT INR APTT PTT (Heparin Protocol) D-Dimer VBG pH 7.31 L VBG pCO2 49 VBG pO2 77 VBG HCO3 25 VBG O2 Saturation 92.0 VBG Base Excess -1.0 Sodium 139 Potassium 4.7 Chloride 99 Carbon Dioxide 25 Anion Gap 20 BUN 56 H Creatinine 5.57 H* Estim Creat Clear Calc 20.9 Estimated GFR 11 POC Glucose 115 Random Glucose 109 Calcium 6.5 L Phosphorus 8.0 H Magnesium 2.6 Total Bilirubin Direct Bilirubin AST ALT Alkaline Phosphatase Total Protein Albumin Procalcitonin 02/24/21 02/24/21 02/24/21 07:53 08:32 08:32 WBC RBC Hgb Hct MCV MCH MCHC RDW Plt Count MPV Immature Gran % (Auto) Neut % (Auto) Lymph % (Auto) [place] % (Auto) Eos % (Auto) Baso % (Auto) Lymph # (Auto) [place] # (Auto) Eos # (Auto) Baso # (Auto) Abs Immat Gran (auto) Absolute Neuts (auto) Absolute Nucleated RBC Nucleated RBC % (auto) PT INR APTT PTT (Heparin Protocol) 51.2 L D-Dimer VBG pH VBG pCO2 VBG pO2 VBG HCO3 VBG O2 Saturation VBG Base Excess Sodium Potassium Chloride Carbon Dioxide Anion Gap BUN Creatinine Estim Creat Clear Calc Estimated GFR POC Glucose 116 H Random Glucose Calcium Phosphorus Magnesium Total Bilirubin 0.7 Direct Bilirubin 0.6 H AST 34 ALT 28 Alkaline Phosphatase 58 D Total Protein 5.1 L D Albumin 2.6 L D Procalcitonin 02/24/21 02/24/21 09:49 11:46 WBC RBC Hgb Hct MCV MCH MCHC RDW Plt Count MPV Immature Gran % (Auto) Neut % (Auto) Lymph % (Auto) [place] % (Auto) Eos % (Auto) Baso % (Auto) Lymph # (Auto) [place] # (Auto) Eos # (Auto) Baso # (Auto) Abs Immat Gran (auto) Absolute Neuts (auto) Absolute Nucleated RBC Nucleated RBC % (auto) PT INR APTT PTT (Heparin Protocol) D-Dimer VBG pH VBG pCO2 VBG pO2 VBG HCO3 VBG O2 Saturation VBG Base Excess Sodium Potassium Chloride Carbon Dioxide Anion Gap BUN Creatinine Estim Creat Clear Calc Estimated GFR POC Glucose 115 128 H Random Glucose Calcium Phosphorus Magnesium Total Bilirubin Direct Bilirubin AST ALT Alkaline Phosphatase Total Protein Albumin Procalcitonin Microbiology Microbiology Results: Microbiology 02/21/21 11:52 Sputum - Suctioned Gram Stain - Final 02/21/21 11:52 Sputum - Suctioned Sputum Culture - Final 02/21/21 12:12 Urine Catheterized - Hebert Catheter Urine Culture - Final No growth. 02/09/21 18:28 Blood - Venous Blood Culture - Final No growth after 5 days. 02/09/21 18:29 Blood - Venous Blood Culture - Final No growth after 5 days. 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 Status: Acute (5) ELODIA (acute kidney injury): Problem details: ELODIA in a setting of COVID-19 and reps failure Oliguric with hyperkalemia Overall prognosis guarded Discussed with ICU attending and agree with supporting with dialysis HD again tomorrow Volume removal as dictated by ICU team Supportive care Status: Acute (6) Obesity: Status: Acute (7) Acute respiratory distress syndrome (ARDS) due to COVID-19 virus: Status: Acute (8) Viral sepsis: Status: Acute (9) Acute respiratory failure with hypoxia: Status: Acute (10) Pneumonia due to 2019-nCoV: Problem details: He has shortness of breath He has hypoxia Status: Acute (11) Hypoxia: Status: Acute (12) Unsteady gait: Status: Acute (13) Asthma: Status: Acute (14) Gout: Status: Acute (15) Pure hypercholesterolemia: Status: Acute (16) Diabetes mellitus: Status: Acute (17) Essential hypertension: Status: Acute Time Spent With Patient Time: Total time spent is greater than 50% in coordination of care (as documented) at patient's floor/unit and/or counseling patient: Total time spent with greater than 50% in coordination of care (as documented) at patient's floor/unit and/or counseling patient:: 40
[2021-02-24 12:42] LABS: HIT-Patient Optical Density 0.106 OD UNITS (<OR= 0.300); Heparin Induced Plt Ab NEGATIVE (NEGATIVE)
[2021-02-24] MEDS: Insulin Lispro 100 UNIT/ML 3 ML VIAL SUBCUT ×3 (13:00→23:57)
[2021-02-24 13:14] LABS: Partial Thromboplastin Time 98.8 SEC (24.1-38.0)
[2021-02-24 14:08] LABS: VBG HCO3 19 mmol/L (22-26); VBG pCO2 38 mmHg; VBG pH 7.31 (7.32-7.43); VBG pO2 56 mmHg
[2021-02-24 14:25] LABS: Glucose, Whole Blood 152 mg/dL (60-115)
[2021-02-24] MEDS: Midazolam HCl/NS 50 MG/50 ML PLAST..BAG IVCONT (15:53)
[2021-02-24] MEDS: fentaNYL citrate/NS 1,000 MCG/100 ML PLAST..BAG 2.5 MCG IVCONT (15:54)
[2021-02-24 16:25] LABS: Venous Blood Gas Refer to POC result
[2021-02-24 16:29] LABS: VBG Base Excess -5.4 mmol/L; VBG HCO3 21 mmol/L (22-26); VBG pCO2 46 mmHg; VBG pH 7.26 (7.32-7.43); VBG pO2 148 mmHg
[2021-02-24 18:37] LABS: Glucose, Whole Blood 165 mg/dL (60-115)
[2021-02-24 19:37] LABS: Hematocrit 37.3 % (42-52); Hemoglobin 12.2 g/dl (14.0-18.0); Mean Corpuscular HGB Conc 32.7 g/dl (31.0-36.0); Mean Corpuscular Hemoglobin 31.7 pg (27.0-33.0); Mean Corpuscular Volume 96.9 fL (80-98); Mean Platelet Volume 11.3 fL (9.4-12.4); NRBC Pct Auto 0.1 /100WBC (0.0-0.2); Platelet Count 175 X10*3/uL (160-400); Red Blood Count 3.85 X10*6/uL (4.60-5.80); Red Cell Distribution Width 13.9 % (11.0-16.0); White Blood Count 22.8 X10*3/uL (4.8-10.8)
[2021-02-24 19:52] LABS: Partial Thromboplastin Time 41.7 SEC (24.1-38.0)
--- NOTE | 2021-02-24 20:09 | PC.NURSE ---
Addendum entered by Lucio Otto RN 02/24/21 20:45: PATIENT WAS ADMINISTERED A 100 CC VIAL OF PROPOFOL AT 07:15 AM AND AT 11 AM WHICH WERE NOT SCANNED DUE TO DIFFICULTIES WITH WORKFLOW AND COVID PRECAUTIONS. Original Note: Assumed care at 0700. Patient was sedated on 45 mcg/kg/min of propofol, this was lowered to 50% to assess patient's neurological status, and patient was alert enough to nod and shake head in response to questions; unable to follow commands; tracking; positive cough and gag. Propoful had to be titrated back up to 45 related to poor ventilation. In afternoon, patient was having much difficulty ventilating, one time dose of rocuronium 60 mg was with good effect; later in the day was tachypneic, high peak pressures of 50 and higher; RT was called and various ventilator setting changes were made today to attempt to improve ventilation: tried PC settings in afternoon breifly without success; patient was changed over to fentanyl gtt and versed gtt due to tachypnea in the afternoon, and patient dropped spo2 to 85% range after fentanyl was titrated up to the level at which patient was ventilatin mcg/kg/min; and this was then titrated down to 150 so that patient was overbreathing slightly: rr 26-7. Patient was then satting about 87%, and RT had been called back to bedside; Patient did respond well to a breathing treatment at that time. #7.5 ett 25 cm marilu, currently on AC/VC settings AC 22; TV 650; fio2 100% (did not tolerated 90%); peep 14 (titirated down from 16); te around 15-17; ls diminished throughout; inline secretions had been absent, but this afternoon/evening thick bravo/rust colored inline secretions; md notified, and new order for sputum cx. Patient was not going to have dialysis today, but due to results of CXR this morning, MD ordered HD: goal is to dialyze below a CVP of 8. Today's CVP: 10-12. levophed had been titirated off today, but restarted to help patient tolerate HD. OK to titrated vasopressin down if patient tolerates after levo is off per MD; Vaso at 0.03; fentanyl at 150; agatraban at 0.432. Patient had a critically high aPTT, which was higher than therapeutic range, and was addressed per protocol for agatraban. Insulin gtt was d/c'd per MD, and patient stated on Q6Hr POC. TF started Nepro and uptitirated to 30 cc/hour, well tolerated, no residuals; questioned h20 flushes with md, and ok to continue depite anuria. Patient has mild T core temp is 100.0; unasyn was discontinued this morning and patient not on antibiotics; md aware. 1 gm ca gluconate this AM for hypocalcemia.
[2021-02-24] MEDS: fentaNYL citrate/NS 1,000 MCG/100 ML PLAST..BAG 20 MCG IVCONT (20:32)
[2021-02-24] MEDS: Argatroban 250 MG in 0.9 % Sodium Chloride 250 ML IV (20:34)
[2021-02-24 22:34] LABS: Partial Thromboplastin Time 44.8 SEC (24.1-38.0)
[2021-02-24] MEDS: Albumin Human 25 % 50 ML 100 ML IV (23:42)
[2021-02-25] VITALS (34 sets, daily range): BP systolic 98–117; BP diastolic 51–70; PULSE 66–112; RESP 16–93; TEMP 37.3–38.5; O2SAT 22–100
--- NOTE | 2021-02-25 00:11 | PC.NURSE ---
P- Patient having excessive bloody drainage, including a quarter sized clot from urethra, around boyle catheter. Patient has not been anuric for approx 24 hours. I- Boyle irrigated to patency. Large clots dislarged. E- Patient immediately drained 850 cc bright red urine. Bloody drainage from urethra has decreased to a scant amount. Small amount of blood-streaked oral secretions. No other bleeding noted. Stool light brown/yellow without evidence of blood. aPTT @ 2220 was 44.8, goal for argatroban therapy is 45-90 seconds. Per protocol, patient due to have gtt titrated up. PA updated on above findings and results of blood work. Per PA, leave argatroban gtt at current rate and recheck in 2 hours d/t active bleeding. Oncoming nurse has been informed of the above as well.
[2021-02-25 00:21] LABS: Glucose, Whole Blood 160 mg/dL (60-115)
[2021-02-25] MEDS: Albuterol/Iprat 2.5/0.5MG 3 ML AMPUL.NEB INHALE ×6 (00:42→20:25)
[2021-02-25 01:19] LABS: Partial Thromboplastin Time 45.7 SEC (24.1-38.0)
[2021-02-25] MEDS: Midazolam HCl/NS 50 MG/50 ML PLAST..BAG IVCONT (04:05)
[2021-02-25] MEDS: propofoL 1,000 MG/100 ML VIAL 14.64 MG IVCONT ×4 (04:05→19:31)
[2021-02-25] MEDS: fentaNYL citrate/NS 1,000 MCG/100 ML PLAST..BAG 10 MCG IVCONT ×2 (04:06→14:15)
--- NOTE | 2021-02-25 04:57 | PC.NURSE ---
CARE ASSUMED 23:15...REMAINS TUBED/VENTED: AC22/TV 650/FIO2 100%/PEEP 16...RR 24 AT HS...PROPOFOL 20 MCG/KGMIN--VERSED 2 MG/HR & FENTALY 100 MCG/HR..SAO2 92-93%...FENTANYL AND VERSED WEANED OFF PER PA...OVER NEXT 2 HOURS SAO2 DECLINING DOWN TO 80-81%...TURNED RIGHT AND LEFT SIDE DOWNWARD W/O EFFECT..PLACED SUPINE AND FENTANYL/VERSED DRIPS RESUMED,...SAO2 GRADUALLY IMPROVED TO 94-95% SUPINE AND WITH PREVIOUS SEDATION...ARGATROBAN DRIP INFUSING 0.518 MCG/KG/MIN...PTT= 45.7...DRIP UNCHANGED PER ICU PA...BURNETT REMAINS WITH BLOODY URINE...IRRIGATED MULTIPLE TIMES FOR BLOODY URINE/CLOTS...BURNETT DRAING 25-35 CC/HR...S.TACH HR 106-110...CONTINUES LEVOPHED/VASOPRESSIN DRIPS PER EMAR
[2021-02-25 06:16] LABS: VBG HCO3 24 mmol/L (22-26); VBG pCO2 49 mmHg; VBG pO2 73 mmHg
[2021-02-25 06:38] LABS: Basophils Percent Auto 0.1 % (0-2); Eosinophils Absolute Auto 0.2 X10*3/uL (0.0-0.4); Eosinophils Percent Auto 1.2 % (0-4); Hematocrit 31.4 % (42-52); Hemoglobin 10.2 g/dl (14.0-18.0); Imm Gran Abs Auto 0.46 X10*3/uL (0.00-0.03); Imm Gran Pct Auto 2.9 % (0.0-0.4); Lymphocytes Absolute Auto 0.7 X10*3/uL (1.2-4.9); Lymphocytes Percent Auto 4.2 % (20-40); MANUAL DIFF FLAG SCAN; Mean Corpuscular HGB Conc 32.5 g/dl (31.0-36.0); Mean Corpuscular Hemoglobin 31.7 pg (27.0-33.0); Mean Corpuscular Volume 97.5 fL (80-98); Mean Platelet Volume 11.7 fL (9.4-12.4); Monocytes Absolute Auto 0.7 X10*3/uL (0.1-1.2); Monocytes Percent Auto 4.4 % (2-11); NRBC Pct Auto 0.1 /100WBC (0.0-0.2); Neutrophils Absolute Auto 13.8 X10*3/uL (2.0-8.3); Neutrophils Percent Auto 87.2 % (45-73); Platelet Count 132 X10*3/uL (160-400); Red Blood Count 3.22 X10*6/uL (4.60-5.80); Red Cell Distribution Width 13.7 % (11.0-16.0); SCAN SMEAR FLAG 1; White Blood Count 15.8 X10*3/uL (4.8-10.8)
[2021-02-25 06:55] LABS: Albumin Level 2.9 g/dL (3.5-5.0)
[2021-02-25 06:56] LABS: INTERNATIONAL NORM RATIO 1.8 (0.9-1.1); Prothrombin Time 20.9 SEC (10.8-13.0)
[2021-02-25 07:06] LABS: Partial Thromboplastin Time 45.7 SEC (24.1-38.0)
[2021-02-25 07:07] LABS: D Dimer 1696 NG/ML
[2021-02-25 07:09] LABS: Anion Gap 22 (12-20); Blood Urea Nitrogen 65 mg/dL (9-16); Calcium 7.1 mg/dL (8.4-10.2); Carbon Dioxide 24 mmol/L (22-29); Chloride 97 mmol/L (96-108); Creatinine Clr Calc Pharmacy 18.2; Estimated Glomerular Filt Rate 9; Glucose Random 199 mg/dL (60-115); Magnesium 2.9 mg/dL (1.6-2.6); Phosphorus 9.7 mg/dL (2.7-4.5); Potassium 4.9 mmol/L (3.3-5.1); Sodium 138 mmol/L (135-145)
[2021-02-25 07:12] LABS: SLIDE REVIEW VERIFIED
--- NOTE | 2021-02-25 07:18 | PC.NURSE ---
ARGATROBAN GTT TURNED OFF AT 0645 PER MD.
[2021-02-25] MEDS: dexAMETHasone sod phosphate 4 MG/ML VIAL 6 MG IVPUSH (07:27)
[2021-02-25] MEDS: 0.9 % Sodium Chloride Flush 3 ML SYRINGE IVFLUSH (07:28)
[2021-02-25] MEDS: Chlorhexidine Gluc Oral Rinse 15 ML MOUTHWASH BUCCAL ×3 (07:28→19:31)
[2021-02-25] MEDS: vancomycin HCL 1,000 MG in 0.9 % Sodium Chloride 250 ML 270 MG IV (07:28)
[2021-02-25 07:43] LABS: Procalcitonin 13.35 ng/mL
--- NOTE | 2021-02-25 08:08 | P.PNNP_ITS ---
Subjective Subjective Date of Service: 02/25/21 Interval history: Events noted Had HD yesterday Physical Exam Vital Signs: Vital Signs: Last Vital Signs Temp 101.3 F H 02/25/21 07:00 Pulse 91 02/25/21 07:00 Resp 22 H 02/25/21 07:00 BP 107/55 L 02/25/21 07:00 Pulse Ox 100 02/25/21 07:00 Body Mass Index 39.6 Const: General: ill appearing Resp: Auscultation: diminished lung sounds Cardio: Heart sounds: no gallops and no murmurs GI: Inspection: Yes obesity Palpation (GI): Soft to palpation Neuro: Motor exam (neuro): No Asterixis during motor activity present Objective Data Labs CBC & Chem 7: 02/25/21 06:06 02/25/21 06:06 Labs: Laboratory Results - last 24 hr 02/23/21 02/24/21 02/24/21 08:08 07:53 08:32 WBC RBC Hgb Hct MCV MCH MCHC RDW Plt Count MPV Immature Gran % (Auto) Neut % (Auto) Lymph % (Auto) [place] % (Auto) Eos % (Auto) Baso % (Auto) Lymph # (Auto) [place] # (Auto) Eos # (Auto) Baso # (Auto) Abs Immat Gran (auto) Absolute Neuts (auto) Absolute Nucleated RBC Nucleated RBC % (auto) Smear Tech's Comments PT INR APTT PTT (Heparin Protocol) 51.2 L D-Dimer Hep-Ind Thrombocytop Com See Below VBG pH VBG pCO2 VBG pO2 VBG HCO3 VBG O2 Saturation VBG Base Excess Sodium Potassium Chloride Carbon Dioxide Anion Gap BUN Creatinine Estim Creat Clear Calc Estimated GFR POC Glucose 116 H Random Glucose Calcium Phosphorus Magnesium Total Bilirubin Direct Bilirubin AST ALT Alkaline Phosphatase Total Protein Albumin Procalcitonin Heparin Dep Plt Ab OD 0.106 Hep-Induced Plt Ab Mei NEGATIVE 02/24/21 02/24/21 02/24/21 08:32 09:49 11:46 WBC RBC Hgb Hct MCV MCH MCHC RDW Plt Count MPV Immature Gran % (Auto) Neut % (Auto) Lymph % (Auto) [place] % (Auto) Eos % (Auto) Baso % (Auto) Lymph # (Auto) [place] # (Auto) Eos # (Auto) Baso # (Auto) Abs Immat Gran (auto) Absolute Neuts (auto) Absolute Nucleated RBC Nucleated RBC % (auto) Smear Tech's Comments PT INR APTT PTT (Heparin Protocol) D-Dimer Hep-Ind Thrombocytop Com VBG pH VBG pCO2 VBG pO2 VBG HCO3 VBG O2 Saturation VBG Base Excess Sodium Potassium Chloride Carbon Dioxide Anion Gap BUN Creatinine Estim Creat Clear Calc Estimated GFR POC Glucose 115 128 H Random Glucose Calcium Phosphorus Magnesium Total Bilirubin 0.7 Direct Bilirubin 0.6 H AST 34 ALT 28 Alkaline Phosphatase 58 D Total Protein 5.1 L D Albumin 2.6 L D Procalcitonin Heparin Dep Plt Ab OD Hep-Induced Plt Ab Mei 02/24/21 02/24/21 02/24/21 12:41 14:01 14:02 WBC RBC Hgb Hct MCV MCH MCHC RDW Plt Count MPV Immature Gran % (Auto) Neut % (Auto) Lymph % (Auto) [place] % (Auto) Eos % (Auto) Baso % (Auto) Lymph # (Auto) [place] # (Auto) Eos # (Auto) Baso # (Auto) Abs Immat Gran (auto) Absolute Neuts (auto) Absolute Nucleated RBC Nucleated RBC % (auto) Smear Tech's Comments PT INR APTT 98.8 H* D PTT (Heparin Protocol) D-Dimer Hep-Ind Thrombocytop Com VBG pH 7.31 L VBG pCO2 38 VBG pO2 56 VBG HCO3 19 L VBG O2 Saturation 84.0 VBG Base Excess -6.0 Sodium Potassium Chloride Carbon Dioxide Anion Gap BUN Creatinine Estim Creat Clear Calc Estimated GFR POC Glucose 152 H Random Glucose Calcium Phosphorus Magnesium Total Bilirubin Direct Bilirubin AST ALT Alkaline Phosphatase Total Protein Albumin Procalcitonin Heparin Dep Plt Ab OD Hep-Induced Plt Ab Mei 02/24/21 02/24/21 02/24/21 16:15 16:21 18:17 WBC RBC Hgb Hct MCV MCH MCHC RDW Plt Count MPV Immature Gran % (Auto) Neut % (Auto) Lymph % (Auto) [place] % (Auto) Eos % (Auto) Baso % (Auto) Lymph # (Auto) [place] # (Auto) Eos # (Auto) Baso # (Auto) Abs Immat Gran (auto) Absolute Neuts (auto) Absolute Nucleated RBC Nucleated RBC % (auto) Smear Tech's Comments PT INR APTT 48.0 H D PTT (Heparin Protocol) D-Dimer Hep-Ind Thrombocytop Com VBG pH 7.26 L VBG pCO2 46 VBG pO2 148 VBG HCO3 21 L VBG O2 Saturation 99.0 VBG Base Excess -5.4 Sodium Potassium Chloride Carbon Dioxide Anion Gap BUN Creatinine Estim Creat Clear Calc Estimated GFR POC Glucose 165 H Random Glucose Calcium Phosphorus Magnesium Total Bilirubin Direct Bilirubin AST ALT Alkaline Phosphatase Total Protein Albumin Procalcitonin Heparin Dep Plt Ab OD Hep-Induced Plt Ab Mei 02/24/21 02/24/21 02/24/21 19:13 19:13 22:20 WBC 22.8 H RBC 3.85 L Hgb 12.2 L Hct 37.3 L MCV 96.9 MCH 31.7 MCHC 32.7 RDW 13.9 Plt Count 175 MPV 11.3 Immature Gran % (Auto) Neut % (Auto) Lymph % (Auto) [place] % (Auto) Eos % (Auto) Baso % (Auto) Lymph # (Auto) [place] # (Auto) Eos # (Auto) Baso # (Auto) Abs Immat Gran (auto) Absolute Neuts (auto) Absolute Nucleated RBC 0.020 H Nucleated RBC % (auto) 0.1 Smear Tech's Comments PT INR APTT 41.7 H 44.8 H PTT (Heparin Protocol) D-Dimer Hep-Ind Thrombocytop Com VBG pH VBG pCO2 VBG pO2 VBG HCO3 VBG O2 Saturation VBG Base Excess Sodium Potassium Chloride Carbon Dioxide Anion Gap BUN Creatinine Estim Creat Clear Calc Estimated GFR POC Glucose Random Glucose Calcium Phosphorus Magnesium Total Bilirubin Direct Bilirubin AST ALT Alkaline Phosphatase Total Protein Albumin Procalcitonin Heparin Dep Plt Ab OD Hep-Induced Plt Ab Mei 02/24/21 02/25/21 02/25/21 23:54 00:57 06:06 WBC 15.8 H RBC 3.22 L Hgb 10.2 L Hct 31.4 L MCV 97.5 MCH 31.7 MCHC 32.5 RDW 13.7 Plt Count 132 L MPV 11.7 Immature Gran % (Auto) 2.9 H Neut % (Auto) 87.2 H Lymph % (Auto) 4.2 L Holmes % (Auto) 4.4 Eos % (Auto) 1.2 Baso % (Auto) 0.1 Lymph # (Auto) 0.7 L [place] # (Auto) 0.7 Eos # (Auto) 0.2 Baso # (Auto) 0.0 Abs Immat Gran (auto) 0.46 H Absolute Neuts (auto) 13.8 H Absolute Nucleated RBC 0.020 H Nucleated RBC % (auto) 0.1 Smear Tech's Comments VERIFIED PT INR APTT 45.7 H PTT (Heparin Protocol) D-Dimer Hep-Ind Thrombocytop Com VBG pH VBG pCO2 VBG pO2 VBG HCO3 VBG O2 Saturation VBG Base Excess Sodium Potassium Chloride Carbon Dioxide Anion Gap BUN Creatinine Estim Creat Clear Calc Estimated GFR POC Glucose 160 H Random Glucose Calcium Phosphorus Magnesium Total Bilirubin Direct Bilirubin AST ALT Alkaline Phosphatase Total Protein Albumin Procalcitonin Heparin Dep Plt Ab OD Hep-Induced Plt Ab Mei 02/25/21 02/25/21 02/25/21 06:06 06:06 06:06 WBC RBC Hgb Hct MCV MCH MCHC RDW Plt Count MPV Immature Gran % (Auto) Neut % (Auto) Lymph % (Auto) [place] % (Auto) Eos % (Auto) Baso % (Auto) Lymph # (Auto) [place] # (Auto) Eos # (Auto) Baso # (Auto) Abs Immat Gran (auto) Absolute Neuts (auto) Absolute Nucleated RBC Nucleated RBC % (auto) Smear Tech's Comments PT 20.9 H INR 1.8 H APTT 45.7 H PTT (Heparin Protocol) D-Dimer 1696 Hep-Ind Thrombocytop Com VBG pH VBG pCO2 VBG pO2 VBG HCO3 VBG O2 Saturation VBG Base Excess Sodium 138 Potassium 4.9 Chloride 97 Carbon Dioxide 24 Anion Gap 22 H BUN 65 H Creatinine 6.37 H* Estim Creat Clear Calc 18.2 Estimated GFR 9 POC Glucose Random Glucose 199 H D Calcium 7.1 L D Phosphorus 9.7 H Magnesium 2.9 H Total Bilirubin Direct Bilirubin AST ALT Alkaline Phosphatase Total Protein Albumin 2.9 L Procalcitonin Heparin Dep Plt Ab OD Hep-Induced Plt Ab Mei 02/25/21 02/25/21 06:07 06:09 WBC RBC Hgb Hct MCV MCH MCHC RDW Plt Count MPV Immature Gran % (Auto) Neut % (Auto) Lymph % (Auto) [place] % (Auto) Eos % (Auto) Baso % (Auto) Lymph # (Auto) [place] # (Auto) Eos # (Auto) Baso # (Auto) Abs Immat Gran (auto) Absolute Neuts (auto) Absolute Nucleated RBC Nucleated RBC % (auto) Smear Tech's Comments PT INR APTT PTT (Heparin Protocol) D-Dimer Hep-Ind Thrombocytop Com VBG pH 7.30 L VBG pCO2 49 VBG pO2 73 VBG HCO3 24 VBG O2 Saturation 89.0 VBG Base Excess -2.0 Sodium Potassium Chloride Carbon Dioxide Anion Gap BUN Creatinine Estim Creat Clear Calc Estimated GFR POC Glucose Random Glucose Calcium Phosphorus Magnesium Total Bilirubin Direct Bilirubin AST ALT Alkaline Phosphatase Total Protein Albumin Procalcitonin 13.35 Heparin Dep Plt Ab OD Hep-Induced Plt Ab Mei Microbiology Microbiology Results: Microbiology 02/21/21 11:52 Sputum - Suctioned Gram Stain - Final 02/21/21 11:52 Sputum - Suctioned Sputum Culture - Final 02/21/21 12:12 Urine Catheterized - Hebert Catheter Urine Culture - Final No growth. 02/09/21 18:28 Blood - Venous Blood Culture - Final No growth after 5 days. 02/09/21 18:29 Blood - Venous Blood Culture - Final No growth after 5 days. Assessment & Plan Assessment and plan (1) ELODIA (acute kidney injury): Problem details: ELODIA in a setting of COVID-19 and reps failure Oliguric with hyperkalemia Overall prognosis guarded Discussed with ICU attending and agree with supporting with dialysis Had HD yesterday UO has increased Hold HD today and reassess Supportive care Status: Acute Time Spent With Patient Time: Total time spent is greater than 50% in coordination of care (as documented) at patient's floor/unit and/or counseling patient:
[2021-02-25 08:52] LABS: Procalcitonin 14.57 ng/mL
[2021-02-25 08:55] LABS: Venous Blood Gas Refer to POC result
[2021-02-25 11:59] LABS: Glucose, Whole Blood 240 mg/dL (60-115)
[2021-02-25] MEDS: Insulin Lispro 100 UNIT/ML 3 ML VIAL SUBCUT ×2 (12:11→18:19)
--- NOTE | 2021-02-25 16:07 | PC.NURSE ---
Attempted to repo pt q2hr throughout day. Pt desats to low 70s when laid flat. Takes pt several minutes for pt ro return to mid 80s.
--- NOTE | 2021-02-25 16:25 | PM.CCPN ---
Subjective Subjective Date of Service: 02/25/21 Interval History: 50-year-old morbidly obese type 2 diabetic who presented with bilateral COVID pneumonitis and ARDS and acute hypoxemic respiratory failure spent 2 weeks on progressive noninvasive ventilation including BiPAP finally when he was breathing at maximum voluntary ventilatory levels he was emergently intubated there was also a brief CPR that was involved when he became bradycardic and asystolic new we came around quickly he did awaken on a sedation holiday and but he also developed acute renal failure and whether this was COVID Bates nephritis versus ATN heart differentiate and has been intubated and ever since initially an uric and now he is producing a between 15 and 30 cc/hour so he is becoming more nonoliguric but he did have a hemodialysis catheter placed and hemodialysis yesterday was necessary because his CVP climbed from his stable level of 5/6 up to about 13 had almost 3 L removed bringing his CVP down to about 9 this morning looking much more comfortable Is heparin-induced platelet antibodies came back negative so he could go back at least on DVT prophylaxis Due to low-grade temperature and increasing white count he was completely re-cultured and he was just given a empiric covering dose of meropenem Physical Exam Vital Signs: Vital Signs: Last Vital Signs Temp 101.1 F H 02/25/21 16:00 Pulse 98 02/25/21 16:15 Resp 24 H 02/25/21 16:00 BP 105/55 L 02/25/21 16:00 Pulse Ox 94 02/25/21 16:00 Body Mass Index 39.6 Const: Other: Sedated and intubated but he does awaken off sedation Tolerating feedings with abdomen soft and good bowel sounds no organomegaly Chest with coarse bilateral ventilatory sounds Cardiac exam with normal S1 and S2 without gallop or murmur Objective Data Labs CBC & Chem 7: 02/25/21 06:06 02/25/21 06:06 Labs: Laboratory Results - last 24 hr 02/24/21 02/24/21 02/24/21 16:15 16:21 18:17 WBC RBC Hgb Hct MCV MCH MCHC RDW Plt Count MPV Immature Gran % (Auto) Neut % (Auto) Lymph % (Auto) [place] % (Auto) Eos % (Auto) Baso % (Auto) Lymph # (Auto) [place] # (Auto) Eos # (Auto) Baso # (Auto) Abs Immat Gran (auto) Absolute Neuts (auto) Absolute Nucleated RBC Nucleated RBC % (auto) Smear Tech's Comments PT INR APTT 48.0 H D D-Dimer VBG pH 7.26 L VBG pCO2 46 VBG pO2 148 VBG HCO3 21 L VBG O2 Saturation 99.0 VBG Base Excess -5.4 Sodium Potassium Chloride Carbon Dioxide Anion Gap BUN Creatinine Estim Creat Clear Calc Estimated GFR POC Glucose 165 H Random Glucose Calcium Phosphorus Magnesium Albumin Procalcitonin 02/24/21 02/24/21 02/24/21 19:13 19:13 22:20 WBC 22.8 H RBC 3.85 L Hgb 12.2 L Hct 37.3 L MCV 96.9 MCH 31.7 MCHC 32.7 RDW 13.9 Plt Count 175 MPV 11.3 Immature Gran % (Auto) Neut % (Auto) Lymph % (Auto) [place] % (Auto) Eos % (Auto) Baso % (Auto) Lymph # (Auto) [place] # (Auto) Eos # (Auto) Baso # (Auto) Abs Immat Gran (auto) Absolute Neuts (auto) Absolute Nucleated RBC 0.020 H Nucleated RBC % (auto) 0.1 Smear Tech's Comments PT INR APTT 41.7 H 44.8 H D-Dimer VBG pH VBG pCO2 VBG pO2 VBG HCO3 VBG O2 Saturation VBG Base Excess Sodium Potassium Chloride Carbon Dioxide Anion Gap BUN Creatinine Estim Creat Clear Calc Estimated GFR POC Glucose Random Glucose Calcium Phosphorus Magnesium Albumin Procalcitonin 02/24/21 02/25/21 02/25/21 23:54 00:57 06:06 WBC 15.8 H RBC 3.22 L Hgb 10.2 L Hct 31.4 L MCV 97.5 MCH 31.7 MCHC 32.5 RDW 13.7 Plt Count 132 L MPV 11.7 Immature Gran % (Auto) 2.9 H Neut % (Auto) 87.2 H Lymph % (Auto) 4.2 L [place] % (Auto) 4.4 Eos % (Auto) 1.2 Baso % (Auto) 0.1 Lymph # (Auto) 0.7 L [place] # (Auto) 0.7 Eos # (Auto) 0.2 Baso # (Auto) 0.0 Abs Immat Gran (auto) 0.46 H Absolute Neuts (auto) 13.8 H Absolute Nucleated RBC 0.020 H Nucleated RBC % (auto) 0.1 Smear Tech's Comments VERIFIED PT INR APTT 45.7 H D-Dimer VBG pH VBG pCO2 VBG pO2 VBG HCO3 VBG O2 Saturation VBG Base Excess Sodium Potassium Chloride Carbon Dioxide Anion Gap BUN Creatinine Estim Creat Clear Calc Estimated GFR POC Glucose 160 H Random Glucose Calcium Phosphorus Magnesium Albumin Procalcitonin 02/25/21 02/25/21 02/25/21 06:06 06:06 06:06 WBC RBC Hgb Hct MCV MCH MCHC RDW Plt Count MPV Immature Gran % (Auto) Neut % (Auto) Lymph % (Auto) [place] % (Auto) Eos % (Auto) Baso % (Auto) Lymph # (Auto) [place] # (Auto) Eos # (Auto) Baso # (Auto) Abs Immat Gran (auto) Absolute Neuts (auto) Absolute Nucleated RBC Nucleated RBC % (auto) Smear Tech's Comments PT 20.9 H INR 1.8 H APTT 45.7 H D-Dimer 1696 VBG pH VBG pCO2 VBG pO2 VBG HCO3 VBG O2 Saturation VBG Base Excess Sodium 138 Potassium 4.9 Chloride 97 Carbon Dioxide 24 Anion Gap 22 H BUN 65 H Creatinine 6.37 H* Estim Creat Clear Calc 18.2 Estimated GFR 9 POC Glucose Random Glucose 199 H D Calcium 7.1 L D Phosphorus 9.7 H Magnesium 2.9 H Albumin 2.9 L Procalcitonin 02/25/21 02/25/21 02/25/21 06:07 06:09 07:47 WBC RBC Hgb Hct MCV MCH MCHC RDW Plt Count MPV Immature Gran % (Auto) Neut % (Auto) Lymph % (Auto) [place] % (Auto) Eos % (Auto) Baso % (Auto) Lymph # (Auto) [place] # (Auto) Eos # (Auto) Baso # (Auto) Abs Immat Gran (auto) Absolute Neuts (auto) Absolute Nucleated RBC Nucleated RBC % (auto) Smear Tech's Comments PT INR APTT D-Dimer VBG pH 7.30 L VBG pCO2 49 VBG pO2 73 VBG HCO3 24 VBG O2 Saturation 89.0 VBG Base Excess -2.0 Sodium Potassium Chloride Carbon Dioxide Anion Gap BUN Creatinine Estim Creat Clear Calc Estimated GFR POC Glucose Random Glucose Calcium Phosphorus Magnesium Albumin Procalcitonin 13.35 14.57 02/25/21 11:54 WBC RBC Hgb Hct MCV MCH MCHC RDW Plt Count MPV Immature Gran % (Auto) Neut % (Auto) Lymph % (Auto) [place] % (Auto) Eos % (Auto) Baso % (Auto) Lymph # (Auto) [place] # (Auto) Eos # (Auto) Baso # (Auto) Abs Immat Gran (auto) Absolute Neuts (auto) Absolute Nucleated RBC Nucleated RBC % (auto) Smear Tech's Comments PT INR APTT D-Dimer VBG pH VBG pCO2 VBG pO2 VBG HCO3 VBG O2 Saturation VBG Base Excess Sodium Potassium Chloride Carbon Dioxide Anion Gap BUN Creatinine Estim Creat Clear Calc Estimated GFR POC Glucose 240 H Random Glucose Calcium Phosphorus Magnesium Albumin Procalcitonin Microbiology Microbiology Results: Microbiology 02/21/21 11:52 Sputum - Suctioned Gram Stain - Final 02/21/21 11:52 Sputum - Suctioned Sputum Culture - Final 02/21/21 12:12 Urine Catheterized - Hebert Catheter Urine Culture - Final No growth. 02/09/21 18:28 Blood - Venous Blood Culture - Final No growth after 5 days. 02/09/21 18:29 Blood - Venous Blood Culture - Final No growth after 5 days. 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 Status: Acute (5) ELODIA (acute kidney injury): Problem details: ELODIA in a setting of COVID-19 and reps failure Oliguric with hyperkalemia Overall prognosis guarded Discussed with ICU attending and agree with supporting with dialysis Had HD yesterday UO has increased Hold HD today and reassess Supportive care Status: Acute (6) Obesity: Status: Acute (7) Acute respiratory distress syndrome (ARDS) due to COVID-19 virus: Status: Acute (8) Viral sepsis: Status: Acute (9) Acute respiratory failure with hypoxia: Status: Acute (10) Pneumonia due to 2019-nCoV: Problem details: He has shortness of breath He has hypoxia Status: Acute (11) Hypoxia: Status: Acute (12) Unsteady gait: Status: Acute (13) Asthma: Status: Acute (14) Gout: Status: Acute (15) Pure hypercholesterolemia: Status: Acute (16) Diabetes mellitus: Status: Acute (17) Essential hypertension: Status: Acute Assessment and Plan: The plan is to check on his cultures and could and cover him accordingly follow CVP to determine fluid management especially negative fluid balance with dialysis and if he were to desaturate we would put him back in the prone position Time Spent With Patient Time: Total time spent is greater than 50% in coordination of care (as documented) at patient's floor/unit and/or counseling patient: Total time spent with greater than 50% in coordination of care (as documented) at patient's floor/unit and/or counseling patient:: 45
[2021-02-25 18:23] LABS: Glucose, Whole Blood 188 mg/dL (60-115)
--- NOTE | 2021-02-25 18:31 | PC.NURSE ---
Pt sedated with profolol , versed, fentanyl per emar, eyes reactive, weak cough/gag, unable to follow commands. T Max 101.3, VSS on Levophed and vasopressin. Attempted to wean vent to 90% FIO2, pt tolerated poorly, vent set back to previous settings- AC rate 22, tidal volume 650, FIO2 100%, peep 16. Pt desatted with any attempt of repo. U/O in [place] 15-30ml/hr of blood tinged urine, MD aware, 2 brown liquid BM, Tube feeding per order with free water flushes q4hr. Healing pressure injury to nose, bath given. Barrier cream, prevalon mattress and airloss bed used.
[2021-02-26] VITALS (37 sets, daily range): BP systolic 96–123; BP diastolic 45–69; PULSE 80–125; RESP 18–26; TEMP 38–39.2; O2SAT 65–97
[2021-02-26] MEDS: propofoL 1,000 MG/100 ML VIAL 14.64 MG IVCONT ×2 (00:20→03:25)
[2021-02-26] MEDS: fentaNYL citrate/NS 1,000 MCG/100 ML PLAST..BAG 10 MCG IVCONT (00:21)
[2021-02-26] MEDS: Midazolam HCl/NS 50 MG/50 ML PLAST..BAG IVCONT (00:22)
[2021-02-26] MEDS: 0.9 % Sodium Chloride Flush 3 ML SYRINGE IVFLUSH ×2 (00:23→07:23)
[2021-02-26] MEDS: Insulin Lispro 100 UNIT/ML 3 ML VIAL SUBCUT ×2 (00:34→11:59)
[2021-02-26] MEDS: Albuterol/Iprat 2.5/0.5MG 3 ML AMPUL.NEB INHALE ×6 (01:03→19:50)
[2021-02-26 01:21] LABS: Glucose, Whole Blood 166 mg/dL (60-115)
[2021-02-26] MEDS: fentaNYL citrate/NS 1,000 MCG/100 ML PLAST..BAG 20 MCG IVCONT ×5 (03:25→22:15)
[2021-02-26 05:31] LABS: VBG HCO3 24 mmol/L (22-26); VBG pCO2 57 mmHg; VBG pH 7.22 (7.32-7.43); VBG pO2 57 mmHg
[2021-02-26 06:00] LABS: Hemoglobin 10.7 g/dl (14.0-18.0); Mean Corpuscular HGB Conc 31.5 g/dl (31.0-36.0); Mean Corpuscular Hemoglobin 31.2 pg (27.0-33.0); Mean Corpuscular Volume 99.1 fL (80-98); Mean Platelet Volume 11.5 fL (9.4-12.4); NRBC Pct Auto 0.1 /100WBC (0.0-0.2); Platelet Count 147 X10*3/uL (160-400); Red Blood Count 3.43 X10*6/uL (4.60-5.80); White Blood Count 17.6 X10*3/uL (4.8-10.8)
[2021-02-26 06:27] LABS: Albumin Level 3.1 g/dL (3.5-5.0); Anion Gap 25 (12-20); Blood Urea Nitrogen 99 mg/dL (9-16); Calcium 7.3 mg/dL (8.4-10.2); Carbon Dioxide 22 mmol/L (22-29); Chloride 100 mmol/L (96-108); Creatinine Clr Calc Pharmacy 13.7; Estimated Glomerular Filt Rate 7; Glucose Random 140 mg/dL (60-115); Magnesium 3.3 mg/dL (1.6-2.6); Phosphorus 12.1 mg/dL (2.7-4.5); Potassium 5.9 mmol/L (3.3-5.1); Sodium 141 mmol/L (135-145)
[2021-02-26 06:43] LABS: Procalcitonin 10.55 ng/mL
[2021-02-26 06:46] LABS: D Dimer 4337 NG/ML
[2021-02-26 07:02] LABS: Venous Blood Gas Refer to POC result
[2021-02-26 07:06] LABS: INTERNATIONAL NORM RATIO 1.2 (0.9-1.1)
[2021-02-26 07:15] LABS: Prothrombin Time 14.2 SEC (10.8-13.0)
[2021-02-26 07:16] LABS: Partial Thromboplastin Time 25.2 SEC (24.1-38.0)
[2021-02-26] MEDS: Chlorhexidine Gluc Oral Rinse 15 ML MOUTHWASH BUCCAL ×3 (07:23→22:15)
[2021-02-26] MEDS: dexAMETHasone sod phosphate 4 MG/ML VIAL 5 MG IVPUSH (07:23)
[2021-02-26 08:15] LABS: Glucose, Whole Blood 135 mg/dL (60-115)
--- NOTE | 2021-02-26 08:59 | PM.PNNEP ---
Subjective Subjective Date of Service: 02/26/21 Physical Exam Vital Signs: Vital Signs: Last Vital Signs Temp 101.7 F H 02/26/21 07:00 Pulse 84 02/26/21 08:00 Resp 21 H 02/26/21 07:00 BP 106/51 L 02/26/21 07:00 Pulse Ox 89 L 02/26/21 07:00 Body Mass Index 39.6 Const: General: ill appearing Resp: Auscultation: diminished lung sounds Cardio: Heart sounds: no gallops and no murmurs GI: Inspection: Yes obesity Palpation (GI): Soft to palpation Neuro: Motor exam (neuro): No Asterixis during motor activity present Objective Data Labs CBC & Chem 7: 02/26/21 16:14 02/26/21 05:25 Labs: Laboratory Results - last 24 hr 02/25/21 02/25/21 02/26/21 11:54 18:14 00:33 WBC RBC Hgb Hct MCV MCH MCHC RDW Plt Count MPV Absolute Nucleated RBC Nucleated RBC % (auto) PT INR APTT D-Dimer VBG pH VBG pCO2 VBG pO2 VBG HCO3 VBG O2 Saturation VBG Base Excess Sodium Potassium Chloride Carbon Dioxide Anion Gap BUN Creatinine Estim Creat Clear Calc Estimated GFR POC Glucose 240 H 188 H 166 H Random Glucose Calcium Phosphorus Magnesium Albumin Procalcitonin 02/26/21 02/26/21 02/26/21 05:24 05:25 05:25 WBC 17.6 H RBC 3.43 L Hgb 10.7 L Hct 34.0 L MCV 99.1 H MCH 31.2 MCHC 31.5 RDW 14.0 Plt Count 147 L MPV 11.5 Absolute Nucleated RBC 0.020 H Nucleated RBC % (auto) 0.1 PT INR APTT D-Dimer VBG pH 7.22 L VBG pCO2 57 VBG pO2 57 VBG HCO3 24 VBG O2 Saturation 80.0 VBG Base Excess TNP Sodium Potassium Chloride Carbon Dioxide Anion Gap BUN Creatinine Estim Creat Clear Calc Estimated GFR POC Glucose Random Glucose Calcium Phosphorus Magnesium Albumin Procalcitonin 10.55 02/26/21 02/26/21 02/26/21 05:25 05:25 06:05 WBC RBC Hgb Hct MCV MCH MCHC RDW Plt Count MPV Absolute Nucleated RBC Nucleated RBC % (auto) PT 14.2 H D INR 1.2 H APTT 25.2 D D-Dimer 4337 VBG pH VBG pCO2 VBG pO2 VBG HCO3 VBG O2 Saturation VBG Base Excess Sodium 141 Potassium 5.9 H D Chloride 100 Carbon Dioxide 22 Anion Gap 25 H BUN 99 H* D Creatinine 8.46 H* Estim Creat Clear Calc 13.7 Estimated GFR 7 POC Glucose 135 H Random Glucose 140 H Calcium 7.3 L Phosphorus 12.1 H Magnesium 3.3 H Albumin 3.1 L Procalcitonin Microbiology Microbiology Results: Microbiology 02/21/21 11:52 Sputum - Suctioned Gram Stain - Final 02/21/21 11:52 Sputum - Suctioned Sputum Culture - Final 02/21/21 12:12 Urine Catheterized - Hebert Catheter Urine Culture - Final No growth. 02/09/21 18:28 Blood - Venous Blood Culture - Final No growth after 5 days. 02/09/21 18:29 Blood - Venous Blood Culture - Final No growth after 5 days. Assessment & Plan Assessment and plan (1) ELODIA (acute kidney injury): Problem details: ELODIA in a setting of COVID-19 and reps failure Oliguric with hyperkalemia Overall prognosis guarded Discussed with ICU attending and agree with supporting with dialysis HD today Supportive care Status: Acute Time Spent With Patient Time: Total time spent is greater than 50% in coordination of care (as documented) at patient's floor/unit and/or counseling patient:
--- NOTE | 2021-02-26 09:19 | PC.NURSE ---
Addendum entered by Radha Urrutia RN 02/26/21 18:43: TMAX 102.6 CORE, CHECKED RECTALLY TO COMPARE AND SAME TEMP RECORDED. HR SR/ST W/BBB ON TELE, 80-125. VSS WITH SUPPORT FROM VASOPRESSIN AND LEVOPHED. SEDATED WITH FENTANYL AND VERSED, PROPOFOL GTT REMAINS OFF SINCE 724. +C&G. NO INLINE SECRETIONS, STILL UNABLE TO OBTAIN SPUTUM CULTURE, MD AWARE. DOES NOT FOLLOW COMMANDS. PRE-PRONE 02= 85-88%, POST-PRONE 90-97% ON CURRENT VENT SETTING OF AC 22 TV 650 PEEP 16 FI02 100%. DIALYSIS REMOVED 3.8 KG OFF. URINE OUTPUT 145 ML TOTAL FROM 7A-7P. TUBE FEEDS REMAIN ON HOLD SINCE 839 DUE TO PRONE. MULTIPLE BROWN, LIQUID BMS - RECTAL TUBE PLACED AT 1815. URINE SAMPLE COLLECTED AND SENT TO LAB. MEROPENEM 1GM AND VANCO 1,000MG X 1 GIVEN PER MD. DIALYSIS CATH CHANGED - SEE PREVIOUS NOTE. REMAINS PRONED SINCE 844 - MD AND RN AWARE OF RISK VS. BENEFIT. Q2HR REPO, ROM, BATHED, BARRIER CREAM, PILLOWS UTILIZED. Original Note: CXR ORDERED AND ARRIVED TO THE FLOOR AT APPROX 0820. RADIOLOGY STAFF PULLED PT FORWARD TO SLIDE XRAY BOARD BEHIND HIM AND PATIENT STARTED TO IMMEDIATELY DESAT. AT 0827 PT REACHED AT LOW 32% WITH GOOD PLETH. PT BEING MANUALLY BAGGED BY THIS RN AT THIS TIME WITH 100% FI02 THROUGHT AMBU BAG. RT AND MD CALLED BEDSIDE. MD DECIDED TO PRONE PT. MERCANTILE AGENT, SECURITY AND AVAILABLE STAFF CALLED BEDSIDE TO HELP WITH PRONING. PT MANUALLY BAGGED BY RT UNTIL HE REACHED 85% BEFORE PRONING. 8+ PEOPLE ASSISTED IN PRONING. 02 IMMEDIATELY BEGAN TO INCREASE ONCE PRONED. AT 0917 02 IS 94% ON AC 22 TV 650 PEEP 18 FI02 100%. PILLOW PLACED UNDER CHEST, HEAD TURNED TO THE LEFT AND USED TOWELS FOR SUPPORT, BILATERAL ARMS BY PTS SIDE AT THIS TIME AND RESTRAINED. PT INCONTINENT OF SMALL BM, BATHED, BARRIER CREAM APPLIED, PILLOWS UTILIZED. PT SET UP FOR DIALYSIS - CURRENTLT IN PROGRESS. MD REACHED OUT TO SEE IF PT COULD POSSIBLY BE TRANSFERRED AND TREATED WITH ECMO - PT DENIED.
--- NOTE | 2021-02-26 11:30 | PC.NURSE ---
Addendum entered by Shantal Camarillo RN 02/26/21 19:17: Updated Ita via phone. Original Note: Shipping And Receiving Clerk let this RN know dialysis catheter not working. This RN and MD at beside to change catheter at same position. Hemodialysis resumed, will continue to monitor
[2021-02-26 12:08] LABS: Glucose, Whole Blood 202 mg/dL (60-115)
[2021-02-26 16:18] LABS: VBG Base Excess -3.7 mmol/L; VBG HCO3 24 mmol/L (22-26); VBG pCO2 56 mmHg; VBG pH 7.23 (7.32-7.43); VBG pO2 67 mmHg
[2021-02-26 16:27] LABS: Venous Blood Gas Refer to POC result
--- NOTE | 2021-02-26 16:34 | MHC.CM.PN ---
Pt remains in ICU on ventilatory support at 100% d/t COVID. Now on HD: no plans to vent wean at this time. Pt was independent prior to admission: D/C needs are not yet known and are dependent upon his clinical progress. CM will follow
[2021-02-26 16:37] LABS: Basophils Percent Auto 0.2 % (0-2); Eosinophils Percent Auto 0.1 % (0-4); Hematocrit 34.7 % (42-52); Hemoglobin 11.3 g/dl (14.0-18.0); Imm Gran Abs Auto 0.54 X10*3/uL (0.00-0.03); Imm Gran Pct Auto 2.8 % (0.0-0.4); Lymphocytes Absolute Auto 0.4 X10*3/uL (1.2-4.9); Lymphocytes Percent Auto 2.1 % (20-40); MANUAL DIFF FLAG SCAN; Mean Corpuscular HGB Conc 32.6 g/dl (31.0-36.0); Mean Corpuscular Hemoglobin 32.5 pg (27.0-33.0); Mean Corpuscular Volume 99.7 fL (80-98); Mean Platelet Volume 11.4 fL (9.4-12.4); Monocytes Absolute Auto 0.5 X10*3/uL (0.1-1.2); Monocytes Percent Auto 2.5 % (2-11); Neutrophils Absolute Auto 18.1 X10*3/uL (2.0-8.3); Neutrophils Percent Auto 92.3 % (45-73); Platelet Count 140 X10*3/uL (160-400); Red Blood Count 3.48 X10*6/uL (4.60-5.80); Red Cell Distribution Width 14.1 % (11.0-16.0); SCAN SMEAR FLAG 1; White Blood Count 19.6 X10*3/uL (4.8-10.8)
[2021-02-26] MEDS: vancomycin HCL 1,000 MG in 0.9 % Sodium Chloride 250 ML 270 MG IV (16:42)
[2021-02-26 16:54] LABS: SLIDE REVIEW VERIFIED
[2021-02-26 17:07] LABS: Anion Gap 24 (12-20); Blood Urea Nitrogen 71 mg/dL (9-16); Calcium 7.5 mg/dL (8.4-10.2); Carbon Dioxide 23 mmol/L (22-29); Chloride 99 mmol/L (96-108); Creatinine Clr Calc Pharmacy 17.8; Estimated Glomerular Filt Rate 9; Glucose Random 172 mg/dL (60-115); Potassium 5.4 mmol/L (3.3-5.1); Sodium 141 mmol/L (135-145)
--- NOTE | 2021-02-26 17:13 | P.PNCC_ITS ---
Subjective Subjective Date of Service: 02/26/21 Interval History: 50-year-old with morbid obesity and type 2 diabetic and hypertensive and asthma who presented with COVID-19 pneumonitis with ARDS and hypoxemic respiratory failure Who progressed from nasal high-flow and 100% non-rebreather to BiPAP for several days and refusing intubation until a became in emergency with respiratory rate of 45 oxygen saturations falling rapidly and during the time of intubation there was about a 5 minutes episode of asystole which responded to very brief CPR and epinephrine and he had been an uric since that time with ATN and I placed a dialysis catheter and central line and he has required prone Ng for prolonged periods of time almost emergently to rescue his oxygen saturations and currently stable in the prone position with saturation of 97% on an FiO2 of 100% and blood pressure on on minimal pressor support running 102/58 respirations 22 and today I had to replace his left IJ dialysis catheter over a wire because it largely pulled out at the time he was prone I have twice called Marie to ask for candidacy for ECMO and he was refused on good scientific grounds but are only recourse right now is aggressive dialysis prone positioning as needed He has also had a increasing temperature and he has been cultured but we were unable to get sputum and were unable to get a chest x-ray in this position so I am covering him empirically with 1 g of meropenem and 1 g of vancomycin today and pending culture results tomorrow Physical Exam Vital Signs: Vital Signs: Last Vital Signs Temp 102.2 F H 02/26/21 17:00 Pulse 108 H 02/26/21 17:00 Resp 22 H 02/26/21 17:00 BP 106/59 L 02/26/21 17:00 Pulse Ox 97 02/26/21 17:00 Body Mass Index 39.6 Const: Other: Bedside echo shows preserved left ventricular systolic function no primary valve or pericardial disease Lungs with bilateral rales and unfortunately on unable to get a chest x-ray so I do not have documentation of the current dialysis catheter position and I wanted to rule out a new infiltrate and or worsening effusion or possible the barotrauma but unfortunately it is going to have to wait till the morning because of his instability Objective Data Labs CBC & Chem 7: 02/26/21 16:14 02/26/21 16:14 Labs: Laboratory Results - last 24 hr 02/25/21 02/26/2102/26/21 18:14 00:33 05:24 WBC RBC Hgb Hct MCV MCH MCHC RDW Plt Count MPV Immature Gran % (Auto) Neut % (Auto) Lymph % (Auto) Stephenson % (Auto) Eos % (Auto) Baso % (Auto) Lymph # (Auto) [place] # (Auto) Eos # (Auto) Baso # (Auto) Abs Immat Gran (auto) Absolute Neuts (auto) Absolute Nucleated RBC Nucleated RBC % (auto) Smear Tech's Comments PT INR APTT D-Dimer VBG pH 7.22 L VBG pCO2 57 VBG pO2 57 VBG HCO3 24 VBG O2 Saturation 80.0 VBG Base Excess TNP Sodium Potassium Chloride Carbon Dioxide Anion Gap BUN Creatinine Estim Creat Clear Calc Estimated GFR POC Glucose 188 H 166 H Random Glucose Calcium Phosphorus Magnesium Albumin Procalcitonin 02/26/21 02/26/21 02/26/21 05:25 05:25 05:25 WBC 17.6 H RBC 3.43 L Hgb 10.7 L Hct 34.0 L MCV 99.1 H MCH 31.2 MCHC 31.5 RDW 14.0 Plt Count 147 L MPV 11.5 Immature Gran % (Auto) Neut % (Auto) Lymph % (Auto) Stephenson % (Auto) Eos % (Auto) Baso % (Auto) Lymph # (Auto) Stephenson # (Auto) Eos # (Auto) Baso # (Auto) Abs Immat Gran (auto) Absolute Neuts (auto) Absolute Nucleated RBC 0.020 H Nucleated RBC % (auto) 0.1 Smear Tech's Comments PT 14.2 H D INR 1.2 H APTT 25.2 D D-Dimer 4337 VBG pH VBG pCO2 VBG pO2 VBG HCO3 VBG O2 Saturation VBG Base Excess Sodium Potassium Chloride Carbon Dioxide Anion Gap BUN Creatinine Estim Creat Clear Calc Estimated GFR POC Glucose Random Glucose Calcium Phosphorus Magnesium Albumin Procalcitonin 10.55 02/26/21 02/26/21 02/26/21 05:25 06:05 11:56 WBC RBC Hgb Hct MCV MCH MCHC RDW Plt Count MPV Immature Gran % (Auto) Neut % (Auto) Lymph % (Auto) Stephenson % (Auto) Eos % (Auto) Baso % (Auto) Lymph # (Auto) Stephenson # (Auto) Eos # (Auto) Baso # (Auto) Abs Immat Gran (auto) Absolute Neuts (auto) Absolute Nucleated RBC Nucleated RBC % (auto) Smear Tech's Comments PT INR APTT D-Dimer VBG pH VBG pCO2 VBG pO2 VBG HCO3 VBG O2 Saturation VBG Base Excess Sodium 141 Potassium 5.9 H D Chloride 100 Carbon Dioxide 22 Anion Gap 25 H BUN 99 H* D Creatinine 8.46 H* Estim Creat Clear Calc 13.7 Estimated GFR 7 POC Glucose 135 H 202 H Random Glucose 140 H Calcium 7.3 L Phosphorus 12.1 H Magnesium 3.3 H Albumin 3.1 L Procalcitonin 02/26/21 02/26/21 02/26/21 16:12 16:14 16:14 WBC 19.6 H RBC 3.48 L Hgb 11.3 L Hct 34.7 L MCV 99.7 H MCH 32.5 MCHC 32.6 RDW 14.1 Plt Count 140 L MPV 11.4 Immature Gran % (Auto) 2.8 H Neut % (Auto) 92.3 H Lymph % (Auto) 2.1 L Stephen[place] % (Auto) 2.5 Eos % (Auto) 0.1 Baso % (Auto) 0.2 Lymph # (Auto) 0.4 L Stephenson # (Auto) 0.5 Eos # (Auto) 0.0 Baso # (Auto) 0.0 Abs Immat Gran (auto) 0.54 H Absolute Neuts (auto) 18.1 H Absolute Nucleated RBC 0.000 Nucleated RBC % (auto) 0.0 Smear Tech's Comments VERIFIED PT INR APTT D-Dimer VBG pH 7.23 L VBG pCO2 56 VBG pO2 67 VBG HCO3 24 VBG O2 Saturation 90.0 VBG Base Excess -3.7 Sodium 141 Potassium 5.4 H Chloride 99 Carbon Dioxide 23 Anion Gap 24 H BUN 71 H Creatinine 6.52 H* Estim Creat Clear Calc 17.8 Estimated GFR 9 POC Glucose Random Glucose 172 H Calcium 7.5 L Phosphorus Magnesium Albumin Procalcitonin Microbiology Microbiology Results: Microbiology 02/25/21 15:53 Urine Catheterized - Hebert Catheter Urine Culture - Preliminary No growth to date. 02/25/21 07:47 Blood - Venous Blood Culture - Preliminary No growth after 24 hours. 02/25/21 07:47 Blood - Venous Blood Culture - Preliminary No growth after 24 hours. 02/21/21 11:52 Sputum - Suctioned Gram Stain - Final 02/21/21 11:52 Sputum - Suctioned Sputum Culture - Final 02/21/21 12:12 Urine Catheterized - Hebert Catheter Urine Culture - Final No growth. 02/09/21 18:28 Blood - Venous Blood Culture - Final No growth after 5 days. 02/09/21 18:29 Blood - Venous Blood Culture - Final No growth after 5 days. 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 Status: Acute (5) ELODIA (acute kidney injury): Problem details: ELODIA in a setting of COVID-19 and reps failure Oliguric with hyperkalemia Overall prognosis guarded Discussed with ICU attending and agree with supporting with dialysis HD today Supportive care Status: Acute (6) Obesity: Status: Acute (7) Acute respiratory distress syndrome (ARDS) due to COVID-19 virus: Status: Acute (8) Viral sepsis: Status: Acute (9) Acute respiratory failure with hypoxia: Status: Acute (10) Pneumonia due to 2019-nCoV: Problem details: He has shortness of breath He has hypoxia Status: Acute (11) Hypoxia: Status: Acute (12) Unsteady gait: Status: Acute (13) Asthma: Status: Acute (14) Gout: Status: Acute (15) Pure hypercholesterolemia: Status: Acute (16) Diabetes mellitus: Status: Acute (17) Essential hypertension: Status: Acute Assessment and Plan: So ultimately at days and after potassium repletion to 4.6 she and after receiving at least 4 maintenance doses of Rythmol we successfully cardioverted back to atrial pacing at a rate of 80 with good mormon not just of rhythm but of his but of her blood pressure and even oxygen saturation and thus far the rhythm is holding on the above medication In addition it tomorrow they will be HIDA scan and possible consideration depending on result for percutaneous drainage of the gallbladder if to be if it is apparently a cholecystitis and we need to to repeat the C diff because of continued stooling but I am covering with IV metronidazole Time Spent With Patient Time: Total time spent is greater than 50% in coordination of care (as documented) at patient's floor/unit and/or counseling patient: Total time spent with greater than 50% in coordination of care (as documented) at patient's floor/unit and/or counseling patient:: 45
[2021-02-26 18:10] LABS: Glucose, Whole Blood 136 mg/dL (60-115)
[2021-02-26 18:14] LABS: Glucose Urine UA NEG (NEG); Leukocyte Esterase Urine NEG (NEG); Nitrite Urine NEG (NEG); PH 5.5 (5.0-8.0); Specific Gravity - Urine >= 1.030 (1.005-1.025); Urine Blood 3+ (NEG); Urine Ketones NEG (NEG); Urine Protein 3+ MG/DL (NEG-TRACE)
[2021-02-26 18:15] LABS: Appearance Urine HAZY; Color Urine YELLOW
[2021-02-26 18:22] LABS: Amorphous Sediment Urine TRACE /LPF; RBC Urine TNTC /HPF (0); Squamous Epithelial Cell Urine TRACE /LPF
[2021-02-27] VITALS (35 sets, daily range): BP systolic 91–130; BP diastolic 41–74; PULSE 80–135; RESP 20–23; TEMP 37.1–38.2; O2SAT 85–99
[2021-02-27 00:24] LABS: Glucose, Whole Blood 135 mg/dL (60-115)
[2021-02-27] MEDS: Albuterol/Iprat 2.5/0.5MG 3 ML AMPUL.NEB INHALE ×6 (04:33→19:52)
[2021-02-27] MEDS: Midazolam HCl/NS 50 MG/50 ML PLAST..BAG IVCONT (04:35)
[2021-02-27] MEDS: fentaNYL citrate/NS 1,000 MCG/100 ML PLAST..BAG 20 MCG IVCONT ×4 (04:37→20:28)
[2021-02-27 05:35] LABS: VBG Base Excess -4.6 mmol/L; VBG HCO3 23 mmol/L (22-26); VBG pCO2 54 mmHg; VBG pH 7.23 (7.32-7.43); VBG pO2 77 mmHg
[2021-02-27 05:44] LABS: Venous Blood Gas Refer to POC result
[2021-02-27 05:44] LABS: Glucose, Whole Blood 128 mg/dL (60-115)
--- NOTE | 2021-02-27 06:17 | PC.NURSE ---
P- At approx 1845, patient's tidal volumes were in the 200's, minute ventilation was 4, ettco2 14, sat in 90's. Vent settings ac 22/650/10/100%. Patient prone since morning with face hanging over the head of the bed to relieve pressure. I- Respiratory and PA at bedside to assess. Patient's endotracheal tube had migrated several cm. PA advanced tube. E- Vent synchrony achieved. P- Approx 2200, tidal volumes 0-200's, minute ventilation 2, ettco2 12, sat in 90's. Unable to pass suction cath through endotube. I- PA and respiratory at bedside. Tube tamer changed. Able to pass suction catheter when head lifted and neck extended. Patient repositioned with proning pillow to extend neck and facilitate ventilation. E- No further issues ventilating. Patient to remain prone until morning/md arrival per PA. Unable to assess skin integrity or change linen d/t instability. Patient desats when arms are repositioned or head is turned. Attempted to relief pressure with strategic linen and pillow positioning.
[2021-02-27 06:25] LABS: MANUAL DIFF FLAG NO
[2021-02-27 06:48] LABS: Basophils Percent Auto 0.1 % (0-2); Eosinophils Absolute Auto 0.2 X10*3/uL (0.0-0.4); Eosinophils Percent Auto 1.4 % (0-4); Hematocrit 31.6 % (42-52); Imm Gran Abs Auto 0.37 X10*3/uL (0.00-0.03); Imm Gran Pct Auto 2.1 % (0.0-0.4); Lymphocytes Absolute Auto 0.7 X10*3/uL (1.2-4.9); Lymphocytes Percent Auto 4.2 % (20-40); Mean Corpuscular HGB Conc 31.6 g/dl (31.0-36.0); Mean Corpuscular Hemoglobin 31.5 pg (27.0-33.0); Mean Corpuscular Volume 99.7 fL (80-98); Mean Platelet Volume 11.4 fL (9.4-12.4); Monocytes Absolute Auto 0.6 X10*3/uL (0.1-1.2); Monocytes Percent Auto 3.3 % (2-11); Neutrophils Absolute Auto 15.3 X10*3/uL (2.0-8.3); Neutrophils Percent Auto 88.9 % (45-73); Platelet Count 120 X10*3/uL (160-400); Red Blood Count 3.17 X10*6/uL (4.60-5.80); Red Cell Distribution Width 13.7 % (11.0-16.0); White Blood Count 17.2 X10*3/uL (4.8-10.8)
[2021-02-27 07:19] LABS: Procalcitonin 10.88 ng/mL
[2021-02-27 07:37] LABS: D Dimer 5430 NG/ML
[2021-02-27 07:40] LABS: INTERNATIONAL NORM RATIO 1.3 (0.9-1.1); Partial Thromboplastin Time 27.1 SEC (24.1-38.0); Prothrombin Time 14.9 SEC (10.8-13.0)
[2021-02-27 07:46] LABS: Anion Gap 26 (12-20); Blood Urea Nitrogen 93 mg/dL (9-16); Calcium 7.1 mg/dL (8.4-10.2); Carbon Dioxide 21 mmol/L (22-29); Chloride 100 mmol/L (96-108); Creatinine Clr Calc Pharmacy 14.5; Estimated Glomerular Filt Rate 7; Glucose Random 117 mg/dL (60-115); Magnesium 2.9 mg/dL (1.6-2.6); Phosphorus 12.8 mg/dL (2.7-4.5); Potassium 5.8 mmol/L (3.3-5.1); Sodium 141 mmol/L (135-145)
[2021-02-27 08:04] LABS: Albumin Level 2.9 g/dL (3.5-5.0)
[2021-02-27] MEDS: 0.9 % Sodium Chloride Flush 3 ML SYRINGE IVFLUSH ×2 (10:10→16:43)
[2021-02-27] MEDS: dexAMETHasone sod phosphate 4 MG/ML VIAL 5 MG IVPUSH (10:10)
--- NOTE | 2021-02-27 10:36 | MHC.CLN ---
F/U PT DID START TF OVER WEEKEND BUT CURRENTLY ON HOLD SINCE 02/26 R/T PRONING PT RECEIVING HD TODAY WHEN TF TO RE-START; RECOMMEND NEPRO TF AT MAX GOAL RATE 45CC/HR WITH 120CC FREE WATER Q 4 HOURS TO PROVIDE 1944KCALS (27KCALS/KG BASED ON IBW), 87G (1.2G/KG), 1265CC TOTAL WATER FROM FORMULA AND FLUSHES MONITOR TOLERANCE, RESIDUALS AND LYTES FOLLOWING
--- NOTE | 2021-02-27 11:58 | PM.PNNEP ---
Subjective Subjective Date of Service: 02/27/21 Interval history: 50-year-old with morbid obesity and type 2 diabetic and hypertensive and asthma who presented with COVID-19 pneumonitis with ARDS and hypoxemic respiratory failure Cont to require intensified HD given severe resp failure and ELODIA with VOL overload HD yesterday and will repat again today and most likely daily Physical Exam Vital Signs: Vital Signs: Last Vital Signs Temp 99.3 F 02/27/21 11:00 Pulse 80 02/27/21 11:00 Resp 23 H 02/27/21 11:00 BP 101/57 L 02/27/21 11:00 Pulse Ox 99 02/27/21 11:00 Body Mass Index 39.6 Const: General: ill appearing Resp: Auscultation: diminished lung sounds Cardio: Heart sounds: no gallops and no murmurs GI: Inspection: Yes obesity Palpation (GI): Soft to palpation Neuro: Motor exam (neuro): No Asterixis during motor activity present Objective Data Labs CBC & Chem 7: 02/27/21 05:30 02/27/21 05:30 Labs: Laboratory Results - last 24 hr 02/26/21 02/26/21 02/26/21 11:56 16:12 16:14 WBC 19.6 H RBC 3.48 L Hgb 11.3 L Hct 34.7 L MCV 99.7 H MCH 32.5 MCHC 32.6 RDW 14.1 Plt Count 140 L MPV 11.4 Immature Gran % (Auto) 2.8 H Neut % (Auto) 92.3 H Lymph % (Auto) 2.1 L [place] % (Auto) 2.5 Eos % (Auto) 0.1 Baso % (Auto) 0.2 Lymph # (Auto) 0.4 L [place] # (Auto) 0.5 Eos # (Auto) 0.0 Baso # (Auto) 0.0 Abs Immat Gran (auto) 0.54 H Absolute Neuts (auto) 18.1 H Absolute Nucleated RBC 0.000 Nucleated RBC % (auto) 0.0 Smear Tech's Comments VERIFIED PT INR APTT D-Dimer VBG pH 7.23 L VBG pCO2 56 VBG pO2 67 VBG HCO3 24 VBG O2 Saturation 90.0 VBG Base Excess -3.7 Sodium Potassium Chloride Carbon Dioxide Anion Gap BUN Creatinine Estim Creat Clear Calc Estimated GFR POC Glucose 202 H Random Glucose Calcium Phosphorus Magnesium Albumin Procalcitonin Urine Color Urine Appearance Urine pH Ur Specific [place] Urine Protein Urine Glucose (UA) Urine Ketones Urine Blood Urine Nitrite Ur Leukocyte Esterase Urine RBC Urine WBC Ur Squamous Epith Cells Amorphous Sediment Urine Bacteria 02/26/21 02/26/21 02/26/21 16:14 18:00 18:06 WBC RBC Hgb Hct MCV MCH MCHC RDW Plt Count MPV Immature Gran % (Auto) Neut % (Auto) Lymph % (Auto) [place] % (Auto) Eos % (Auto) Baso % (Auto) Lymph # (Auto) [place] # (Auto) Eos # (Auto) Baso # (Auto) Abs Immat Gran (auto) Absolute Neuts (auto) Absolute Nucleated RBC Nucleated RBC % (auto) Smear Tech's Comments PT INR APTT D-Dimer VBG pH VBG pCO2 VBG pO2 VBG HCO3 VBG O2 Saturation VBG Base Excess Sodium 141 Potassium 5.4 H Chloride 99 Carbon Dioxide 23 Anion Gap 24 H BUN 71 H Creatinine 6.52 H* Estim Creat Clear Calc 17.8 Estimated GFR 9 POC Glucose 136 H Random Glucose 172 H Calcium 7.5 L Phosphorus Magnesium Albumin Procalcitonin Urine Color YELLOW Urine Appearance HAZY Urine pH 5.5 Ur Specific [place] >= 1.030 H Urine Protein 3+ H Urine Glucose (UA) NEG Urine Ketones NEG Urine Blood 3+ H Urine Nitrite NEG Ur Leukocyte Esterase NEG Urine RBC TNTC H Urine WBC 1-4 Ur Squamous Epith Cells TRACE Amorphous Sediment TRACE Urine Bacteria NONE 02/27/21 02/27/21 02/27/21 00:20 05:28 05:30 WBC RBC Hgb Hct MCV MCH MCHC RDW Plt Count MPV Immature Gran % (Auto) Neut % (Auto) Lymph % (Auto) [place] % (Auto) Eos % (Auto) Baso % (Auto) Lymph # (Auto) [place] # (Auto) Eos # (Auto) Baso # (Auto) Abs Immat Gran (auto) Absolute Neuts (auto) Absolute Nucleated RBC Nucleated RBC % (auto) Smear Tech's Comments PT INR APTT D-Dimer VBG pH 7.23 L VBG pCO2 54 VBG pO2 77 VBG HCO3 23 VBG O2 Saturation 94.0 VBG Base Excess -4.6 Sodium Potassium Chloride Carbon Dioxide Anion Gap BUN Creatinine Estim Creat Clear Calc Estimated GFR POC Glucose 135 H Random Glucose Calcium Phosphorus Magnesium Albumin Procalcitonin 10.88 Urine Color Urine Appearance Urine pH Ur Specific [place] Urine Protein Urine Glucose (UA) Urine Ketones Urine Blood Urine Nitrite Ur Leukocyte Esterase Urine RBC Urine WBC Ur Squamous Epith Cells Amorphous Sediment Urine Bacteria 02/27/21 02/27/21 02/27/21 05:30 05:30 05:30 WBC 17.2 H RBC 3.17 L Hgb 10.0 L Hct 31.6 L MCV 99.7 H MCH 31.5 MCHC 31.6 RDW 13.7 Plt Count 120 L MPV 11.4 Immature Gran % (Auto) 2.1 H Neut % (Auto) 88.9 H Lymph % (Auto) 4.2 L [place] % (Auto) 3.3 Eos % (Auto) 1.4 Baso % (Auto) 0.1 Lymph # (Auto) 0.7 L [place] # (Auto) 0.6 Eos # (Auto) 0.2 Baso # (Auto) 0.0 Abs Immat Gran (auto) 0.37 H Absolute Neuts (auto) 15.3 H Absolute Nucleated RBC 0.000 Nucleated RBC % (auto) 0.0 Smear Tech's Comments PT 14.9 H INR 1.3 H APTT 27.1 D-Dimer 5430 VBG pH VBG pCO2 VBG pO2 VBG HCO3 VBG O2 Saturation VBG Base Excess Sodium 141 Potassium 5.8 H Chloride 100 Carbon Dioxide 21 L Anion Gap 26 H BUN 93 H* D Creatinine 8.03 H* Estim Creat Clear Calc 14.5 Estimated GFR 7 POC Glucose Random Glucose 117 H Calcium 7.1 L Phosphorus 12.8 H Magnesium 2.9 H Albumin 2.9 L Procalcitonin Urine Color Urine Appearance Urine pH Ur Specific [place] Urine Protein Urine Glucose (UA) Urine Ketones Urine Blood Urine Nitrite Ur Leukocyte Esterase Urine RBC Urine WBC Ur Squamous Epith Cells Amorphous Sediment Urine Bacteria 02/27/21 05:38 WBC RBC Hgb Hct MCV MCH MCHC RDW Plt Count MPV Immature Gran % (Auto) Neut % (Auto) Lymph % (Auto) [place] % (Auto) Eos % (Auto) Baso % (Auto) Lymph # (Auto) [place] # (Auto) Eos # (Auto) Baso # (Auto) Abs Immat Gran (auto) Absolute Neuts (auto) Absolute Nucleated RBC Nucleated RBC % (auto) Smear Tech's Comments PT INR APTT D-Dimer VBG pH VBG pCO2 VBG pO2 VBG HCO3 VBG O2 Saturation VBG Base Excess Sodium Potassium Chloride Carbon Dioxide Anion Gap BUN Creatinine Estim Creat Clear Calc Estimated GFR POC Glucose 128 H Random Glucose Calcium Phosphorus Magnesium Albumin Procalcitonin Urine Color Urine Appearance Urine pH Ur Specific [place] Urine Protein Urine Glucose (UA) Urine Ketones Urine Blood Urine Nitrite Ur Leukocyte Esterase Urine RBC Urine WBC Ur Squamous Epith Cells Amorphous Sediment Urine Bacteria Microbiology Microbiology Results: Microbiology 02/25/21 07:47 Blood - Venous Blood Culture - Preliminary No growth after 48 hours. 02/25/21 07:47 Blood - Venous Blood Culture - Preliminary No growth after 48 hours. 02/25/21 15:53 Urine Catheterized - Hebert Catheter Urine Culture - Final No growth. 02/21/21 11:52 Sputum - Suctioned Gram Stain - Final 02/21/21 11:52 Sputum - Suctioned Sputum Culture - Final 02/21/21 12:12 Urine Catheterized - Hebert Catheter Urine Culture - Final No growth. 02/09/21 18:28 Blood - Venous Blood Culture - Final No growth after 5 days. 02/09/21 18:29 Blood - Venous Blood Culture - Final No growth after 5 days. 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 Status: Acute (5) ELODIA (acute kidney injury): Problem details: Oliguric ELODIA in a setting of COVID-19 c/w cytokine storm assoc multifact ATN HyperK Resp failure SEVERE: req pronataion Overall prognosis guarded HD today and pull fluid as tolerated and use 2 K bath D/W ICU Status: Acute (6) Obesity: Status: Acute (7) Acute respiratory distress syndrome (ARDS) due to COVID-19 virus: Status: Acute (8) Viral sepsis: Status: Acute (9) Acute respiratory failure with hypoxia: Status: Acute (10) Pneumonia due to 2019-nCoV: Problem details: He has shortness of breath He has hypoxia Status: Acute (11) Hypoxia: Status: Acute (12) Unsteady gait: Status: Acute (13) Asthma: Status: Acute (14) Gout: Status: Acute (15) Pure hypercholesterolemia: Status: Acute (16) Diabetes mellitus: Status: Acute (17) Essential hypertension: Status: Acute Assessment and Plan: So ultimately at days and after potassium repletion to 4.6 she and after receiving at least 4 maintenance doses of Rythmol we successfully cardioverted back to atrial pacing at a rate of 80 with good lutheran not just of rhythm but of his but of her blood pressure and even oxygen saturation and thus far the rhythm is holding on the above medication In addition it tomorrow they will be HIDA scan and possible consideration depending on result for percutaneous drainage of the gallbladder if to be if it is apparently a cholecystitis and we need to to repeat the C diff because of continued stooling but I am covering with IV metronidazole Time Spent With Patient Time: Total time spent is greater than 50% in coordination of care (as documented) at patient's floor/unit and/or counseling patient:
[2021-02-27 12:03] LABS: Glucose, Whole Blood 116 mg/dL (60-115)
[2021-02-27] MEDS: Cisatracurium Besylate 20 MG/10 ML VIAL 16 MG IVPUSH (14:25)
[2021-02-27] MEDS: propofoL 1,000 MG/100 ML VIAL 10.98 MG IVCONT (14:30)
--- NOTE | 2021-02-27 14:48 | PM.CCPN ---
Subjective Subjective Date of Service: 02/27/21 Interval History: Mr. Sawyer Nelson was transferred to the ICU on February 13 with acute hypoxemic respiratory failure secondary to COVID pneumonia. The patient is a 50-year-old male with history of morbid obesity (5 ft 9, 122 kg), hypertension, gout, and diabetes. The patient presented to the hospital ambulatory on February 09 with complaints of shortness of breath, fever, body aches, weakness, asthma like symptoms, for the prior few days. Sat was 90% on room air. Labs were notable for severe lymphopenia; other biomarkers were low. CT angiogram showed mild-moderate scattered multifocal ground-glass infiltrates characteristic of COVID-19. Right heart and pulmonary artery characteristics were otherwise normal. The patient was admitted to Medicine and started on Decadron. He also had a 5 day course of remdesivir. Unfortunately, the patient's oxygenation progressively deteriorated and on February 13, he was transferred to the ICU for CPAP. He required 100% FiO2 on CPAP and then BiPAP. The patient repetitively refused tracheal intubation. Ultimately, he developed ventilatory failure and was intubated emergently on February 20, suffering a fashan-intubation ethan arrest. He received 2 rounds of CPR, about 5 minutes each. Since then, he?s been on 100% FiO2 almost continuously; has gotten down to as low as 80% only briefly. He developed anuric ATN and was started on dialysis on February 23. Has required a couple of proning episodes, the last one being over the last 24 hrs, necessitated by Sats in the 60?s. Was turned down for ECMO by three referral centers. This morning the patient is sedated on Versed and fentanyl. He?s prone. He?s on AC 22/600/100%/16, with PIP 44, Sat 99%. CVBG this morning showed 7.23/54-4. See Vital Signs below. He?s on Levophed 0.07ug and vasopressin 0.03u. Tmax 102.6 yest. The patient was dialyzed this morning, and after the dialysis session ended (took off 2.9L), we replaced his supine without difficulty. Initial Sat after turning supine dropped to 66%. We changed the vent to PC rate 20, pressures 13/14, 95%. His Sat rapidly vandana to the mid- then high 80?s. CVBG recheck showed 7.19/64/-4. PER, about 3-4 mm. No obvious JVD at 40?. Chest CTA, with normal exp phase. Soft heart tones, no murmur or gallop. Abdomen is benign. No significant peripheral edema. LABORATORY DATA: As below. White blood count is on a slow downward trend from a peak on February 21. Platelet count is also on a slow downward trend. He?s still lymphopenic. Potassium and renal indices were high this morning, prior to dialysis. D-dimer this morning 5430; PCT is 10, down from a peak of 58. CHEST X-RAY after returning him supine: Diffuse haziness in both lungs; overall, does not look that bad, and looks definitely improved from the previous film on February 24. IMPRESSION: 1. Underlying morbid obesity and diabetes. 2. Bilateral COVID pneumonia. I?ve upped his regimen to the [facility] protocol, with solumedrol 80mg bid, Vit D, Thiamine, B complex vits, atorvastatin, and Pepcid. 3. Acute respiratory failure. Secondary to above. His chest x-ray is much better than his severe hypoxemia with suggest. Biomarkers haven?t been that bad. We?ll get a duplex scan of his legs and screen for PE (trop and BNP; echo if nec). For now, we?ll vent w permissive hypercapnia. 4. S/P cardiac arrest. We?ve turned the Versed off. We?ll see how he wakes up over next few days. 5. Acute renal failure 2?ATN. D/W Dr. Hahn. Plan HD daily this week. 6. Hypotension: We?ll echo him tomorrow. 7. ID: He got one dose of Vanco yesterday, we?ll continue with that and send a sputum. I don?t think he has bacterial sepsis. Literally speaking, he has viral sepsis. 8. DM. Follow POCs. Will likely need insulin once we start feeds and the Solu-Medrol kicks in. 9. Nutrition. We?ll start tube feeds. Prognosis is grave. Critical care time (including multiple visits to the bedside, full chart review, and hospital course summary): 100+ minutes. Physical Exam Vital Signs: Vital Signs: Last Vital Signs Temp 99.1 F 02/27/21 14:00 Pulse 135 H 02/27/21 14:00 Resp 20 02/27/21 14:00 BP 130/65 02/27/21 14:00 Pulse Ox 89 L 02/27/21 14:00 Body Mass Index 39.6 Objective Data Labs CBC & Chem 7: 02/27/21 05:30 02/27/21 05:30 Labs: Laboratory Results - last 24 hr 02/26/21 02/26/21 02/26/21 16:12 16:14 16:14 WBC 19.6 H RBC 3.48 L Hgb 11.3 L Hct 34.7 L MCV 99.7 H MCH 32.5 MCHC 32.6 RDW 14.1 Plt Count 140 L MPV 11.4 Immature Gran % (Auto) 2.8 H Neut % (Auto) 92.3 H Lymph % (Auto) 2.1 L [place] % (Auto) 2.5 Eos % (Auto) 0.1 Baso % (Auto) 0.2 Lymph # (Auto) 0.4 L [place] # (Auto) 0.5 Eos # (Auto) 0.0 Baso # (Auto) 0.0 Abs Immat Gran (auto) 0.54 H Absolute Neuts (auto) 18.1 H Absolute Nucleated RBC 0.000 Nucleated RBC % (auto) 0.0 Smear Tech's Comments VERIFIED PT INR APTT D-Dimer VBG pH 7.23 L VBG pCO2 56 VBG pO2 67 VBG HCO3 24 VBG O2 Saturation 90.0 VBG Base Excess -3.7 Sodium 141 Potassium 5.4 H Chloride 99 Carbon Dioxide 23 Anion Gap 24 H BUN 71 H Creatinine 6.52 H* Estim Creat Clear Calc 17.8 Estimated GFR 9 POC Glucose Random Glucose 172 H Calcium 7.5 L Phosphorus Magnesium Albumin Procalcitonin Urine Color Urine Appearance Urine pH Ur Specific [place] Urine Protein Urine Glucose (UA) Urine Ketones Urine Blood Urine Nitrite Ur Leukocyte Esterase Urine RBC Urine WBC Ur Squamous Epith Cells Amorphous Sediment Urine Bacteria 02/26/21 02/26/21 02/27/21 18:00 18:06 00:20 WBC RBC Hgb Hct MCV MCH MCHC RDW Plt Count MPV Immature Gran % (Auto) Neut % (Auto) Lymph % (Auto) [place] % (Auto) Eos % (Auto) Baso % (Auto) Lymph # (Auto) [place] # (Auto) Eos # (Auto) Baso # (Auto) Abs Immat Gran (auto) Absolute Neuts (auto) Absolute Nucleated RBC Nucleated RBC % (auto) Smear Tech's Comments PT INR APTT D-Dimer VBG pH VBG pCO2 VBG pO2 VBG HCO3 VBG O2 Saturation VBG Base Excess Sodium Potassium Chloride Carbon Dioxide Anion Gap BUN Creatinine Estim Creat Clear Calc Estimated GFR POC Glucose 136 H 135 H Random Glucose Calcium Phosphorus Magnesium Albumin Procalcitonin Urine Color YELLOW Urine Appearance HAZY Urine pH 5.5 Ur Specific [place] >= 1.030 H Urine Protein 3+ H Urine Glucose (UA) NEG Urine Ketones NEG Urine Blood 3+ H Urine Nitrite NEG Ur Leukocyte Esterase NEG Urine RBC TNTC H Urine WBC 1-4 Ur Squamous Epith Cells TRACE Amorphous Sediment TRACE Urine Bacteria NONE 02/27/21 02/27/21 02/27/21 05:28 05:30 05:30 WBC 17.2 H RBC 3.17 L Hgb 10.0 L Hct 31.6 L MCV 99.7 H MCH 31.5 MCHC 31.6 RDW 13.7 Plt Count 120 L MPV 11.4 Immature Gran % (Auto) 2.1 H Neut % (Auto) 88.9 H Lymph % (Auto) 4.2 L [place] % (Auto) 3.3 Eos % (Auto) 1.4 Baso % (Auto) 0.1 Lymph # (Auto) 0.7 L [place] # (Auto) 0.6 Eos # (Auto) 0.2 Baso # (Auto) 0.0 Abs Immat Gran (auto) 0.37 H Absolute Neuts (auto) 15.3 H Absolute Nucleated RBC 0.000 Nucleated RBC % (auto) 0.0 Smear Tech's Comments PT INR APTT D-Dimer VBG pH 7.23 L VBG pCO2 54 VBG pO2 77 VBG HCO3 23 VBG O2 Saturation 94.0 VBG Base Excess -4.6 Sodium Potassium Chloride Carbon Dioxide Anion Gap BUN Creatinine Estim Creat Clear Calc Estimated GFR POC Glucose Random Glucose Calcium Phosphorus Magnesium Albumin Procalcitonin 10.88 Urine Color Urine Appearance Urine pH Ur Specific [place] Urine Protein Urine Glucose (UA) Urine Ketones Urine Blood Urine Nitrite Ur Leukocyte Esterase Urine RBC Urine WBC Ur Squamous Epith Cells Amorphous Sediment Urine Bacteria 02/27/21 02/27/21 02/27/21 05:30 05:30 05:38 WBC RBC Hgb Hct MCV MCH MCHC RDW Plt Count MPV Immature Gran % (Auto) Neut % (Auto) Lymph % (Auto) [place] % (Auto) Eos % (Auto) Baso % (Auto) Lymph # (Auto) [place] # (Auto) Eos # (Auto) Baso # (Auto) Abs Immat Gran (auto) Absolute Neuts (auto) Absolute Nucleated RBC Nucleated RBC % (auto) Smear Tech's Comments PT 14.9 H INR 1.3 H APTT 27.1 D-Dimer 5430 VBG pH VBG pCO2 VBG pO2 VBG HCO3 VBG O2 Saturation VBG Base Excess Sodium 141 Potassium 5.8 H Chloride 100 Carbon Dioxide 21 L Anion Gap 26 H BUN 93 H* D Creatinine 8.03 H* Estim Creat Clear Calc 14.5 Estimated GFR 7 POC Glucose 128 H Random Glucose 117 H Calcium 7.1 L Phosphorus 12.8 H Magnesium 2.9 H Albumin 2.9 L Procalcitonin Urine Color Urine Appearance Urine pH Ur Specific [place] Urine Protein Urine Glucose (UA) Urine Ketones Urine Blood Urine Nitrite Ur Leukocyte Esterase Urine RBC Urine WBC Ur Squamous Epith Cells Amorphous Sediment Urine Bacteria 02/27/21 11:59 WBC RBC Hgb Hct MCV MCH MCHC RDW Plt Count MPV Immature Gran % (Auto) Neut % (Auto) Lymph % (Auto) [place] % (Auto) Eos % (Auto) Baso % (Auto) Lymph # (Auto) [place] # (Auto) Eos # (Auto) Baso # (Auto) Abs Immat Gran (auto) Absolute Neuts (auto) Absolute Nucleated RBC Nucleated RBC % (auto) Smear Tech's Comments PT INR APTT D-Dimer VBG pH VBG pCO2 VBG pO2 VBG HCO3 VBG O2 Saturation VBG Base Excess Sodium Potassium Chloride Carbon Dioxide Anion Gap BUN Creatinine Estim Creat Clear Calc Estimated GFR POC Glucose 116 H Random Glucose Calcium Phosphorus Magnesium Albumin Procalcitonin Urine Color Urine Appearance Urine pH Ur Specific [place] Urine Protein Urine Glucose (UA) Urine Ketones Urine Blood Urine Nitrite Ur Leukocyte Esterase Urine RBC Urine WBC Ur Squamous Epith Cells Amorphous Sediment Urine Bacteria Microbiology Microbiology Results: Microbiology 02/25/21 07:47 Blood - Venous Blood Culture - Preliminary No growth after 48 hours. 02/25/21 07:47 Blood - Venous Blood Culture - Preliminary No growth after 48 hours. 02/25/21 15:53 Urine Catheterized - Hebert Catheter Urine Culture - Final No growth. 02/21/21 11:52 Sputum - Suctioned Gram Stain - Final 02/21/21 11:52 Sputum - Suctioned Sputum Culture - Final 02/21/21 12:12 Urine Catheterized - [place]bert Catheter Urine Culture - Final No growth. 02/09/21 18:28 Blood - Venous Blood Culture - Final No growth after 5 days. 02/09/21 18:29 Blood - Venous Blood Culture - Final No growth after 5 days. Progress Note: A&P Time Spent With Patient Time: Total time spent is greater than 50% in coordination of care (as documented) at patient's floor/unit and/or counseling patient: Total time spent with greater than 50% in coordination of care (as documented) at patient's floor/unit and/or counseling patient:: 0 Critical Care Time Critical Care Time (minutes): 90
[2021-02-27 15:07] LABS: VBG Base Excess -4.1 mmol/L; VBG HCO3 25 mmol/L (22-26); VBG pCO2 64 mmHg; VBG pH 7.19 (7.32-7.43); VBG pO2 73 mmHg
[2021-02-27 15:50] LABS: Vancomycin Random 14.4 mcg/mL (15-20)
[2021-02-27] MEDS: Cholecalciferol (Vitamin D3) 25 MCG TABLET 50 MCG G-TUBE (16:42)
[2021-02-27] MEDS: Heparin Sodium,Porcine 5,000 UNIT/ML VIAL 5000 UNIT SUBCUT (16:42)
[2021-02-27] MEDS: Chlorhexidine Gluc Oral Rinse 15 ML MOUTHWASH BUCCAL ×2 (16:42→20:28)
[2021-02-27] MEDS: Famotidine 20 MG TABLET G-TUBE (16:42)
[2021-02-27] MEDS: Atorvastatin Calcium 80 MG TABLET G-TUBE (16:42)
[2021-02-27] MEDS: methylPREDNISolone Sod Succ 125 MG/2 ML VIAL 80 MG IVPUSH (16:43)
[2021-02-27] MEDS: Insulin Lispro 100 UNIT/ML 3 ML VIAL SUBCUT (16:51)
[2021-02-27 16:53] LABS: Glucose, Whole Blood 190 mg/dL (60-115)
[2021-02-27] MEDS: propofoL 1,000 MG/100 ML VIAL 21.96 MG IVCONT ×2 (17:11→22:21)
[2021-02-27 18:46] LABS: Venous Blood Gas Refer to POC result
--- NOTE | 2021-02-27 20:13 | PC.NURSE ---
Addendum entered by Lucio Otto RN 02/27/21 20:26: updated Mateo Parrish; guardian, and he says he will update other family members; pa to update as well Original Note: Assumed care at 0700. Patient was sedate on versed and fentanyl; versed d/c'd per MD, sedation titrated per MD. Critical Cre this morning 8.03; HD initiated urgently and un-proning delayed by three hours to accomodate HD. Patient tolerated HD well. Patient had 2.9 L off. K was elevated before HD and despite HD yesterday, K worse than yesterday. Patient has #7.5 ETT, which was 25 marilu, this was advanced to 26 cm marilu by RT per MD after un-proning. Un-proning was not tolerated well by patient initially, requiring a one time dose of nimbex 16 mg, and patient desaturation of spo2 into 75% range; this was slow to recover, patient accessory muscle use was well addressed by nimbex. Patient was unproned about 13:45. Patient vitals reviewed over past 48 hours, and noted to have had 2 major desaturations while proned yesterday: once during proning and once in the evening; whereas the day before he had 7 desatruations per [employer] data graphical trend. Vent settings were adjusted today, now VC: rate 22; tv 650; fio2 100%; peep 16; te about 15, spo2 has been often 85-87% today while not proned. Patient tolerated downtitiration of levo to 0.12; vasopressin remains at 0.03; fentanyl at 200; propofol restarted and at 30. Patient with positive cough and gag, responds to noxious stimuli, no tracking, no commands followed but sedation not held today due to patient instability; only d/c'd versed. continues to make urine, averages around 14 cc/hour. poc have been well controlled. skin is intact, has a small 2cm brown papule on bottom of right foot, appears to be a hematoma per MD, who visualized this; buttocks pink and blanchable perianally; heels pink and blanchable bilaterally; nose bridge with stage 2 healing. Patient with heelbos, repositioning (minimal while proned); barrier cream; air loss bed; prevalon. Restarted heparin prophylaxis today and discussed with md and new order for sequentials
[2021-02-27] MEDS: Thiamine HCL 100 MG TABLET 200 MG G-TUBE (20:28)
[2021-02-28] VITALS (33 sets, daily range): BP systolic 89–127; BP diastolic 26–64; PULSE 82–125; RESP 15–30; TEMP 37.6–38.9; O2SAT 85–97
[2021-02-28] MEDS: Albuterol/Iprat 2.5/0.5MG 3 ML AMPUL.NEB INHALE ×6 (00:03→19:13)
[2021-02-28] MEDS: Heparin Sodium,Porcine 5,000 UNIT/ML VIAL 5000 UNIT SUBCUT ×3 (00:29→15:15)
[2021-02-28] MEDS: 0.9 % Sodium Chloride Flush 3 ML SYRINGE IVFLUSH ×2 (00:30→15:15)
[2021-02-28] MEDS: Insulin Lispro 100 UNIT/ML 3 ML VIAL SUBCUT ×3 (00:49→23:41)
[2021-02-28 00:55] LABS: Glucose, Whole Blood 220 mg/dL (60-115)
[2021-02-28] MEDS: fentaNYL citrate/NS 1,000 MCG/100 ML PLAST..BAG 20 MCG IVCONT ×4 (01:30→15:14)
[2021-02-28 01:50] LABS: VBG Base Excess -5.9 mmol/L; VBG HCO3 25 mmol/L (22-26); VBG pCO2 79 mmHg; VBG pO2 58 mmHg
[2021-02-28 01:51] LABS: Venous Blood Gas Refer to POC result
[2021-02-28] MEDS: propofoL 1,000 MG/100 ML VIAL 21.96 MG IVCONT ×2 (03:23→06:43)
[2021-02-28] MEDS: methylPREDNISolone Sod Succ 125 MG/2 ML VIAL 80 MG IVPUSH (03:23)
--- NOTE | 2021-02-28 05:14 | PC.NURSE ---
0145 end tidal co2 rising into the high 50s low 60. venous abg obtained ph 7.10 pco2 79 po2 58 hco3 25-venous gas reported as critical to midlevel provider jyothi adorno. rate of pressure control ventilation increased to 26 bpm with end tidal co2 falling into the mid 40s. sedated under the influences of propofol and fentanyl for ventilatory harmony. breath sounds diminished throughout. in-line suctioning yields no sputum. pts sao2 are best when he is positioned to right side. ecg displays sr. febrile 100.8-101.7 levophed infusion has been mandatory to achieve b/p guidelines. gastric aspirant has been>300 ml tube feedings of nepro on hold. grossly oliguric u/o 2-8ml/hr.
[2021-02-28 05:51] LABS: VBG Base Excess -7.4 mmol/L; VBG HCO3 23 mmol/L (22-26); VBG pCO2 70 mmHg; VBG pH 7.11 (7.32-7.43); VBG pO2 68 mmHg
[2021-02-28 06:09] LABS: Basophils Percent Auto 0.1 % (0-2); Hematocrit 33.4 % (42-52); Hemoglobin 10.5 g/dl (14.0-18.0); Imm Gran Abs Auto 1.01 X10*3/uL (0.00-0.03); Imm Gran Pct Auto 3.5 % (0.0-0.4); Lymphocytes Absolute Auto 0.5 X10*3/uL (1.2-4.9); Lymphocytes Percent Auto 1.7 % (20-40); MANUAL DIFF FLAG SCAN; Mean Corpuscular HGB Conc 31.4 g/dl (31.0-36.0); Mean Corpuscular Hemoglobin 31.6 pg (27.0-33.0); Mean Corpuscular Volume 100.6 fL (80-98); Mean Platelet Volume 11.7 fL (9.4-12.4); Monocytes Absolute Auto 0.6 X10*3/uL (0.1-1.2); NRBC Pct Auto 0.2 /100WBC (0.0-0.2); Neutrophils Absolute Auto 26.7 X10*3/uL (2.0-8.3); Neutrophils Percent Auto 92.7 % (45-73); Platelet Count 187 X10*3/uL (160-400); Red Blood Count 3.32 X10*6/uL (4.60-5.80); Red Cell Distribution Width 13.8 % (11.0-16.0); SCAN SMEAR FLAG 1; White Blood Count 28.8 X10*3/uL (4.8-10.8)
[2021-02-28 06:20] LABS: Venous Blood Gas Refer to POC result
[2021-02-28 06:29] LABS: Lactic Acid 1.5 mmol/L (0.5-2.0)
[2021-02-28 06:31] LABS: SLIDE REVIEW VERIFIED
[2021-02-28 06:50] LABS: B Type Natriuretic Peptide 796 pg/mL (<100); Troponin-I High Sensitivity 62.3 ng/L (<3.5-35.0)
[2021-02-28 06:53] LABS: Glucose, Whole Blood 194 mg/dL (60-115)
[2021-02-28 06:53] LABS: Alanine Aminotransferase 31 U/L (0-40); Albumin Level 3.2 g/dL (3.5-5.0); Alkaline Phosphatase 69 U/L (39-117); Anion Gap 27 (12-20); Aspartate Amino Transferase 38 U/L (5-37); Bilirubin Total 0.8 mg/dL (0.0-1.0); Blood Urea Nitrogen 93 mg/dL (9-16); C Reactive Protein 5.97 mg/dL (< or = 0.50); Carbon Dioxide 22 mmol/L (22-29); Chloride 96 mmol/L (96-108); Creatinine Clr Calc Pharmacy 15.3; Estimated Glomerular Filt Rate 8; Glucose Random 216 mg/dL (60-115); Phosphorus 14.9 mg/dL (2.7-4.5); Potassium 6.9 mmol/L (3.3-5.1); Sodium 138 mmol/L (135-145); Total Protein 6.2 g/dL (6.5-8.0)
[2021-02-28 06:57] LABS: Ferritin 1084 ng/mL (20-250)
[2021-02-28] MEDS: Insulin Regular, Human 100 UNIT/ML 3 ML VIAL 10 UNIT IVPUSH (07:13)
[2021-02-28] MEDS: Chlorhexidine Gluc Oral Rinse 15 ML MOUTHWASH BUCCAL ×3 (09:39→19:20)
[2021-02-28] MEDS: Thiamine HCL 100 MG TABLET 200 MG G-TUBE ×2 (09:39→19:20)
[2021-02-28] MEDS: Cholecalciferol (Vitamin D3) 25 MCG TABLET 50 MCG G-TUBE (09:39)
[2021-02-28] MEDS: Aspirin 81 MG TAB.CHEW G-TUBE (09:39)
[2021-02-28] MEDS: Famotidine 20 MG TABLET G-TUBE (09:39)
[2021-02-28] MEDS: Atorvastatin Calcium 80 MG TABLET G-TUBE (09:39)
[2021-02-28] MEDS: propofoL 1,000 MG/100 ML VIAL 18.3 MG IVCONT ×2 (11:48→15:15)
[2021-02-28] MEDS: methylPREDNISolone Sod Succ 500 MG in 0.9 % Sodium Chloride 50 ML 50 MG IV ×2 (12:00→22:22)
[2021-02-28] MEDS: Metoclopramide HCl Oral Soln 10 MG/10 ML SOLUTION 5 MG G-TUBE ×2 (12:04→19:20)
[2021-02-28 12:28] LABS: Glucose, Whole Blood 141 mg/dL (60-115)
[2021-02-28 13:22] LABS: Lactic Acid 2.7 mmol/L (0.5-2.0)
--- NOTE | 2021-02-28 14:45 | MHC.CM.PN ---
Pt remains on full ventilatory support with HD in ICU: Discussion in ICU rounds focused on pt's grave prognosis and likelihood of no recovery. Call placed to pt's brother, Mateo to give update on status. Mateo is the family contact lens molder and pt's HCP. Mateo verbalized understanding of pt's poor prognosis but states the family is optimistic about some recovery and wish to continue full support at this time. Planned to contact Mateo again on to provide updates. There are no plans for d/c at this time d/t pt's medical condition. MD is not inclined to pursue peg/trach placement per today's discussions. CM will continue to follow.
[2021-02-28 15:11] LABS: Vancomycin Random 9.3 mcg/mL (15-20)
--- NOTE | 2021-02-28 15:19 | PC.NURSE ---
pt remains intubated on pressure support, fi02 titrated to 90%, no secretions inline noted today, pt remains on propofol and fentanyl for sedation, levo and vaso for pressure support, nepro restarted at 10ml/hr, HR ST up to 120's, MD aware, ETCO2 up to high 50's today MD aware, rectal tube draining small amt brown stool, Pt transferred to new air mattress, tolerated fair, pt bathed and repositioned q2h, dialysis today took 4L off, will cont to monitor
--- NOTE | 2021-02-28 17:18 | P.PNCC_ITS ---
Subjective Subjective Date of Service: 02/28/21 Interval History: Mr. Sawyer Nelson was transferred to the ICU on February 13 with acute hypoxemic respiratory failure secondary to COVID pneumonia. The patient is a 50-year-old male with history of morbid obesity (5 ft 9, 122 kg), hypertension, gout, and diabetes. The patient presented to the hospital ambulatory on February 09 with complaints of shortness of breath, fever, body aches, weakness, asthma like symptoms, for the prior few days. Sat was 90% on room air. Labs were notable for severe lymphopenia; other biomarkers were low. CT angiogram showed mild-moderate scattered multifocal ground-glass infiltrates characteristic of COVID-19. Right heart and pulmonary artery characteristics were otherwise normal. The patient was admitted to Medicine and started on Decadron. He also had a 5 day course of remdesivir. The patient's oxygenation deteriorated progressively and on February 13, he was transferred to the ICU for CPAP. He required 100% FiO2 on CPAP and then BiPAP. The patient repetitively refused tracheal intubation. Ultimately, he developed ventilatory failure and was intubated emergently on February 20, suffering a afshan- intubation ethan-arrest. He received 2 rounds of CPR, about 5 minutes each. Since then, he?s been on 100% FiO2 almost continuously; has gotten down to as low as 80% only briefly. He developed anuric ATN and was started on dialysis on February 23. Has required a couple of proning episodes, the last one on February 26, necessitated by Sats in the 60?s. Was turned down for ECMO by three referral centers. We returned him supine yesterday, and changed him to PCV, able to maintain SpO2 about 90% on 90% FiO2/15cm PEEP. But his pCO2 is climbing. Yesterday, I changed him to the [facility] COVID protocol, with solumedrol 80mg bid, plus ancillary agents. On exam, he?s sedated on propofol 25ug and fent 200ug (the Versed was d/c?d yesterday). He?s completely unresponsive to all stimulation. PER, 2mm. No corneals, no dolls? eyes. No gag. Not breathing over the ventilator. See Vital Signs below. He?s on vasopressin at 0.03u and Levophed at 0.25ug. HR 108, SR. BP 115/50. Temp 99.7?, Tmax 102.0?. He?s on PC f26, 15/15, 1:1.5, 90%, with RR 26, Vt 500cc, Ve 13L, PIP 30, ETCO2 51. CVBG this morning showed 7.11/70/-7. Dialyzed this morning for 4L. No obvious JVD at 40?. Chest CTA, with normal exp phase. Soft heart tones, no murmur or gallop. Abdomen is benign. No significant peripheral edema. LABORATORY DATA: As below. WBC spiked to 28. He?s still severely lymphopenic. Potassium and renal indices were very high this morning, prior to dialysis. Ferritin is 1084, CRP down to 5.9. Trop is 62, BNP is 796. Lactate is 1.5. IMAGING: DVT study of the lower extremities yesterday was negative. ECHOCARDIOGRAM done by the [facility], interpreted by me: 1. LV wall thickness is top normal or mildly increased. 2. LV function is hyperdynamic, with no regional wall motion abnormalities EF about 70%. 3. RV is ballooned out with RV:LV ratio at least 1.0. 4. Left atrium is normal. Right atrium is top normal or mildly increased, but definitely larger than the left atrium. 5. 1+ TR by color-flow; tricuspid valve jet measured 2.4 m/sec. Gradient 23mm 6. IVC is mildly dilated (2.2 cm) with minimal inspiratory collapse. RVSP estimate 38 mm. IMPRESSION: 1. Underlying morbid obesity and diabetes. 2. Bilateral COVID pneumonia. We upped his regimen to the [facility] protocol. I also added ASA 81mg daily this morning. 3. Acute respiratory failure. Secondary to above. Venting w permissive hypercapnia. May need to start bicarb drip if we can?t increase his minute volume. With worsening hypercarbia, I started him on 3-day pulse steroids, 1g/day. 4. R/o PE. Worsening hypotension, the RV and RA on echo, and the BNP are c/w PE, altho nonspecific. The troponin is not, in particular, nor is the lactate. And the echo does not show an underfilled LV. No way to send him for any scan to r/o PE. He?s on heparin 5000 u SQ TID and ASA. Not a candidate for any kind of lytic bec of previous bleeding. I?m going to bump his SQ heparin to 7500u TID as an intermediate step. 5. S/P cardiac arrest. Not waking up yet, and not demonstrating any brain stem reflexes. The problem is that when the sedation was turned down in earlier days, his resp status decompensated. We?ll go slowly now. Dropped the prop and fent by 50%. 6. Acute renal failure 2?ATN. D/W Dr. Hahn. Plan HD daily this week. 7. Hypotension. Worse today. Echo is c/w right heart failure, but can?t say whether that?s new or old. Could have a PE, or could be septic (altho negative lactate is not suggestive). 8. ID: We?ve put him on vanco. Trying to get a sputum. Last blood and urine cultures on 02/25 were negative. We?ll reculture blood. 9. DM. Follow POCs. Will likely need insulin once we start feeds and the Solu- Medrol kicks in. 10. Nutrition. Starting tube feeds. Prognosis is very grave. Critical care time (including multiple visits to the bedside, full chart review, and hospital course summary): 70 minutes. Physical Exam Vital Signs: Vital Signs: Last Vital Signs Temp 99.9 F 02/28/21 16:54 Pulse 109 H 02/28/21 16:54 Resp 26 H 02/28/21 16:54 BP 107/47 L 02/28/21 16:54 Pulse Ox 88 L 02/28/21 16:54 Body Mass Index 39.6 Objective Data Labs CBC & Chem 7: 02/28/21 05:33 02/28/21 05:33 Labs: Laboratory Results - last 24 hr 02/21/21 02/28/21 02/28/21 19:58 00:39 01:43 WBC RBC Hgb Hct MCV MCH MCHC RDW Plt Count MPV Immature Gran % (Auto) Neut % (Auto) Lymph % (Auto) Park % (Auto) Eos % (Auto) Baso % (Auto) Lymph # (Auto) Park # (Auto) Eos # (Auto) Baso # (Auto) Abs Immat Gran (auto) Absolute Neuts (auto) Absolute Nucleated RBC Nucleated RBC % (auto) Smear Tech's Comments VBG pH 7.10 L* VBG pCO2 79 VBG pO2 58 VBG HCO3 25 VBG O2 Saturation 81.0 VBG Base Excess -5.9 Sodium Potassium Chloride Carbon Dioxide Anion Gap BUN Creatinine Estim Creat Clear Calc Estimated GFR POC Glucose 220 H Random Glucose Lactic Acid 2.7 H* Calcium Phosphorus Ferritin Total Bilirubin AST ALT Alkaline Phosphatase Troponin I High Sens C-Reactive Protein B-Natriuretic Peptide Total Protein Albumin Random Vancomycin 02/28/21 02/28/21 02/28/21 05:33 05:33 05:33 WBC 28.8 H RBC 3.32 L Hgb 10.5 L Hct 33.4 L MCV 100.6 H MCH 31.6 MCHC 31.4 RDW 13.8 Plt Count 187 D MPV 11.7 Immature Gran % (Auto) 3.5 H Neut % (Auto) 92.7 H Lymph % (Auto) 1.7 L Park % (Auto) 2.0 Eos % (Auto) 0.0 Baso % (Auto) 0.1 Lymph # (Auto) 0.5 L Park # (Auto) 0.6 Eos # (Auto) 0.0 Baso # (Auto) 0.0 Abs Immat Gran (auto) 1.01 H Absolute Neuts (auto) 26.7 H Absolute Nucleated RBC 0.050 H Nucleated RBC % (auto) 0.2 Smear Tech's Comments VERIFIED VBG pH VBG pCO2 VBG pO2 VBG HCO3 VBG O2 Saturation VBG Base Excess Sodium 138 Potassium 6.9 H* Chloride 96 Carbon Dioxide 22 Anion Gap 27 H BUN 93 H* Creatinine 7.59 H* Estim Creat Clear Calc 15.3 Estimated GFR 8 POC Glucose Random Glucose 216 H D Lactic Acid 1.5 Calcium 7.0 L Phosphorus 14.9 H Ferritin 1084 H Total Bilirubin 0.8 AST 38 H ALT 31 Alkaline Phosphatase 69 Troponin I High Sens C-Reactive Protein 5.97 H B-Natriuretic Peptide Total Protein 6.2 L D Albumin 3.2 L Random Vancomycin 02/28/21 02/28/21 02/28/21 05:33 05:43 06:35 WBC RBC Hgb Hct MCV MCH MCHC RDW Plt Count MPV Immature Gran % (Auto) Neut % (Auto) Lymph % (Auto) Park % (Auto) Eos % (Auto) Baso % (Auto) Lymph # (Auto) Park # (Auto) Eos # (Auto) Baso # (Auto) Abs Immat Gran (auto) Absolute Neuts (auto) Absolute Nucleated RBC Nucleated RBC % (auto) Smear Tech's Comments VBG pH 7.11 L* VBG pCO2 70 VBG pO2 68 VBG HCO3 23 VBG O2 Saturation 82.0 VBG Base Excess -7.4 Sodium Potassium Chloride Carbon Dioxide Anion Gap BUN Creatinine Estim Creat Clear Calc Estimated GFR POC Glucose 194 H Random Glucose Lactic Acid Calcium Phosphorus Ferritin Total Bilirubin AST ALT Alkaline Phosphatase Troponin I High Sens 62.3 H D C-Reactive Protein B-Natriuretic Peptide 796 H Total Protein Albumin Random Vancomycin 02/28/21 02/28/21 12:24 14:09 WBC RBC Hgb Hct MCV MCH MCHC RDW Plt Count MPV Immature Gran % (Auto) Neut % (Auto) Lymph % (Auto) Park % (Auto) Eos % (Auto) Baso % (Auto) Lymph # (Auto) Park # (Auto) Eos # (Auto) Baso # (Auto) Abs Immat Gran (auto) Absolute Neuts (auto) Absolute Nucleated RBC Nucleated RBC % (auto) Smear Tech's Comments VBG pH VBG pCO2 VBG pO2 VBG HCO3 VBG O2 Saturation VBG Base Excess Sodium Potassium Chloride Carbon Dioxide Anion Gap BUN Creatinine Estim Creat Clear Calc Estimated GFR POC Glucose 141 H Random Glucose Lactic Acid Calcium Phosphorus Ferritin Total Bilirubin AST ALT Alkaline Phosphatase Troponin I High Sens C-Reactive Protein B-Natriuretic Peptide Total Protein Albumin Random Vancomycin 9.3 L Microbiology Microbiology Results: Microbiology 02/25/21 07:47 Blood - Venous Blood Culture - Preliminary No growth after 48 hours. 02/25/21 07:47 Blood - Venous Blood Culture - Preliminary No growth after 48 hours. 02/25/21 15:53 Urine Catheterized - Hebert Catheter Urine Culture - Final No growth. 02/21/21 11:52 Sputum - Suctioned Gram Stain - Final 02/21/21 11:52 Sputum - Suctioned Sputum Culture - Final 02/21/21 12:12 Urine Catheterized - Hebert Catheter Urine Culture - Final No growth. 02/09/21 18:28 Blood - Venous Blood Culture - Final No growth after 5 days. 02/09/21 18:29 Blood - Venous Blood Culture - Final No growth after 5 days. Progress Note: A&P Time Spent With Patient Time: Total time spent is greater than 50% in coordination of care (as documented) at patient's floor/unit and/or counseling patient: Total time spent with greater than 50% in coordination of care (as documented) at patient's floor/unit and/or counseling patient:: 0 Critical Care Time Critical Care Time (minutes): 60
[2021-02-28] MEDS: vancomycin HCL 1,250 MG in 0.9 % Sodium Chloride 250 ML 166.67 MG IV (17:39)
[2021-02-28 17:56] LABS: ABG Base Excess -3.1 mmol/L; ABG HCO3 26 mmol/L (22-26); ABG pCO2 70 mmHg (32-45); ABG pH 7.18 (7.35-7.45); ABG pO2 77 mmHg (83-108)
[2021-02-28 18:01] LABS: VBG HCO3 27 mmol/L (22-26); VBG pCO2 77 mmHg; VBG pH 7.15 (7.32-7.43); VBG pO2 78 mmHg
[2021-02-28 18:26] LABS: Glucose, Whole Blood 223 mg/dL (60-115)
[2021-02-28 18:56] LABS: Venous Blood Gas Refer to POC result
--- NOTE | 2021-02-28 18:58 | P.PNNP_ITS ---
Subjective Subjective Date of Service: 03/01/21 Interval history: Seen and examined. Events as noted. Physical Exam Vital Signs: Vital Signs: Last Vital Signs Temp 99.7 F 02/28/21 17:56 Pulse 108 H 02/28/21 17:56 Resp 26 H 02/28/21 17:56 BP 110/49 L 02/28/21 17:56 Pulse Ox 88 L 02/28/21 17:56 Body Mass Index 39.6 Const: Other: Bedside echo shows preserved left ventricular systolic function no primary valve or pericardial disease Lungs with bilateral rales and unfortunately on unable to get a chest x-ray so I do not have documentation of the current dialysis catheter position and I wanted to rule out a new infiltrate and or worsening effusion or possible the b arotrauma but unfortunately it is going to have to wait till the morning because of his instability General: cooperative, healthy appearing, comfortable, no acute distress, alert, awake and ill appearing; No in distress, confusion or diaphoretic Nutritional Appearance: obese Orientation/consciousness: patient oriented x3 and No confusion Limitations: no limitations HENMT: Head: Yes normal to inspection Face and sinus: Yes normal facial exam Mouth: Normal oral and palatal mucosa present Eyes: General: appearance normal, both eyes and all related structures Sclerae: sclerae normal EOM: EOMs intact bilaterally Neck: Neck: Yes normal visual inspection, Yes full ROM, Yes no lymphadenopathy, Yes trachea midline and Yes supple Resp: Effort & Inspection: normal respiratory effort, able to speak in complete sentences and no respiratory distress Auscultation: clear to auscultation bilaterally, crackles (Diffuse bilateral) bilateral and diffuse, rhonchi, diminished lung sounds and other (coarse lung sounds) Cardio: Rate: regular rate and tachycardic Rhythm: regular rhythm Heart sounds: no gallops, no murmurs, no rubs and normal S1 and S2 GI: Inspection: Yes normal to inspection and Yes obesity Palpation (GI): Soft to palpation, nontender and Other GI palpation findings present ( Nontender) Auscultation: normal bowel sounds Skin: Other: On examination of the skin the patient has on the bridge of his knows a small area about the size of a dive of skin breakdown the deepest aspect is a stage II centrally. No other facial skin breakdown Patient has pitting edema of the lower extremities in anterior shins have several intact blisters. There is no evidence of pressure spots here General skin exam: no rashes or lesions noted and no pallor Lesions: no lesions Rashes: no rashes Neuro: General: patient oriented x3 and No confusion Cognition (Neuro): normal cognition Motor exam (neuro): No Asterixis during motor activity present Extrem: General: Yes normal to inspection, Yes no pedal edema, No clubbing, No cyanosis and Yes pedal edema (Trace bilateral) Objective Data Labs CBC & Chem 7: 03/01/21 05:40 03/01/21 05:40 Labs: Laboratory Results - last 24 hr 02/21/21 02/28/21 02/28/21 19:58 00:39 01:43 WBC RBC Hgb Hct MCV MCH MCHC RDW Plt Count MPV Immature Gran % (Auto) Neut % (Auto) Lymph % (Auto) Clayton % (Auto) Eos % (Auto) Baso % (Auto) Lymph # (Auto) [place] # (Auto) Eos # (Auto) Baso # (Auto) Abs Immat Gran (auto) Absolute Neuts (auto) Absolute Nucleated RBC Nucleated RBC % (auto) Smear Tech's Comments O2 Saturation ABG pH at Pt Temp ABG pCO2 at Pt Temp ABG pO2 at Pt Temp ABG HCO3 ABG Base Excess (Actual) VBG pH 7.10 L* VBG pCO2 79 VBG pO2 58 VBG HCO3 25 VBG O2 Saturation 81.0 VBG Base Excess -5.9 Sodium Potassium Chloride Carbon Dioxide Anion Gap BUN Creatinine Estim Creat Clear Calc Estimated GFR POC Glucose 220 H Random Glucose Lactic Acid 2.7 H* Calcium Phosphorus Ferritin Total Bilirubin AST ALT Alkaline Phosphatase Troponin I High Sens C-Reactive Protein B-Natriuretic Peptide Total Protein Albumin Random Vancomycin 02/28/21 02/28/21 02/28/21 05:33 05:33 05:33 WBC 28.8 H RBC 3.32 L Hgb 10.5 L Hct 33.4 L MCV 100.6 H MCH 31.6 MCHC 31.4 RDW 13.8 Plt Count 187 D MPV 11.7 Immature Gran % (Auto) 3.5 H Neut % (Auto) 92.7 H Lymph % (Auto) 1.7 L Clayton % (Auto) 2.0 Eos % (Auto) 0.0 Baso % (Auto) 0.1 Lymph # (Auto) 0.5 L Clayton # (Auto) 0.6 Eos # (Auto) 0.0 Baso # (Auto) 0.0 Abs Immat Gran (auto) 1.01 H Absolute Neuts (auto) 26.7 H Absolute Nucleated RBC 0.050 H Nucleated RBC % (auto) 0.2 Smear Tech's Comments VERIFIED O2 Saturation ABG pH at Pt Temp ABG pCO2 at Pt Temp ABG pO2 at Pt Temp ABG HCO3 ABG Base Excess (Actual) VBG pH VBG pCO2 VBG pO2 VBG HCO3 VBG O2 Saturation VBG Base Excess Sodium 138 Potassium 6.9 H* Chloride 96 Carbon Dioxide 22 Anion Gap 27 H BUN 93 H* Creatinine 7.59 H* Estim Creat Clear Calc 15.3 Estimated GFR 8 POC Glucose Random Glucose 216 H D Lactic Acid 1.5 Calcium 7.0 L Phosphorus 14.9 H Ferritin 1084 H Total Bilirubin 0.8 AST 38 H ALT 31 Alkaline Phosphatase 69 Troponin I High Sens C-Reactive Protein 5.97 H B-Natriuretic Peptide Total Protein 6.2 L D Albumin 3.2 L Random Vancomycin 02/28/21 02/28/21 02/28/21 05:33 05:43 06:35 WBC RBC Hgb Hct MCV MCH MCHC RDW Plt Count MPV Immature Gran % (Auto) Neut % (Auto) Lymph % (Auto) Clayton % (Auto) Eos % (Auto) Baso % (Auto) Lymph # (Auto) [place] # (Auto) Eos # (Auto) Baso # (Auto) Abs Immat Gran (auto) Absolute Neuts (auto) Absolute Nucleated RBC Nucleated RBC % (auto) Smear Tech's Comments O2 Saturation ABG pH at Pt Temp ABG pCO2 at Pt Temp ABG pO2 at Pt Temp ABG HCO3 ABG Base Excess (Actual) VBG pH 7.11 L* VBG pCO2 70 VBG pO2 68 VBG HCO3 23 VBG O2 Saturation 82.0 VBG Base Excess -7.4 Sodium Potassium Chloride Carbon Dioxide Anion Gap BUN Creatinine Estim Creat Clear Calc Estimated GFR POC Glucose 194 H Random Glucose Lactic Acid Calcium Phosphorus Ferritin Total Bilirubin AST ALT Alkaline Phosphatase Troponin I High Sens 62.3 H D C-Reactive Protein B-Natriuretic Peptide 796 H Total Protein Albumin Random Vancomycin 02/28/21 02/28/21 02/28/21 12:24 14:09 17:49 WBC RBC Hgb Hct MCV MCH MCHC RDW Plt Count MPV Immature Gran % (Auto) Neut % (Auto) Lymph % (Auto) [place] % (Auto) Eos % (Auto) Baso % (Auto) Lymph # (Auto) [place] # (Auto) Eos # (Auto) Baso # (Auto) Abs Immat Gran (auto) Absolute Neuts (auto) Absolute Nucleated RBC Nucleated RBC % (auto) Smear Tech's Comments O2 Saturation 93.0 ABG pH at Pt Temp 7.18 L* ABG pCO2 at Pt Temp 70 H* ABG pO2 at Pt Temp 77 L ABG HCO3 26 ABG Base Excess (Actual) -3.1 VBG pH VBG pCO2 VBG pO2 VBG HCO3 VBG O2 Saturation VBG Base Excess Sodium Potassium Chloride Carbon Dioxide Anion Gap BUN Creatinine Estim Creat Clear Calc Estimated GFR POC Glucose 141 H Random Glucose Lactic Acid Calcium Phosphorus Ferritin Total Bilirubin AST ALT Alkaline Phosphatase Troponin I High Sens C-Reactive Protein B-Natriuretic Peptide Total Protein Albumin Random Vancomycin 9.3 L 02/28/21 02/28/21 17:55 18:05 WBC RBC Hgb Hct MCV MCH MCHC RDW Plt Count MPV Immature Gran % (Auto) Neut % (Auto) Lymph % (Auto) [place] % (Auto) Eos % (Auto) Baso % (Auto) Lymph # (Auto) [place] # (Auto) Eos # (Auto) Baso # (Auto) Abs Immat Gran (auto) Absolute Neuts (auto) Absolute Nucleated RBC Nucleated RBC % (auto) Smear Tech's Comments O2 Saturation ABG pH at Pt Temp ABG pCO2 at Pt Temp ABG pO2 at Pt Temp ABG HCO3 ABG Base Excess (Actual) VBG pH 7.15 L* VBG pCO2 77 VBG pO2 78 VBG HCO3 27 H VBG O2 Saturation 93.0 VBG Base Excess -3.0 Sodium Potassium Chloride Carbon Dioxide Anion Gap BUN Creatinine Estim Creat Clear Calc Estimated GFR POC Glucose 223 H Random Glucose Lactic Acid Calcium Phosphorus Ferritin Total Bilirubin AST ALT Alkaline Phosphatase Troponin I High Sens C-Reactive Protein B-Natriuretic Peptide Total Protein Albumin Random Vancomycin Microbiology Microbiology Results: Microbiology 02/25/21 07:47 Blood - Venous Blood Culture - Preliminary No growth after 48 hours. 02/25/21 07:47 Blood - Venous Blood Culture - Preliminary No growth after 48 hours. 02/25/21 15:53 Urine Catheterized - Hebert Catheter Urine Culture - Final No growth. 02/21/21 11:52 Sputum - Suctioned Gram Stain - Final 02/21/21 11:52 Sputum - Suctioned Sputum Culture - Final 02/21/21 12:12 Urine Catheterized - Hebert Catheter Urine Culture - Final No growth. 02/09/21 18:28 Blood - Venous Blood Culture - Final No growth after 5 days. 02/09/21 18:29 Blood - Venous Blood Culture - Final No growth after 5 days. Assessment & Plan Assessment and plan (1) Pressure ulcer of other site, stage 2: Status: Acute (2) Acute uremia: Status: Acute (3) Morbid obesity: Status: Acute (4) Pulmonary aspiration: Status: Acute (5) ELODIA (acute kidney injury): Problem details: Oliguric ELODIA in a setting of COVID-19 c/w cytokine storm assoc multifact ATN HyperK Resp failure SEVERE: req pronataion on/off apparently not a candidate for ECMO Overall prognosis guarded HD today and pull fluid as tolerated and use 2 K bath D/W ICU Status: Acute (6) Obesity: Status: Acute (7) Acute respiratory distress syndrome (ARDS) due to COVID-19 virus: Status: Acute (8) Viral sepsis: Status: Acute (9) Acute respiratory failure with hypoxia: Status: Acute (10) Pneumonia due to 2019-nCoV: Status: Acute (11) Hypoxia: Status: Acute (12) Unsteady gait: Status: Acute (13) Asthma: Status: Acute (14) Gout: Status: Acute (15) Pure hypercholesterolemia: Status: Acute (16) Diabetes mellitus: Status: Acute (17) Essential hypertension: Status: Acute Time Spent With Patient Time: Total time spent is greater than 50% in coordination of care (as documented) at patient's floor/unit and/or counseling patient:
--- NOTE | 2021-02-28 20:40 | CA_ITS ---
Transthoracic Echocardiogram Patient (Last, First, Middle): Samson Amador, Gender: Male Date of : 1970 Age: 50 Procedure Date: 02/28/2021 Procedure Type: Transthoracic Echocardiogram Location: ICU Height: 175.26 cm Weight: 121.99 kg BSA: 2.34 m2 Heart Rate: bpm Rn Oncology: QUE Referring MD: Dennis George Symptoms: acute respiratory failure w refractory hypotension Study Quality: Fair ECG Rhythm: Sinus Conclusions: - The left ventricular systolic function is normal. The visually estimated ejection fraction is between 65-70%. - No obvious valvular pathology seen on this study. Findings Left Ventricle Normal left ventricular cavity size. There is mildly increased left ventricular wall thickness. The left ventricular systolic function is normal. The visually estimated ejection fraction is between 65-70%. There is no evidence of regional wall motion abnormalities. Diastolic function is normal for age. Right Ventricle Mildly increased right ventricular cavity size. There is normal right ventricular systolic function. Atria The left atrium is normal in size. The right atrium is normal in size. Aortic Valve The aortic valve was not well visualized. There is no aortic valve stenosis. There is no aortic valve regurgitation. Mitral Valve The mitral valve appears normal. There is trace mitral valve regurgitation. There is no mitral valve stenosis. Pulmonic Valve The pulmonic valve was not well visualized. Tricuspid Valve There is trace tricuspid valve regurgitation. RVSP 23mmHg + RA pressure. (patient intubated). Great Vessels The aorta was not well visualized. Venous The inferior vena cava is mildly dilated and collapses less than 50% with inspiration. Pericardium/Pleural There is no evidence of pericardial effusion. Prior Study Comparison No significant change compared to prior study dated: 11/05/2018. Recommendations, Care & Conclusions No obvious valvular pathology seen on this study. Measurements 2D Linear Measurements Ao Root: 2.90 2.1-3.5 cm LVOT Diam: 2.10 3.0+(-)1.3 cm Mitral Valve MV Pk E: 1.05 MV PK A: 0.86 MV Decel Time: 162.00 E/A: 1.20 E'Lateral: 16.40 E'Medial: 10.90 E/E' Med: 9.60 E/E' Lat: 6.40 PHT: 47.00 MVA PHT: 4.68 Decel [place]: 6.47 Aortic Valve AoV Pk Raymond: 2.06 AoV Mn Raymond: 1.41 AoV VTI: 0.28 AoV Pk Grad: 17.00 Aov Mn Grad: 9.00 RUDOLPH Cont.VTI: 2.57 LVOT LVOT Pk Raymond: 1.40 LVOT Mn Raymond: 0.83 LVOT VTI: 0.20 LVOT Pk Grad: 8.00 LVOT Mn Grad: 3.00 LVOT Diam: 2.10 LVOT Area: 3.46 Diastolic Function MV Pk E: 1.05 MV Pk A: 0.86 E/A: 1.20 E'Medial: 10.90 E/E' Med: 9.60 E' Laterial: 16.40 E/E' Lat: 6.40 Tricuspid Valve TR Pk Raymond: 2.27 TR Pk Grad: 21.00 Great Vessels Aorta Ao Root-2D: 2.90 2.0-3.7 cm Pulmonary Valve PV Pk Raymond: 1.40 Peak PV Grad: 8.00 Updated in Other Vendor System with Status of Final Dannie Davis MD electronically signed on 02/28/2021 4:55:17 PM with status of Final
[2021-02-28] MEDS: Heparin Sodium,Porcine 5,000 UNIT/ML VIAL 7500 UNIT SUBCUT (22:25)
[2021-02-28] MEDS: propofoL 1,000 MG/100 ML VIAL 10.98 MG IVCONT (22:26)
[2021-03-01] VITALS (33 sets, daily range): BP systolic 98–126; BP diastolic 31–65; PULSE 102–130; RESP 26–32; TEMP 38.7–39.4; O2SAT 85–97
[2021-03-01] MEDS: fentaNYL citrate/NS 1,000 MCG/100 ML PLAST..BAG 10 MCG IVCONT (00:06)
[2021-03-01] MEDS: Albuterol/Iprat 2.5/0.5MG 3 ML AMPUL.NEB INHALE ×7 (00:15→20:21)
[2021-03-01] MEDS: 0.9 % Sodium Chloride Flush 3 ML SYRINGE IVFLUSH ×3 (00:35→23:21)
[2021-03-01 03:20] LABS: Glucose, Whole Blood 228 mg/dL (60-115)
[2021-03-01] MEDS: propofoL 1,000 MG/100 ML VIAL 21.96 MG IVCONT ×5 (03:21→20:05)
[2021-03-01] MEDS: fentaNYL citrate/NS 1,000 MCG/100 ML PLAST..BAG 20 MCG IVCONT ×5 (03:22→23:20)
[2021-03-01] MEDS: Insulin Lispro 100 UNIT/ML 3 ML VIAL SUBCUT (05:43)
[2021-03-01 05:53] LABS: VBG Base Excess -4.4 mmol/L; VBG HCO3 25 mmol/L (22-26); VBG pCO2 70 mmHg; VBG pH 7.15 (7.32-7.43); VBG pO2 72 mmHg
[2021-03-01 05:58] LABS: Basophils Percent Auto 0.1 % (0-2); Hematocrit 30.9 % (42-52); Hemoglobin 9.7 g/dl (14.0-18.0); Lymphocytes Absolute Auto 0.6 X10*3/uL (1.2-4.9); Lymphocytes Percent Auto 2.6 % (20-40); MANUAL DIFF FLAG SCAN; Mean Corpuscular HGB Conc 31.4 g/dl (31.0-36.0); Mean Corpuscular Hemoglobin 31.2 pg (27.0-33.0); Mean Corpuscular Volume 99.4 fL (80-98); Mean Platelet Volume 11.5 fL (9.4-12.4); Monocytes Absolute Auto 0.6 X10*3/uL (0.1-1.2); Monocytes Percent Auto 2.4 % (2-11); NRBC Pct Auto 0.3 /100WBC (0.0-0.2); Neutrophils Absolute Auto 21.3 X10*3/uL (2.0-8.3); Neutrophils Percent Auto 91.9 % (45-73); Platelet Count 189 X10*3/uL (160-400); Red Blood Count 3.11 X10*6/uL (4.60-5.80); Red Cell Distribution Width 13.9 % (11.0-16.0); SCAN SMEAR FLAG 1; White Blood Count 23.2 X10*3/uL (4.8-10.8)
[2021-03-01 06:13] LABS: D Dimer 4705 NG/ML
--- NOTE | 2021-03-01 06:25 | PC.NURSE ---
CARE ASSUMED 23:15...REMAINS TUBED/VENTED--PCV MODE...Ve 14-15 l/m...RR 32-34....PER REPORT SEDATION PREVIOUSLY DECREASED TO PROPOFOL 15 MCG/KG/M AND FENTANYL 100 MCG/HR...WITH REPOSITIONING MARKED VENT DYSYNCHRONY...FORCFUL GAG/COUGH...NO SPUTUM...RR 40'S...SAO2 DECREASED TO 69-70%...PROPOFOL TO 30 MCG/KG AND FENTANYL TO 200 MCG/HR WITH GRADUAL RETURN OF SYNCHRONY..LENGTHY RECOVERY TIME TO SAO2 90-93%...REMAINS MINIMAL URINE OUTPUT...BURNETT DRAINED 34ml PAST 8 HOURS...T-MAX 102.6...pH UNCHANGED THIS AM...ICU PA PRESENT AND AWARE
[2021-03-01 06:28] LABS: SLIDE REVIEW VERIFIED
[2021-03-01 06:40] LABS: Alanine Aminotransferase 35 U/L (0-40); Albumin Level 3.2 g/dL (3.5-5.0); Alkaline Phosphatase 67 U/L (39-117); Anion Gap 21 (12-20); Aspartate Amino Transferase 47 U/L (5-37); Bilirubin Total 0.8 mg/dL (0.0-1.0); Blood Urea Nitrogen 75 mg/dL (9-16); C Reactive Protein 3.65 mg/dL (< or = 0.50); Carbon Dioxide 24 mmol/L (22-29); Chloride 96 mmol/L (96-108); Creatinine Clr Calc Pharmacy 18.7; Estimated Glomerular Filt Rate 10; Glucose Random 285 mg/dL (60-115); Phosphorus 10.8 mg/dL (2.7-4.5); Potassium 5.7 mmol/L (3.3-5.1); Sodium 135 mmol/L (135-145)
[2021-03-01] MEDS: Chlorhexidine Gluc Oral Rinse 15 ML MOUTHWASH BUCCAL ×3 (07:43→20:04)
[2021-03-01] MEDS: Sodium Polystyrene Sulfon/Sorb 15 GM/60 ML ORAL.SUSP 60 GM OG-TUBE (07:54)
[2021-03-01] MEDS: Metoclopramide HCl Oral Soln 10 MG/10 ML SOLUTION 5 MG G-TUBE ×2 (08:12→20:04)
[2021-03-01] MEDS: Heparin Sodium,Porcine 5,000 UNIT/ML VIAL 7500 UNIT SUBCUT ×3 (08:13→20:04)
[2021-03-01] MEDS: Aspirin 81 MG TAB.CHEW G-TUBE (08:13)
[2021-03-01] MEDS: Cholecalciferol (Vitamin D3) 25 MCG TABLET 50 MCG G-TUBE (08:14)
[2021-03-01] MEDS: Atorvastatin Calcium 80 MG TABLET G-TUBE (08:14)
[2021-03-01] MEDS: Thiamine HCL 100 MG TABLET 200 MG G-TUBE ×2 (08:14→20:04)
[2021-03-01] MEDS: Famotidine 20 MG TABLET G-TUBE (08:14)
[2021-03-01 08:33] LABS: Venous Blood Gas Refer to POC result
[2021-03-01] MEDS: methylPREDNISolone Sod Succ 500 MG in 0.9 % Sodium Chloride 50 ML 50 MG IV ×2 (08:54→21:04)
[2021-03-01 09:01] LABS: Glucose, Whole Blood 246 mg/dL (60-115)
--- NOTE | 2021-03-01 09:13 | MHC.CLN ---
F/U PT DID RE-START TF YESTERDAY BUT CURRENTLY ON HOLD SINCE 03/01 HIGH GRVS WHEN TF TO RE-START; RECOMMEND TRICKLE FEEDS NEPRO START AT 10CC/HR AND INCREASE BY 10CC Q 6HRS AT MAX GOAL RATE 45CC/HR WITH 120CC FREE WATER Q 4 HOURS TO PROVIDE 1944KCALS (27KCALS/KG BASED ON IBW), 87G (1.2G/KG), 1265CC TOTAL WATER FROM FORMULA AND FLUSHES MONITOR TOLERANCE, RESIDUALS AND LYTES FOLLOWING
[2021-03-01] MEDS: Insulin Regular/NS 100 UNIT/100 ML PLAST..BAG IVCONT (12:38)
[2021-03-01 13:02] LABS: Glucose, Whole Blood 268 mg/dL (60-115)
[2021-03-01 14:44] LABS: Vancomycin Random 26.3 mcg/mL (15-20)
[2021-03-01 14:58] LABS: Glucose, Whole Blood 216 mg/dL (60-115)
--- NOTE | 2021-03-01 16:04 | P.PNID_ITS ---
Subjective Subjective Date of Service: 03/01/21 Interval History: he remains vented Objective Data Labs CBC & Chem 7: 03/01/21 05:40 03/01/21 05:40 Labs: Laboratory Results - last 24 hr 02/28/21 02/28/21 02/28/21 17:49 17:55 18:05 WBC RBC Hgb Hct MCV MCH MCHC RDW Plt Count MPV Immature Gran % (Auto) Neut % (Auto) Lymph % (Auto) [place] % (Auto) Eos % (Auto) Baso % (Auto) Lymph # (Auto) [place] # (Auto) Eos # (Auto) Baso # (Auto) Abs Immat Gran (auto) Absolute Neuts (auto) Absolute Nucleated RBC Nucleated RBC % (auto) Smear Tech's Comments D-Dimer O2 Saturation 93.0 ABG pH at Pt Temp 7.18 L* ABG pCO2 at Pt Temp 70 H* ABG pO2 at Pt Temp 77 L ABG HCO3 26 ABG Base Excess (Actual) -3.1 VBG pH 7.15 L* VBG pCO2 77 VBG pO2 78 VBG HCO3 27 H VBG O2 Saturation 93.0 VBG Base Excess -3.0 Sodium Potassium Chloride Carbon Dioxide Anion Gap BUN Creatinine Estim Creat Clear Calc Estimated GFR POC Glucose 223 H Random Glucose Calcium Phosphorus Total Bilirubin AST ALT Alkaline Phosphatase Total Creatine Kinase C-Reactive Protein Total Protein Albumin Random Vancomycin 02/28/21 03/01/21 03/01/21 23:37 05:40 05:40 WBC 23.2 H RBC 3.11 L Hgb 9.7 L Hct 30.9 L MCV 99.4 H MCH 31.2 MCHC 31.4 RDW 13.9 Plt Count 189 MPV 11.5 Immature Gran % (Auto) 3.0 H Neut % (Auto) 91.9 H Lymph % (Auto) 2.6 L [place] % (Auto) 2.4 Eos % (Auto) 0.0 Baso % (Auto) 0.1 Lymph # (Auto) 0.6 L [place] # (Auto) 0.6 Eos # (Auto) 0.0 Baso # (Auto) 0.0 Abs Immat Gran (auto) 0.70 H Absolute Neuts (auto) 21.3 H Absolute Nucleated RBC 0.070 H Nucleated RBC % (auto) 0.3 H Smear Tech's Comments VERIFIED D-Dimer 4705 O2 Saturation ABG pH at Pt Temp ABG pCO2 at Pt Temp ABG pO2 at Pt Temp ABG HCO3 ABG Base Excess (Actual) VBG pH VBG pCO2 VBG pO2 VBG HCO3 VBG O2 Saturation VBG Base Excess Sodium Potassium Chloride Carbon Dioxide Anion Gap BUN Creatinine Estim Creat Clear Calc Estimated GFR POC Glucose 228 H Random Glucose Calcium Phosphorus Total Bilirubin AST ALT Alkaline Phosphatase Total Creatine Kinase C-Reactive Protein Total Protein Albumin Random Vancomycin 03/01/21 03/01/21 03/01/21 05:40 05:41 05:46 WBC RBC Hgb Hct MCV MCH MCHC RDW Plt Count MPV Immature Gran % (Auto) Neut % (Auto) Lymph % (Auto) [place] % (Auto) Eos % (Auto) Baso % (Auto) Lymph # (Auto) [place] # (Auto) Eos # (Auto) Baso # (Auto) Abs Immat Gran (auto) Absolute Neuts (auto) Absolute Nucleated RBC Nucleated RBC % (auto) Smear Tech's Comments D-Dimer O2 Saturation ABG pH at Pt Temp ABG pCO2 at Pt Temp ABG pO2 at Pt Temp ABG HCO3 ABG Base Excess (Actual) VBG pH 7.15 L* VBG pCO2 70 VBG pO2 72 VBG HCO3 25 VBG O2 Saturation 90.0 VBG Base Excess -4.4 Sodium 135 Potassium 5.7 H Chloride 96 Carbon Dioxide 24 Anion Gap 21 H BUN 75 H Creatinine 6.22 H* Estim Creat Clear Calc 18.7 Estimated GFR 10 POC Glucose 246 H Random Glucose 285 H Calcium 7.0 L Phosphorus 10.8 H Total Bilirubin 0.8 AST 47 H ALT 35 Alkaline Phosphatase 67 Total Creatine Kinase 1002 H D C-Reactive Protein 3.65 H Total Protein 6.0 L Albumin 3.2 L Random Vancomycin 03/01/21 03/01/21 03/01/21 12:21 13:42 14:54 WBC RBC Hgb Hct MCV MCH MCHC RDW Plt Count MPV Immature Gran % (Auto) Neut % (Auto) Lymph % (Auto) [place] % (Auto) Eos % (Auto) Baso % (Auto) Lymph # (Auto) [place] # (Auto) Eos # (Auto) Baso # (Auto) Abs Immat Gran (auto) Absolute Neuts (auto) Absolute Nucleated RBC Nucleated RBC % (auto) Smear Tech's Comments D-Dimer O2 Saturation ABG pH at Pt Temp ABG pCO2 at Pt Temp ABG pO2 at Pt Temp ABG HCO3 ABG Base Excess (Actual) VBG pH VBG pCO2 VBG pO2 VBG HCO3 VBG O2 Saturation VBG Base Excess Sodium Potassium Chloride Carbon Dioxide Anion Gap BUN Creatinine Estim Creat Clear Calc Estimated GFR POC Glucose 268 H 216 H Random Glucose Calcium Phosphorus Total Bilirubin AST ALT Alkaline Phosphatase Total Creatine Kinase C-Reactive Protein Total Protein Albumin Random Vancomycin 26.3 H* Microbiology Microbiology Results: Microbiology 02/25/21 07:47 Blood - Venous Blood Culture - Preliminary No growth after 48 hours. 02/25/21 07:47 Blood - Venous Blood Culture - Preliminary No growth after 48 hours. 02/25/21 15:53 Urine Catheterized - Hebert Catheter Urine Culture - Final No growth. 02/21/21 11:52 Sputum - Suctioned Gram Stain - Final 02/21/21 11:52 Sputum - Suctioned Sputum Culture - Final 02/21/21 12:12 Urine Catheterized - Hebert Catheter Urine Culture - Final No growth. 02/09/21 18:28 Blood - Venous Blood Culture - Final No growth after 5 days. 02/09/21 18:29 Blood - Venous Blood Culture - Final No growth after 5 days. Physical Exam Vital Signs: Vital Signs: Last Vital Signs Temp 101.8 F H 03/01/21 15:55 Pulse 130 H 03/01/21 15:55 Resp 26 H 03/01/21 15:55 BP 98/48 L 03/01/21 15:55 Pulse Ox 89 L 03/01/21 15:55 Body Mass Index 39.6 Const: General: cooperative HENMT: Head: Yes normal to inspection Mouth: Normal oral and palatal mucosa present Resp: Effort & Inspection: normal respiratory effort Cardio: Rate: regular rate Rhythm: regular rhythm GI: Inspection: Yes normal to inspection Skin: General skin exam: no rashes or lesions noted Assessment and Plan Assessment and plan (1) Pressure ulcer of other site, stage 2: Status: Acute (2) Pneumonia due to 2019-nCoV: Problem details: He has concerns over ongoing possible infection He is not candidate for Tocilizumab since over 14 days and not helpful He is now on Vancomycin,concern over sepsis Status: Acute Assessment and Plan: Would continue Vancomycin for now Await cultures Time Spent With Patient Time: Total time spent is greater than 50% in coordination of care (as documented) at patient's floor/unit and/or counseling patient: Time with patient: 15 - 24 minutes
--- NOTE | 2021-03-01 19:24 | PC.NURSE ---
Pt sedated with propofol and fentanyl, weak cough gag, unable to follow commands. T max 102.6, VSS with assistance from Vasopressin and Levophed increased to 0.27mcg/kg/min. Pt on PC, FIO2 increased to 100% from 90% this AM. No inline secretions noted. Hebert removed and [place] catheter placed per md/id, pt bladder scanned for 86ml at 1600. Rectal tube patent. Attempted to restart tube feedings Nepro at 10ml/her, residual at 1200 was 370, notified MD, stopped tube feedings. Popped blister noted on left inner ankle, cleaned and pink foam applied, some redness noted on buttocks, barrier cream applied. Bath given. Repo q2, prevalon mattress, barrier cream used.
[2021-03-01 19:58] LABS: Glucose, Whole Blood 177 mg/dL (60-115)
--- NOTE | 2021-03-01 21:28 | P.PNCC_ITS ---
Subjective Subjective Date of Service: 03/01/21 Interval History: Mr. Sawyer Nelson was transferred to the ICU on February 13 with acute hypoxemic respiratory failure secondary to COVID pneumonia. The patient is a 50-year-old male with history of morbid obesity (5 ft 9, 122 kg), hypertension, gout, and diabetes. The patient presented to the hospital ambulatory on February 09 with complaints of shortness of breath, fever, body aches, weakness, asthma like symptoms, for the prior few days. Sat was 90% on room air. Labs were notable for severe lymphopenia; other biomarkers were low. CT angiogram showed mild-moderate scattered multifocal ground-glass infiltrates characteristic of COVID-19. Right heart and pulmonary artery characteristics were otherwise normal. The patient was admitted to Medicine and started on Decadron. He also had a 5 day course of remdesivir. The patient's oxygenation deteriorated progressively and on February 13, he was transferred to the ICU for CPAP. He required 100% FiO2 on CPAP and then BiPAP. The patient repetitively refused tracheal intubation. Ultimately, he developed ventilatory failure and was intubated emergently on February 20, suffering a afshan- intubation ethan-arrest. He received 2 rounds of CPR, about 5 minutes each. Since then, he?s been on 100% FiO2 almost continuously; has gotten down to as low as 80% only briefly. He developed anuric ATN and was started on dialysis on February 23. Has required a couple of proning episodes, the last one on February 26, necessitated by Sats in the 60?s. Was turned down for ECMO by three referral centers. We returned him supine on February 28, and changed him to PCV, able to maintain SpO2 about 90% on 90% FiO2/15cm PEEP. But his pCO2 is climbing. We changed him to the [facility] COVID protocol on February 28, with solumedrol 80mg bid, plus ancillary agents. Yesterday started him on pulse steroids, 1G/day x 3 days. On exam yesterday, on moderate propofol and fent (the Versed was d/c?d 02/28), he was completely unresponsive to all stimulation, with no brain stem reflexes. We cut the propfol and fentanyl in half, and he became very active and bucking the ventilator, so he was resdeated. See Vital Signs. He?s on vasopressin at 0.03u and Levophed at 0.3ug. Tmax 102.6?. He?s on PC f30, 17/15, 1:1.5, 100%, with RR 30, PIP 33, Vt 470cc, Ve 14L, ETCO2 52, Sat 96%. CVBG this morning showed 7.15/70/-4. Dialyzed this morning. PERRL, 5mm. No obvious JVD at 30?. Abdomen is benign. No significant peripheral edema. LABORATORY DATA: Below. He?s still severely lymphopenic. POCs in the 200s, started on insulin drip today. Potassium still up. CRP is down. IMAGING: DVT study of the lower extremities on 02/27 was negative. MICROBIOLOGY: BCs on 02/28 were negative. He?s not producing any sputum. ANTIBIOTICS: Empiric vancomycin. ECHOCARDIOGRAM done by the [facility], interpreted by me: 1. LV wall thickness is top normal or mildly increased. 2. LV function is hyperdynamic, with no regional wall motion abnormalities EF about 70%. 3. RV is ballooned out with RV:LV ratio at least 1.0. 4. Left atrium is normal. Right atrium is top normal or mildly increased, but definitely larger than the left atrium. 5. 1+ TR by color-flow; tricuspid valve jet measured 2.4 m/sec. Gradient 23mm 6. IVC is mildly dilated (2.2 cm) with minimal inspiratory collapse. RVSP estimate 38 mm. IMPRESSION: 1. Underlying morbid obesity and diabetes. 2. Bilateral COVID pneumonia. We upped his regimen to the [facility] protocol, and then pulse steroids, today is day# 2. I also added ASA 81mg daily. 3. Acute respiratory failure. Secondary to above. Venting w permissive hypercapnia. May need to start bicarb drip. 4. ? R/o PE. Worsening hypotension, the RV and RA on echo, and the BNP are c/w PE, altho nonspecific. The troponin is not, in particular, nor is the lactate. And the echo does not show an underfilled LV. No way to send him for any scan to r/o PE. I bumped his heparin to 7500 u SQ TID and ASA. Not a candidate for any kind of lytic bec of previous bleeding. 5. S/P cardiac arrest. Woke up vigorously with sedation holiday. Altho we don?t know the extent of any potential deficits. 6. Acute renal failure 2?ATN. Plan HD daily this week. 7. Hypotension. Echo is c/w right heart failure, but can?t say whether that?s new or old. Could have a PE, or could be septic (altho negative lactate is not suggestive). 8. ID: We?ve put him on vanco. Trying to get a sputum. Last cultures are negative. 9. DM. On infusion. 10. Nutrition. Starting tube feeds. Prognosis is very grave. Critical care time: 60 minutes. Physical Exam Vital Signs: Vital Signs: Last Vital Signs Temp 102.9 F H 03/01/21 21:00 Pulse 122 H 03/01/21 21:00 Resp 30 H 03/01/21 21:00 BP 98/31 L 03/01/21 21:00 Pulse Ox 96 03/01/21 21:00 Body Mass Index 39.6 Objective Data Labs CBC & Chem 7: 03/01/21 05:40 03/01/21 05:40 Labs: Laboratory Results - last 24 hr 02/28/21 03/01/21 03/01/21 23:37 05:40 05:40 WBC 23.2 H RBC 3.11 L Hgb 9.7 L Hct 30.9 L MCV 99.4 H MCH 31.2 MCHC 31.4 RDW 13.9 Plt Count 189 MPV 11.5 Immature Gran % (Auto) 3.0 H Neut % (Auto) 91.9 H Lymph % (Auto) 2.6 L [place] % (Auto) 2.4 Eos % (Auto) 0.0 Baso % (Auto) 0.1 Lymph # (Auto) 0.6 L [place] # (Auto) 0.6 Eos # (Auto) 0.0 Baso # (Auto) 0.0 Abs Immat Gran (auto) 0.70 H Absolute Neuts (auto) 21.3 H Absolute Nucleated RBC 0.070 H Nucleated RBC % (auto) 0.3 H Smear Tech's Comments VERIFIED D-Dimer 4705 VBG pH VBG pCO2 VBG pO2 VBG HCO3 VBG O2 Saturation VBG Base Excess Sodium Potassium Chloride Carbon Dioxide Anion Gap BUN Creatinine Estim Creat Clear Calc Estimated GFR POC Glucose 228 H Random Glucose Calcium Phosphorus Total Bilirubin AST ALT Alkaline Phosphatase Total Creatine Kinase C-Reactive Protein Total Protein Albumin Random Vancomycin 03/01/21 03/01/21 03/01/21 05:40 05:41 05:46 WBC RBC Hgb Hct MCV MCH MCHC RDW Plt Count MPV Immature Gran % (Auto) Neut % (Auto) Lymph % (Auto) [place] % (Auto) Eos % (Auto) Baso % (Auto) Lymph # (Auto) [place] # (Auto) Eos # (Auto) Baso # (Auto) Abs Immat Gran (auto) Absolute Neuts (auto) Absolute Nucleated RBC Nucleated RBC % (auto) Smear Tech's Comments D-Dimer VBG pH 7.15 L* VBG pCO2 70 VBG pO2 72 VBG HCO3 25 VBG O2 Saturation 90.0 VBG Base Excess -4.4 Sodium 135 Potassium 5.7 H Chloride 96 Carbon Dioxide 24 Anion Gap 21 H BUN 75 H Creatinine 6.22 H* Estim Creat Clear Calc 18.7 Estimated GFR 10 POC Glucose 246 H Random Glucose 285 H Calcium 7.0 L Phosphorus 10.8 H Total Bilirubin 0.8 AST 47 H ALT 35 Alkaline Phosphatase 67 Total Creatine Kinase 1002 H D C-Reactive Protein 3.65 H Total Protein 6.0 L Albumin 3.2 L Random Vancomycin 03/01/21 03/01/21 03/01/21 12:21 13:42 14:54 WBC RBC Hgb Hct MCV MCH MCHC RDW Plt Count MPV Immature Gran % (Auto) Neut % (Auto) Lymph % (Auto) [place] % (Auto) Eos % (Auto) Baso % (Auto) Lymph # (Auto) [place] # (Auto) Eos # (Auto) Baso # (Auto) Abs Immat Gran (auto) Absolute Neuts (auto) Absolute Nucleated RBC Nucleated RBC % (auto) Smear Tech's Comments D-Dimer VBG pH VBG pCO2 VBG pO2 VBG HCO3 VBG O2 Saturation VBG Base Excess Sodium Potassium Chloride Carbon Dioxide Anion Gap BUN Creatinine Estim Creat Clear Calc Estimated GFR POC Glucose 268 H 216 H Random Glucose Calcium Phosphorus Total Bilirubin AST ALT Alkaline Phosphatase Total Creatine Kinase C-Reactive Protein Total Protein Albumin Random Vancomycin 26.3 H* 03/01/21 19:48 WBC RBC Hgb Hct MCV MCH MCHC RDW Plt Count MPV Immature Gran % (Auto) Neut % (Auto) Lymph % (Auto) [place] % (Auto) Eos % (Auto) Baso % (Auto) Lymph # (Auto) [place] # (Auto) Eos # (Auto) Baso # (Auto) Abs Immat Gran (auto) Absolute Neuts (auto) Absolute Nucleated RBC Nucleated RBC % (auto) Smear Tech's Comments D-Dimer VBG pH VBG pCO2 VBG pO2 VBG HCO3 VBG O2 Saturation VBG Base Excess Sodium Potassium Chloride Carbon Dioxide Anion Gap BUN Creatinine Estim Creat Clear Calc Estimated GFR POC Glucose 177 H Random Glucose Calcium Phosphorus Total Bilirubin AST ALT Alkaline Phosphatase Total Creatine Kinase C-Reactive Protein Total Protein Albumin Random Vancomycin Microbiology Microbiology Results: Microbiology 02/25/21 07:47 Blood - Venous Blood Culture - Preliminary No growth after 48 hours. 02/25/21 07:47 Blood - Venous Blood Culture - Preliminary No growth after 48 hours. 02/25/21 15:53 Urine Catheterized - Hebert Catheter Urine Culture - Final No growth. 02/21/21 11:52 Sputum - Suctioned Gram Stain - Final 02/21/21 11:52 Sputum - Suctioned Sputum Culture - Final 02/21/21 12:12 Urine Catheterized - [place] Catheter Urine Culture - Final No growth. 02/09/21 18:28 Blood - Venous Blood Culture - Final No growth after 5 days. 02/09/21 18:29 Blood - Venous Blood Culture - Final No growth after 5 days.
[2021-03-01 21:43] LABS: Glucose, Whole Blood 181 mg/dL (60-115)
[2021-03-01] MEDS: propofoL 1,000 MG/100 ML VIAL 14.64 MG IVCONT (23:19)
[2021-03-02] VITALS (24 sets, daily range): BP systolic 73–120; BP diastolic 28–46; PULSE 103–124; RESP 20–32; TEMP 39.3–41; O2SAT 79–94
[2021-03-02 00:29] LABS: Glucose, Whole Blood 172 mg/dL (60-115)
[2021-03-02] MEDS: propofoL 1,000 MG/100 ML VIAL 14.64 MG IVCONT ×3 (03:58→14:24)
[2021-03-02 06:15] LABS: Glucose, Whole Blood 144 mg/dL (60-115)
[2021-03-02 06:15] LABS: VBG Base Excess -2.9 mmol/L; VBG HCO3 28 mmol/L (22-26); VBG pCO2 90 mmHg; VBG pO2 53 mmHg
[2021-03-02 06:15] LABS: Glucose, Whole Blood 141 mg/dL (60-115)
[2021-03-02 06:18] LABS: Vancomycin Random 21.8 mcg/mL (15-20)
[2021-03-02 06:25] LABS: Basophils Percent Auto 0.1 % (0-2); Hematocrit 29.6 % (42-52); Hemoglobin 9.1 g/dl (14.0-18.0); Imm Gran Abs Auto 0.47 X10*3/uL (0.00-0.03); Imm Gran Pct Auto 2.1 % (0.0-0.4); Lymphocytes Absolute Auto 0.6 X10*3/uL (1.2-4.9); Lymphocytes Percent Auto 2.7 % (20-40); MANUAL DIFF FLAG SCAN; Mean Corpuscular HGB Conc 30.7 g/dl (31.0-36.0); Mean Corpuscular Hemoglobin 31.1 pg (27.0-33.0); Mean Platelet Volume 11.1 fL (9.4-12.4); Monocytes Absolute Auto 0.5 X10*3/uL (0.1-1.2); Monocytes Percent Auto 2.1 % (2-11); NRBC Pct Auto 0.7 /100WBC (0.0-0.2); Neutrophils Absolute Auto 20.8 X10*3/uL (2.0-8.3); Platelet Count 168 X10*3/uL (160-400); Red Blood Count 2.93 X10*6/uL (4.60-5.80); Red Cell Distribution Width 13.9 % (11.0-16.0); SCAN SMEAR FLAG 1; White Blood Count 22.4 X10*3/uL (4.8-10.8)
[2021-03-02] MEDS: Acetaminophen 325 MG TABLET 650 MG PO (06:26)
[2021-03-02] MEDS: fentaNYL citrate/NS 1,000 MCG/100 ML PLAST..BAG 20 MCG IVCONT ×3 (06:27→13:32)
[2021-03-02 07:16] LABS: Alanine Aminotransferase 41 U/L (0-40); Albumin Level 3.2 g/dL (3.5-5.0); Alkaline Phosphatase 60 U/L (39-117); Anion Gap 21 (12-20); Aspartate Amino Transferase 75 U/L (5-37); Bilirubin Total 0.7 mg/dL (0.0-1.0); Blood Urea Nitrogen 77 mg/dL (9-16); Calcium 6.3 mg/dL (8.4-10.2); Carbon Dioxide 24 mmol/L (22-29); Chloride 98 mmol/L (96-108); Creatinine Clr Calc Pharmacy 15.3; Estimated Glomerular Filt Rate 8; Glucose Random 133 mg/dL (60-115); Sodium 138 mmol/L (135-145); Total Protein 5.9 g/dL (6.5-8.0)
[2021-03-02] MEDS: Chlorhexidine Gluc Oral Rinse 15 ML MOUTHWASH BUCCAL ×2 (07:30→13:31)
[2021-03-02] MEDS: 0.9 % Sodium Chloride Flush 3 ML SYRINGE IVFLUSH ×2 (07:30→16:20)
[2021-03-02] MEDS: Metoclopramide HCl Oral Soln 10 MG/10 ML SOLUTION 5 MG G-TUBE (07:32)
[2021-03-02] MEDS: Cholecalciferol (Vitamin D3) 25 MCG TABLET 50 MCG G-TUBE (07:33)
[2021-03-02] MEDS: Aspirin 81 MG TAB.CHEW G-TUBE (07:34)
[2021-03-02] MEDS: Heparin Sodium,Porcine 5,000 UNIT/ML VIAL 7500 UNIT SUBCUT (07:34)
[2021-03-02] MEDS: Atorvastatin Calcium 80 MG TABLET G-TUBE (07:34)
[2021-03-02] MEDS: Famotidine 20 MG TABLET G-TUBE (07:34)
[2021-03-02] MEDS: Thiamine HCL 100 MG TABLET 200 MG G-TUBE (07:34)
[2021-03-02 07:46] LABS: Venous Blood Gas Refer to POC result
[2021-03-02] MEDS: Albuterol/Iprat 2.5/0.5MG 3 ML AMPUL.NEB INHALE ×3 (07:58→11:35)
[2021-03-02 08:22] LABS: SLIDE REVIEW VERIFIED
[2021-03-02 08:51] LABS: Glucose, Whole Blood 130 mg/dL (60-115)
--- NOTE | 2021-03-02 08:55 | PC.NURSE ---
Patient's VS: Temp 104.5, HR 105, RR30, BP 84/30. Patient remains on max rate of Levophed and Vasopressin per MD order. MD made aware of vital signs/BP. No new orders at this time. Will continue to monitor and report VS to MD.
[2021-03-02] MEDS: methylPREDNISolone Sod Succ 500 MG in 0.9 % Sodium Chloride 50 ML 50 MG IV (10:05)
[2021-03-02] MEDS: Insulin Regular/NS 100 UNIT/100 ML PLAST..BAG IVCONT (10:24)
[2021-03-02] MEDS: Piperacillin Sodium/Tazobactam 2.25 GM in 0.9 % Sodium Chloride 50 ML IV (10:24)
[2021-03-02 10:44] LABS: Glucose, Whole Blood 110 mg/dL (60-115)
[2021-03-02] MEDS: Cisatracurium Besylate 20 MG/10 ML VIAL IVPUSH ×2 (12:05→16:00)
[2021-03-02 12:28] LABS: Glucose, Whole Blood 151 mg/dL (60-115)
[2021-03-02 14:47] LABS: ABG HCO3 24 mmol/L (22-26); ABG pCO2 73 mmHg (32-45); ABG pCO2 TC 85 mmHg (32-45); ABG pH 7.11 (7.35-7.45); ABG pH TC 7.07 (7.35-7.45); ABG pO2 52 mmHg (83-108); ABG pO2 TC 67 (83-108)
[2021-03-02] MEDS: Hydrocortisone Sod Succ/PF 100 MG VIAL IVPUSH (15:15)
[2021-03-02 15:19] LABS: Lactic Acid 0.8 mmol/L (0.5-2.0)
--- NOTE | 2021-03-02 15:27 | W.PM.CCHP ---
Procedures Arterial Line Arterial Line Comments: PROCEDURE: Insertion left axillary arterial line. Indications: Shock and acute respiratory failure. Anesthesia: Local and propofol/fentanyl sedation. The left axillary artery was identified by ultrasound. The axilla was then prepped and draped in full sterile fashion. Local anesthesia was infiltrated. The artery was cannulated under US guidance with the 20g thin wall, and the wire advanced without incident. The 20g x 12cm cannula advanced over the wire via Seldinger technique and hooked up to pressure, with a good waveform. The catheter was then sutured in place with 3-0 silk x 3. A biopatch and dry sterile dressing were applied. The patient tolerated the procedure well with no complications.
[2021-03-02 15:39] LABS: Glucose, Whole Blood 175 mg/dL (60-115)
[2021-03-02 16:53] LABS: Glucose, Whole Blood 160 mg/dL (60-115)
[2021-03-02] MEDS: EPINEPHrine 1 MG/10 ML SYRINGE IVPUSH (16:55)
[2021-03-02 17:41] LABS: ABG Refer to POC result
--- NOTE | 2021-03-02 17:46 | P.PNCC_ITS ---
Subjective Subjective Date of Service: 03/02/21 Interval History: Mr. Sawyer Nelson was transferred to the ICU on February 13 with acute hypoxemic respiratory failure secondary to COVID pneumonia. The patient is a 50-year-old male with history of morbid obesity (5 ft 9, 122 kg), hypertension, gout, and diabetes. The patient presented to the hospital ambulatory on February 09 with complaints of shortness of breath, fever, body aches, weakness, asthma like symptoms, for the prior few days. Sat was 90% on room air. Labs were notable for severe lymphopenia; other biomarkers were low. CT angiogram showed mild-moderate scattered multifocal ground-glass infiltrates characteristic of COVID-19. Right heart and pulmonary artery characteristics were otherwise normal. The patient was admitted to Medicine and started on Decadron. He also had a 5 day course of remdesivir. The patient's oxygenation deteriorated progressively and on February 13, he was transferred to the ICU for CPAP. He required 100% FiO2 on CPAP and then BiPAP. The patient repetitively refused tracheal intubation. Ultimately, he developed ventilatory failure and was intubated emergently on February 20, suffering a afshan- intubation ethan-arrest. He received 2 rounds of CPR, about 5 minutes each. Since then, he?s been on 100% FiO2 almost continuously; has gotten down to as low as 80% only briefly. He developed anuric ATN and was started on dialysis on February 23. Has required a couple of proning episodes, the last one on February 26, necessitated by Sats in the 60?s. Was turned down for ECMO by three referral centers. We returned him supine on February 28, and changed him to PCV, able to maintain SpO2 about 90% on 90% FiO2/15cm PEEP. But his pCO2 is climbing. We changed him to the [facility] COVID protocol on February 28, with solumedrol 80mg bid, plus ancillary agents. We then started him on pulse steroids, 1G/day x 3 days, today is day #3. On exam yesterday, when we dropped his propofol and fentanyl dose, he woke up and became very active and bucking the ventilator, with worsening oxygenation and ventilation, so he was resedated. On exam today, on propofol and fentanyl, he was overbreathing the ventilator by 1-2 breaths/min. See Vital Signs. Thru the day today, he was on vasopressin at 0.03u and the Levophed was up to 0.4ug. I put an arterial line in this afternoon (delayed bec of technical difficulties with the US machine; see separate procedure) and his BP was about the same as the cuff, in the 78-80/30?s range. His oxygenation and ventilation also deteriorated. An ABG at 2pm showed 7.11/73/52/-6 on PC f30, 20/15, I:E 1:1.5, 100%, with Vt 490cc, PIP 33cm. We upped his rate to 34, and his Pi to 22. Over the afternoon, we upped his Levophed to 0.5ug. Temp was spiking to 105?. We gissel repeat blood cultures; a lactic acid was normal. In the morning, we?d changed his vancomycin to Zosyn (the vanco wasn?t doing anything). Later in the afternoon, with Sat dropping to high 70?s, we proned him again. Went smoothly, no problems. His SpO2 increased to low 80?s transiently. No change in BP. Dialysis was discussed and it was decided to try a two hour ultrafiltration. (My concern was that he wouldn?t make the night without dialysis bec over the previous days this week, his dialysis sessions hadn?t been very effective and they hadn?t gotten his potassium down very much.) Just after starting dialysis, he dropped his pressure and HR. The dialysis was immed terminated. He required resuscitation with an amp of epinephrine. Jorge HR was in the 40-50 range. The epinephrine was successful, but after it wore off, he ethan?d down again and lost his pressure. At that point I called his HCP - his brother Mateo Parrish, - and let him know that his brother was dying. The patient became asystolic while we were on the phone. I let him know. Mr. Parrish said that he understood and would let the family know. He said he was flying up from [place] tomorrow and would make arrangements. Time of was 172. LABORATORY DATA: Below. MICROBIOLOGY: BCs on 02/28 were negative. He was not producing any sputum. ANTIBIOTICS: Empiric vancomycin and Zosyn. Last ECHOCARDIOGRAM done by the [facility], interpreted by me: 1. LV wall thickness is top normal or mildly increased. 2. LV function is hyperdynamic, with no regional wall motion abnormalities EF about 70%. 3. RV is ballooned out with RV:LV ratio at least 1.0. 4. Left atrium is normal. Right atrium is top normal or mildly increased, but definitely larger than the left atrium. 5. 1+ TR by color-flow; tricuspid valve jet measured 2.4 m/sec. Gradient 23mm 6. IVC is mildly dilated (2.2 cm) with minimal inspiratory collapse. RVSP estimate 38 mm. IMPRESSION: 1. Underlying morbid obesity and diabetes. 2. Bilateral COVID pneumonia. Failed EVMS protocol and then pulse steroids. 3. Acute respiratory failure. Secondary to above. Cause of today was likely hypoxemic and hypercapnic respiratory failure, along with right heart failure and viral sepsis. 4. ? R/o PE. Worsening hypotension, the RV and RA on echo, and the BNP were c/w PE, altho nonspecific. The troponin was not, however, nor was the lactate. And the echo did not show an underfilled LV. No way to send him for any scan to r/o PE. We had bumped his heparin to 7500 u SQ TID and started him on ASA. He was not a candidate for any kind of lytic bec of previous bleeding. And he?d had further bloody tracheal secretions today. 5. S/P earlier cardiac arrest. He?d woken up vigorously with sedation holiday however. 6. Acute renal failure 2?ATN. He was dialyzed daily this week. 7. Hypotension. Cause of worsening hypotension this week is unclear. The echo showed RHF, but can?t say whether that?s new or old. Could have had a PE, could have been septic (altho negative lactate and repetitive negative cultures were not suggestive). The default differential would be severe viral sepsis, as we?ve seen with previous COVID patients. 8. ID: Never had positive cultures, and he failed to respond to empiric abx. 9. DM. On insulin infusion. Critical care time today (excluding procedures): 2+ hours Physical Exam Vital Signs: Vital Signs: Last Vital Signs Temp 105.6 F H 03/02/21 16:00 Pulse 124 H 03/02/21 16:00 Resp 20 03/02/21 16:00 BP 73/34 L 03/02/21 15:00 Pulse Ox 83 L 03/02/21 16:00 Body Mass Index 39.6 Objective Data Labs CBC & Chem 7: 03/02/21 06:00 03/02/21 05:45 Labs: Laboratory Results - last 24 hr 03/01/21 03/01/21 03/01/21 19:48 21:32 23:36 WBC RBC Hgb Hct MCV MCH MCHC RDW Plt Count MPV Immature Gran % (Auto) Neut % (Auto) Lymph % (Auto) Cole % (Auto) Eos % (Auto) Baso % (Auto) Lymph # (Auto) Cole # (Auto) Eos # (Auto) Baso # (Auto) Abs Immat Gran (auto) Absolute Neuts (auto) Absolute Nucleated RBC Nucleated RBC % (auto) Smear Tech's Comments O2 Saturation ABG pH at Pt Temp ABG pH (Temp Correct) ABG pCO2 at Pt Temp ABG pCO2 (Temp Corrct ABG pO2 at Pt Temp ABG pO2 (Temp Correct ABG HCO3 ABG Base Excess (Actual) VBG pH VBG pCO2 VBG pO2 VBG HCO3 VBG O2 Saturation VBG Base Excess Sodium Potassium Chloride Carbon Dioxide Anion Gap BUN Creatinine Estim Creat Clear Calc Estimated GFR POC Glucose 177 H 181 H 172 H Random Glucose Lactic Acid Calcium Total Bilirubin AST ALT Alkaline Phosphatase Total Protein Albumin Random Vancomycin 03/02/21 03/02/21 03/02/21 01:58 04:12 05:40 WBC RBC Hgb Hct MCV MCH MCHC RDW Plt Count MPV Immature Gran % (Auto) Neut % (Auto) Lymph % (Auto) Cole % (Auto) Eos % (Auto) Baso % (Auto) Lymph # (Auto) Cole # (Auto) Eos # (Auto) Baso # (Auto) Abs Immat Gran (auto) Absolute Neuts (auto) Absolute Nucleated RBC Nucleated RBC % (auto) Smear Tech's Comments O2 Saturation ABG pH at Pt Temp ABG pH (Temp Correct) ABG pCO2 at Pt Temp ABG pCO2 (Temp Corrct ABG pO2 at Pt Temp ABG pO2 (Temp Correct ABG HCO3 ABG Base Excess (Actual) VBG pH 7.10 L* VBG pCO2 90 VBG pO2 53 VBG HCO3 28 H VBG O2 Saturation 82.0 VBG Base Excess -2.9 Sodium Potassium Chloride Carbon Dioxide Anion Gap BUN Creatinine Estim Creat Clear Calc Estimated GFR POC Glucose 141 H 144 H Random Glucose Lactic Acid Calcium Total Bilirubin AST ALT Alkaline Phosphatase Total Protein Albumin Random Vancomycin 03/02/21 03/02/21 03/02/21 05:45 05:45 06:00 WBC 22.4 H RBC 2.93 L Hgb 9.1 L Hct 29.6 L MCV 101.0 H MCH 31.1 MCHC 30.7 L RDW 13.9 Plt Count 168 MPV 11.1 Immature Gran % (Auto) 2.1 H Neut % (Auto) 93.0 H Lymph % (Auto) 2.7 L Cole % (Auto) 2.1 Eos % (Auto) 0.0 Baso % (Auto) 0.1 Lymph # (Auto) 0.6 L Cole # (Auto) 0.5 Eos # (Auto) 0.0 Baso # (Auto) 0.0 Abs Immat Gran (auto) 0.47 H Absolute Neuts (auto) 20.8 H Absolute Nucleated RBC 0.150 H Nucleated RBC % (auto) 0.7 H Smear Tech's Comments VERIFIED O2 Saturation ABG pH at Pt Temp ABG pH (Temp Correct) ABG pCO2 at Pt Temp ABG pCO2 (Temp Corrct ABG pO2 at Pt Temp ABG pO2 (Temp Correct ABG HCO3 ABG Base Excess (Actual) VBG pH VBG pCO2 VBG pO2 VBG HCO3 VBG O2 Saturation VBG Base Excess Sodium 138 Potassium 5.0 Chloride 98 Carbon Dioxide 24 Anion Gap 21 H BUN 77 H Creatinine 7.61 H* Estim Creat Clear Calc 15.3 Estimated GFR 8 POC Glucose Random Glucose 133 H D Lactic Acid Calcium 6.3 L D Total Bilirubin 0.7 AST 75 H ALT 41 H Alkaline Phosphatase 60 Total Protein 5.9 L Albumin 3.2 L Random Vancomycin 21.8 H 03/02/21 03/02/21 03/02/21 07:48 10:26 12:25 WBC RBC Hgb Hct MCV MCH MCHC RDW Plt Count MPV Immature Gran % (Auto) Neut % (Auto) Lymph % (Auto) Cole % (Auto) Eos % (Auto) Baso % (Auto) Lymph # (Auto) Cole # (Auto) Eos # (Auto) Baso # (Auto) Abs Immat Gran (auto) Absolute Neuts (auto) Absolute Nucleated RBC Nucleated RBC % (auto) Smear Tech's Comments O2 Saturation ABG pH at Pt Temp ABG pH (Temp Correct) ABG pCO2 at Pt Temp ABG pCO2 (Temp Corrct ABG pO2 at Pt Temp ABG pO2 (Temp Correct ABG HCO3 ABG Base Excess (Actual) VBG pH VBG pCO2 VBG pO2 VBG HCO3 VBG O2 Saturation VBG Base Excess Sodium Potassium Chloride Carbon Dioxide Anion Gap BUN Creatinine Estim Creat Clear Calc Estimated GFR POC Glucose 130 H 110 151 H Random Glucose Lactic Acid Calcium Total Bilirubin AST ALT Alkaline Phosphatase Total Protein Albumin Random Vancomycin 03/02/21 03/02/21 03/02/21 14:40 14:54 15:34 WBC RBC Hgb Hct MCV MCH MCHC RDW Plt Count MPV Immature Gran % (Auto) Neut % (Auto) Lymph % (Auto) Cole % (Auto) Eos % (Auto) Baso % (Auto) Lymph # (Auto) Cole # (Auto) Eos # (Auto) Baso # (Auto) Abs Immat Gran (auto) Absolute Neuts (auto) Absolute Nucleated RBC Nucleated RBC % (auto) Smear Tech's Comments O2 Saturation 80.0 ABG pH at Pt Temp 7.11 L* ABG pH (Temp Correct) 7.07 L* ABG pCO2 at Pt Temp 73 H* ABG pCO2 (Temp Corrct 85 H* ABG pO2 at Pt Temp 52 L ABG pO2 (Temp Correct 67 L ABG HCO3 24 ABG Base Excess (Actual) -6.0 VBG pH VBG pCO2 VBG pO2 VBG HCO3 VBG O2 Saturation VBG Base Excess Sodium Potassium Chloride Carbon Dioxide Anion Gap BUN Creatinine Estim Creat Clear Calc Estimated GFR POC Glucose 175 H Random Glucose Lactic Acid 0.8 Calcium Total Bilirubin AST ALT Alkaline Phosphatase Total Protein Albumin Random Vancomycin 03/02/21 16:49 WBC RBC Hgb Hct MCV MCH MCHC RDW Plt Count MPV Immature Gran % (Auto) Neut % (Auto) Lymph % (Auto) Cole % (Auto) Eos % (Auto) Baso % (Auto) Lymph # (Auto) Cole # (Auto) Eos # (Auto) Baso # (Auto) Abs Immat Gran (auto) Absolute Neuts (auto) Absolute Nucleated RBC Nucleated RBC % (auto) Smear Tech's Comments O2 Saturation ABG pH at Pt Temp ABG pH (Temp Correct) ABG pCO2 at Pt Temp ABG pCO2 (Temp Corrct ABG pO2 at Pt Temp ABG pO2 (Temp Correct ABG HCO3 ABG Base Excess (Actual) VBG pH VBG pCO2 VBG pO2 VBG HCO3 VBG O2 Saturation VBG Base Excess Sodium Potassium Chloride Carbon Dioxide Anion Gap BUN Creatinine Estim Creat Clear Calc Estimated GFR POC Glucose 160 H Random Glucose Lactic Acid Calcium Total Bilirubin AST ALT Alkaline Phosphatase Total Protein Albumin Random Vancomycin Microbiology Microbiology Results: Microbiology 02/25/21 07:47 Blood - Venous Blood Culture - Final No growth after 5 days. 02/25/21 07:47 Blood - Venous Blood Culture - Final No growth after 5 days. 02/28/21 20:17 Blood - Venous Blood Culture - Preliminary No growth after 24 hours. 02/28/21 20:17 Blood - Venous Blood Culture - Preliminary No growth after 24 hours. 02/25/21 15:53 Urine Catheterized - Hebert Catheter Urine Culture - Final No growth. 02/21/21 11:52 Sputum - Suctioned Gram Stain - Final 02/21/21 11:52 Sputum - Suctioned Sputum Culture - Final 02/21/21 12:12 Urine Catheterized - Hebert Catheter Urine Culture - Final No growth. 02/09/21 18:28 Blood - Venous Blood Culture - Final No growth after 5 days. 02/09/21 18:29 Blood - Venous Blood Culture - Final No growth after 5 days. Critical Care Time Critical Care Time (minutes): 120
--- NOTE | 2021-03-02 17:59 | P.PNNP_ITS ---
Subjective Subjective Date of Service: 03/02/21 Interval history: Seen and examoned. Events noted Physical Exam Vital Signs: Vital Signs: Last Vital Signs Temp 105.6 F H 03/02/21 16:00 Pulse 124 H 03/02/21 16:00 Resp 20 03/02/21 16:00 BP 73/34 L 03/02/21 15:00 Pulse Ox 83 L 03/02/21 16:00 Body Mass Index 39.6 Const: General: cooperative, healthy appearing, comfortable, no acute distress, alert, awake and ill appearing; No in distress, confusion or di aphoretic Nutritional Appearance: obese Orientation/consciousness: patient oriented x3 and No confusion Limitations: no limitations HENMT: Head: Yes normal to inspection Face and sinus: Yes normal facial exam Mouth: Normal oral and palatal mucosa present Eyes: General: appearance normal, both eyes and all related structures Sclerae: sclerae normal EOM: EOMs intact bilaterally Neck: Neck: Yes normal visual inspection, Yes full ROM, Yes no lymphadenopathy, Yes trachea midline and Yes supple Resp: Effort & Inspection: normal respiratory effort, able to speak in complete sentences and no respiratory distress Auscultation: clear to auscultation bilaterally, crackles (Diffuse bilateral) bilateral and diffuse, rhonchi, diminished lung sounds and other (coarse lung sounds) Cardio: Rate: regular rate and tachycardic Rhythm: regular rhythm Heart sounds: no gallops, no murmurs, no rubs and normal S1 and S2 GI: Inspection: Yes normal to inspection and Yes obesity Palpation (GI): Soft to palpation, nontender and Other GI palpation findings present ( Nontender) Auscultation: normal bowel sounds Skin: Other: On examination of the skin the patient has on the bridge of his knows a small area about the size of a dive of skin breakdown the deepest aspect is a stage II centrally. No other facial skin breakdown Patient has pitting edema of the lower extremities in anterior shins have several intact blisters. There is no evidence of pressure spots here General skin exam: no rashes or lesions noted and no pallor Lesions: no lesions Rashes: no rashes Neuro: General: patient oriented x3 and No confusion Cognition (Neuro): normal cognition Motor exam (neuro): No Asterixis during motor activity present Extrem: General: Yes normal to inspection, Yes no pedal edema, No clubbing, No cyanosis and Yes pedal edema (Trace bilateral) Objective Data Labs CBC & Chem 7: 03/02/21 06:00 03/02/21 05:45 Labs: Laboratory Results - last 24 hr 03/01/21 03/01/21 03/01/21 19:48 21:32 23:36 WBC RBC Hgb Hct MCV MCH MCHC RDW Plt Count MPV Immature Gran % (Auto) Neut % (Auto) Lymph % (Auto) M[place]ulloch % (Auto) Eos % (Auto) Baso % (Auto) Lymph # (Auto) [place]och # (Auto) Eos # (Auto) Baso # (Auto) Abs Immat Gran (auto) Absolute Neuts (auto) Absolute Nucleated RBC Nucleated RBC % (auto) Smear Tech's Comments O2 Saturation ABG pH at Pt Temp ABG pH (Temp Correct) ABG pCO2 at Pt Temp ABG pCO2 (Temp Corrct ABG pO2 at Pt Temp ABG pO2 (Temp Correct ABG HCO3 ABG Base Excess (Actual) VBG pH VBG pCO2 VBG pO2 VBG HCO3 VBG O2 Saturation VBG Base Excess Sodium Potassium Chloride Carbon Dioxide Anion Gap BUN Creatinine Estim Creat Clear Calc Estimated GFR POC Glucose 177 H 181 H 172 H Random Glucose Lactic Acid Calcium Total Bilirubin AST ALT Alkaline Phosphatase Total Protein Albumin Random Vancomycin 03/02/21 03/02/21 03/02/21 01:58 04:12 05:40 WBC RBC Hgb Hct MCV MCH MCHC RDW Plt Count MPV Immature Gran % (Auto) Neut % (Auto) Lymph % (Auto) [place] % (Auto) Eos % (Auto) Baso % (Auto) Lymph # (Auto) [place] # (Auto) Eos # (Auto) Baso # (Auto) Abs Immat Gran (auto) Absolute Neuts (auto) Absolute Nucleated RBC Nucleated RBC % (auto) Smear Tech's Comments O2 Saturation ABG pH at Pt Temp ABG pH (Temp Correct) ABG pCO2 at Pt Temp ABG pCO2 (Temp Corrct ABG pO2 at Pt Temp ABG pO2 (Temp Correct ABG HCO3 ABG Base Excess (Actual) VBG pH 7.10 L* VBG pCO2 90 VBG pO2 53 VBG HCO3 28 H VBG O2 Saturation 82.0 VBG Base Excess -2.9 Sodium Potassium Chloride Carbon Dioxide Anion Gap BUN Creatinine Estim Creat Clear Calc Estimated GFR POC Glucose 141 H 144 H Random Glucose Lactic Acid Calcium Total Bilirubin AST ALT Alkaline Phosphatase Total Protein Albumin Random Vancomycin 03/02/21 03/02/21 03/02/21 05:45 05:45 06:00 WBC 22.4 H RBC 2.93 L Hgb 9.1 L Hct 29.6 L MCV 101.0 H MCH 31.1 MCHC 30.7 L RDW 13.9 Plt Count 168 MPV 11.1 Immature Gran % (Auto) 2.1 H Neut % (Auto) 93.0 H Lymph % (Auto) 2.7 L M[place]ulloch % (Auto) 2.1 Eos % (Auto) 0.0 Baso % (Auto) 0.1 Lymph # (Auto) 0.6 L [place] # (Auto) 0.5 Eos # (Auto) 0.0 Baso # (Auto) 0.0 Abs Immat Gran (auto) 0.47 H Absolute Neuts (auto) 20.8 H Absolute Nucleated RBC 0.150 H Nucleated RBC % (auto) 0.7 H Smear Tech's Comments VERIFIED O2 Saturation ABG pH at Pt Temp ABG pH (Temp Correct) ABG pCO2 at Pt Temp ABG pCO2 (Temp Corrct ABG pO2 at Pt Temp ABG pO2 (Temp Correct ABG HCO3 ABG Base Excess (Actual) VBG pH VBG pCO2 VBG pO2 VBG HCO3 VBG O2 Saturation VBG Base Excess Sodium 138 Potassium 5.0 Chloride 98 Carbon Dioxide 24 Anion Gap 21 H BUN 77 H Creatinine 7.61 H* Estim Creat Clear Calc 15.3 Estimated GFR 8 POC Glucose Random Glucose 133 H D Lactic Acid Calcium 6.3 L D Total Bilirubin 0.7 AST 75 H ALT 41 H Alkaline Phosphatase 60 Total Protein 5.9 L Albumin 3.2 L Random Vancomycin 21.8 H 03/02/21 03/02/21 03/02/21 07:48 10:26 12:25 WBC RBC Hgb Hct MCV MCH MCHC RDW Plt Count MPV Immature Gran % (Auto) Neut % (Auto) Lymph % (Auto) [place] % (Auto) Eos % (Auto) Baso % (Auto) Lymph # (Auto) [place] # (Auto) Eos # (Auto) Baso # (Auto) Abs Immat Gran (auto) Absolute Neuts (auto) Absolute Nucleated RBC Nucleated RBC % (auto) Smear Tech's Comments O2 Saturation ABG pH at Pt Temp ABG pH (Temp Correct) ABG pCO2 at Pt Temp ABG pCO2 (Temp Corrct ABG pO2 at Pt Temp ABG pO2 (Temp Correct ABG HCO3 ABG Base Excess (Actual) VBG pH VBG pCO2 VBG pO2 VBG HCO3 VBG O2 Saturation VBG Base Excess Sodium Potassium Chloride Carbon Dioxide Anion Gap BUN Creatinine Estim Creat Clear Calc Estimated GFR POC Glucose 130 H 110 151 H Random Glucose Lactic Acid Calcium Total Bilirubin AST ALT Alkaline Phosphatase Total Protein Albumin Random Vancomycin 03/02/21 03/02/21 03/02/21 14:40 14:54 15:34 WBC RBC Hgb Hct MCV MCH MCHC RDW Plt Count MPV Immature Gran % (Auto) Neut % (Auto) Lymph % (Auto) [place] % (Auto) Eos % (Auto) Baso % (Auto) Lymph # (Auto) [place] # (Auto) Eos # (Auto) Baso # (Auto) Abs Immat Gran (auto) Absolute Neuts (auto) Absolute Nucleated RBC Nucleated RBC % (auto) Smear Tech's Comments O2 Saturation 80.0 ABG pH at Pt Temp 7.11 L* ABG pH (Temp Correct) 7.07 L* ABG pCO2 at Pt Temp 73 H* ABG pCO2 (Temp Corrct 85 H* ABG pO2 at Pt Temp 52 L ABG pO2 (Temp Correct 67 L ABG HCO3 24 ABG Base Excess (Actual) -6.0 VBG pH VBG pCO2 VBG pO2 VBG HCO3 VBG O2 Saturation VBG Base Excess Sodium Potassium Chloride Carbon Dioxide Anion Gap BUN Creatinine Estim Creat Clear Calc Estimated GFR POC Glucose 175 H Random Glucose Lactic Acid 0.8 Calcium Total Bilirubin AST ALT Alkaline Phosphatase Total Protein Albumin Random Vancomycin 03/02/21 16:49 WBC RBC Hgb Hct MCV MCH MCHC RDW Plt Count MPV Immature Gran % (Auto) Neut % (Auto) Lymph % (Auto) [place] % (Auto) Eos % (Auto) Baso % (Auto) Lymph # (Auto) [place] # (Auto) Eos # (Auto) Baso # (Auto) Abs Immat Gran (auto) Absolute Neuts (auto) Absolute Nucleated RBC Nucleated RBC % (auto) Smear Tech's Comments O2 Saturation ABG pH at Pt Temp ABG pH (Temp Correct) ABG pCO2 at Pt Temp ABG pCO2 (Temp Corrct ABG pO2 at Pt Temp ABG pO2 (Temp Correct ABG HCO3 ABG Base Excess (Actual) VBG pH VBG pCO2 VBG pO2 VBG HCO3 VBG O2 Saturation VBG Base Excess Sodium Potassium Chloride Carbon Dioxide Anion Gap BUN Creatinine Estim Creat Clear Calc Estimated GFR POC Glucose 160 H Random Glucose Lactic Acid Calcium Total Bilirubin AST ALT Alkaline Phosphatase Total Protein Albumin Random Vancomycin Microbiology Microbiology Results: Microbiology 02/25/21 07:47 Blood - Venous Blood Culture - Final No growth after 5 days. 02/25/21 07:47 Blood - Venous Blood Culture - Final No growth after 5 days. 02/28/21 20:17 Blood - Venous Blood Culture - Preliminary No growth after 24 hours. 02/28/21 20:17 Blood - Venous Blood Culture - Preliminary No growth after 24 hours. 02/25/21 15:53 Urine Catheterized - Hebert Catheter Urine Culture - Final No growth. 02/21/21 11:52 Sputum - Suctioned Gram Stain - Final 02/21/21 11:52 Sputum - Suctioned Sputum Culture - Final 02/21/21 12:12 Urine Catheterized - Hebert Catheter Urine Culture - Final No growth. 02/09/21 18:28 Blood - Venous Blood Culture - Final No growth after 5 days. 02/09/21 18:29 Blood - Venous Blood Culture - Final No growth after 5 days. Assessment & Plan Assessment and plan (1) Pressure ulcer of other site, stage 2: Status: Acute (2) Acute uremia: Status: Acute (3) Morbid obesity: Status: Acute (4) Pulmonary aspiration: Status: Acute (5) ELODIA (acute kidney injury): Problem details: Oliguric ELODIA in a setting of COVID-19 c/w cytokine storm assoc multifact ATN HyperK: controlled today Resp failure SEVERE: req pronataion on/off apparently not a candidate for ECMO Shock: req max doses of pressors Overall prognosis grim UF today and then HD tomorrow D/W ICU Status: Acute (6) Obesity: Status: Acute (7) Acute respiratory distress syndrome (ARDS) due to COVID-19 virus: Status: Acute (8) Viral sepsis: Status: Acute (9) Acute respiratory failure with hypoxia: Status: Acute (10) Pneumonia due to 2019-nCoV: Status: Acute (11) Hypoxia: Status: Acute (12) Unsteady gait: Status: Acute (13) Asthma: Status: Acute (14) Gout: Status: Acute (15) Pure hypercholesterolemia: Status: Acute (16) Diabetes mellitus: Status: Acute (17) Essential hypertension: Status: Acute Assessment and Plan: Would continue Vancomycin for now Await cultures Time Spent With Patient Time: Total time spent is greater than 50% in coordination of care (as documented) at patient's floor/unit and/or counseling patient:
--- NOTE | 2021-03-02 19:08 | PC.NURSE ---
Around 16:00 Dialysis started. At 16:30 patient's arterial blood pressure trended down as low as 57/32 on max rates of levophed and vasopressin. HR began to ethan down on tele with ectopy. MD called to bedside. Patient previously placed in prone position. Tolerated positioning fair. Dialysis stopped per MD. 1 mg iv epi given per MD order. HR up to 180s BP 138/68 temporarily. MD called HCP. Patient made DNR. Patient 17:29. Organ bank notified and patient declined REF# [id number]. See nursing documentation.
--- NOTE | 2021-03-02 19:53 | PM.DS ---
DS: Providers Provider Date of Service: 03/02/21 Date of admission: 02/09/21 23:00 Primary care physician: Ирина Oneill MD Consults: ADMISSION / DISCHARGE DIAGNOSIS 1. Acute Hypoxemic /hypercapnic respiratory failure in the setting of COVid-19 infection. 2. Bilateral COVID pneumonia and Viral Sepsis. Failed EVMS protocol and pulse steroids. 3. Right Heart Failure 4. ? R/o PE. Worsening hypotension, the RV and RA on echo, and the BNP were c/w PE, altho nonspecific. 5. S/P earlier cardiac arrest. 6. Acute renal failure 2?ATN requiring HD. 7. Hypotension unclear cause without evidence of bacterial, but could have been due to viral sepsis. 8. Viral Sepsiswithout evidence of Bacterial Infection; Never had positive cultures, and he failed to respond to empiric abx. 9. Acute Uremia due to ELODIA 10.Chronic Diabetes Mellitus 11. Chronic Asthma 12. Hyperlipedemia 13. Hx Gout 14. Essential Hypertension 15. Morbid Obesity 16. Stage 2 pressure Ulcer of the nose due to Bipap and prone positioning HPI / Hospital Course: Mr. Sawyer Nelson is a 50-year-old male who was transferred to the ICU on February 13 with acute hypoxemic respiratory failure secondary to COVID pneumonia; with history of morbid obesity (5 ft 9, 122 kg), hypertension, gout, and diabetes. The patient presented to the hospital ambulatory on February 09 with complaints of shortness of breath, fever, body aches, weakness, asthma like symptoms, for the prior few days. Sat was 90% on room air. Labs were notable for severe lymphopenia; other biomarkers were low. CT angiogram showed mild-moderate scattered multifocal ground-glass infiltrates characteristic of COVID-19. Right heart and pulmonary artery characteristics were otherwise normal. The patient was admitted to Medicine and started on Decadron. He also had a 5 day course of remdesivir. The patient's oxygenation deteriorated progressively and on February 13, he was transferred to the ICU for CPAP. He required 100% FiO2 on CPAP and then BiPAP. The patient repetitively refused tracheal intubation. Ultimately, he developed ventilatory failure and was intubated emergently on February 20, suffering a afshan-intubation ethan-arrest. He received 2 rounds of CPR, about 5 minutes each. Since then, he?s been on 100% FiO2 almost continuously; has gotten down to as low as 80% only briefly. He developed anuric ATN and was started on dialysis on February 23. Has required a couple of proning episodes, the last one on February 26, necessitated by Sats in the 60?s. Was turned down for ECMO by three referral centers. We returned him supine on February 28, and changed him to PCV, able to maintain SpO2 about 90% on 90% FiO2/15cm PEEP. But his pCO2 is climbing. We changed him to the EVKS COVID protocol on February 28, with solumedrol 80mg bid, plus ancillary agents. We then started him on pulse steroids, 1G/day x 3 days, today is day #3. Today 03/02/2021, while on propofol and fentanyl, he was overbreathing the ventilator by 1-2 breaths/min. See Vital Signs. Thru the day today, he was on vasopressin at 0.03u and the Levophed was up to 0.4ug. An arterial line was placed this afternoon (delayed bec of technical difficulties with the US machine; see separate procedure) and his BP was about the same as the cuff, in the 78-80/30?s range. His oxygenation and ventilation also deteriorated. An ABG at 2pm showed 7.11/73/52/-6 on PC f30, /, I:E 1:1.5, 100%, with Vt 490cc, PIP 33cm. They upped his rate to 34, and his Pi to 22. Over the afternoon, increased Levophed to 0.5ug. Temp was spiking to 105?; gissel repeat blood cultures; a lactic acid was normal. In the morning, we?d changed his vancomycin to Zosyn (the vanco wasn?t doing anything). This afternoon, with Sat dropping to high 70?s, we proned him again. Went smoothly, no problems. His SpO2 increased to low 80?s transiently. No change in BP. Dialysis was discussed and it was decided to try a two hour ultrafiltration. (Dr George concern was that he wouldn?t make the night without dialysis bec over the previous days this week, his dialysis sessions hadn?t been very effective and they hadn?t gotten his potassium down very much.) Just after starting dialysis, he dropped his pressure and HR. The dialysis was immed terminated. He required resuscitation with an amp of epinephrine. HR was in the 40-50 range. The epinephrine was successful, but after it wore off, he ethan?d down again and lost his pressure. At that point Dr George called his HCP - his brother Mateo Parrish, - and let him know that his brother was dying. The patient became asystolic while we were on the phone. Mr. Parrish said that he understood and would let the family know. He had said he was flying up from [place] tomorrow and would make arrangements. 02/11/21 10:47 Consult to Infectious Diseases Routine Consulting Provider: Veena Ponce Reason for consultation: Covid19 w Hypoxia, for eval and rec. possible Remdisivir 02/23/21 08:45 Consult to Wound Care Routine Consulting Provider: Lisa Watts Reason for consultation: check wound on nose for staging please; patient also has ankle blisters DS: Diagnosis Discharge Diagnosis (1) Pressure ulcer of other site, stage 2: Status: Acute (2) Acute uremia: Status: Acute (3) Morbid obesity: Status: Acute (4) Pulmonary aspiration: Status: Acute (5) ELODIA (acute kidney injury): Status: Acute Problem details: Oliguric ELODIA in a setting of COVID-19 c/w cytokine storm assoc multifact ATN HyperK: controlled today Resp failure SEVERE: req pronataion on/off apparently not a candidate for ECMO Shock: req max doses of pressors Overall prognosis grim UF today and then HD tomorrow D/W ICU (6) Obesity: Status: Acute (7) Acute respiratory distress syndrome (ARDS) due to COVID-19 virus: Status: Acute (8) Viral sepsis: Status: Acute (9) Acute respiratory failure with hypoxia: Status: Acute (10) Pneumonia due to 2019-nCoV: Status: Acute (11) Hypoxia: Status: Acute (12) Unsteady gait: Status: Acute (13) Asthma: Status: Acute (14) Gout: Status: Acute (15) Pure hypercholesterolemia: Status: Acute (16) Diabetes mellitus: Status: Acute (17) Essential hypertension: Status: Acute DS: Medications Discharge Medications Home Medications: Home Medications Medication Instructions Recorded Confirmed allopurinol 300 mg tablet 300 mg PO DAILY 10/24/20 02/09/21 colchicine 0.6 mg tablet 0.6 mg PO BID 10/24/20 02/09/21 fluticasone 232 mcg-salmeterol 14 1 inh PO BID 10/24/20 02/09/21 mcg/actuation breath activated hortenciadr naproxen 500 mg tablet 500 mg PO BID 10/24/20 02/09/21 allopurinol 200 mg PO DAILY 02/09/21 02/09/21 Previous Rx's Medication Instructions Recorded metformin 500 mg tablet 500 mg PO BID #180 tab 09/01/20 lisinopril 40 mg tablet 40 mg PO DAILY 90 Days #90 tab 10/24/20 DS: Summary Time Spent with Patient Time attestation: Total time spent providing and/or coordinating discharge services: Discharge coordination time: Greater than 30 minutes Physical Exam Vital Signs: Vital Signs: Last Vital Signs Temp 105.6 F H 03/02/21 16:00 Pulse 124 H 03/02/21 16:00 Resp 20 03/02/21 16:00 BP 73/34 L 03/02/21 15:00 Pulse Ox 83 L 03/02/21 16:00 Body Mass Index 39.6 DS: Data Data Completed and Pending Labs on day of discharge: Laboratory Results - last 24 hr 03/01/21 03/01/21 03/01/21 19:48 21:32 23:36 WBC RBC Hgb Hct MCV MCH MCHC RDW Plt Count MPV Immature Gran % (Auto) Neut % (Auto) Lymph % (Auto) [place] % (Auto) Eos % (Auto) Baso % (Auto) Lymph # (Auto) [place] # (Auto) Eos # (Auto) Baso # (Auto) Abs Immat Gran (auto) Absolute Neuts (auto) Absolute Nucleated RBC Nucleated RBC % (auto) Smear Tech's Comments O2 Saturation ABG pH at Pt Temp ABG pH (Temp Correct) ABG pCO2 at Pt Temp ABG pCO2 (Temp Corrct ABG pO2 at Pt Temp ABG pO2 (Temp Correct ABG HCO3 ABG Base Excess (Actual) VBG pH VBG pCO2 VBG pO2 VBG HCO3 VBG O2 Saturation VBG Base Excess Sodium Potassium Chloride Carbon Dioxide Anion Gap BUN Creatinine Estim Creat Clear Calc Estimated GFR POC Glucose 177 H 181 H 172 H Random Glucose Lactic Acid Calcium Total Bilirubin AST ALT Alkaline Phosphatase Total Protein Albumin Random Vancomycin 03/02/21 03/02/21 03/02/21 01:58 04:12 05:40 WBC RBC Hgb Hct MCV MCH MCHC RDW Plt Count MPV Immature Gran % (Auto) Neut % (Auto) Lymph % (Auto) [place] % (Auto) Eos % (Auto) Baso % (Auto) Lymph # (Auto) [place] # (Auto) Eos # (Auto) Baso # (Auto) Abs Immat Gran (auto) Absolute Neuts (auto) Absolute Nucleated RBC Nucleated RBC % (auto) Smear Tech's Comments O2 Saturation ABG pH at Pt Temp ABG pH (Temp Correct) ABG pCO2 at Pt Temp ABG pCO2 (Temp Corrct ABG pO2 at Pt Temp ABG pO2 (Temp Correct ABG HCO3 ABG Base Excess (Actual) VBG pH 7.10 L* VBG pCO2 90 VBG pO2 53 VBG HCO3 28 H VBG O2 Saturation 82.0 VBG Base Excess -2.9 Sodium Potassium Chloride Carbon Dioxide Anion Gap BUN Creatinine Estim Creat Clear Calc Estimated GFR POC Glucose 141 H 144 H Random Glucose Lactic Acid Calcium Total Bilirubin AST ALT Alkaline Phosphatase Total Protein Albumin Random Vancomycin 03/02/21 03/02/21 03/02/21 05:45 05:45 06:00 WBC 22.4 H RBC 2.93 L Hgb 9.1 L Hct 29.6 L MCV 101.0 H MCH 31.1 MCHC 30.7 L RDW 13.9 Plt Count 168 MPV 11.1 Immature Gran % (Auto) 2.1 H Neut % (Auto) 93.0 H Lymph % (Auto) 2.7 L [place] % (Auto) 2.1 Eos % (Auto) 0.0 Baso % (Auto) 0.1 Lymph # (Auto) 0.6 L [place] # (Auto) 0.5 Eos # (Auto) 0.0 Baso # (Auto) 0.0 Abs Immat Gran (auto) 0.47 H Absolute Neuts (auto) 20.8 H Absolute Nucleated RBC 0.150 H Nucleated RBC % (auto) 0.7 H Smear Tech's Comments VERIFIED O2 Saturation ABG pH at Pt Temp ABG pH (Temp Correct) ABG pCO2 at Pt Temp ABG pCO2 (Temp Corrct ABG pO2 at Pt Temp ABG pO2 (Temp Correct ABG HCO3 ABG Base Excess (Actual) VBG pH VBG pCO2 VBG pO2 VBG HCO3 VBG O2 Saturation VBG Base Excess Sodium 138 Potassium 5.0 Chloride 98 Carbon Dioxide 24 Anion Gap 21 H BUN 77 H Creatinine 7.61 H* Estim Creat Clear Calc 15.3 Estimated GFR 8 POC Glucose Random Glucose 133 H D Lactic Acid Calcium 6.3 L D Total Bilirubin 0.7 AST 75 H ALT 41 H Alkaline Phosphatase 60 Total Protein 5.9 L Albumin 3.2 L Random Vancomycin 21.8 H 03/02/21 03/02/21 03/02/21 07:48 10:26 12:25 WBC RBC Hgb Hct MCV MCH MCHC RDW Plt Count MPV Immature Gran % (Auto) Neut % (Auto) Lymph % (Auto) [place] % (Auto) Eos % (Auto) Baso % (Auto) Lymph # (Auto) [place] # (Auto) Eos # (Auto) Baso # (Auto) Abs Immat Gran (auto) Absolute Neuts (auto) Absolute Nucleated RBC Nucleated RBC % (auto) Smear Tech's Comments O2 Saturation ABG pH at Pt Temp ABG pH (Temp Correct) ABG pCO2 at Pt Temp ABG pCO2 (Temp Corrct ABG pO2 at Pt Temp ABG pO2 (Temp Correct ABG HCO3 ABG Base Excess (Actual) VBG pH VBG pCO2 VBG pO2 VBG HCO3 VBG O2 Saturation VBG Base Excess Sodium Potassium Chloride Carbon Dioxide Anion Gap BUN Creatinine Estim Creat Clear Calc Estimated GFR POC Glucose 130 H 110 151 H Random Glucose Lactic Acid Calcium Total Bilirubin AST ALT Alkaline Phosphatase Total Protein Albumin Random Vancomycin 03/02/21 03/02/21 03/02/21 14:40 14:54 15:34 WBC RBC Hgb Hct MCV MCH MCHC RDW Plt Count MPV Immature Gran % (Auto) Neut % (Auto) Lymph % (Auto) [place] % (Auto) Eos % (Auto) Baso % (Auto) Lymph # (Auto) [place] # (Auto) Eos # (Auto) Baso # (Auto) Abs Immat Gran (auto) Absolute Neuts (auto) Absolute Nucleated RBC Nucleated RBC % (auto) Smear Tech's Comments O2 Saturation 80.0 ABG pH at Pt Temp 7.11 L* ABG pH (Temp Correct) 7.07 L* ABG pCO2 at Pt Temp 73 H* ABG pCO2 (Temp Corrct 85 H* ABG pO2 at Pt Temp 52 L ABG pO2 (Temp Correct 67 L ABG HCO3 24 ABG Base Excess (Actual) -6.0 VBG pH VBG pCO2 VBG pO2 VBG HCO3 VBG O2 Saturation VBG Base Excess Sodium Potassium Chloride Carbon Dioxide Anion Gap BUN Creatinine Estim Creat Clear Calc Estimated GFR POC Glucose 175 H Random Glucose Lactic Acid 0.8 Calcium Total Bilirubin AST ALT Alkaline Phosphatase Total Protein Albumin Random Vancomycin 03/02/21 16:49 WBC RBC Hgb Hct MCV MCH MCHC RDW Plt Count MPV Immature Gran % (Auto) Neut % (Auto) Lymph % (Auto) [place] % (Auto) Eos % (Auto) Baso % (Auto) Lymph # (Auto) [place] # (Auto) Eos # (Auto) Baso # (Auto) Abs Immat Gran (auto) Absolute Neuts (auto) Absolute Nucleated RBC Nucleated RBC % (auto) Smear Tech's Comments O2 Saturation ABG pH at Pt Temp ABG pH (Temp Correct) ABG pCO2 at Pt Temp ABG pCO2 (Temp Corrct ABG pO2 at Pt Temp ABG pO2 (Temp Correct ABG HCO3 ABG Base Excess (Actual) VBG pH VBG pCO2 VBG pO2 VBG HCO3 VBG O2 Saturation VBG Base Excess Sodium Potassium Chloride Carbon Dioxide Anion Gap BUN Creatinine Estim Creat Clear Calc Estimated GFR POC Glucose 160 H Random Glucose Lactic Acid Calcium Total Bilirubin AST ALT Alkaline Phosphatase Total Protein Albumin Random Vancomycin Preliminary micro results at discharge 02/28/21 20:17 Blood Culture - Preliminary Blood - Venous No growth after 24 hours. 02/28/21 20:17 Blood Culture - Preliminary Blood - Venous No growth after 24 hours. Discharge Plan Discharge Date/Time: 03/02/21 19:37 Patient Disposition: Referrals: Ирина Rosa MD [Primary Care Provider] - 1 Week (Please call and schedule a follow up appointment.) Discharge Medications: No Action metformin 500 mg tablet 500 mg PO BID Qty: 180 RF: 6 allopurinol 100 mg tablet 200 mg PO DAILY RF: 0 colchicine 0.6 mg tablet 0.6 mg PO BID RF: 0 naproxen 500 mg tablet 500 mg PO BID RF: 0 allopurinol 300 mg tablet 300 mg PO DAILY RF: 0 fluticasone propion-salmeterol 232-14 mcg/actuation aerosol powdr breath activated 1 inh PO BID RF: 0 lisinopril 40 mg tablet 40 mg PO DAILY 90 Days Qty: 90 RF: 3 Discharge Orders: Discharge Order (Routine); Ordered 03/02/21 Ordered By: Contreras Pan Discharge Date/Time: 03/02/21 19:37
--- NOTE | 2021-03-07 11:13 | PC.RT ---
[facility] Collection 02/20/218: Critical po2 45. Was reported to [facility] Dominique by Moon Ambrocio. Confirmed by Press Bucker Domenic Vazquez
== END 2021-03-02 19:37 | disposition expired | DRG 720 ==
LOC: HO.ED 21:26 → HO.IMC 23:45 → HO.ICU 02-13 14:28
PROVIDERS: Hospitalist; Internal Medicine; Internal Medicine Cardiovascular Disease; Internal Medicine Hypertension Specialist; Internal Medicine Nephrology; Internal Medicine Pulmonary Disease; Physician Assistant; Physician Assistant Medical; Student in an Organized Health Care Education/Training Program; Admitting Provider Internal Medicine; Emergency Provider Internal Medicine; PCP Internal Medicine; Visit Provider Anesthesiology
DX: A41.89 Other specified sepsis (principal); U07.1 COVID-19; N17.0 Acute kidney failure with tubular necrosis; R65.21 Severe sepsis with septic shock; J80 Acute respiratory distress syndrome; I95.9 Hypotension, unspecified; E66.01 Morbid (severe) obesity due to excess calories; E11.9 Type 2 diabetes mellitus without complications; L89.812 Pressure ulcer of head, stage 2; E78.00 Pure hypercholesterolemia, unspecified; I46.9 Cardiac arrest, cause unspecified; Z68.39 Body mass index [BMI] 39.0-39.9, adult; I10 Essential (primary) hypertension; J12.82 Pneumonia due to coronavirus disease 2019; J45.909 Unspecified asthma, uncomplicated; M10.9 Gout, unspecified; Z87.891 Personal history of nicotine dependence; Z79.1 Long term (current) use of non-steroidal anti-inflammatories (NSAID); Z79.51 Long term (current) use of inhaled steroids; Z79.84 Long term (current) use of oral hypoglycemic drugs; Z79.899 Other long term (current) drug therapy
CPT/HCPCS: 11104; 36415; 36600; 71045; 71275; 80048; 80053; 80076; 80202; 81001; 82040; 82550; 82728; 82947; 83605; 83615; 83735; 83880; 84100; 84145; 84484; 85007; 85025; 85027; 85379; 85610; 85730; 86022; 86140; 86704; 86706; 86803; 87040; 87070; 87086; 87205; 87340; 87635; 90999; 93005; 93306; 93970; 94002; 94003; 94640; 94660; 94664; 94799; 96365; 96375; 99285; C1758; J0171; J0295; J0330; J0461; J0610; J0696; J0883; J1100; J1650; J1940; J2185; J2250; J2543; J2930; J3010; J3370; J3490; P9047; Q9967